=== PATIENT | male | born 1975 | race African-American/Black ===

== ENCOUNTER 2020-04-08 07:38 | Emergency (ER) | payer MEDICARE, BC, OTHER ==
[2020-04-08 07:45] LABS: Glucose,Whole Blood 462 mg/dL (75-99)
[2020-04-08 07:46] VITALS: TEMP 98.1
--- NOTE | 2020-04-08 07:49 | ED ---
Recheck HPI - General Chief Complaint: Recheck/Abnormal Lab/Rx Stated Complaint: Bleeding from port Time Seen by Provider: 04/08/20 07:38 Source: patient, EMS, RN notes reviewed Mode of arrival: EMS Limitations: no limitations - History of Present Illness Initial Comments: This is a 44-year-old male with a history of kidney failure with dialysis, diabetes, hypertension who had dialysis yesterday and states that he's been having some leaking from the IV access site in the left arm fistula. Is no other complaints he was found have elevated blood pressure and glucose he normally takes his medications at around 9:30 AM every morning. He has any feve rs chills nausea vomiting sweats he was concerned about the persistent bleeding. MD Complaint: other - Related Data Home Medications Medication Instructions Recorded Confirmed ALPRAZolam [Xanax] 0.5 mg PO DAILY PRN 11/27/14 11/29/14 Insulin NPH Hum/Reg Insulin Hm 20 unit SQ AC-SUPPER 11/27/14 11/29/14 [humuLIN 70/30 Kwikpen] Insulin NPH Hum/Reg Insulin Hm 32 unit SQ AC-BRKFST 11/27/14 11/29/14 [humuLIN 70/30 Kwikpen] Labetalol [Trandate] 200 mg PO BID 11/27/14 11/29/14 NIFEdipine [Procardia XL] 90 mg PO DAILY 11/27/14 11/29/14 cloNIDine HCL [Catapres] 0.1 mg PO DAILY 11/27/14 11/29/14 lisinopriL [Prinivil] 20 mg PO BID 11/27/14 11/29/14 Allergies Allergy/AdvReac Type Severity Reaction Status Date / Time No Known Allergies Allergy Verified 04/08/20 07:41 Review of Systems ROS Statement: Those systems with pertinent positive or pertinent negative responses have been documented in the HPI. ROS Other: All systems not noted in ROS Statement are negative. Past Medical History Past Medical History: Diabetes Mellitus, Dialysis, Eye Disorder, Hypertension Additional Past Medical History / Comment(s): very poor vision R eye, has diaylsis ,,and thursday. Pt is on a transplant list for kidneys History of Any Multi-Drug Resistant Organisms: None Reported Additional Past Surgical History / Comment(s): eye surgery due to diabetes and thorascopic percardial window 2013 Past Anesthesia/Blood Transfusion Reactions: No Reported Reaction Additional Past Anesthesia/Blood Transfusion Reaction / Comment(s): blood transfusion 2013 Past Psychological History: Anxiety, Depression Smoking Status: Current every day smoker Past Alcohol Use History: Occasional Past Drug Use History: None Reported General Exam - General Exam Comments Initial Comments: This is a well-developed well-nourished awake alert oriented times 3 male Limitations: no limitations General appearance: alert, in no apparent distress Head exam: Present: atraumatic, normocephalic, normal inspection Eye exam: Present: normal appearance, PERRL, EOMI. Absent: scleral icterus, conjunctival injection, periorbital swelling ENT exam: Present: normal exam, mucous membranes moist Neck exam: Present: normal inspection. Absent: tenderness, meningismus, lym phadenopathy Respiratory exam: Present: normal lung sounds bilaterally. Absent: respiratory distress, wheezes, rales, rhonchi, stridor Cardiovascular Exam: Present: regular rate, normal rhythm, normal heart sounds. Absent: systolic murmur, diastolic murmur, rubs, gallop, clicks GI/Abdominal exam: Present: soft, normal bowel sounds. Absent: distended, tenderness, guarding, rebound, rigid Extremities exam: Present: full ROM, normal capillary refill, other (There is a functional fistula left upper extremity with a palpable thrill. Dressing is applied this time. Dressing was removed there is a small area of bruising to the proximal lateral aspect of the fistula. This is persistent bleeding. Distally there is no neurovascular deficits.). Absent: tenderness, pedal edema, joint swelling, calf tenderness Back exam: Present: normal inspection Neurological exam: Present: alert, oriented X3, CN II-XII intact Psychiatric exam: Present: normal affect, normal mood Skin exam: Present: warm, dry, intact, normal color. Absent: rash Course Vital Signs 04/08/20 07:41 Temperature 98.1 F Pulse Rate 96 Respiratory 18 Rate Blood Pressure 215/127 O2 Sat by Pulse 99 Oximetry Procedures - Procedures Initial comment: The patient was noted have a small site at the proximal lateral aspect of the fistula in the left upper extremity. His Gelfoam minus area and the area was wrapped using sterile dressing. Patient did tolerate this well. Medical Decision Making - Medical Decision Making Patient is resting comfortably there is slight amount of the dressing over the Gelfoam was applied firmly to the area. The patient is instructed to keep the dressing on for 24 hours. Return parameters were discussed. - Lab Data Result diagrams: 04/08/20 07:47 Lab Results 04/08/20 04/08/20 04/08/20 Range/Units 07:44 07:47 07:47 WBC 5.7 (3.8-10.6) k/uL RBC 3.98 L (4.30-5.90) m/uL Hgb 10.8 L (13.0-17.5) gm/dL Hct 33.3 L (39.0-53.0) % MCV 83.6 (80.0-100.0) fL MCH 27.2 (25.0-35.0) pg MCHC 32.6 (31.0-37.0) g/dL RDW 18.0 H (11.5-15.5) % Plt Count 142 L (150-450) k/uL Neutrophils % 62 % Lymphocytes % 24 % Monocytes % 7 % Eosinophils % 5 % Basophils % 1 % Neutrophils # 3.5 (1.3-7.7) k/uL Lymphocytes # 1.4 (1.0-4.8) k/uL Monocytes # 0.4 (0-1.0) k/uL Eosinophils # 0.3 (0-0.7) k/uL Basophils # 0.0 (0-0.2) k/uL Anisocytosis Slight PT 10.2 (9.0-12.0) sec INR 1.0 (<1.2) APTT 23.4 (22.0-30.0) sec POC Glucose (mg/dL) 462 H (75-99) mg/dL POC Glu Layout Inspector ID Earlene Beltran Acetone, Qual (Negative) 04/08/20 Range/Units 07:47 WBC (3.8-10.6) k/uL RBC (4.30-5.90) m/uL Hgb (13.0-17.5) gm/dL Hct (39.0-53.0) % MCV (80.0-100.0) fL MCH (25.0-35.0) pg MCHC (31.0-37.0) g/dL RDW (11.5-15.5) % Plt Count (150-450) k/uL Neutrophils % % Lymphocytes % % Monocytes % % Eosinophils % % Basophils % % Neutrophils # (1.3-7.7) k/uL Lymphocytes # (1.0-4.8) k/uL Monocytes # (0-1.0) k/uL Eosinophils # (0-0.7) k/uL Basophils # (0-0.2) k/uL Anisocytosis PT (9.0-12.0) sec INR (<1.2) APTT (22.0-30.0) sec POC Glucose (mg/dL) (75-99) mg/dL POC Glu Layout Inspector ID Acetone, Qual Negative (Negative) Disposition Clinical Impression: Bleeding at insertion site Disposition: HOME SELF-CARE Condition: Good Additional Instructions: Continue with the dressing for 24 hours. Return if bleeding does not stop after this time. Do expect some leakage at this time. Otherwise take her medication follow-up as per usual Is patient prescribed a controlled substance at d/c from ED?: No Referrals: Leonides Zurita MD [Primary Care Provider] - 1-2 days
[2020-04-08 07:56] LABS: Anisocytosis Slight; Basophils % (A) 1 %; Eosinophils # (A) 0.3 k/uL (0-0.7); Eosinophils % (A) 5 %; HCT 33.3 % (39.0-53.0); HGB 10.8 gm/dL (13.0-17.5); Lymphocytes # (A) 1.4 k/uL (1.0-4.8); Lymphocytes % (A) 24 %; MCH 27.2 pg (25.0-35.0); MCHC 32.6 g/dL (31.0-37.0); MCV 83.6 fL (80.0-100.0); Monocytes # (A) 0.4 k/uL (0-1.0); Monocytes % (A) 7 %; Neutrophils # (A) 3.5 k/uL (1.3-7.7); Neutrophils % (A) 62 %; Platelet Count 142 k/uL (150-450); RBC 3.98 m/uL (4.30-5.90); WBC 5.7 k/uL (3.8-10.6)
[2020-04-08] MEDS ORDERED: GELATIN SPONGE,ABSORB (SMALL) 1 EACH SPONGE TOPICAL STA (08:07)
[2020-04-08 08:08] LABS: ALT 13 U/L (4-49); AST 21 U/L (17-59); African American GFR (CKD) 10 (>60 ml/min/1.73 sqM); Albumin 4.4 g/dL (3.5-5.0); Alkaline Phosphatase 77 U/L (38-126); Anion Gap 13 mmol/L; Blood Urea Nitrogen 40 mg/dL (9-20); Calcium 8.8 mg/dL (8.4-10.2); Carbon Dioxide 28 mmol/L (22-30); Chloride 93 mmol/L (98-107); Glucose 484 mg/dL (74-99); Potassium 4.1 mmol/L (3.5-5.1); Sodium 134 mmol/L (137-145); Total Bilirubin 0.8 mg/dL (0.2-1.3); Total Protein 7.4 g/dL (6.3-8.2)
[2020-04-08 08:13] LABS: Non-African American GFR(CKD) 8 (>60 ml/min/1.73 sqM)
[2020-04-08 08:19] LABS: Partial Thromboplastin Time 23.4 sec (22.0-30.0); Prothrombin Time 10.2 sec (9.0-12.0)
[2020-04-08 09:18] VITALS: BP 167/96; PULSE 86; RESP 16
== END 2020-04-08 09:05 | disposition home or self-care (01) ==
LOC: EC 07:38
DX: T82.838A Hemorrhage due to vascular prosthetic devices, implants and grafts, initial encounter (principal); F17.200 Nicotine dependence, unspecified, uncomplicated; E11.65 Type 2 diabetes mellitus with hyperglycemia; I10 Essential (primary) hypertension; Z79.4 Long term (current) use of insulin; Z79.899 Other long term (current) drug therapy; Z99.2 Dependence on renal dialysis
CPT/HCPCS: 36415; 80053; 82009; 85025; 85610; 85730; 99284

== ENCOUNTER 2020-04-08 21:04 | Emergency (ER) | payer MEDICARE, BC, OTHER ==
[2020-04-08 21:53] VITALS: TEMP 97.9
[2020-04-08] MEDS ORDERED: GELATIN SPONGE,ABSORB (SMALL) 1 EACH SPONGE TOPICAL STA (22:25)
[2020-04-08] MEDS ORDERED: TRANEXAMIC ACID 1,000 MG in SODIUM CHLORIDE 0.9% 100 ML IVPB ONE (22:25)
[2020-04-08] MEDS ORDERED: TOPICAL SKIN ADHESIVE 1 EACH AMP TOPICAL ONE (23:32)
[2020-04-08] MEDS ORDERED: clonazePAM 0.5 MG TAB PO STA (23:55)
[2020-04-09] MEDS ORDERED: cloNIDine HCL 0.1 MG TAB PO STA (00:26)
--- NOTE | 2020-04-09 00:49 | ED ---
Recheck HPI - General Chief Complaint: Recheck/Abnormal Lab/Rx Stated Complaint: Port Bleeding Time Seen by Provider: 04/08/20 22:20 Source: patient Mode of arrival: ambulatory Limitations: no limitations - History of Present Illness Initial Comments: Pete is a 44-year-old male with a history of end-stage renal disease on dialysis Thursday, patient attempted his Thursday dialysis and reports after going home he noticed continuous oozing from the dialysis access site. Patient was seen and evaluated in our emergency department earlier today, he had Gelfoam applied to the site and a dressing placed. He was advised that the bleeding soaked the dressing he should return. Patient reports that this evening he noted the bleeding has soaked through the dressing which prompted him to the ER. Patient denies any acute chest pain, palpitations or lightheadedness. - Related Data Home Medications Medication Instructions Recorded Confirmed ALPRAZolam [Xanax] 0.5 mg PO DAILY PRN 11/27/14 11/29/14 Insulin NPH Hum/Reg Insulin Hm 20 unit SQ AC-SUPPER 11/27/14 11/29/14 [humuLIN 70/30 Kwikpen] Insulin NPH Hum/Reg Insulin Hm 32 unit SQ AC-BRKFST 11/27/14 11/29/14 [humuLIN 70/30 Kwikpen] Labetalol [Trandate] 200 mg PO BID 11/27/14 11/29/14 NIFEdipine [Procardia XL] 90 mg PO DAILY 11/27/14 11/29/14 cloNIDine HCL [Catapres] 0.1 mg PO DAILY 11/27/14 11/29/14 lisinopriL [Prinivil] 20 mg PO BID 11/27/14 11/29/14 Allergies Allergy/AdvReac Type Severity Reaction Status Date / Time No Known Allergies Allergy Verified 04/08/20 21:53 Review of Systems ROS Statement: Those systems with pertinent positive or pertinent negative responses have been documented in the HPI. ROS Other: All systems not noted in ROS Statement are negative. Past Medical History Past Medical History: Diabetes Mellitus, Dialysis, Eye Disorder, Hypertension Additional Past Medical History / Comment(s): very poor vision R eye, has diaylsis ,,and thursday. Pt is on a transplant list for kidneys History of Any Multi-Drug Resistant Organisms: None Reported Additional Past Surgical History / Comment(s): eye surgery due to diabetes and thorascopic percardial window 2012 Past Anesthesia/Blood Transfusion Reactions: No Reported Reaction Additional Past Anesthesia/Blood Transfusion Reaction / Comment(s): blood transfusion 2013 Past Psychological History: Anxiety, Depression Smoking Status: Current every day smoker Past Alcohol Use History: Occasional Past Drug Use History: None Reported General Exam - General Exam Comments Initial Comments: Physical Exam GENERAL: Medically ill appearing thin 44-year-old male HENT: Normocephalic, Atraumatic. EYES: PERRL, EOMI PULMONARY: Unlabored respirations. CARDIOVASCULAR: RRR Warm and well perfused extremities Mild venous oozing from dialysis fistula in left upper arm ABDOMEN: Non-distended SKIN: No rashes or bruising : Deferred NEUROLOGIC: Alert and oriented Normal speech Normal gait MUSCULOSKELETAL: Moving all extremities with no apparent injury PSYCHIATRIC: No SI/HI Limitations: no limitations Course Vital Signs 04/08/20 04/08/20 04/09/20 21:47 22:28 00:28 Temperature 97.9 F Pulse Rate 87 86 87 Respiratory 18 19 17 Rate Blood Pressure 211/107 208/111 211/114 O2 Sat by Pulse 100 100 100 Oximetry 04/09/20 00:54 Temperature 97.9 F Pulse Rate 85 Respiratory 16 Rate Blood Pressure 204/108 O2 Sat by Pulse 100 Oximetry Medical Decision Making - Medical Decision Making The patient was seen and evaluated, history is obtained from the patient and review of medical record IV a was obtained patient was given TXA Direct pressure was applied, extending skin adhesive was applied over the pinpoint site of oozing and dressing was applied patient had no further bleeding was discharged home in stable condition Disposition Clinical Impression: Bleeding at insertion site Disposition: HOME SELF-CARE Condition: Stable Additional Instructions: keep dressing in place until dialysis Is patient prescribed a controlled substance at d/c from ED?: No Referrals: Leonides Zurita MD [Primary Care Provider] - 1-2 days
[2020-04-09 00:56] VITALS: BP 204/108; PULSE 85; RESP 16
== END 2020-04-09 01:15 | disposition home or self-care (01) ==
LOC: EC 21:04
DX: T82.838A Hemorrhage due to vascular prosthetic devices, implants and grafts, initial encounter (principal); F17.200 Nicotine dependence, unspecified, uncomplicated; I12.0 Hypertensive chronic kidney disease with stage 5 chronic kidney disease or end stage renal disease; E11.22 Type 2 diabetes mellitus with diabetic chronic kidney disease; N18.6 End stage renal disease; F41.9 Anxiety disorder, unspecified; F32.9 Major depressive disorder, single episode, unspecified; Z79.4 Long term (current) use of insulin; Z79.899 Other long term (current) drug therapy; Z99.2 Dependence on renal dialysis
CPT/HCPCS: 36415; 80053; 82009; 85025; 85610; 85730; 96374; 99283; 99284

== ENCOUNTER 2020-08-07 14:32 | Inpatient (IN) | payer MEDICARE, BC, OTHER ==
[2020-08-07] MEDS ORDERED: hydrALAZINE HCL 20 MG/ML 1 ML VIAL IVP STA (15:21)
[2020-08-07 15:36] LABS: Anisocytosis Slight; Basophils # (A) 0.1 k/uL (0-0.2); Basophils % (A) 1 %; Eosinophils # (A) 0.3 k/uL (0-0.7); Eosinophils % (A) 4 %; HCT 33.1 % (39.0-53.0); HGB 11.7 gm/dL (13.0-17.5); Lymphocytes # (A) 1.4 k/uL (1.0-4.8); Lymphocytes % (A) 18 %; MCH 27.4 pg (25.0-35.0); MCHC 35.3 g/dL (31.0-37.0); MCV 77.7 fL (80.0-100.0); Mean Platelet Volume 8.8; Microcytosis Slight; Monocytes # (A) 0.4 k/uL (0-1.0); Monocytes % (A) 5 %; Neutrophils # (A) 5.6 k/uL (1.3-7.7); Neutrophils % (A) 71 %; Platelet Count 159 k/uL (150-450); RBC 4.26 m/uL (4.30-5.90); RDW 16.7 % (11.5-15.5); WBC 7.8 k/uL (3.8-10.6)
--- NOTE | 2020-08-07 15:43 | ED ---
General Adult HPI - General Chief complaint: Recheck/Abnormal Lab/Rx Stated complaint: Hypertension Time Seen by Provider: 08/07/20 14:45 Source: patient, EMS Mode of arrival: EMS Limitations: no limitations - History of Present Illness Initial comments: Patient is a 44-year-old male with past medical history of diabetes, hypertension, end-stage renal disease on hemodialysis Thursday, and Thursday presents emergency room from dialysis. Patient states that since [place] he has been feeling presyncopal and ataxic. He went to dialysis today and throughout the course of his treatment he continued to have persistent hypertension. He reports that usually he will go into dialysis with high blood pressure and it will resolve while he is there. Patient denies any headaches or visual changes. No chest pain. He had mild shortness of breath which reports improvement after dialysis today. Because of his persistent hypertension they sent him into the emergency room for further evaluation. Patient did take his blood pressure medication today - Related Data Home Medications Medication Instructions Recorded Confirmed Insulin NPH Hum/Reg Insulin Hm 15 unit SQ AC-BID 11/27/14 08/07/20 [humuLIN 70/30 Kwikpen] Labetalol [Trandate] 400 mg PO TID 11/27/14 08/07/20 cloNIDine HCL [Catapres] 0.2 mg PO TID 11/27/14 08/07/20 Calcium Acetate 2,001 mg PO TID 08/07/20 08/07/20 Isosorbide Mononitrate ER [Imdur] 120 mg PO DAILY 08/07/20 08/07/20 Maggie-Arpit 1 tab PO DAILY 08/07/20 08/07/20 hydrALAZINE HCL [Apresoline] 100 mg PO TID 08/07/20 08/07/20 Allergies Allergy/AdvReac Type Severity Reaction Status Date / Time No Known Allergies Allergy Verified 08/07/20 16:05 Review of Systems ROS Statement: Those systems with pertinent positive or pertinent negative responses have been documented in the HPI. ROS Other: All systems not noted in ROS Statement are negative. Past Medical History Past Medical History: Diabetes Mellitus, Dialysis, Eye Disorder, Hypertension Additional Past Medical History / Comment(s): very poor vision R eye, has diaylsis ,,and thursday. Pt is on a transplant list for kidneys History of Any Multi-Drug Resistant Organisms: None Reported Past Surgical History: No Surgical Hx Reported Additional Past Surgical History / Comment(s): eye surgery due to diabetes and thorascopic percardial window 2012 Past Anesthesia/Blood Transfusion Reactions: No Reported Reaction Additional Past Anesthesia/Blood Transfusion Reaction / Comment(s): blood transfusion 2012 Past Psychological History: Anxiety, Depression Smoking Status: Former smoker Past Alcohol Use History: Occasional Past Drug Use History: None Reported - Past Family History Father Family Medical History: Renal Disease Mother History Unknown: Yes General Exam Limitations: no limitations General appearance: alert, in no apparent distress Head exam: Present: atraumatic, normocephalic, normal inspection Eye exam: Present: normal appearance, PERRL, EOMI. Absent: scleral icterus, conjunctival injection, periorbital swelling ENT exam: Present: normal exam, mucous membranes moist Neck exam: Present: normal inspection. Absent: tenderness, meningismus, lymphadenopathy Respiratory exam: Present: normal lung sounds bilaterally. Absent: respiratory distress, wheezes, rales, rhonchi, stridor Cardiovascular Exam: Present: regular rate, normal rhythm, normal heart sounds. Absent: systolic murmur, diastolic murmur, rubs, gallop, clicks GI/Abdominal exam: Present: soft, normal bowel sounds. Absent: distended, tenderness, guarding, rebound, rigid Extremities exam: Present: normal inspection, full ROM, normal capillary refill. Absent: tenderness, pedal edema, joint swelling, calf tenderness Back exam: Present: normal inspection Neurological exam: Present: alert, oriented X3, CN II-XII intact Psychiatric exam: Present: normal affect, normal mood Skin exam: Present: warm, dry, intact, normal color. 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 ] Respiratory 18 18 18 Rate Blood Pressure 223/121 Blood Pressure 213/114 [Right Arm Sitting] Blood Pressure [Right Arm Standing] Blood Pressure 206/105 [Right Arm Supine] O2 Sat by Pulse 99 97 98 Oximetry 08/07/20 08/07/20 08/07/20 15:46 16:00 17:55 Temperature 98.2 F Pulse Rate 88 88 Pulse Rate [ 92 Senior Software Architect ] Respiratory 18 18 18 Rate Blood Pressure 210/112 210/112 Blood Pressure [Right Arm Sitting] Blood Pressure 200/103 [Right Arm Standing] Blood Pressure [Right Arm Supine] O2 Sat by Pulse 97 96 96 Oximetry EKG Findings - EKG Comments: EKG Findings:: EKG demonstrates normal sinus rhythm with ventricular rate of 95. MN interval 156. QRS 14. QTC of 525. Baseline artifact. No acute ST segment elevations or depressions Medical Decision Making - Medical Decision Making Upon arrival the patient is placed in room 10. Thrusting physical exam was performed. Peripheral IV is established. Patient was given 20 g of hydralazine. Laboratory studies are conducted which demonstrates a creatinine of 4.43. Glucose 328. Troponin 0.161. Patient is sent over for CT of his brain due to his reported ataxia and hypertension which demonstrates no acute hemorrhage mass effect or midline shift. Chest x-ray demonstrates CHF exacerbation. Patient is reevaluated and blood pressure has been improved. Patient's home medications are ordered. Clonidine and labetalol to be administered now. Due to the patient's hypertensive urgency and concerning need for dialysis 2 days in a row, I will consult Dr. Page. Spoke with Shelia from [facility] who agreed to admit the patient. Patient remained in stable condition awaiting a bed - Lab Data Result diagrams: 08/09/20 07:22 08/09/20 07:22 Lab Results 08/07/20 08/07/20 08/07/20 Range/Units 15:25 15:25 15:25 WBC 7.8 (3.8-10.6) k/uL RBC 4.26 L (4.30-5.90) m/uL Hgb 11.7 L (13.0-17.5) gm/dL Hct 33.1 L (39.0-53.0) % MCV 77.7 L (80.0-100.0) fL MCH 27.4 (25.0-35.0) pg MCHC 35.3 (31.0-37.0) g/dL RDW 16.7 H (11.5-15.5) % Plt Count 159 (150-450) k/uL MPV 8.8 Neutrophils % 71 % Lymphocytes % 18 % Monocytes % 5 % Eosinophils % 4 % Basophils % 1 % Neutrophils # 5.6 (1.3-7.7) k/uL Lymphocytes # 1.4 (1.0-4.8) k/uL Monocytes # 0.4 (0-1.0) k/uL Eosinophils # 0.3 (0-0.7) k/uL Basophils # 0.1 (0-0.2) k/uL Anisocytosis Slight Microcytosis Slight PT 10.1 (9.0-12.0) sec INR 1.0 (<1.2) Sodium 137 (137-145) mmol/L Potassium 3.6 (3.5-5.1) mmol/L Chloride 94 L (98-107) mmol/L Carbon Dioxide 30 (22-30) mmol/L Anion Gap 13 mmol/L BUN 20 (9-20) mg/dL Creatinine 4.43 H (0.66-1.25) mg/dL Est GFR (CKD-EPI)AfAm 17 (>60 ml/min/1.73 sqM) Est GFR (CKD-EPI)NonAf 15 (>60 ml/min/1.73 sqM) Glucose 328 H (74-99) mg/dL Calcium 9.6 (8.4-10.2) mg/dL Total Bilirubin 1.0 (0.2-1.3) mg/dL AST 27 (17-59) U/L ALT 20 (4-49) U/L Alkaline Phosphatase 93 (38-126) U/L Troponin I (0.000-0.034) ng/mL Total Protein 8.0 (6.3-8.2) g/dL Albumin 4.7 (3.5-5.0) g/dL 08/07/20 Range/Units 15:25 WBC (3.8-10.6) k/uL RBC (4.30-5.90) m/uL Hgb (13.0-17.5) gm/dL Hct (39.0-53.0) % MCV (80.0-100.0) fL MCH (25.0-35.0) pg MCHC (31.0-37.0) g/dL RDW (11.5-15.5) % Plt Count (150-450) k/uL MPV Neutrophils % % Lymphocytes % % Monocytes % % Eosinophils % % Basophils % % Neutrophils # (1.3-7.7) k/uL Lymphocytes # (1.0-4.8) k/uL Monocytes # (0-1.0) k/uL Eosinophils # (0-0.7) k/uL Basophils # (0-0.2) k/uL Anisocytosis Microcytosis PT (9.0-12.0) sec INR (<1.2) Sodium (137-145) mmol/L Potassium (3.5-5.1) mmol/L Chloride (98-107) mmol/L Carbon Dioxide (22-30) mmol/L Anion Gap mmol/L BUN (9-20) mg/dL Creatinine (0.66-1.25) mg/dL Est GFR (CKD-EPI)AfAm (>60 ml/min/1.73 sqM) Est GFR (CKD-EPI)NonAf (>60 ml/min/1.73 sqM) Glucose (74-99) mg/dL Calcium (8.4-10.2) mg/dL Total Bilirubin (0.2-1.3) mg/dL AST (17-59) U/L ALT (4-49) U/L Alkaline Phosphatase (38-126) U/L Troponin I 0.161 H* (0.000-0.034) ng/mL Total Protein (6.3-8.2) g/dL Albumin (3.5-5.0) g/dL Disposition Clinical Impression: Hypertension, End stage renal disease, Ataxia Disposition: ADMITTED IP TO THIS [facility] Condition: Stable Is patient prescribed a controlled substance at d/c from ED?: No Decision to Admit Reason: Admit from EC Decision Date: 08/07/20 Decision Time: 17:09
[2020-08-07 15:45] LABS: Prothrombin Time 10.1 sec (9.0-12.0)
[2020-08-07 15:49] LABS: Albumin 4.7 g/dL (3.5-5.0); Calcium 9.6 mg/dL (8.4-10.2); Potassium 3.6 mmol/L (3.5-5.1)
--- NOTE | 2020-08-07 15:49 | CT ---
EXAMINATION TYPE: CT brain wo con DATE OF EXAM: 08/07/2020 COMPARISON: None. HISTORY: Hypertension, difficulty ambulating. CT DLP: 1035.4 mGycm. Automated Exposure Control for Dose Reduction was Utilized. TECHNIQUE: CT scan of the head is performed without contrast. FINDINGS: There is no acute intracranial hemorrhage, mass effect, or midline shift identified. The ventricles and sulci are within normal limits in size. Rahman-white matter differentiation is maintai mikel. The visualized sinuses are clear. Hyperdense ovoid material bilateral globes presumed product of congenital insult or long-standing blindness. Correlate clinically. IMPRESSION: As above.
--- NOTE | 2020-08-07 15:50 | XR ---
EXAMINATION TYPE: XR chest 2V DATE OF EXAM: 08/07/2020 COMPARISON: Chest x-ray March 11, 2013 HISTORY: Hypertension today during dialysis. Shortness of breath. TECHNIQUE: Frontal and lateral views of the chest are obtained. FINDINGS: Persistent cardiomegaly. Increased central opacities bilaterally with mild interstitial edema in the left mid lung laterally. Small to tiny left pleural effusion The osseous structures are intact. IMPRESSION: Suspect CHF exacerbation or fluid overload state as there is cardiomegaly with small to tiny left pleural effusion, bilateral central alveolar edema and mild left-sided interstitial edema.
[2020-08-07] MEDS ORDERED: NALOXONE 0.4 MG/ML 1 ML VIAL IV PRN (17:10)
[2020-08-07] MEDS: cloNIDine HCL 0.2 MG TAB PO SCH ×2 (17:37→20:54)
[2020-08-07] MEDS: LABETALOL 200 MG TAB PO SCH ×2 (17:41→22:30)
[2020-08-07] MEDS: INSULN ASP PRT/INSULIN ASPART 100 UNIT/ML 10 ML VIAL SQ SCH (17:51)
[2020-08-07 17:57] LABS: Glucose,Whole Blood 350 mg/dL (75-99)
[2020-08-07 20:18] LABS: Glucose,Whole Blood 244 mg/dL (75-99)
[2020-08-07] MEDS: hydrALAZINE HCL 50 MG TAB PO SCH (20:54)
[2020-08-07] MEDS: CALCIUM ACETATE 667 MG TAB PO SCH (20:54)
[2020-08-07] MEDS: INSULIN ASPART (NovoLOG) 100 UNIT/ML VIAL SQ SCH (20:55)
[2020-08-08 00:45] LABS: Glucose,Whole Blood 134 mg/dL (75-99)
[2020-08-08] MEDS ORDERED: hydrALAZINE HCL 20 MG/ML 1 ML VIAL IVP PRN (02:08)
[2020-08-08] MEDS ORDERED: DEXTROSE 50% SYRINGE 50 ML IVP STA (02:08)
[2020-08-08 02:10] LABS: Glucose,Whole Blood 69 mg/dL (75-99)
[2020-08-08 02:32] LABS: Glucose,Whole Blood 66 mg/dL (75-99)
[2020-08-08 02:43] LABS: Glucose,Whole Blood 196 mg/dL (75-99)
[2020-08-08 06:11] LABS: Glucose,Whole Blood 117 mg/dL (75-99)
[2020-08-08] MEDS: INSULIN ASPART (NovoLOG) 100 UNIT/ML VIAL SQ SCH ×5 (06:15→20:54)
[2020-08-08 07:38] LABS: Glucose,Whole Blood 124 mg/dL (75-99)
[2020-08-08 07:42] LABS: Anisocytosis Slight; Basophils # (A) 0.1 k/uL (0-0.2); Basophils % (A) 2 %; Eosinophils # (A) 0.2 k/uL (0-0.7); Eosinophils % (A) 3 %; HCT 37.7 % (39.0-53.0); HGB 12.9 gm/dL (13.0-17.5); Lymphocytes # (A) 1.6 k/uL (1.0-4.8); Lymphocytes % (A) 21 %; MCH 27.4 pg (25.0-35.0); MCHC 34.2 g/dL (31.0-37.0); Mean Platelet Volume 9.3; Microcytosis Slight; Monocytes # (A) 0.5 k/uL (0-1.0); Monocytes % (A) 7 %; Neutrophils # (A) 4.9 k/uL (1.3-7.7); Neutrophils % (A) 66 %; Platelet Count 192 k/uL (150-450); RBC 4.71 m/uL (4.30-5.90); RDW 16.8 % (11.5-15.5); WBC 7.5 k/uL (3.8-10.6)
[2020-08-08] MEDS: INSULN ASP PRT/INSULIN ASPART 100 UNIT/ML 10 ML VIAL SQ SCH (07:54)
[2020-08-08 07:56] LABS: Potassium 4.2 mmol/L (3.5-5.1)
[2020-08-08] MEDS: CALCIUM ACETATE 667 MG TAB PO SCH ×3 (08:45→20:52)
[2020-08-08] MEDS: ISOSORBIDE MONONITRATE ER 60 MG TAB.ER.24H PO SCH (08:46)
[2020-08-08] MEDS: LABETALOL 200 MG TAB PO SCH ×3 (08:46→22:18)
[2020-08-08] MEDS: hydrALAZINE HCL 50 MG TAB PO SCH ×3 (08:46→20:53)
[2020-08-08] MEDS: cloNIDine HCL 0.2 MG TAB PO SCH ×3 (08:46→20:53)
[2020-08-08] MEDS: NON FORMULARY DRUG (Rena-Vite 1 TAB) PO SCH (08:47)
[2020-08-08 11:40] LABS: Glucose,Whole Blood 428 mg/dL (75-99)
[2020-08-08] MEDS ORDERED: diphenhydrAMINE 50 MG/ML 1 ML VIAL IVP STA (13:15)
[2020-08-08] MEDS ORDERED: diphenhydrAMINE 50 MG/ML 1 ML VIAL IVP PRN (13:15)
--- NOTE | 2020-08-08 14:48 | CONS ---
CONSULTATION REASON FOR CONSULT: End-stage renal disease. HISTORY OF PRESENT ILLNESS: Patient is a 44-year-old male with history of end-stage renal disease, on hemodialysis on a Thursday, , Thursday schedule. Patient was admitted to the hospital with complaints of shortness of breath, dizziness. His blood pressure was significantly elevated yesterday after dialysis. The patient states that he ran out of his blood pressure medications and they could not be filled due to the holidays. I am not sure about the details regarding that. There has been history of noncompliance with the patient regarding his antihypertensive medications as outpatient. On admission, patient was noted to be in volume overload with evidence of CHF noted on chest x-ray. His blood pressure remains elevated and he is scheduled for an extra treatment of hemodialysis today. No history of fever or chills. No cough. No abdominal pain. No nausea or vomiting. PAST MEDICAL HISTORY: End-stage renal disease, hypertension, diabetes, CKD mineral bone disorder, history of retinopathy and patient is legally blind. PAST SURGICAL HISTORY: Multiple eye surgeries, AV fistula, history of pericardiocentesis for pericardial effusion many years ago. SOCIAL HISTORY: Patient is a former smoker. No history of drug abuse or alcohol abuse. MEDICATIONS: Medications prior to admission included clonidine, PhosLo, Trandate, insulin, Imdur, hydralazine. ALLERGIES: None. REVIEW OF SYSTEMS: As per HPI. Other systems negative. PHYSICAL EXAMINATION: Patient is comfortable, awake. He is not in any acute distress. Blood pressure 170/86, heart rate 92 per minute. He is afebrile. EXAMINATION OF THE HEART: S1, S2. EXAMINATION OF THE LUNGS: Decreased breath sounds at bases. Bilateral basal crackles are heard. Abdomen is soft, nontender. Examination of lower extremities shows 1+ edema bilaterally. SOFTWARE APPLICATIONS ARCHITECT exam is grossly intact. LABS: Labs show hemoglobin 12.9, white cell count 7.5, sodium 137, potassium 4.2, creatinine 7.0, calcium 10.0. ASSESSMENT: 1. End-stage renal disease, on hemodialysis on a Thursday, , Thursday schedule. 2. Volume overload. Patient will be scheduled for extra treatment today. 3. Hypertension, uncontrolled partly secondary to volume overload and partly from the patient not having antihypertensive medications at home. Expect improvement post dialysis today. We will resume all his home medications. 4. Chronic kidney disease mineral bone disorder. Resume PhosLo. PLAN: Hemodialysis today and then again in a.m. Possible discharge later today or tomorrow. SY / AARTIN: [id number] /
[2020-08-08 15:35] LABS: Glucose,Whole Blood 72 mg/dL (75-99)
[2020-08-08 16:05] LABS: Hemoglobin A1C 15.7 % (4.0-6.0)
[2020-08-08 16:24] LABS: Glucose,Whole Blood 184 mg/dL (75-99)
[2020-08-08 20:14] LABS: Glucose,Whole Blood 204 mg/dL (75-99)
[2020-08-08] MEDS ORDERED: INSULIN DETEMIR (LEVEMIR) 100 UNIT/ML SYR SQ SCH (21:00)
--- NOTE | 2020-08-08 22:38 | P.HPIM ---
History of Present Illness H&P Date: 08/08/20 Chief Complaint: Near syncope Patient is a 44-year-old male with a known history of hypertension, diabetes type 2 insulin-dependent and noncompliance with medications and also right eye visual loss and ESRD on hemodialysis, anxiety/depression and previous history of smoker presents to ER with complaints of wobbling and presyncopal episode. Patient states that he went to dialysis and over the course of his treatment he continued to have persistent hypotension. Denied any headache or visual changes. No chest pain. Patient did have shortness of breath but improved with dialysis today. Patient was sent to ER due to hypotensive urgency. On admission blood pressure was 223/121 and respiration 18 and pulse is 97 pulse ox 99% on room air Chest x-ray showed suspect CHF exacerbation or fluid overload as there is cardiomegaly with small to tiny left pleural effusion, bilateral central alveolar edema and mild left-sided interstitial edema CT brain showed no acute intracranial process. EKG showed normal sinus rhythm Laboratory data showed WBC 7.8, hemoglobin 11.7 and platelets 159 BUN 20 and creatinine 4.43 Troponin 0 0.161, 0.171 and 0.161 and blood sugar is 350 on admission Review of Systems Constitutional: Patient denies any fever or chills . No generalized weakness or weight loss. Abdomen: Patient denied nausea vomiting and diarrhea and abdominal pain. Cardiovascular: Patient denies any chest pain or short of breath no palp itations. Respiratory: patient denied any cough or sputum production. No shortness of breath Neurologic: Patient denied any numbness or tingling headache.Wobbling gait and near syncope. Musculoskeletal: Patient denies any complaints of joint swelling or deformity. Skin: Negative Psychiatric: Negative Endocrine: No heat or cold intolerance. No recent weight gain. Genitourinary: No dysuria or hematuria. All other 14 point ROS negative except the above Past Medical History Past Medical History: Diabetes Mellitus, Dialysis, Eye Disorder, Hypertension Additional Past Medical History / Comment(s): very poor vision R eye, has diaylsis ,,and thursday. Pt is on a transplant list for kidneys History of Any Multi-Drug Resistant Organisms: None Reported Past Surgical History: No Surgical Hx Reported Additional Past Surgical History / Comment(s): eye surgery due to diabetes and thorascopic percardial window 2012 Past Anesthesia/Blood Transfusion Reactions: No Reported Reaction Additional Past Anesthesia/Blood Transfusion Reaction / Comment(s): blood transfusion 2013 Past Psychological History: Anxiety, Depression Smoking Status: Former smoker Past Alcohol Use History: Occasional Past Drug Use History: None Reported - Past Family History Father Family Medical History: Renal Disease Mother History Unknown: Yes Medications and Allergies Home Medications Medication Instructions Recorded Confirmed Type Insulin NPH Hum/Reg Insulin Hm 15 unit SQ AC-BID 11/27/14 08/07/20 History [humuLIN 70/30 Kwikpen] Labetalol [Trandate] 400 mg PO TID 11/27/14 08/07/20 History cloNIDine HCL [Catapres] 0.2 mg PO TID 11/27/14 08/07/20 History Calcium Acetate 2,001 mg PO TID 08/07/20 08/07/20 History Isosorbide Mononitrate ER [Imdur] 120 mg PO DAILY 08/07/20 08/07/20 History Maggie-Arpit 1 tab PO DAILY 08/07/20 08/07/20 History hydrALAZINE HCL [Apresoline] 100 mg PO TID 08/07/20 08/07/20 History Allergies Allergy/AdvReac Type Severity Reaction Status Date / Time No Known Allergies Allergy Verified 08/07/20 16:05 Physical Exam Vitals: Vital Signs Temp Pulse Pulse Resp BP BP BP 08/08/20 12:00 08/08/20 08:00 97.5 F L 92 170/86 08/08/20 03:00 97.8 F 87 16 163/86 08/08/20 02:00 94 16 211/112 08/07/20 23:13 97.7 F 89 16 168/92 08/07/20 20:00 86 18 08/07/20 19:39 97.9 F 86 18 168/90 08/07/20 18:15 87 194/99 08/07/20 17:55 98.2 F 88 18 210/112 08/07/20 16:00 88 18 210/112 08/07/20 15:46 92 18 200/103 08/07/20 15:44 92 18 213/114 08/07/20 15:43 90 18 BP Pulse Ox 08/08/20 12:00 140/84 08/08/20 08:00 98 08/08/20 03:00 96 08/08/20 02:00 08/07/20 23:13 97 08/07/20 20:00 08/07/20 19:39 100 08/07/20 18:15 94 L 08/07/20 17:55 96 08/07/20 16:00 96 08/07/20 15:46 97 08/07/20 15:44 98 08/07/20 15:43 206/105 97 Intake and Output 08/08/20 08/08/20 08/08/20 06:59 14:59 22:59 Intake Total 540 800 Balance 540 800 Intake: Oral 540 800 Other: # Voids 0 1 Weight 67.8 kg PHYSICAL EXAMINATION: Patient is lying in the bed comfortably, no acute distress, awake alert and oriented.. HEENT: Normocephalic. Neck is supple. Pupils reactive. Nostrils clear. Oral cavity is moist. Ears reveal no drainage. Neck reveals no JVD, carotid bruits, or thyromegaly. CHEST EXAMINATION: Trachea is central. Symmetrical expansion. Bibasilar diminished air entry. CARDIAC: Normal S1, S2 with no gallops. No murmurs ABDOMEN: Soft. Bowel sounds normal. No organomegaly. No abdominal bruits. Extremities: reveal no edema. No clubbing or cyanosis Neurologically awake, alert, oriented x3 with well-coordinated movements. No focal deficits noted Skin: No rash or skin lesions. Psychiatric: Coperative. Nonsuicidal Musculoskeletal: No joint swelling or deformity. Normal range of motion. Results CBC & Chem 7: 08/08/20 07:16 08/08/20 07:16 Labs: Abnormal Lab Results - Last 24 Hours (Table) 08/07/20 08/07/20 08/07/20 Range/Units 15:25 15:25 15:25 RBC 4.26 L (4.30-5.90) m/uL Hgb 11.7 L (13.0-17.5) gm/dL Hct 33.1 L (39.0-53.0) % MCV 77.7 L (80.0-100.0) fL RDW 16.7 H (11.5-15.5) % Chloride 94 L (98-107) mmol/L Carbon Dioxide (22-30) mmol/L BUN (9-20) mg/dL Creatinine 4.43 H (0.66-1.25) mg/dL Glucose 328 H (74-99) mg/dL POC Glucose (mg/dL) (75-99) mg/dL Troponin I 0.161 H* (0.000-0.034) ng/mL 08/07/20 08/07/20 08/07/20 Range/Units 17:47 18:33 20:17 RBC (4.30-5.90) m/uL Hgb (13.0-17.5) gm/dL Hct (39.0-53.0) % MCV (80.0-100.0) fL RDW (11.5-15.5) % Chloride (98-107) mmol/L Carbon Dioxide (22-30) mmol/L BUN (9-20) mg/dL Creatinine (0.66-1.25) mg/dL Glucose (74-99) mg/dL POC Glucose (mg/dL) 350 H 244 H (75-99) mg/dL Troponin I 0.171 H* (0.000-0.034) ng/mL 08/07/20 08/08/20 08/08/20 Range/Units 21:21 00:44 02:00 RBC (4.30-5.90) m/uL Hgb (13.0-17.5) gm/dL Hct (39.0-53.0) % MCV (80.0-100.0) fL RDW (11.5-15.5) % Chloride (98-107) mmol/L Carbon Dioxide (22-30) mmol/L BUN (9-20) mg/dL Creatinine (0.66-1.25) mg/dL Glucose (74-99) mg/dL POC Glucose (mg/dL) 134 H 69 L (75-99) mg/dL Troponin I 0.161 H* (0.000-0.034) ng/mL 08/08/20 08/08/20 08/08/20 Range/Units 02:17 02:34 06:09 RBC (4.30-5.90) m/uL Hgb (13.0-17.5) gm/dL Hct (39.0-53.0) % MCV (80.0-100.0) fL RDW (11.5-15.5) % Chloride (98-107) mmol/L Carbon Dioxide (22-30) mmol/L BUN (9-20) mg/dL Creatinine (0.66-1.25) mg/dL Glucose (74-99) mg/dL POC Glucose (mg/dL) 66 L 196 H 117 H (75-99) mg/dL Troponin I (0.000-0.034) ng/mL 08/08/20 08/08/20 08/08/20 Range/Units 07:16 07:16 07:37 RBC (4.30-5.90) m/uL Hgb 12.9 L (13.0-17.5) gm/dL Hct 37.7 L (39.0-53.0) % MCV (80.0-100.0) fL RDW 16.8 H (11.5-15.5) % Chloride 92 L (98-107) mmol/L Carbon Dioxide 35 H (22-30) mmol/L BUN 39 H (9-20) mg/dL Creatinine 7.08 H* (0.66-1.25) mg/dL Glucose (74-99) mg/dL POC Glucose (mg/dL) 124 H (75-99) mg/dL Troponin I (0.000-0.034) ng/mL 08/08/20 Range/Units 11:38 RBC (4.30-5.90) m/uL Hgb (13.0-17.5) gm/dL Hct (39.0-53.0) % MCV (80.0-100.0) fL RDW (11.5-15.5) % Chloride (98-107) mmol/L Carbon Dioxide (22-30) mmol/L BUN (9-20) mg/dL Creatinine (0.66-1.25) mg/dL Glucose (74-99) mg/dL POC Glucose (mg/dL) 428 H (75-99) mg/dL Troponin I (0.000-0.034) ng/mL Thrombosis Risk Factor Assmnt - DVT/VTE Prophylaxis DVT/VTE Prophylaxis: Pharmacologic Prophylaxis ordered - Choose All That Apply Each Factor Represents 1 point: Age 41-60 years Thrombosis Risk Factor Assessment Total Risk Factor Score: 1 Thrombosis Risk Factor Assessment Level: Low Risk Assessment and Plan Assessment: Hypertensive emergency with volume overload and slightly elevated troponin level ESRD on hemodialysis Volume overload Hyperglycemia with uncontrolled diabetes type 2 with A1c level 15.7 Noncompliance medications DVT prophylaxis with heparin subcu Right eye completed vision loss and was recommended enucleation at [facility]. Plan: Patient will be continued on hemodialysis as per nephrology recommendations. Patient underwent hemodialysis today with improvement in blood pressure and shortness of breath and patient feels better compared to yesterday. Blood sugar is elevated and was started back on insulin regimen. Patient takes insulin 70/30 15 units twice daily at home but is not taking currently. Titrate dose as needed. Troponin levels are trending down. No complaints of chest pain or EKG changes. Continue to follow closely and further recommendations based on the clinical course. Nephrology is on board. Time with Patient: Greater than 30
[2020-08-08] MEDS: HEPARIN SODIUM,PORCINE 5,000 UNIT/ML 1 ML VIAL SQ SCH (23:06)
[2020-08-08 23:53] VITALS: RESP 18
[2020-08-09 02:00] LABS: Glucose,Whole Blood 203 mg/dL (75-99)
[2020-08-09 06:58] LABS: Glucose,Whole Blood 274 mg/dL (75-99)
[2020-08-09] MEDS: INSULIN ASPART (NovoLOG) 100 UNIT/ML VIAL SQ SCH ×4 (07:10→12:27)
[2020-08-09 08:05] LABS: Anisocytosis Slight; Basophils # (A) 0.1 k/uL (0-0.2); Basophils % (A) 1 %; Eosinophils # (A) 0.2 k/uL (0-0.7); Eosinophils % (A) 2 %; HCT 35.1 % (39.0-53.0); HGB 11.9 gm/dL (13.0-17.5); Lymphocytes # (A) 1.6 k/uL (1.0-4.8); Lymphocytes % (A) 22 %; MCH 26.9 pg (25.0-35.0); MCHC 33.8 g/dL (31.0-37.0); MCV 79.5 fL (80.0-100.0); Mean Platelet Volume 9.2; Microcytosis Slight; Monocytes # (A) 0.6 k/uL (0-1.0); Monocytes % (A) 8 %; Neutrophils # (A) 4.7 k/uL (1.3-7.7); Neutrophils % (A) 65 %; Platelet Count 178 k/uL (150-450); RBC 4.41 m/uL (4.30-5.90); RDW 16.8 % (11.5-15.5); WBC 7.3 k/uL (3.8-10.6)
[2020-08-09 08:30] LABS: Calcium 9.6 mg/dL (8.4-10.2); Phosphorus 4.7 mg/dL (2.5-4.5); Potassium 4.7 mmol/L (3.5-5.1)
[2020-08-09] MEDS: NON FORMULARY DRUG (Rena-Vite 1 TAB) PO SCH (09:13)
[2020-08-09 11:19] VITALS: TEMP 97.6
[2020-08-09 11:52] LABS: Glucose,Whole Blood 186 mg/dL (75-99)
[2020-08-09] MEDS: cloNIDine HCL 0.2 MG TAB PO SCH (12:27)
[2020-08-09] MEDS: CALCIUM ACETATE 667 MG TAB PO SCH (12:27)
[2020-08-09] MEDS: ISOSORBIDE MONONITRATE ER 60 MG TAB.ER.24H PO SCH (12:27)
[2020-08-09] MEDS: HEPARIN SODIUM,PORCINE 5,000 UNIT/ML 1 ML VIAL SQ SCH (12:28)
[2020-08-09] MEDS: hydrALAZINE HCL 50 MG TAB PO SCH (12:28)
[2020-08-09] MEDS: LABETALOL 200 MG TAB PO SCH (12:30)
[2020-08-09 12:47] VITALS: BP 164/95; PULSE 86
[2020-08-09 13:20] VITALS: BMI 21.7
--- NOTE | 2020-08-09 14:43 | PN ---
PROGRESS NOTE Patient is seen for followup for end-stage renal disease. He is currently seen on hemodialysis. Patient is tolerating his treatment well. We are going for about 3 L of fluid removal today. Yesterday we had about 3.5 L. Blood pressure has improved significantly. PHYSICAL EXAMINATION: On examination today, blood pressure was 148/87, heart rate 89 per minute, he is afebrile. Examination shows no evidence of edema bilateral lower extremities. Abdomen is soft nontender. MOTION GRAPHICS ARTIST exam grossly intact. Patient is legally blind. LABS: Show potassium 4.7, BUN 45, creatinine 7.17, hemoglobin 11.9 g/dL. ASSESSMENT: 1. End-stage renal disease, on hemodialysis on a Thursday, , Thursday schedule. The patient had an extra treatment yesterday. His volume status has improved. He could be discharged from nephrology standpoint. 2. Volume overload, now improved with extra hemodialysis and ultrafiltration. 3. Hypertension, uncontrolled, partly volume sensitive, currently improved. 4. Chronic kidney disease mineral bone disorder. 5. History of noncompliance with medications partly secondary to patient not being able to see and he was also out of medications prior to admission. These issues are being addressed. PLAN: Patient can be discharged from nephrology standpoint post dialysis today. MMODL / IJN: [id number] /
== END 2020-08-09 15:00 | disposition home health service (06) | DRG 304 ==
LOC: EC 14:32 → 3SCARD 17:10
PROVIDERS: ADMIT Hospitalist; ATTEND Hospitalist
PROC: 5A1D70Z Performance of Urinary Filtration, Intermittent, Less than 6 Hours Per Day (ICD-10-PCS; principal; 2020-08-08)
DX: I16.0 Hypertensive urgency (principal); N18.6 End stage renal disease; E11.22 Type 2 diabetes mellitus with diabetic chronic kidney disease; E11.39 Type 2 diabetes mellitus with other diabetic ophthalmic complication; E11.65 Type 2 diabetes mellitus with hyperglycemia; Z99.2 Dependence on renal dialysis; Z79.4 Long term (current) use of insulin; E87.70 Fluid overload, unspecified; R77.8 Other specified abnormalities of plasma proteins; R27.0 Ataxia, unspecified; E83.89 Other disorders of mineral metabolism; E11.319 Type 2 diabetes mellitus with unspecified diabetic retinopathy without macular edema; I12.0 Hypertensive chronic kidney disease with stage 5 chronic kidney disease or end stage renal disease; R55 Syncope and collapse; E83.9 Disorder of mineral metabolism, unspecified; H54.61 Unqualified visual loss, right eye, normal vision left eye; F32.9 Major depressive disorder, single episode, unspecified; F41.9 Anxiety disorder, unspecified; Z91.19 Patient's noncompliance with other medical treatment and regimen; Z76.82 Awaiting organ transplant status; Z79.899 Other long term (current) drug therapy; Z87.891 Personal history of nicotine dependence; Z91.14 Patient's other noncompliance with medication regimen
CPT/HCPCS: 36415; 70450; 71046; 80048; 80053; 83036; 84100; 84484; 85025; 85610; 90935; 93005; 96374; 99285

== ENCOUNTER 2020-11-06 15:21 | Inpatient (IN) | payer MEDICARE, BC, OTHER ==
[2020-11-06 15:39] LABS: Glucose,Whole Blood 522 mg/dL (75-99)
[2020-11-06] MEDS ORDERED: ONDANSETRON 4 MG/2 ML VIAL IVP STA (16:12)
[2020-11-06] MEDS ORDERED: SODIUM CHLORIDE 0.9% 1,000 ML IV STA (16:12)
--- NOTE | 2020-11-06 16:16 | ED ---
General Adult HPI - General Chief complaint: Recheck/Abnormal Lab/Rx Stated complaint: elevated blood sugar Time Seen by Provider: 11/06/20 15:38 Source: patient, EMS, RN notes reviewed Mode of arrival: EMS Limitations: no limitations - History of Present Illness Initial comments: Patient is a pleasant 44-year-old male presenting to the emergency department with concerns with high blood sugar. Patient states he did have surgery on , 5 days ago and sugars have been high since that time. Patient states he did have his right eyeball removed secondary to diabetic complications. Only mild discomfort from this which he states he would expect is normal. Patient has had some nausea and vomiting. Patient has had some mild abdominal discomfor t. Patient has been thirsty. Patient does not make urine because he is a dialysis patient. No fevers. - Related Data Home Medications Medication Instructions Recorded Confirmed Insulin NPH Hum/Reg Insulin Hm 19 unit SQ AC-BID 11/27/14 11/06/20 [humuLIN 70/30 Kwikpen] Labetalol [Trandate] 400 mg PO TID 11/27/14 11/06/20 Calcium Acetate 2,001 mg PO TID 08/07/20 11/06/20 Maggie-Arpit 1 tab PO DAILY 08/07/20 11/06/20 hydrALAZINE HCL [Apresoline] 100 mg PO TID 08/07/20 11/06/20 Acetaminophen Tab [Tylenol Tab] 1,000 mg PO Q6HR PRN 11/06/20 11/06/20 Ergocalciferol (Vitamin D2) 1,250 mcg PO Q7D 11/06/20 11/06/20 [Drisdol (50,000 Iu)] Gabapentin [Neurontin] 300 mg PO BID 11/06/20 11/06/20 HYDROcodone/APAP 7.5-325MG [[place] 1 tab PO Q6HR PRN 11/06/20 11/06/20 7.5-325] Ibuprofen [Motrin Ib] 800 mg PO Q8H PRN 11/06/20 11/06/20 Isosorbide Mononitrate [Imdur] 120 mg PO DAILY 11/06/20 11/06/20 Lidocaine-Prilocaine Cream [[place] 1 applic TOPICAL DAILY PRN 11/06/20 11/06/20 Cream 2.5%/2.5%] NIFEdipine [NIFEdipine ER] 30 mg PO DAILY 11/06/20 11/06/20 Ondansetron Odt [Zofran Odt] 4 mg PO Q6H PRN 11/06/20 11/06/20 Sertraline HCl [Zoloft] 50 mg PO DAILY 11/06/20 11/06/20 cloNIDine HCL [Catapres] 0.2 mg PO TID 11/06/20 11/06/20 traZODone HCL [Desyrel] 100 mg PO HS 11/06/20 11/06/20 Allergies Allergy/AdvReac Type Severity Reaction Status Date / Time No Known Allergies Allergy Verified 11/06/20 16:32 Review of Systems ROS Statement: Those systems with pertinent positive or pertinent negative responses have been documented in the HPI. ROS Other: All systems not noted in ROS Statement are negative. Constitutional: Denies: fever Eyes: Reports: as per HPI ENT: Denies: ear pain Respiratory: Denies: cough, dyspnea Cardiovascular: Denies: chest pain Endocrine: Denies: fatigue Gastrointestinal: Reports: as per HPI, nausea, vomiting Genitourinary: Reports: as per HPI Musculoskeletal: Denies: back pain Skin: Denies: rash Neurological: Denies: confusion Past Medical History Past Medical History: Diabetes Mellitus, Dialysis, Eye Disorder, Hypertension Additional Past Medical History / Comment(s): very poor vision R eye, has diaylsis ,,and thursday. Pt is on a transplant list for kidneys History of Any Multi-Drug Resistant Organisms: None Reported Past Surgical History: No Surgical Hx Reported Additional Past Surgical History / Comment(s): eye surgery due to diabetes and thorascopic percardial window 2012 Past Anesthesia/Blood Transfusion Reactions: No Reported Reaction Additional Past Anesthesia/Blood Transfusion Reaction / Comment(s): blood transfusion 2013 Past Psychological History: Anxiety, Depression Smoking Status: Former smoker Past Alcohol Use History: Occasional Past Drug Use History: None Reported - Past Family History Father Family Medical History: Renal Disease Mother History Unknown: Yes General Exam Limitations: no limitations General appearance: alert Head exam: Present: normocephalic Eye exam: Present: other (Right orbital with mild swelling. No erythema. There is some dry blood in the area.) Neck exam: Present: normal inspection. Absent: tenderness, meningismus Respiratory exam: Present: normal lung sounds bilaterally Cardiovascular Exam: Present: regular rate, normal rhythm, systolic murmur (Patient states normal) GI/Abdominal exam: Present: soft. Absent: tenderness Extremities exam: Present: normal inspection, other (Dialysis shunt left arm) Neurological exam: Present: alert Psychiatric exam: Present: normal affect, normal mood Skin exam: Present: normal color Course Vital Signs 11/06/20 11/06/20 11/06/20 15:34 17:14 17:18 Temperature 98.2 F Pulse Rate 98 82 97 Respiratory 18 18 18 Rate Blood Pressure 203/116 118/73 179/118 O2 Sat by Pulse 93 L 98 97 Oximetry - Reevaluation(s) Reevaluation #1: 11/06/20 16:27 Repeat EKG shows sinus tachycardia 11. CA 148. QRS 100. QT 390. QTC 505. Left axis. LVH. Nonspecific T waves. No evidence of atrial flutter. EKG Findings - EKG Comments: EKG Findings:: EKG with atrial rhythm with a rate of 99. QRS 96. QT 394. QTC 505. Left axis. LVH criteria. No acute ST change. Medical Decision Making - Medical Decision Making Patient reevaluated and resting comfortably in bed. Case was discussed with pr thanh Alexander who will admit for Dr. Arndt, who admits for Dr. Kasandra Macias. - Lab Data Result diagrams: 11/06/20 16:15 11/06/20 16:15 Lab Results 11/06/20 11/06/20 11/06/20 Range/Units 15:36 16:15 16:15 WBC 8.8 (3.8-10.6) k/uL RBC 3.73 L (4.30-5.90) m/uL Hgb 10.3 L (13.0-17.5) gm/dL Hct 30.9 L (39.0-53.0) % MCV 83.0 (80.0-100.0) fL MCH 27.6 (25.0-35.0) pg MCHC 33.3 (31.0-37.0) g/dL RDW 17.5 H (11.5-15.5) % Plt Count 151 (150-450) k/uL MPV 8.8 Neutrophils % 86 % Lymphocytes % 6 % Monocytes % 6 % Eosinophils % 1 % Basophils % 0 % Neutrophils # 7.6 (1.3-7.7) k/uL Lymphocytes # 0.5 L (1.0-4.8) k/uL Monocytes # 0.6 (0-1.0) k/uL Eosinophils # 0.1 (0-0.7) k/uL Basophils # 0.0 (0-0.2) k/uL Anisocytosis Slight PT 11.7 (9.0-12.0) sec INR 1.1 (<1.2) APTT 24.6 (22.0-30.0) sec Sodium (137-145) mmol/L Potassium (3.5-5.1) mmol/L Chloride (98-107) mmol/L Carbon Dioxide (22-30) mmol/L Anion Gap mmol/L BUN (9-20) mg/dL Creatinine (0.66-1.25) mg/dL Est GFR (CKD-EPI)AfAm (>60 ml/min/1.73 sqM) Est GFR (CKD-EPI)NonAf (>60 ml/min/1.73 sqM) Glucose (74-99) mg/dL POC Glucose (mg/dL) 522 H (75-99) mg/dL POC Glu Maintenance Electrician ID Winnie Earl Calcium (8.4-10.2) mg/dL Total Bilirubin (0.2-1.3) mg/dL AST (17-59) U/L ALT (4-49) U/L Alkaline Phosphatase (38-126) U/L Troponin I (0.000-0.034) ng/mL Total Protein (6.3-8.2) g/dL Albumin (3.5-5.0) g/dL Amylase (30-110) U/L Lipase (23-300) U/L Acetone, Qual (Negative) 11/06/20 11/06/20 Range/Units 16:15 16:15 WBC (3.8-10.6) k/uL RBC (4.30-5.90) m/uL Hgb (13.0-17.5) gm/dL Hct (39.0-53.0) % MCV (80.0-100.0) fL MCH (25.0-35.0) pg MCHC (31.0-37.0) g/dL RDW (11.5-15.5) % Plt Count (150-450) k/uL MPV Neutrophils % % Lymphocytes % % Monocytes % % Eosinophils % % Basophils % % Neutrophils # (1.3-7.7) k/uL Lymphocytes # (1.0-4.8) k/uL Monocytes # (0-1.0) k/uL Eosinophils # (0-0.7) k/uL Basophils # (0-0.2) k/uL Anisocytosis PT (9.0-12.0) sec INR (<1.2) APTT (22.0-30.0) sec Sodium 133 L (137-145) mmol/L Potassium 5.4 H (3.5-5.1) mmol/L Chloride 89 L (98-107) mmol/L Carbon Dioxide 29 (22-30) mmol/L Anion Gap 15 mmol/L BUN 52 H (9-20) mg/dL Creatinine 9.67 H* (0.66-1.25) mg/dL Est GFR (CKD-EPI)AfAm 7 (>60 ml/min/1.73 sqM) Est GFR (CKD-EPI)NonAf 6 (>60 ml/min/1.73 sqM) Glucose 576 H* (74-99) mg/dL POC Glucose (mg/dL) (75-99) mg/dL POC Glu Maintenance Electrician ID Calcium 9.2 (8.4-10.2) mg/dL Total Bilirubin 1.2 (0.2-1.3) mg/dL AST 32 (17-59) U/L ALT <6 (4-49) U/L Alkaline Phosphatase 74 (38-126) U/L Troponin I 0.092 H* (0.000-0.034) ng/mL Total Protein 7.5 (6.3-8.2) g/dL Albumin 4.4 (3.5-5.0) g/dL Amylase 52 (30-110) U/L Lipase 175 (23-300) U/L Acetone, Qual Negative (Negative) - Radiology Data Radiology results: image reviewed (Chest x-ray is concerning for some mild interstitial edema. Cardiac megaly. KUB shows nonacute abdomen.) Disposition Clinical Impression: Hyperglycemia Disposition: ADMITTED IP TO THIS HOSP Is patient prescribed a controlled substance at d/c from ED?: No Referrals: Luan Valdivia DO [Primary Care Provider] - 1-2 days Decision Time: 17:24
[2020-11-06 16:23] LABS: Anisocytosis Slight; Basophils % (A) 0 %; Eosinophils # (A) 0.1 k/uL (0-0.7); Eosinophils % (A) 1 %; HCT 30.9 % (39.0-53.0); HGB 10.3 gm/dL (13.0-17.5); Lymphocytes # (A) 0.5 k/uL (1.0-4.8); Lymphocytes % (A) 6 %; MCH 27.6 pg (25.0-35.0); MCHC 33.3 g/dL (31.0-37.0); Mean Platelet Volume 8.8; Monocytes # (A) 0.6 k/uL (0-1.0); Monocytes % (A) 6 %; Neutrophils # (A) 7.6 k/uL (1.3-7.7); Neutrophils % (A) 86 %; Platelet Count 151 k/uL (150-450); RBC 3.73 m/uL (4.30-5.90); RDW 17.5 % (11.5-15.5); WBC 8.8 k/uL (3.8-10.6)
[2020-11-06 16:34] LABS: INR 1.1 (<1.2); Partial Thromboplastin Time 24.6 sec (22.0-30.0); Prothrombin Time 11.7 sec (9.0-12.0)
[2020-11-06 16:37] LABS: ALT <6 U/L (4-49); AST 32 U/L (17-59); African American GFR (CKD) 7 (>60 ml/min/1.73 sqM); Albumin 4.4 g/dL (3.5-5.0); Alkaline Phosphatase 74 U/L (38-126); Amylase 52 U/L (30-110); Anion Gap 15 mmol/L; Blood Urea Nitrogen 52 mg/dL (9-20); Calcium 9.2 mg/dL (8.4-10.2); Carbon Dioxide 29 mmol/L (22-30); Chloride 89 mmol/L (98-107); Lipase 175 U/L (23-300); Non-African American GFR(CKD) 6 (>60 ml/min/1.73 sqM); Potassium 5.4 mmol/L (3.5-5.1); Sodium 133 mmol/L (137-145); Total Bilirubin 1.2 mg/dL (0.2-1.3); Total Protein 7.5 g/dL (6.3-8.2)
[2020-11-06 16:45] LABS: Glucose 576 mg/dL (74-99)
--- NOTE | 2020-11-06 17:00 | XR ---
EXAMINATION TYPE: XR chest 2V DATE OF EXAM: 11/06/2020 COMPARISON: 08/07/2020 HISTORY: Abdominal pain. Chest pain TECHNIQUE: FINDINGS: Heart is moderately enlarged. There is some mild pulmonary interstitial edema. There are ch est leads. There is slight blunting of the left costophrenic angle. IMPRESSION: Mild pulmonary interstitial edema appears new compared to old exam and could be heart maycol lure. There is cardiomegaly that is probably worse than last exam.
--- NOTE | 2020-11-06 17:02 | XR ---
EXAMINATION TYPE: XR KUB DATE OF EXAM: 11/06/2020 COMPARISON: None HISTORY: Abdominal pain TECHNIQUE: 2 views FINDINGS: 2 views supine were obtained. There is no sign of intestinal obstruction or pneumoperitoneu m. Fecal pattern is normal. Heart is enlarged. There is small left pleural effusion. There are no pat hologic calcifications over the kidneys. There is some vascular calcification. There is vas deferens calcification. IMPRESSION: Nonacute abdomen. Calcification consistent with diabetes.
[2020-11-06] MEDS ORDERED: cloNIDine HCL 0.2 MG TAB PO STA (17:18)
[2020-11-06] MEDS ORDERED: ONDANSETRON 4 MG/2 ML VIAL IVP PRN (17:24)
[2020-11-06] MEDS ORDERED: NALOXONE 0.4 MG/ML 1 ML VIAL IV PRN (17:24)
[2020-11-06] MEDS ORDERED: INSULIN REGULAR BOLUS (FROM DRIP BAG) IV ONE (17:25)
[2020-11-06] MEDS ORDERED: SODIUM CHLORIDE 0.9% 1,000 ML IV ONE (17:25)
[2020-11-06] MEDS ORDERED: ASPIRIN 81 MG PO STA (17:26)
[2020-11-06] MEDS ORDERED: INSULIN REGULAR 100 UNIT in SODIUM CHLORIDE 0.9% 100 ML IV SCH (17:30)
[2020-11-06] MEDS ORDERED: ERGOCALCIFEROL 1,250 MCG (50,000 IU) CAPSULE PO SCH (19:15)
[2020-11-06 19:40] LABS: Glucose,Whole Blood 254 mg/dL (75-99)
[2020-11-06 19:54] LABS: Glucose,Whole Blood 183 mg/dL (75-99)
[2020-11-06 20:42] LABS: Glucose,Whole Blood 93 mg/dL (75-99)
[2020-11-06] MEDS: GABAPENTIN 300 MG CAP PO SCH (21:33)
[2020-11-06] MEDS: hydrALAZINE HCL 50 MG TAB PO SCH (21:33)
[2020-11-06] MEDS: LABETALOL 200 MG TAB PO SCH (21:34)
[2020-11-06] MEDS: SODIUM CHLORIDE 0.9% 1,000 ML IV SCH (21:35)
[2020-11-06 21:43] LABS: Phosphorus 5.5 mg/dL (2.5-4.5); Potassium 4.9 mmol/L (3.5-5.1)
[2020-11-06] MEDS: cloNIDine HCL 0.2 MG TAB PO SCH (23:17)
[2020-11-06] MEDS: HYDROcodone/APAP 7.5-325MG 1 EACH TAB PO PRN (23:17)
[2020-11-06] MEDS: CALCIUM ACETATE 667 MG TAB PO SCH (23:17)
[2020-11-06] MEDS: traZODone HCL 50 MG TAB PO SCH (23:17)
[2020-11-07 00:04] LABS: Glucose,Whole Blood 156 mg/dL (75-99)
[2020-11-07] MEDS: SODIUM CHLORIDE 0.9% 1,000 ML IV SCH ×3 (00:55→18:49)
[2020-11-07 02:12] LABS: Phosphorus 5.6 mg/dL (2.5-4.5); Potassium 5.7 mmol/L (3.5-5.1)
[2020-11-07] MEDS: ACETAMINOPHEN TAB 500 MG TAB PO PRN (04:05)
[2020-11-07] MEDS: hydrALAZINE HCL 50 MG TAB PO SCH ×3 (05:35→22:12)
[2020-11-07 06:11] LABS: Glucose,Whole Blood 239 mg/dL (75-99)
[2020-11-07] MEDS: INSULIN ASPART (NovoLOG) 100 UNIT/ML VIAL SQ SCH ×4 (06:44→20:42)
[2020-11-07] MEDS: HYDROcodone/APAP 7.5-325MG 1 EACH TAB PO PRN ×3 (06:56→18:43)
[2020-11-07 07:35] LABS: Anisocytosis Slight; Basophils # (A) 0.1 k/uL (0-0.2); Basophils % (A) 0 %; Eosinophils # (A) 0.1 k/uL (0-0.7); Eosinophils % (A) 1 %; HGB 10.2 gm/dL (13.0-17.5); Lymphocytes # (A) 0.9 k/uL (1.0-4.8); Lymphocytes % (A) 8 %; MCH 27.8 pg (25.0-35.0); MCHC 33.9 g/dL (31.0-37.0); MCV 82.1 fL (80.0-100.0); Mean Platelet Volume 8.5; Monocytes # (A) 0.5 k/uL (0-1.0); Monocytes % (A) 5 %; Neutrophils # (A) 9.6 k/uL (1.3-7.7); Neutrophils % (A) 86 %; Platelet Count 158 k/uL (150-450); RBC 3.66 m/uL (4.30-5.90); RDW 16.9 % (11.5-15.5); WBC 11.2 k/uL (3.8-10.6)
[2020-11-07 07:56] LABS: Albumin 4.5 g/dL (3.5-5.0); Calcium 9.8 mg/dL (8.4-10.2); Potassium 5.8 mmol/L (3.5-5.1); Total Bilirubin 1.1 mg/dL (0.2-1.3); Total Protein 7.8 g/dL (6.3-8.2)
[2020-11-07] MEDS ORDERED: SERTRALINE 50 MG TAB PO SCH (09:00)
[2020-11-07] MEDS: CALCIUM ACETATE 667 MG TAB PO SCH ×3 (09:14→22:12)
[2020-11-07] MEDS: GABAPENTIN 300 MG CAP PO SCH ×2 (09:15→22:11)
[2020-11-07] MEDS: cloNIDine HCL 0.2 MG TAB PO SCH ×3 (09:15→22:12)
[2020-11-07] MEDS: PANTOPRAZOLE 40 MG/10 ML VIAL IV SCH (09:16)
[2020-11-07] MEDS: LABETALOL 200 MG TAB PO SCH ×3 (09:16→22:12)
[2020-11-07] MEDS: NIFEdipine XL 30 MG TAB.ER.24 PO SCH (09:16)
[2020-11-07] MEDS: ISOSORBIDE MONONITRATE ER 60 MG TAB.ER.24H PO SCH (09:29)
--- NOTE | 2020-11-07 10:00 | P.HPIM ---
History of Present Illness Patient is a 44-year-old -Algerian male with a known history of hypertension, diabetes type 2 insulin-dependent and noncompliance with medications and also right eye visual loss and ESRD on hemodialysis on MWF, anxiety/depression and previous history of smoker . Also he has recent right eye removal surgery on 11/01/2020 at [facility] He is a patient of Dr. Valdivia. Presents because of hyperglycemia and hypertension,. Patient says that he had some surgery for right eye enucleation [facility], he could not remember the name of the surgeon, it was done last and release of the same day, patient was not taking his diabetes medication or blood pressure medication after the surgery, he could not give a good reason why he stopped taking his medication but he told me he is willing to keep taking his medication upon discharge. Yesterday he was feeling drowsy, thirsty and wobbly so family member checked his blood pressure and sugar without telling him on the results are they called EMS . His sugar was more than 600 by EMS as he remembers. He admits taking Humulin 70/30 units of insulin twice a day with meal. And he takes a few blood pressure medication and could not remember the names. Denies smoking, alcohol or illicit drugs On admission his vitals are stable except for high blood pressure 203/116, currently his blood pressure 192/89. Showing sodium 136, potassium 5.7, creatinine 10.2. Troponin is elevated 0.12. CBC showing WBC of 8.8K, hemoglobin 10.3, platelets normal at 151. INR is normal 1.1. Acetone is negative. Coronavirus not detected EKG showing atrial flutter with 421 AV conduction, QTC is 5.5. No significant ST-T changes At home he is on insulin NPH/regular insulin units before meals twice a day KUB non-acute abdomen Chest x-ray: Mild interstitial edema. On admission he was given 1 dose of aspirin 324 mg, insulin coverage, and given about 2-3 L of normal saline. ED team Review of Systems CONSTITUTIONAL: No fever, no malaise, no fatigue. HEENT: No recent visual problems or hearing problems. Denied any sore throat. CARDIOVASCULAR: No orthopnea, PND, no palpitations, no syncope. PULMONARY: No shortness of breath, no cough, no hemoptysis. GASTROINTESTINAL: No diarrhea, no nausea, no vomiting, no abdominal pain. Normoactive bowel sounds. NEUROLOGICAL: No headaches, no weakness, no numbness. HEMATOLOGICAL: Denies any bleeding or petechiae. GENITOURINARY: Denies any burning micturition, frequency, or urgency. MUSCULOSKELETAL/RHEUMATOLOGICAL: Denies any joint pain, swelling, or any muscle pain. ENDOCRINE: Denies any polyuria or polydipsia. Past Medical History Past Medical History: Diabetes Mellitus, Dialysis, Eye Disorder, Hypertension Additional Past Medical History / Comment(s): very poor vision R eye, has diaylsis ,,and thursday. Pt is on a transplant list for kidneys History of Any Multi-Drug Resistant Organisms: None Reported Past Surgical History: No Surgical Hx Reported Additional Past Surgical History / Comment(s): eye surgery due to diabetes and thorascopic percardial window 2012 Past Anesthesia/Blood Transfusion Reactions: No Reported Reaction Additional Past Anesthesia/Blood Transfusion Reaction / Comment(s): blood transfusion 2012 Past Psychological History: Anxiety, Depression Smoking Status: Former smoker Past Alcohol Use History: Occasional Past Drug Use History: None Reported - Past Family History Father Family Medical History: Renal Disease Mother History Unknown: Yes Medications and Allergies Home Medications Medication Instructions Recorded Confirmed Type Insulin NPH Hum/Reg Insulin Hm 19 unit SQ AC-BID 11/27/14 11/06/20 History [humuLIN 70/30 Kwikpen] Labetalol [Trandate] 400 mg PO TID 11/27/14 11/06/20 History Calcium Acetate 2,001 mg PO TID 08/07/20 11/06/20 History Maggie-Arpit 1 tab PO DAILY 08/07/20 11/06/20 History hydrALAZINE HCL [Apresoline] 100 mg PO TID 08/07/20 11/06/20 History Acetaminophen Tab [Tylenol Tab] 1,000 mg PO Q6HR PRN 11/06/20 11/06/20 History Ergocalciferol (Vitamin D2) 1,250 mcg PO Q7D 11/06/20 11/06/20 History [Drisdol (50,000 Iu)] Gabapentin [Neurontin] 300 mg PO BID 11/06/20 11/06/20 History HYDROcodone/APAP 7.5-325MG [[place] 1 tab PO Q6HR PRN 11/06/20 11/06/20 History 7.5-325] Ibuprofen [Motrin Ib] 800 mg PO Q8H PRN 11/06/20 11/06/20 History Isosorbide Mononitrate [Imdur] 120 mg PO DAILY 11/06/20 11/06/20 History Lidocaine-Prilocaine Cream [Emla 1 applic TOPICAL DAILY PRN 11/06/20 11/06/20 History Cream 2.5%/2.5%] NIFEdipine [NIFEdipine ER] 30 mg PO DAILY 11/06/20 11/06/20 History Ondansetron Odt [Zofran Odt] 4 mg PO Q6H PRN 11/06/20 11/06/20 History Sertraline HCl [Zoloft] 50 mg PO DAILY 11/06/20 11/06/20 History cloNIDine HCL [Catapres] 0.2 mg PO TID 11/06/20 11/06/20 History traZODone HCL [Desyrel] 100 mg PO HS 11/06/20 11/06/20 History Allergies Allergy/AdvReac Type Severity Reaction Status Date / Time No Known Allergies Allergy Verified 11/06/20 16:32 Physical Exam Vitals: Vital Signs Temp Pulse Pulse Resp BP BP Pulse Ox 11/07/20 07:08 192/89 11/07/20 05:00 98.5 F 100 19 200/90 95 11/06/20 23:22 97.5 F L 88 18 166/85 96 11/06/20 22:40 98.3 F 87 18 171/90 98 11/06/20 21:44 98.0 F 82 18 193/111 98 11/06/20 20:06 96 18 193/111 98 11/06/20 17:18 97 18 179/118 97 11/06/20 15:34 98.2 F 98 18 203/116 93 L Intake and Output 11/06/20 11/07/20 11/07/20 22:59 06:59 14:59 Other: Weight 65.771 kg 70.6 kg GENERAL: The patient is alert and oriented x3, not in any acute distress. Well developed, well nourished. -HEENT: Pupils are round and equally reacting to light. EOMI. No scleral icterus. No conjunctival pallor. Normocephalic, atraumatic. No pharyngeal erythema. No -thyromegaly. Right eye dressing is in place, status post inoculation CARDIOVASCULAR: S1 and S2 present. No murmurs, rubs, or gallops. PULMONARY: Chest is clear to auscultation, no wheezing or crackles. ABDOMEN: Soft, nontender, nondistended, normoactive bowel sounds. No palpable organomegaly. MUSCULOSKELETAL: No joint swelling or deformity. EXTREMITIES: No cyanosis, clubbing, or pedal edema. NEUROLOGICAL: Gross neurological examination did not reveal any focal deficits. SKIN: No rashes. No petechiae Results CBC & Chem 7: 11/07/20 06:58 11/07/20 06:58 Labs: Abnormal Lab Results - Last 24 Hours (Table) 11/06/20 11/06/20 11/06/20 Range/Units 15:36 16:15 16:15 RBC 3.73 L (4.30-5.90) m/uL Hgb 10.3 L (13.0-17.5) gm/dL Hct 30.9 L (39.0-53.0) % RDW 17.5 H (11.5-15.5) % Lymphocytes # 0.5 L (1.0-4.8) k/uL Sodium 133 L (137-145) mmol/L Potassium 5.4 H (3.5-5.1) mmol/L Chloride 89 L (98-107) mmol/L BUN 52 H (9-20) mg/dL Creatinine 9.67 H* (0.66-1.25) mg/dL Glucose 576 H* (74-99) mg/dL POC Glucose (mg/dL) 522 H (75-99) mg/dL Phosphorus (2.5-4.5) mg/dL Troponin I (0.000-0.034) ng/mL 11/06/20 11/06/20 11/06/20 Range/Units 16:15 19:29 19:52 RBC (4.30-5.90) m/uL Hgb (13.0-17.5) gm/dL Hct (39.0-53.0) % RDW (11.5-15.5) % Lymphocytes # (1.0-4.8) k/uL Sodium (137-145) mmol/L Potassium (3.5-5.1) mmol/L Chloride (98-107) mmol/L BUN (9-20) mg/dL Creatinine (0.66-1.25) mg/dL Glucose (74-99) mg/dL POC Glucose (mg/dL) 254 H 183 H (75-99) mg/dL Phosphorus (2.5-4.5) mg/dL Troponin I 0.092 H* (0.000-0.034) ng/mL 11/06/20 11/06/20 11/07/20 Range/Units 21:20 21:20 00:02 RBC (4.30-5.90) m/uL Hgb (13.0-17.5) gm/dL Hct (39.0-53.0) % RDW (11.5-15.5) % Lymphocytes # (1.0-4.8) k/uL Sodium (137-145) mmol/L Potassium (3.5-5.1) mmol/L Chloride 95 L (98-107) mmol/L BUN 53 H (9-20) mg/dL Creatinine 9.79 H* (0.66-1.25) mg/dL Glucose (74-99) mg/dL POC Glucose (mg/dL) 156 H (75-99) mg/dL Phosphorus 5.5 H (2.5-4.5) mg/dL Troponin I 0.121 H* (0.000-0.034) ng/mL 11/07/20 11/07/20 11/07/20 Range/Units 01:01 01:01 06:09 RBC (4.30-5.90) m/uL Hgb (13.0-17.5) gm/dL Hct (39.0-53.0) % RDW (11.5-15.5) % Lymphocytes # (1.0-4.8) k/uL Sodium 136 L (137-145) mmol/L Potassium 5.7 H (3.5-5.1) mmol/L Chloride 95 L (98-107) mmol/L BUN 56 H (9-20) mg/dL Creatinine 10.21 H* (0.66-1.25) mg/dL Glucose 144 H (74-99) mg/dL POC Glucose (mg/dL) 239 H (75-99) mg/dL Phosphorus 5.6 H (2.5-4.5) mg/dL Troponin I 0.122 H* (0.000-0.034) ng/mL Thrombosis Risk Factor Assmnt - Choose All That Apply Each Factor Represents 1 point: Age 41-60 years Thrombosis Risk Factor Assessment Total Risk Factor Score: 1 Thrombosis Risk Factor Assessment Level: Low Risk Assessment and Plan Assessment: Atrial flutter/fibrillation Hypertension with urgency on admission Hyperglycemia with uncontrolled diabetes type 2 with A1c level 15.7 on 07/2020 Noncompliance Status post right eye removal surgery on 11/01/2020 at [facility] ESRD on hemodialysis on MWF Metoprolol Chronically elevated troponin, mostly secondary to his kidney disease Noncompliance medications Plan: This is a pleasant 44 years old male who presents with noncompliance of medication and hypertension and hyperglycemia. Resume his blood pressure medication and diabetes medication. Keep monitoring sugar and blood pressure. Cardiology consulted for for A. fib. Check echocardiogram. Nephrologyy on the case and continue with dialysis patient feels sad after they took his eye out which may affect his compliance, we'll consult psych service Consults ophthalmology service for recent eye surgery Labs and medication were reviewed.. Continue same treatment. Continue with symptomatic treatment. Resume home medication. Monitor lytes and vitals. DVT and GI prophylaxis. Further recommendations depends on the clinical course of the patient DVT prophylaxis: Subcutaneous heparin GI Prophylaxis: Pepcid PT/OT: Pending Prognosis is guarded
--- NOTE | 2020-11-07 10:01 | ECHOF ---
Referral Reason:MR MEASUREMENTS -------- HEIGHT: 175.3 cm WEIGHT: 70.3 kg BP: IVSd: 1.7 cm (0.6 - 1.1) LVIDd: 5.1 cm (3.9 - 5.3) LVPWd: 2.5 cm (0.6 - 1.1) IVSs: 1.8 cm LVIDs: 4.6 cm LVPWs: 2.6 cm LA Diam: 5.1 cm (2.7 - 3.8) LAESV Index (A-L): 77.98 ml/m MV EXCURSION: 22.668 mm (> 18.000) MV EF SLOPE: 113 mm/s (70 - 150) EPSS: 0.8 cm MV E Jamal: 1.37 m/s MV DecT: 225 ms MV A Jamal: 0.87 m/s MV E/A Ratio: 1.58 RAP: 5.00 mmHg RVSP: 76.39 mmHg FINDINGS -------- Sinus rhythm. This was a technically good study. The left ventricular size is normal. There is severe concentric left ventricular hypertrophy. Ove rall left ventricular systolic function is normal with, an EF between 55 - 60 %. The right ventricle is normal in size. LA is severely dilated >40 ml/m2 The right atrial size is normal. There is mild aortic valve sclerosis. There is no evidence of aortic regurgitation. The mitral valve leaflets are mildly thickened. Severe mitral regurgitation is present. Moderate to severe tricuspid regurgitation present. There is severe pulmonary hypertension. The r ight ventricular systolic pressure, as measured by Doppler, is 76.39mmHg. Trace/mild (physiologic) pulmonic regurgitation. The aortic root size is normal. There is no pericardial effusion. CONCLUSIONS -------- 1. The left ventricular size is normal. 2. There is severe concentric left ventricular hypertrophy. 3. Overall left ventricular systolic function is normal with, an EF between 55 - 60 %. 4. The right ventricle is normal in size. 5. LA is severely dilated >40 ml/m2 6. The right atrial size is normal. 7. There is mild aortic valve sclerosis. 8. The mitral valve leaflets are mildly thickened. 9. Severe mitral regurgitation is present. 10. Moderate to severe tricuspid regurgitation present. 11. There is severe pulmonary hypertension. 12. The right ventricular systolic pressure, as measured by Doppler, is 76.39mmHg. 13. Trace/mild (physiologic) pulmonic regurgitation. 14. The aortic root size is normal. 15. There is no pericardial effusion. ACTIVITIES SPECIALIST: Margaret Marina RDCS
--- NOTE | 2020-11-07 10:17 | P.CRDCN ---
History of Present Illness History of present illness: HISTORY OF PRESENTING ILLNESS This is a pleasant 44-year-old male past medical history significant for chronic kidney disease on HD, valvular heart disease, chin, mild non-ischemic cardiomyopathy, diabetes mellitus, hypertension, alcohol abuse and former nicotine dependence. He follows in the office with Dr. Osuna. We have been asked to see in consultation for elevated troponin. He underwent right eye removal at [facility] last week , exact details unavailable. He states his blood sugars and blood pressures have been elevated recently prompting him to come to ER for evaluation. He states he is compliant with medications and dialysis, however the girlfriend told his nurse he hasn't been taking his medications and has missed dialysis since last week. He is seen and examined sitting up in the chair in no acute distress. He denies chest pain, shortness of breath, dizziness or palpitations. Echocardiogram obtained reveals preserved LV systolic function with ejection fraction 55-60%, severely dilated left atrium, severe mitral regurgitation, moderate to severe tricuspid regurgitation, severe pulmonary hypertension with an RVSP of 76 mmHg. Cons istent with previous echocardiograms obtained in the office. DIAGNOSTICS EKG reveals sinus tachycardia with nonspecific T-wave abnormalities inferiorly. Telemetry tracings indicate sinus mechanism. Chest xray pulmonary interstitial edema. Laboratory reviewed, WBC 11.2, hemoglobin 10.2, platelets 158, sodium 136, potassium 5.8, creatinine 10.58, proBNP 128,000, troponin 0.092, 0.121 and 0.122. Current cardiac medications include hydralazine 100 mg 3 times a day, labetalol 400 mg 3 times a day, clonidine 0.2 mg 3 times a day, Imdur 120 mg daily, nifedipine 30 mg daily. REVIEW OF SYSTEMS At the time of my exam: CONSTITUTIONAL: Denies fever or chills. CARDIOVASCULAR: Denies chest pain, shortness of breath, orthopnea, PND or palpitations. RESPIRATORY: Denies cough. GASTROINTESTINAL: Denies abdominal pain, diarrhea, constipation, nausea or vomiting. MUSCULOSKELETAL: Denies myalgias. NEUROLOGIC: Denies numbness, tingling, headacbe or weakness. ENDOCRINE: Denies fatigue, weight change, polydipsia or polyurina. GENITOURINARY: Denies burning, hematuria or urgency with micturation. HEMATOLOGIC: Denies history of anemia or bleeding. PHYSICAL EXAMINATION Blood pressure 181/101 heart rate 102 afebrile and maintaining oxygen saturation on room air. CONSTITUTIONAL: No apparent distress. HEENT: Head is normocephalic. Dressing in place over right eye. Left sclerae anicteric. Mucous membranes of the mouth are moist. No JVD. No carotid bruit. CHEST EXAMINATION: Lungs are clear to auscultation. No chest wall tenderness is noted on palpation or with deep breathing. HEART EXAMINATION: Regular rate and rhythm. S1, S2 heard. Holosystolic murmur at the apex, no gallops or rub. ABDOMEN: Soft, nontender. Positive bowel sounds. EXTREMITIES: 2+ peripheral pulses, no lower extremity edema and no calf tenderness. NEUROLOGIC EXAMINATION: Patient is awake, alert and oriented x3. ASSESSMENT Elevated troponin secondary to chronic kidney disease Chronic kidney disease on HD Hyperkalemia Hypertension, uncontrolled Diabetes mellitus Valvular heart disease, severe MR and TR Pulmonary hypertension Alcohol abuse Medical non-compliance Former nicotine dependence PLAN Elevated troponin is related to kidney disease, not myocardial injury. Nephrology is also following, the patient will require dialysis likely today. Alcohol cessation recommended. The importance of medical compliance discussed at length. Follow up with Dr Osuna regarding treatment of his valvular heart disease, he can discuss outpatient surgical evaluations. Thank you kindly for this consultation. Nurse Practitioner note has been reviewed, I agree with a documented findings and plan of care. Patient was seen and examined. Past Medical History Past Medical History: Diabetes Mellitus, Dialysis, Eye Disorder, Hypertension Additional Past Medical History / Comment(s): very poor vision R eye, has diaylsis ,,and thursday. Pt is on a transplant list for kidneys History of Any Multi-Drug Resistant Organisms: None Reported Past Surgical History: No Surgical Hx Reported Additional Past Surgical History / Comment(s): eye surgery due to diabetes and thorascopic percardial window 2013 Past Anesthesia/Blood Transfusion Reactions: No Reported Reaction Additional Past Anesthesia/Blood Transfusion Reaction / Comment(s): blood transfusion 2013 Past Psychological History: Anxiety, Depression Smoking Status: Former smoker Past Alcohol Use History: Occasional Past Drug Use History: None Reported - Past Family History Father Family Medical History: Renal Disease Mother History Unknown: Yes Medications and Allergies Home Medications Medication Instructions Recorded Confirmed Type Insulin NPH Hum/Reg Insulin Hm 19 unit SQ AC-BID 11/27/14 11/06/20 History [humuLIN 70/30 Kwikpen] Labetalol [Trandate] 400 mg PO TID 11/27/14 11/06/20 History Calcium Acetate 2,001 mg PO TID 08/07/20 11/06/20 History Maggie-Arpit 1 tab PO DAILY 08/07/20 11/06/20 History hydrALAZINE HCL [Apresoline] 100 mg PO TID 08/07/20 11/06/20 History Acetaminophen Tab [Tylenol Tab] 1,000 mg PO Q6HR PRN 11/06/20 11/06/20 History Ergocalciferol (Vitamin D2) 1,250 mcg PO Q7D 11/06/20 11/06/20 History [Drisdol (50,000 Iu)] Gabapentin [Neurontin] 300 mg PO BID 11/06/20 11/06/20 History HYDROcodone/APAP 7.5-325MG [[place] 1 tab PO Q6HR PRN 11/06/20 11/06/20 History 7.5-325] Ibuprofen [Motrin Ib] 800 mg PO Q8H PRN 11/06/20 11/06/20 History Isosorbide Mononitrate [Imdur] 120 mg PO DAILY 11/06/20 11/06/20 History Lidocaine-Prilocaine Cream [Emla 1 applic TOPICAL DAILY PRN 11/06/20 11/06/20 History Cream 2.5%/2.5%] NIFEdipine [NIFEdipine ER] 30 mg PO DAILY 11/06/20 11/06/20 History Ondansetron Odt [Zofran Odt] 4 mg PO Q6H PRN 11/06/20 11/06/20 History Sertraline HCl [Zoloft] 50 mg PO DAILY 11/06/20 11/06/20 History cloNIDine HCL [Catapres] 0.2 mg PO TID 11/06/20 11/06/20 History traZODone HCL [Desyrel] 100 mg PO HS 11/06/20 11/06/20 History Allergies Allergy/AdvReac Type Severity Reaction Status Date / Time No Known Allergies Allergy Verified 11/06/20 16:32 Physical Exam Vitals: Vital Signs Temp Pulse Pulse Resp BP BP Pulse Ox 11/07/20 08:00 98.0 F 102 H 18 181/101 93 L 11/07/20 07:08 192/89 11/07/20 05:00 98.5 F 100 19 200/90 95 11/06/20 23:22 97.5 F L 88 18 166/85 96 11/06/20 22:40 98.3 F 87 18 171/90 98 11/06/20 21:44 98.0 F 82 18 193/111 98 11/06/20 20:06 96 18 193/111 98 11/06/20 17:18 97 18 179/118 97 11/06/20 15:34 98.2 F 98 18 203/116 93 L Intake and Output 11/06/20 11/07/20 11/07/20 22:59 06:59 14:59 Intake Total 540 Balance 540 Intake: Oral 540 Other: Weight 65.771 kg 70.6 kg Results 11/07/20 06:58 11/07/20 06:58 Cardiac Enzymes 11/06/20 11/06/20 11/06/20 Range/Units 16:15 16:15 21:20 AST 32 (17-59) U/L Troponin I 0.092 H* 0.121 H* (0.000-0.034) ng/mL 11/07/20 11/07/20 Range/Units 01:01 06:58 AST 42 (17-59) U/L Troponin I 0.122 H* (0.000-0.034) ng/mL Coagulation 11/06/20 Range/Units 16:15 PT 11.7 (9.0-12.0) sec APTT 24.6 (22.0-30.0) sec CBC 11/06/20 11/07/20 Range/Units 16:15 06:58 WBC 8.8 11.2 H (3.8-10.6) k/uL RBC 3.73 L 3.66 L (4.30-5.90) m/uL Hgb 10.3 L 10.2 L (13.0-17.5) gm/dL Hct 30.9 L 30.0 L (39.0-53.0) % Plt Count 151 158 (150-450) k/uL Comprehensive Metabolic Panel 11/06/20 11/06/20 11/07/20 Range/Units 16:15 21:20 01:01 Sodium 133 L 140 136 L (137-145) mmol/L Potassium 5.4 H 4.9 5.7 H (3.5-5.1) mmol/L Chloride 89 L 95 L 95 L (98-107) mmol/L Carbon Dioxide 29 29 28 (22-30) mmol/L BUN 52 H 53 H 56 H (9-20) mg/dL Creatinine 9.67 H* 9.79 H* 10.21 H* (0.66-1.25) mg/dL Glucose 576 H* 80 144 H (74-99) mg/dL Calcium 9.2 (8.4-10.2) mg/dL AST 32 (17-59) U/L ALT <6 (4-49) U/L Alkaline Phosphatase 74 (38-126) U/L Total Protein 7.5 (6.3-8.2) g/dL Albumin 4.4 (3.5-5.0) g/dL 11/07/20 Range/Units 06:58 Sodium 136 L (137-145) mmol/L Potassium 5.8 H (3.5-5.1) mmol/L Chloride 94 L (98-107) mmol/L Carbon Dioxide 21 L (22-30) mmol/L BUN 61 H (9-20) mg/dL Creatinine 10.58 H* (0.66-1.25) mg/dL Glucose 245 H (74-99) mg/dL Calcium 9.8 (8.4-10.2) mg/dL AST 42 (17-59) U/L ALT 7 (4-49) U/L Alkaline Phosphatase 85 (38-126) U/L Total Protein 7.8 (6.3-8.2) g/dL Albumin 4.5 (3.5-5.0) g/dL Current Medications Generic Name Dose Route Start Last Admin Trade Name Freq PRN Reason Stop Dose Admin Acetaminophen 1,000 mg 11/06/20 19:05 11/07/20 04:05 Acetaminophen Tab 500 Mg Tab PO 1,000 mg Q6HR PRN Administration Pain or Fever > 100.5 Hydrocodone Bitart/Acetaminophen 1 each 11/06/20 19:05 11/07/20 06:56 Hydrocodone/Apap 7.5-325mg 1 Each Tab PO 1 each Q6HR PRN Administration Pain Calcium Acetate 2,001 mg 11/06/20 22:00 11/07/20 09:14 Calcium Acetate 667 Mg Tab PO 2,001 mg TID CARIDAD Administration Clonidine 0.2 mg 11/06/20 22:00 11/07/20 09:15 Clonidine Hcl 0.2 Mg Tab PO 0.2 mg TID CARIDAD Administration Ergocalciferol 1,250 mcg 11/06/20 19:15 11/06/20 20:47 Ergocalciferol 1,250 Mcg (50,000 Iu) Capsule PO Not Given Q7D CARIDAD Gabapentin 300 mg 11/06/20 21:00 11/07/20 09:15 Gabapentin 300 Mg Cap PO 300 mg BID CARIDAD Administration Hydralazine HCl 100 mg 11/06/20 22:00 11/07/20 05:35 Hydralazine Hcl 50 Mg Tab PO 100 mg TID CARIDAD Administration Sodium Chloride 1,000 mls @ 200 mls/hr 11/06/20 17:30 11/07/20 05:34 Saline 0.9% IV Not Given .Q5H CARIDAD Sodium Chloride 1,000 mls @ 500 mls/hr 11/06/20 17:25 11/06/20 17:35 Saline 0.9% IV 500 mls/hr .Q2H ONE Administration Insulin Aspart 0 unit 11/07/20 07:30 11/07/20 06:44 Insulin Aspart (Novolog) 100 Unit/Ml Vial SQ 3 unit ACHS CARIDAD Administration Protocol Isosorbide Mononitrate 120 mg 11/07/20 09:00 11/07/20 09:29 Isosorbide Mononitrate Er 60 Mg Tab.Er.24h PO 120 mg DAILY CARIDAD Administration Labetalol HCl 400 mg 11/06/20 22:00 11/07/20 09:16 Labetalol 200 Mg Tab PO 400 mg TID CARIDAD Administration Naloxone HCl 0.2 mg 11/06/20 17:24 Naloxone 0.4 Mg/Ml 1 Ml Vial IV Q2M PRN Opioid Reversal Nifedipine 30 mg 11/07/20 09:00 11/07/20 09:16 Nifedipine Xl 30 Mg Tab.Er.24 PO 30 mg DAILY CARIDAD Administration Ondansetron HCl 4 mg 11/06/20 17:24 11/06/20 20:10 Ondansetron 4 Mg/2 Ml Vial IVP 4 mg Q8HR PRN Administration Nausea And Vomiting Pantoprazole Sodium 40 mg 03/31/21 09:00 11/07/20 09:16 Pantoprazole 40 Mg/10 Ml Vial IV 40 mg DAILY CARIDAD Administration Sertraline HCl 50 mg 11/07/20 09:00 11/07/20 09:16 Sertraline 50 Mg Tab PO 50 mg DAILY CARIDAD Administration Trazodone HCl 100 mg 11/06/20 21:00 11/06/20 23:17 Trazodone Hcl 50 Mg Tab PO 100 mg HS CARIDAD Administration Intake and Output 11/06/20 11/07/20 11/07/20 22:59 06:59 14:59 Intake Total 540 Balance 540 Intake: Oral 540 Other: Weight 65.771 kg 70.6 kg 11/07/20 06:58 11/07/20 06:58
--- NOTE | 2020-11-07 10:50 | P.NPCON ---
History of Present Illness - History of Present Illness Reason for consultation: End-stage renal disease History of present illness: Patient is a 44-year-old male seen in consultation for end-stage renal disease. He is maintained on hemodialysis on Thursday schedule in [place]. Patient states he had eye surgery done last and since then he has noticed his blood sugars have been quite elevated. He did have episodes of vomiting prior to admission. He denies chest pain or shortness of breath. Last hemodialysis was on Thursday. Blood sugar this morning was 245. Potassium level 5.8. He is scheduled to receive hemodialysis today. Blood pressure has been on the higher side. No fever or chills. Echocardiogram revealed preserved ejection fraction with severe mitral regurgitation, tricuspid regurgitation and pulmonary hypertension. Patient states he was diagnosed with diabetes over 20 years ago and also has long-standing history of high blood pressure. Vital signs are stable. Blood pressure high. General: The patient appeared well nourished and normally developed. HEENT: Right eye wrapped. LUNGS: Breath sounds decreased. HEART: Rate and Rhythm are regular. ABDOMEN: Soft, nontender. EXTREMITITES: No edema. Past Medical History Past Medical History: Diabetes Mellitus, Dialysis, Eye Disorder, Hypertension Additional Past Medical History / Comment(s): very poor vision R eye, has diaylsis ,,and thursday. Pt is on a transplant list for kidneys History of Any Multi-Drug Resistant Organisms: None Reported Past Surgical History: No Surgical Hx Reported Additional Past Surgical History / Comment(s): eye surgery due to diabetes and thorascopic percardial window 2012 Past Anesthesia/Blood Transfusion Reactions: No Reported Reaction Additional Past Anesthesia/Blood Transfusion Reaction / Comment(s): blood transfusion 2013 Past Psychological History: Anxiety, Depression Smoking Status: Former smoker Past Alcohol Use History: Occasional Past Drug Use History: None Reported - Past Family History Father Family Medical History: Renal Disease Mother History Unknown: Yes Medications and Allergies Home Medications Medication Instructions Recorded Confirmed Type Insulin NPH Hum/Reg Insulin Hm 19 unit SQ AC-BID 11/27/14 11/06/20 History [humuLIN 70/30 Kwikpen] Labetalol [Trandate] 400 mg PO TID 11/27/14 11/06/20 History Calcium Acetate 2,001 mg PO TID 08/07/20 11/06/20 History Maggie-Arpit 1 tab PO DAILY 08/07/20 11/06/20 History hydrALAZINE HCL [Apresoline] 100 mg PO TID 08/07/20 11/06/20 History Acetaminophen Tab [Tylenol Tab] 1,000 mg PO Q6HR PRN 11/06/20 11/06/20 History Ergocalciferol (Vitamin D2) 1,250 mcg PO Q7D 11/06/20 11/06/20 History [Drisdol (50,000 Iu)] Gabapentin [Neurontin] 300 mg PO BID 11/06/20 11/06/20 History HYDROcodone/APAP 7.5-325MG [[place] 1 tab PO Q6HR PRN 11/06/20 11/06/20 History 7.5-325] Ibuprofen [Motrin Ib] 800 mg PO Q8H PRN 11/06/20 11/06/20 History Isosorbide Mononitrate [Imdur] 120 mg PO DAILY 11/06/20 11/06/20 History Lidocaine-Prilocaine Cream [Emla 1 applic TOPICAL DAILY PRN 11/06/20 11/06/20 History Cream 2.5%/2.5%] NIFEdipine [NIFEdipine ER] 30 mg PO DAILY 11/06/20 11/06/20 History Ondansetron Odt [Zofran Odt] 4 mg PO Q6H PRN 11/06/20 11/06/20 History Sertraline HCl [Zoloft] 50 mg PO DAILY 11/06/20 11/06/20 History cloNIDine HCL [Catapres] 0.2 mg PO TID 11/06/20 11/06/20 History traZODone HCL [Desyrel] 100 mg PO HS 11/06/20 11/06/20 History Allergies Allergy/AdvReac Type Severity Reaction Status Date / Time No Known Allergies Allergy Verified 11/06/20 16:32 Physical Exam Vitals: Vital Signs Temp Pulse Pulse Resp BP BP Pulse Ox 11/07/20 08:00 98.0 F 102 H 18 181/101 93 L 11/07/20 07:08 192/89 11/07/20 05:00 98.5 F 100 19 200/90 95 11/06/20 23:22 97.5 F L 88 18 166/85 96 11/06/20 22:40 98.3 F 87 18 171/90 98 11/06/20 21:44 98.0 F 82 18 193/111 98 11/06/20 20:06 96 18 193/111 98 11/06/20 17:18 97 18 179/118 97 11/06/20 15:34 98.2 F 98 18 203/116 93 L Intake and Output 11/06/20 11/07/20 11/07/20 22:59 06:59 14:59 Intake Total 540 Balance 540 Intake: Oral 540 Other: Weight 65.771 kg 70.6 kg Results - Lab Results Most recent lab results Calcium 9.8 mg/dL (8.4-10.2) 11/07/20 06:58 Phosphorus 5.6 mg/dL (2.5-4.5) H 11/07/20 01:01 11/07/20 06:58 11/07/20 06:58 Assessment and Plan Plan: Assessment: 1. End-stage renal disease maintained on hemodialysis on Thursday schedule. 2. Uncontrolled diabetes. 3. Hypertension with chronic kidney disease. 4. Status post eye surgery last week. 5. Chronic kidney disease mineral bone disease maintained on PhosLo. 6. Hyperkalemia secondary to chronic kidney disease and hyperglycemia. 7. Chronic diastolic CHF with severe mitral regurgitation, moderate to severe tricuspid regurgitation and severe pulmonary hypertension Plan: Hemodialysis today with goal 3 L ultrafiltration. Home antihypertensives have been resumed. I will add hydralazine 10 mg IV every 4 hours as needed for systolic blood pressure greater than 160. Stop IV fluids. Thank you for the consultation. I will continue to follow the patient with you during his hospital stay.
[2020-11-07 11:31] VITALS: BMI 22.9
[2020-11-07 11:49] LABS: Glucose,Whole Blood 290 mg/dL (75-99)
--- NOTE | 2020-11-07 14:18 | P.CN ---
Psychiatric Consult - . Consult date: 11/07/20 Consult:: IDENTIFYING DATA: This patient is a 44-year-old after making male with significant history of hypertension, diabetes mellitus type 2, right eye visual loss, and ESRD on hemodialysis MWF, who was admitted for elevated blood sugars REASON FOR CONSULT: Depression and noncompliance with treatment HISTORY OF PRESENT ILLNESS: The patient presented to the hospital on 11/06/2020 for elevated blood sugars. Patient receives dialysis 3 times a week. Psychiatry has been consulted for evaluation and management of depression as well as noncompliance of treatment. Currently, the patient is reporting that he does have depression and endorses symptoms of poor sleep, low appetite, and overall low mood. He vehemently denies any suicidal or homicidal ideation, intention, and/or plan. He reports that he had a prior attempt at suicide many years ago. The patient also reports that he has been started on Zoloft and multiple but notices no significant change in his mood since then. He does not report any significant history of bipolar symptoms. He reports no periods of excessive energy, pressured speech, or grandiosity. He is currently not reporting any auditory or visualizations. He denies any paranoia or other delusions. In regards to his capacity to engage in medical decision making, the patient is able to acknowledge the risks and benefits of his dialysis. The patient explicitly states that if he does not receive dialysis memory could lead to significant impairment and . The patient says that he wants to have dialysis today. He reports that his only concern with dialysis is "how long it takes." PAST PSYCHIATRIC HISTORY: Patient has a history of depression. The patient is only able to recall Zoloft. His home medication regimens include gabapentin 300 mg by mouth twice a day, Zoloft 50 mg by mouth daily, and trazodone 100 mg at bedtime. Patient denies any previous psychiatric hospitalizations. Patient denies any psychiatric outpatient follow-up. He reports one prior attempt at suicide in the distant past. PAST MEDICAL HISTORY: Past Medical History: Diabetes Mellitus, Dialysis, Eye Disorder, Hypertension Additional Past Medical History / Comment(s): very poor vision R eye, has diaylsis ,,and thursday. Pt is on a transplant list for kidneys History of Any Multi-Drug Resistant Organisms: None Reported Past Surgical History: No Surgical Hx Reported Additional Past Surgical History / Comment(s): eye surgery due to diabetes and thorascopic percardial window 2013 Past Anesthesia/Blood Transfusion Reactions: No Reported Reaction Additional Past Anesthesia/Blood Transfusion Reaction / Comment(s): blood transfusion 2013 Past Psychological History: Anxiety, Depression Smoking Status: Former smoker Past Alcohol Use History: Occasional Past Drug Use History: None Reported ALLERGIES: NO KNOWN DRUG ALLERGIES CHEMICAL DEPENDENCY HISTORY: At this time, the patient is denying any tobacco, alcohol, or illicit drug use. He does report he smokes marijuana daily. FAMILY PSYCHIATRIC/SUBSTANCE USE HISTORY: Patient does not report any significant family history of psychiatric illness or substance abuse. SOCIAL HISTORY: The patient currently lives with the mother of his 13-year-old son. He states that he has been staying with her for the past month. He also reports an adult daughter as well whom he has not seen over the past 8-9 years. He is single, and never . He is currently unemployed. He reports no or legal history. MENTAL STATUS EXAM: General Appearance: Patient appears to be stated age is alert, pleasant, and cooperative. Patient appears to have fair hygiene and grooming wearing hospital gown. The patient has a bandage over his right eye. Behavior: Patient is lying down in bed. Psychomotor activity slightly increased which it should be to the pain in his eye. Mood/Affect: Patient reports their mood is "okay", affect is congruent but constricted in range. Suicidality/Homicidality: Patient denies having any suicidal or homicidal ideation intent or plan. Perceptions: Patient denies any visual hallucinations and denies any auditory hallucinations Though content/process: There is no evidence of any delusional thought content and thought process is linear and goal-directed. Memory and concentration: AOX3, grossly intact for the purposes of this session. Can spell "WORLD" backwards Judgment and insight: Fair IMPRESSIONS: Major depressive disorder ESRD on hemodialysis on MWF Hypertension Noncompliance with medications PLAN: -At this time patient DOES NOT meet criteria for inpatient psychiatric admission. -Patient DOES have decision making capacity at this time and is able to reason through and communicate/appreciate the risks, benefits and alternatives to treatment. -Would recommend the following medication changes/additions: Stop Zoloft. Start Remeron 15 mg at bedtime for depression/insomnia/appetite. Continue Trazodone 100 mg at bedtime for insomnia. -Psychiatry will sign off at this point, please contact with any questions. 11/07/20 14:18
[2020-11-07] MEDS ORDERED: NEOMYCIN-POLYMYXIN-DEXAMETH OINT 3.5 GM TUBE RIGHT EYE STA (16:53)
[2020-11-07 16:59] LABS: Glucose,Whole Blood 248 mg/dL (75-99)
[2020-11-07] MEDS ORDERED: INSULN ASP PRT/INSULIN ASPART 100 UNIT/ML 10 ML VIAL SQ SCH (17:30)
[2020-11-07 19:44] LABS: Glucose,Whole Blood 245 mg/dL (75-99)
[2020-11-07] MEDS: FAMOTIDINE 20 MG/2 ML VIAL IV SCH (20:41)
[2020-11-07] MEDS: DORZOLAMIDE HCL 2% DROPS 10 ML BTL LEFT EYE SCH (20:42)
[2020-11-07] MEDS: LATANOPROST 0.005% OPHTH DROPS 2.5 ML BTL LEFT EYE SCH (20:42)
[2020-11-07] MEDS: INSULIN DETEMIR (LEVEMIR) 100 UNIT/ML SYR SQ SCH (20:42)
[2020-11-07] MEDS ORDERED: HEPARIN SODIUM,PORCINE 5,000 UNIT/ML 1 ML VIAL SQ SCH (21:00)
[2020-11-07] MEDS: MIRTAZAPINE 15 MG TAB PO SCH (22:12)
[2020-11-07] MEDS: traZODone HCL 50 MG TAB PO SCH (22:12)
[2020-11-08 04:00] LABS: Hepatitis B Surface AB- Quant 44.2 mIU/mL; Hepatitis B Surface Antibody Reactive (Non-Reactive); Hepatitis B Surface Antigen Non-Reactive (Non-Reactive)
[2020-11-08] MEDS: HYDROcodone/APAP 7.5-325MG 1 EACH TAB PO PRN ×3 (04:07→22:34)
[2020-11-08] MEDS: hydrALAZINE HCL 20 MG/ML 1 ML VIAL IVP PRN (04:08)
[2020-11-08 06:28] LABS: Glucose,Whole Blood 122 mg/dL (75-99)
[2020-11-08] MEDS: INSULIN ASPART (NovoLOG) 100 UNIT/ML VIAL SQ SCH ×4 (06:56→21:08)
[2020-11-08] MEDS: INSULIN DETEMIR (LEVEMIR) 100 UNIT/ML SYR SQ SCH (06:56)
--- NOTE | 2020-11-08 08:00 | P.PN ---
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 Follow up is for examination of the eyes due to enucleation from a week ago, and follow up on glaucoma of the remaining eye. Right eye remains uncomfortable, and had to be rebandaged last evening. Patient surgeon is coming to town today and I will discuss with her the current status. Externally, noted ecchymosis about left eye - probably not seen due to poorer lighting yesterday. Right eye is well patched. 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 left eye ocular hypertension much better controlled today on current drops of latanoprost and dorzolamide P: will continue to follow while hospitalized, however patient should return to regular eye doctors on discharge. will discuss post operative status with surgeon who performed right eye surgery last week. Objective - Vital Signs Vital signs: Vital Signs Temp 98.2 F 11/08/20 04:00 Pulse 89 11/08/20 04:00 Resp 18 11/08/20 04:00 BP 178/97 11/08/20 04:00 Pulse Ox 100 11/08/20 04:00 Intake & Output 11/07/20 11/08/20 11/08/20 18:59 06:59 18:59 Intake Total 1020 222 Output Total 3500 Balance -2480 222 Weight 70.6 kg 68.1 kg Intake: Oral 1020 222 Output: Hemodialysis 3500 Other: # Voids 0 - Labs CBC & Chem 7: 11/07/20 06:58 11/07/20 06:58 Labs: Abnormal Lab Results - Last 24 Hours (Table) 11/07/20 11/07/20 11/07/20 Range/Units 01:01 06:58 11:47 Sodium 136 L (137-145) mmol/L Potassium 5.8 H (3.5-5.1) mmol/L Chloride 94 L (98-107) mmol/L Carbon Dioxide 21 L (22-30) mmol/L BUN 61 H (9-20) mg/dL Creatinine 10.58 H* (0.66-1.25) mg/dL Glucose 245 H (74-99) mg/dL POC Glucose (mg/dL) 290 H (75-99) mg/dL Hep Bs Antibody Reactive A (Non-Reactive) 11/07/20 11/07/20 11/08/20 Range/Units 16:58 19:41 06:26 Sodium (137-145) mmol/L Potassium (3.5-5.1) mmol/L Chloride (98-107) mmol/L Carbon Dioxide (22-30) mmol/L BUN (9-20) mg/dL Creatinine (0.66-1.25) mg/dL Glucose (74-99) mg/dL POC Glucose (mg/dL) 248 H 245 H 122 H (75-99) mg/dL Hep Bs Antibody (Non-Reactive)
[2020-11-08] MEDS: INSULN ASP PRT/INSULIN ASPART 100 UNIT/ML 10 ML VIAL SQ SCH ×2 (08:39→17:17)
[2020-11-08] MEDS: CALCIUM ACETATE 667 MG TAB PO SCH ×3 (08:40→22:33)
[2020-11-08] MEDS: DORZOLAMIDE HCL 2% DROPS 10 ML BTL LEFT EYE SCH ×2 (08:40→21:09)
[2020-11-08] MEDS: cloNIDine HCL 0.2 MG TAB PO SCH ×3 (08:40→22:34)
[2020-11-08] MEDS: FAMOTIDINE 20 MG/2 ML VIAL IV SCH ×2 (08:41→21:08)
[2020-11-08] MEDS: GABAPENTIN 300 MG CAP PO SCH ×2 (08:43→21:08)
[2020-11-08] MEDS: ISOSORBIDE MONONITRATE ER 60 MG TAB.ER.24H PO SCH (08:44)
[2020-11-08] MEDS: hydrALAZINE HCL 50 MG TAB PO SCH ×3 (08:44→22:34)
[2020-11-08] MEDS: LABETALOL 200 MG TAB PO SCH ×3 (08:45→22:34)
[2020-11-08] MEDS: NIFEdipine XL 30 MG TAB.ER.24 PO SCH (08:45)
[2020-11-08] MEDS: PANTOPRAZOLE 40 MG/10 ML VIAL IV SCH (08:45)
[2020-11-08] MEDS: HEPARIN SODIUM,PORCINE/PF 5,000 UNIT/0.5 ML SYRINGE SQ SCH ×2 (10:33→21:08)
--- NOTE | 2020-11-08 10:57 | P.PN ---
Subjective Patient is seen in follow-up for end-stage renal disease. He is maintained on hemodialysis on Thursday schedule. Tolerated dialysis well yesterday. Blood sugar 122 this morning. No chest pain or shortness of breath. Vital signs are stable. General: The patient appeared well nourished and normally developed. HEENT: Head exam is unremarkable. Neck is without jugular venous distension. LUNGS: Breath sounds decreased. HEART: Rate and Rhythm are regular. ABDOMEN: Soft, nontender. EXTREMITITES: No edema. Objective - Vital Signs Vital signs: Vital Signs Temp 98.1 F 11/08/20 08:00 Pulse 91 11/08/20 08:00 Resp 16 11/08/20 08:00 BP 165/87 11/08/20 08:00 Pulse Ox 97 11/08/20 08:00 Intake & Output 11/07/20 11/08/20 11/08/20 18:59 06:59 18:59 Intake Total 1020 222 240 Output Total 3500 Balance -2480 222 240 Weight 70.6 kg 68.1 kg Intake: Oral 1020 222 240 Output: Hemodialysis 3500 Other: # Voids 0 - Labs CBC & Chem 7: 11/07/20 06:58 11/07/20 06:58 Labs: Abnormal Lab Results - Last 24 Hours (Table) 11/07/20 11/07/20 11/07/20 Range/Units 01:01 11:47 16:58 POC Glucose (mg/dL) 290 H 248 H (75-99) mg/dL Hep Bs Antibody Reactive A (Non-Reactive) 11/07/20 11/08/20 Range/Units 19:41 06:26 POC Glucose (mg/dL) 245 H 122 H (75-99) mg/dL Hep Bs Antibody (Non-Reactive) Assessment and Plan Plan: Assessment: 1. End-stage renal disease maintained on hemodialysis on Thursday schedule. 2. Uncontrolled diabetes. 3. Hypertension with chronic kidney disease. 4. Status post eye surgery last week. 5. Chronic kidney disease mineral bone disease maintained on PhosLo. 6. Hyperkalemia secondary to chronic kidney disease and hyperglycemia. Expect improvement postdialysis. 7. Chronic diastolic CHF with severe mitral regurgitation, moderate to severe tricuspid regurgitation and severe pulmonary hypertension Plan: Hemodialysis tomorrow. Home antihypertensives have been resumed. I will add hydralazine 10 mg IV every 4 hours as needed for systolic blood pressure greater than 160. Increase nifedipine to 60 mg once daily.
[2020-11-08 11:41] LABS: Glucose,Whole Blood 48 mg/dL (75-99)
[2020-11-08 11:41] LABS: Glucose,Whole Blood 49 mg/dL (75-99)
[2020-11-08] MEDS ORDERED: DEXTROSE 50% SYRINGE 50 ML IVP STA (11:48)
[2020-11-08 11:57] LABS: Calcium 9.7 mg/dL (8.4-10.2); Potassium 5.1 mmol/L (3.5-5.1)
[2020-11-08 12:01] LABS: Glucose,Whole Blood 67 mg/dL (75-99)
--- NOTE | 2020-11-08 12:01 | P.PN ---
Subjective Patient is a 44-year-old -[place]ian male with a known history of hypertension, diabetes type 2 insulin-dependent and noncompliance with medica tions and also right eye visual loss and ESRD on hemodialysis on MWF, anxiety/depression and previous history of smoker . Also he has recent right eye removal surgery on 11/01/2020 at [facility] He is a patient of Dr. Valdivia. Presents because of hyperglycemia and hypertension,. Patient says that he had some surgery for right eye enucleation [facility], he could not remember the name of the surgeon, it was done last and release of the same day, patient was not taking his diabetes medication or blood pressure medication after the surgery, he could not give a good reason why he stopped taking his medication but he told me he is willing to keep taking his medication upon discharge. Yesterday he was feeling drowsy, thirsty and wobbly so family member checked his blood pressure and sugar without telling him on the results are they called EMS . His sugar was more than 600 by EMS as he remembers. He admits taking Humulin 70/30 units of insulin twice a day with meal. And he takes a few blood pressure medication and could not remember the names. Denies smoking, alcohol or illicit drugs On admission his vitals are stable except for high blood pressure 203/116, currently his blood pressure 192/89. Showing sodium 136, potassium 5.7, creatinine 10.2. Troponin is elevated 0.12. CBC showing WBC of 8.8K, hemoglobin 10.3, platelets normal at 151. INR is nydia l 1.1. Acetone is negative. Coronavirus not detected EKG showing atrial flutter with 421 AV conduction, QTC is 5.5. No significant ST-T changes At home he is on insulin NPH/regular insulin units before meals twice a day KUB non-acute abdomen Chest x-ray: Mild interstitial edema. On admission he was given 1 dose of aspirin 324 mg, insulin coverage, and given about 2-3 L of normal saline. ED team 11/08/2020 This is a pleasant 44 -[place]ian male on hemodialysis who had recently r ight eye enucleation at [facility] about one week prior to coming to [facility]. Since then he had persistent pain in his right eye about 7/10. Also patient was not taking his insulin and blood pressure medication appropriately and his significant other found him hyperglycemic and hypertensive and brought him to the hospital, There is questionable dose about his NovoLog 70/30, on admission it since 19 units twice a day, today he states he takes 10 units twice a day. Last night he received Levemir prostate and his sugar this morning was low 48, D50 is been given. I will going to monitor his sugar currently. We will keep the patient on NovoLog units twice a day with insulin sliding scale and keep monitoring. His blood pressure is improving but still not controlled, today his nifedipine dose was increased to 60 mg daily. Sales Promotion Director input is appreciated and going to discuss the case with the sound person who did the surgery for him as she is coming to town today. I discussed the importance of adherence to therapy, patient agrees and states that his significant other "my baby mother will help me take both insulin and blood pressure medication basically patient agrees to take his medication with the help of his significant other". Patient had 2 EKG on admission 1 of them showing atrial flutter with 4:1 block recorded but also could be an artifact. The other EKG shows sinus tachycardia at 101. Cardiology team on the case and they did NOT diagnose him with atrial flutter. I discussed the case with cardiology team and they going to review it Echocardiogram showed ejection fraction 55-60% Review of Systems CONSTITUTIONAL: No fever, no malaise, no fatigue. HEENT: No recent visual problems or hearing problems. Denied any sore throat. CARDIOVASCULAR: No orthopnea, PND, no palpitations, no syncope. PULMONARY: No shortness of breath, no cough, no hemoptysis. GASTROINTESTINAL: No diarrhea, no nausea, no vomiting, no abdominal pain. Nor moactive bowel sounds. NEUROLOGICAL: No headaches, no weakness, no numbness. Active Medications Generic Name Dose Route Start Last Admin Trade Name Freq PRN Reason Stop Dose Admin Acetaminophen 1,000 mg 11/06/20 19:11/07/20 04:05 Acetaminophen Tab 500 Mg Tab PO 1,000 mg Q6HR PRN Administration Pain or Fever > 100.5 Hydrocodone Bitart/Acetaminophen 1 each 11/06/20 19:05 11/08/20 04:07 Hydrocodone/Apap 7.5-325mg 1 Each Tab PO 1 each Q6HR PRN Administration Pain Calcium Acetate 2,001 mg 11/06/20 22:00 11/08/20 08:40 Calcium Acetate 667 Mg Tab PO 2,001 mg TID CARIDAD Administration Clonidine 0.2 mg 11/06/20 22:00 11/08/20 08:40 Clonidine Hcl 0.2 Mg Tab PO 0.2 mg TID CARIDAD Administration Dextrose/Water 50 ml 11/08/20 11:48 Dextrose 50% Syringe 50 Ml IVP 11/08/20 11:49 ONCE STA Dorzolamide HCl 1 drops 11/07/20 21:00 11/08/20 08:40 Dorzolamide Hcl 2% Drops 10 Ml Btl LEFT EYE 1 drops BID CARIDAD Administration Ergocalciferol 1,250 mcg 11/06/20 19:15 11/06/20 20:47 Ergocalciferol 1,250 Mcg (50,000 Iu) Capsule PO Not Given Q7D CARIDAD Famotidine 10 mg 11/07/20 21:00 11/08/20 08:41 Famotidine 20 Mg/2 Ml Vial IV 10 mg Q12HR CARIDAD Administration Gabapentin 300 mg 11/06/20 21:00 11/08/20 08:43 Gabapentin 300 Mg Cap PO 300 mg BID CARDIAD Administration Heparin Sodium (Porcine) 5,000 unit 11/08/20 09:00 11/08/20 10:33 Heparin Sodium,Porcine/Pf 5,000 Unit/0.5 Ml Syringe SQ 5,000 unit Q12HR CARIDAD Administration Hydralazine HCl 100 mg 11/06/20 22:00 11/08/20 08:44 Hydralazine Hcl 50 Mg Tab PO 100 mg TID CARIDAD Administration Hydralazine HCl 10 mg 11/07/20 10:44 11/08/20 04:08 Hydralazine Hcl 20 Mg/Ml 1 Ml Vial IVP 10 mg Q6HR PRN Administration Blood Pressure - High Insulin Aspart 0 unit 11/07/20 07:30 11/08/20 06:56 Insulin Aspart (Novolog) 100 Unit/Ml Vial SQ Not Given ACHS [facility] Protocol Insulin Aspart 20 unit 11/08/20 07:30 11/08/20 08:39 Insuln Asp Prt/Insulin Aspart 100 Unit/Ml 10 Ml Vial SQ 10 unit AC-BID CARIDAD Administration Isosorbide Mononitrate 120 mg 11/07/20 09:00 11/08/20 08:44 Isosorbide Mononitrate Er 60 Mg Tab.Er.24h PO 120 mg DAILY CARIDAD Administration Labetalol HCl 400 mg 11/06/20 22:00 11/08/20 08:45 Labetalol 200 Mg Tab PO 400 mg TID CARIDAD Administration Latanoprost 1 drops 11/07/20 21:00 11/07/20 20:42 Latanoprost 0.005% Ophth Drops 2.5 Ml Btl LEFT EYE 1 drops HS CARIDAD Administration Mirtazapine 15 mg 11/07/20 21:00 11/07/20 22:12 Mirtazapine 15 Mg Tab PO 15 mg HS CARIDAD Administration Naloxone HCl 0.2 mg 11/06/20 17:24 Naloxone 0.4 Mg/Ml 1 Ml Vial IV Q2M PRN Opioid Reversal Nifedipine 60 mg 11/09/20 09:00 Nifedipine Xl 60 Mg Tab.Er.24 PO DAILY CARIDAD Ondansetron HCl 4 mg 11/06/20 17:24 11/06/20 20:10 Ondansetron 4 Mg/2 Ml Vial IVP 4 mg Q8HR PRN Administration Nausea And Vomiting Pantoprazole Sodium 40 mg 11/07/20 09:00 11/08/20 08:45 Pantoprazole 40 Mg/10 Ml Vial IV 40 mg DAILY CARIDAD Administration Trazodone HCl 100 mg 11/06/20 21:00 11/07/20 22:12 Trazodone Hcl 50 Mg Tab PO 100 mg HS CARIDAD Administration Objective - Vital Signs Vital signs: Vital Signs Temp 98.1 F 11/08/20 08:00 Pulse 91 11/08/20 08:00 Resp 16 11/08/20 08:00 BP 165/87 11/08/20 08:00 Pulse Ox 97 11/08/20 08:00 Intake & Output 11/07/20 11/08/20 11/08/20 18:59 06:59 18:59 Intake Total 1020 222 240 Output Total 3500 Balance -2480 222 240 Weight 70.6 kg 68.1 kg Intake: Oral 1020 222 240 Output: Hemodialysis 3500 Other: # Voids 0 - Exam GENERAL: The patient is alert and oriented x3, not in any acute distress. Well developed, well nourished. -HEENT: Pupils are round and equally reacting to light. EOMI. No scleral icterus. No conjunctival pallor. Normocephalic, atraumatic. No pharyngeal erythema. No -thyromegaly. Right eye dressing is in place, status post inoculation CARDIOVASCULAR: S1 and S2 present. No murmurs, rubs, or gallops. PULMONARY: Chest is clear to auscultation, no wheezing or crackles. ABDOMEN: Soft, nontender, nondistended, normoactive bowel sounds. No palpable organomegaly. MUSCULOSKELETAL: No joint swelling or deformity. EXTREMITIES: No cyanosis, clubbing, or pedal edema. NEUROLOGICAL: Gross neurological examination did not reveal any focal deficits. SKIN: No rashes. No petechiae - Labs CBC & Chem 7: 11/07/20 06:58 11/07/20 06:58 Labs: Abnormal Lab Results - Last 24 Hours (Table) 11/07/20 11/07/20 11/07/20 Range/Units 01:01 11:47 16:58 POC Glucose (mg/dL) 290 H 248 H (75-99) mg/dL Hep Bs Antibody Reactive A (Non-Reactive) 11/07/20 11/08/20 11/08/20 Range/Units 19:41 06:26 11:38 POC Glucose (mg/dL) 245 H 122 H 49 L (75-99) mg/dL Hep Bs Antibody (Non-Reactive) 11/08/20 Range/Units 11:40 POC Glucose (mg/dL) 48 L (75-99) mg/dL Hep Bs Antibody (Non-Reactive) Assessment and Plan Assessment: Hypertension with urgency on admission Hyperglycemia with uncontrolled diabetes type 2 with A1c level 15.7 on 07/2020 Noncompliance Status post right eye removal surgery on 11/01/2020 at [facility] Atrial flutter versus sinus tachycardia ESRD on hemodialysis on MWF Metoprolol Chronically elevated troponin, mostly secondary to his kidney disease Noncompliance medications Plan: This is a pleasant 44 years old male who presents with noncompliance of medication and hypertension and hyperglycemia. Resume his blood pressure medication and diabetes medication. Keep monitoring sugar and blood pressure. Cardiology consulted for for tachycardia and rhythm abnormality. Check echocardiogram. Nephrologyy on the case and continue with dialysis. patient feels sad after they took his eye out which may affect his compliance, we'll consult psych service who changed his Zoloft 2 [place] [facility] input is appreciated, they going to discuss it with his surgeon from [facility] We will keep the patient in the hospital today for uncontrolled blood pressure and glucose. And for ophthalmology follow-up Labs and medication were reviewed.. Continue same treatment. Continue with symptomatic treatment. Resume home medication. Monitor lytes and vitals. DVT and GI prophylaxis. Further recommendations depends on the clinical course of the patient DVT prophylaxis: Subcutaneous heparin GI Prophylaxis: Pepcid PT/OT: Pending Prognosis is guarded
[2020-11-08 12:22] LABS: Glucose,Whole Blood 160 mg/dL (75-99)
--- NOTE | 2020-11-08 14:13 | CT ---
EXAMINATION TYPE: CT orbits wo con DATE OF EXAM: 11/08/2020 COMPARISON: HISTORY: Retro-orbital hemorrhage of Rt eye CT DLP: 251.8 mGycm Automated exposure control for dose reduction was used. Unenhanced CT of the orbits was performed on the axial coronal planes. Bone and soft tissue window settings are reviewed. FINDINGS: There is a right periorbital hemorrhage identified displacing the prosthetic right globe anteriorly. Hemorrhage posteriorly measures approximately 11 millimeters in depth. Medially hemorrhage measures 8 mm and laterally 4 mm. There is also anterior hemorrhage noted measuring an estimated 4 mm as well. The left globe is deformed and somewhat hyperdense as well. No definite left-sided periorbital hemorr mira is seen. Extraocular musculature appears within normal limits. Optic nerves. The atrophic particularly on the right. Paranasal sinuses and mastoid air cells are well-aerated. Intracranial structures grossly unre markable. IMPRESSION: RIGHT PERIORBITAL HEMORRHAGE NOTED.
--- NOTE | 2020-11-08 14:36 | P.PN ---
Subjective Progress Note Date: 11/08/20 HISTORY OF PRESENT ILLNESS: This is a pleasant 44-year-old male past medical history significant for chronic kidney disease on HD, valvular heart disease, chin, mild non-ischemic cardiomyopathy, diabetes mellitus, hypertension, alcohol abuse and former nicotine dependence. He follows in the office with Dr. Osuna. We have been asked to see in consultation for elevated troponin. He underwent right eye removal at [facility] last week , exact details unavailable. He states his blood sugars and blood pressures have been elevated recently prompting him to come to ER for evaluation. He states he is compliant with medications and dialysis, however the girlfriend told his nurse he hasn't been taking his medications and has missed dialysis since last week. He is seen and examined sitting up in the chair in no acute distress. He denies chest pain, shortness of breath, dizziness or palpitations. Echocardiogram obtained reveals preserved LV systolic function with ejection fraction 55-60%, severely dilated left atrium, severe mitral regurgitation, moderate to severe tricuspid regurgitation, severe pulmonary hypertension with an RVSP of 76 mmHg. Consistent with previous echocardiograms obtained in the office. DIAGNOSTICS EKG reveals sinus tachycardia with nonspecific T-wave abnormalities inferiorly. Telemetry tracings indicate sinus mechanism. Chest xray pulmonary interstitial edema. Laboratory reviewed, WBC 11.2, hemoglobin 10.2, platelets 158, sodium 136, potassium 5.8, creatinine 10.58, proBNP 128,000, troponin 0.092, 0.121 and 0.1 22. Current cardiac medications include hydralazine 100 mg 3 times a day, labetalol 400 mg 3 times a day, clonidine 0.2 mg 3 times a day, Imdur 120 mg daily, nifedipine 30 mg daily. 11/08/2020 patient examined this morning at the bedside. Patient denies chest pain or pressure. He denies shortness of breath. Patient states he had hemodialysis yesterday with removal of 3.5 L. blood pressure 135/73. Heart rate in the 80s. patient's nifedipine has been increased to 60mg daily per nephrology. PHYSICAL EXAM: VITAL SIGNS: Reviewed. GENERAL: Well-developed in no acute distress. dressing noted to right eye. NECK: Supple. No JVD or thyromegaly LUNGS: Respirations even and unlabored. Lungs essentially clear to auscultation bilaterally. HEART: Regular rate and rhythm. S1 and S2 heard. systolic murmur noted. EXTREMITIES: Normal range of motion. No clubbing or cyanosis. Peripheral pulses intact. No lower extremity edema ASSESSMENT: Elevated troponin secondary to chronic kidney disease, no evidence of acute coronary syndrome Chronic kidney disease on HD Hyperkalemia Hypertension, uncontrolled Diabetes mellitus Valvular heart disease, severe MR and TR Pulmonary hypertension Alcohol abuse Medical non-compliance Former nicotine dependence PLAN: Nephrology following. Hemodialysis per nephrology Continue to monitor blood pressure Nifedipine increased today per nephrology Patient to follow up outpatient with Dr. Osuna Further outpatient discussion with Dr. Osuna regarding his valvular heart disease and possible surgical intervention Stable for discharge from a cardiac standpoint Nurse practitioner note has been reviewed by physician. Signing provider agrees with the documented findings, assessment, and plan of care. Objective - Vital Signs Vital signs: Vital Signs Temp 98.0 F 11/08/20 12:00 Pulse 83 11/08/20 14:00 Resp 16 11/08/20 14:00 BP 135/73 11/08/20 12:00 Pulse Ox 96 11/08/20 12:00 Intake & Output 11/07/20 11/08/20 11/08/20 18:59 06:59 18:59 Intake Total 1020 222 240 Output Total 3500 Balance -2480 222 240 Weight 70.6 kg 68.1 kg Intake: Oral 1020 222 240 Output: Hemodialysis 3500 Other: # Voids 0 - Labs CBC & Chem 7: 11/07/20 06:58 11/08/20 10:15 Labs: Abnormal Lab Results - Last 24 Hours (Table) 11/07/20 11/07/20 11/07/20 Range/Units 01:01 16:58 19:41 Sodium (137-145) mmol/L Chloride (98-107) mmol/L BUN (9-20) mg/dL Creatinine (0.66-1.25) mg/dL Glucose (74-99) mg/dL POC Glucose (mg/dL) 248 H 245 H (75-99) mg/dL Hep Bs Antibody Reactive A (Non-Reactive) 11/08/20 11/08/20 11/08/20 Range/Units 06:26 10:15 11:38 Sodium 135 L (137-145) mmol/L Chloride 94 L (98-107) mmol/L BUN 51 H (9-20) mg/dL Creatinine 9.70 H* (0.66-1.25) mg/dL Glucose 70 L (74-99) mg/dL POC Glucose (mg/dL) 122 H 49 L (75-99) mg/dL Hep Bs Antibody (Non-Reactive) 11/08/20 11/08/20 11/08/20 Range/Units 11:40 11:59 12:21 Sodium (137-145) mmol/L Chloride (98-107) mmol/L BUN (9-20) mg/dL Creatinine (0.66-1.25) mg/dL Glucose (74-99) mg/dL POC Glucose (mg/dL) 48 L 67 L 160 H (75-99) mg/dL Hep Bs Antibody (Non-Reactive)
[2020-11-08] MEDS ORDERED: LIDOCAINE 2% INJ 20 MG/ML (20 ML MDV) ONE (15:21)
[2020-11-08 16:56] LABS: Glucose,Whole Blood 125 mg/dL (75-99)
[2020-11-08] MEDS ORDERED: ERYTHROMYCIN 5 MG/GM OPHTH OINT 3.5 GM TUBE RIGHT EYE ONE (18:00)
[2020-11-08 20:53] LABS: Hemoglobin A1C 10.4 % (4.0-6.0)
[2020-11-08 20:56] LABS: Glucose,Whole Blood 243 mg/dL (75-99)
[2020-11-08] MEDS: MIRTAZAPINE 15 MG TAB PO SCH (21:08)
[2020-11-08] MEDS: traZODone HCL 50 MG TAB PO SCH (21:08)
[2020-11-08] MEDS: LATANOPROST 0.005% OPHTH DROPS 2.5 ML BTL LEFT EYE SCH (21:09)
[2020-11-08] MEDS: ACETAMINOPHEN TAB 500 MG TAB PO PRN (21:09)
[2020-11-09] MEDS: hydrALAZINE HCL 20 MG/ML 1 ML VIAL IVP PRN (04:00)
[2020-11-09 04:14] VITALS: RESP 16
[2020-11-09] MEDS: INSULIN ASPART (NovoLOG) 100 UNIT/ML VIAL SQ SCH ×2 (06:20→13:02)
[2020-11-09] MEDS: INSULN ASP PRT/INSULIN ASPART 100 UNIT/ML 10 ML VIAL SQ SCH (06:23)
[2020-11-09 06:34] LABS: Glucose,Whole Blood 262 mg/dL (75-99)
--- NOTE | 2020-11-09 06:50 | PCN ---
PROCEDURE NOTE DATE OF SERVICE: 11/08/2020 PROCEDURE: Tarsorrhaphy of the right eye. 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 SURGEON: Dr. Jeffrey Parker. ANESTHESIA: Local. ESTIMATED BLOOD LOSS: Less than 5 cc. SPECIMEN: None taken. INDICATION FOR THE PROCEDURE: This patient underwent a recent enucleation of the right eye approximately 1 week ago. Apparently, there was no tarsorrhaphy performed at the end of the procedure and the previously implanted conformer had slipped out of the eye. This was aggravated by the recent admission secondary to malignant hypertension and recent CT of the orbit suggests a retro-orbital hemorrhage with anterior conjunctival hemorrhage. Recommendation is to reduce the amount of conjunctival prolapse and reapproximate the eyelids for a more appropriate outcome when all is adequately healed. NARRATIVE: After obtaining the appropriate consent, the patient received 2% lidocaine, epinephrine in the upper and lower eyelids. The lower eyelid appeared to be somewhat more difficult to anesthetize and required additional medication to adequately improved the patient's comfort. A 5-0 nylon suture was used and using a small rubber catheter as a cushion for the suture, the suture was passed through the potts line of the tarsus of the upper lid through the skin, passed across nasally through the catheter, the skin and potts line of the tarsus and similarly through the lower eyelid in the same fashion, basically creating a large horizontal mattress suture. A medium size conformer covered in erythromycin was then placed underneath the upper eyelid and gentle progressive tightening of the 5-0 Vicryl reduced the conjunctival prolapse substantially. Nasal area of the conjunctiva remained somewhat prolapsed, but markedly improved from its original presentation. Once the 5-0 nylon was secured, an amount of Maxitrol ointment was placed over the exposed conjunctival tissue and a pressure patch was applied to the right eye to further reduce the prolapsing tissue. There were no complications from the procedure and the patient remained in his room at the end of the case. MMODL / IJN: [id number] /
[2020-11-09] MEDS: LABETALOL 200 MG TAB PO SCH ×2 (10:55→16:27)
--- NOTE | 2020-11-09 11:01 | P.PN ---
Subjective Patient is seen in follow-up for end-stage renal disease. He is maintained on hemodialysis on Thursday schedule. Tolerated dialysis well. Underwent eye surgery yesterday. No chest pain or shortness of breath. Denies any significant pain at this time. Vital signs are stable. General: The patient appeared well nourished and normally developed. HEENT: Head exam is unremarkable. Neck is without jugular venous distension. LUNGS: Breath sounds decreased. HEART: Rate and Rhythm are regular. ABDOMEN: Soft, nontender. EXTREMITITES: No edema. Objective - Vital Signs Vital signs: Vital Signs Temp 97.9 F 11/09/20 03:50 Pulse 86 11/09/20 03:50 Resp 16 11/09/20 03:50 BP 186/98 11/09/20 06:21 Pulse Ox 98 11/09/20 03:50 Intake & Output 11/08/20 11/09/20 11/09/20 18:59 06:59 18:59 Intake Total 157 147 3472 Balance 945 904 7246 Weight 68 kg Intake: IV 10 Invasive Line 1 10 Oral 480 540 240 Hemodialysis 3000 Other: # Voids 0 # Bowel Movements 2 - Labs CBC & Chem 7: 11/07/20 06:58 11/08/20 10:15 Labs: Abnormal Lab Results - Last 24 Hours (Table) 11/08/20 11/08/20 11/08/20 Range/Units 10:15 10:15 11:38 Sodium 135 L (137-145) mmol/L Chloride 94 L (98-107) mmol/L BUN 51 H (9-20) mg/dL Creatinine 9.70 H* (0.66-1.25) mg/dL Glucose 70 L (74-99) mg/dL POC Glucose (mg/dL) 49 L (75-99) mg/dL Hemoglobin A1c 10.4 H (4.0-6.0) % 11/08/20 11/08/20 11/08/20 Range/Units 11:40 11:59 12:21 Sodium (137-145) mmol/L Chloride (98-107) mmol/L BUN (9-20) mg/dL Creatinine (0.66-1.25) mg/dL Glucose (74-99) mg/dL POC Glucose (mg/dL) 48 L 67 L 160 H (75-99) mg/dL Hemoglobin A1c (4.0-6.0) % 11/08/20 11/08/20 11/09/20 Range/Units 16:55 20:53 06:14 Sodium (137-145) mmol/L Chloride (98-107) mmol/L BUN (9-20) mg/dL Creatinine (0.66-1.25) mg/dL Glucose (74-99) mg/dL POC Glucose (mg/dL) 125 H 243 H 262 H (75-99) mg/dL Hemoglobin A1c (4.0-6.0) % Assessment and Plan Plan: Assessment: 1. End-stage renal disease maintained on hemodialysis on Thursday schedule. 2. Uncontrolled diabetes. 3. Hypertension with chronic kidney disease. Did not receive his medications so far this morning. 4. Status post tarsorrhapy of right eye this admission. 5. Chronic kidney disease mineral bone disease maintained on PhosLo. 6. Hyperkalemia secondary to chronic kidney disease and hyperglycemia. Expect improvement postdialysis. 7. Chronic diastolic CHF with severe mitral regurgitation, moderate to severe tricuspid regurgitation and severe pulmonary hypertension Plan: Currently seen while undergoing hemodialysis. Maintain current antihypertensives as well as IV hydralazine as needed for systolic blood pressure above 160.
[2020-11-09 12:23] LABS: Glucose,Whole Blood 233 mg/dL (75-99)
[2020-11-09] MEDS: DORZOLAMIDE HCL 2% DROPS 10 ML BTL LEFT EYE SCH (13:00)
[2020-11-09] MEDS: CALCIUM ACETATE 667 MG TAB PO SCH ×2 (13:00→16:26)
[2020-11-09] MEDS: FAMOTIDINE 20 MG/2 ML VIAL IV SCH (13:00)
[2020-11-09] MEDS: GABAPENTIN 300 MG CAP PO SCH (13:01)
[2020-11-09] MEDS: ISOSORBIDE MONONITRATE ER 60 MG TAB.ER.24H PO SCH (13:01)
[2020-11-09] MEDS: PANTOPRAZOLE 40 MG/10 ML VIAL IV SCH ×2 (13:01→13:13)
[2020-11-09] MEDS: HEPARIN SODIUM,PORCINE/PF 5,000 UNIT/0.5 ML SYRINGE SQ SCH (13:01)
[2020-11-09] MEDS: hydrALAZINE HCL 50 MG TAB PO SCH ×2 (13:01→16:26)
--- NOTE | 2020-11-09 13:02 | P.PN ---
Subjective Progress Note Date: 11/09/20 HISTORY OF PRESENT ILLNESS: This is a pleasant 44-year-old male past medical history significant for chronic kidney disease on HD, valvular heart disease, chin, mild non-ischemic cardiomyopathy, diabetes mellitus, hypertension, alcohol abuse and former nicotine dependence. He follows in the office with Dr. Osuna. We have been asked to see in consultation for elevated troponin. He underwent right eye removal at [facility] last week , exact details unavailable. He states his blood sugars and blood pressures have been elevated recently prompting him to come to ER for evaluation. He states he is compliant with medications and dialysis, however the girlfriend told his nurse he hasn't been taking his medications and has missed dialysis since last week. He is seen and examined sitting up in the chair in no acute distress. He denies chest pain, shortness of breath, dizziness or palpitations. Echocardiogram obtained reveals preserved LV systolic function with ejection fraction 55-60%, severely dilated left atrium, severe mitral regurgitation, moderate to severe tricuspid regurgitation, severe pulmonary hypertension with an RVSP of 76 mmHg. Consistent with previous echocardiograms obtained in the office. DIAGNOSTICS EKG reveals sinus tachycardia with nonspecific T-wave abnormalities inferiorly. Telemetry tracings indicate sinus mechanism. Chest xray pulmonary interstitial edema. Laboratory reviewed, WBC 11.2, hemoglobin 10.2, platelets 158, sodium 136, potassium 5.8, creatinine 10.58, proBNP 128,000, troponin 0.092, 0.121 and 0.1 22. Current cardiac medications include hydralazine 100 mg 3 times a day, labetalol 400 mg 3 times a day, clonidine 0.2 mg 3 times a day, Imdur 120 mg daily, nifedipine 30 mg daily. 11/08/2020 patient examined this morning at the bedside. Patient denies chest pain or pressure. He denies shortness of breath. Patient states he had hemodialysis yesterday with removal of 3.5 L. blood pressure 135/73. Heart rate in the 80s. patient's nifedipine has been increased to 60mg daily per nephrology. 11/09/2020 Patient examined this morning at the bedside. He denies chest pain or pressure. He denies shortness of breath. He is due to receive hemodialysis today. Patient's blood pressure remains significantly elevated this morning with a systolic in the 180s. PHYSICAL EXAM: VITAL SIGNS: Reviewed. GENERAL: Well-developed in no acute distress. dressing noted to right eye. NECK: Supple. No JVD or thyromegaly LUNGS: Respirations even and unlabored. Lungs essentially clear to auscultation bilaterally. HEART: Regular rate and rhythm. S1 and S2 heard. systolic murmur noted. EXTREMITIES: Normal range of motion. No clubbing or cyanosis. Peripheral pulses intact. No lower extremity edema ASSESSMENT: Elevated troponin secondary to chronic kidney disease, no evidence of acute coronary syndrome Chronic kidney disease on HD Hyperkalemia Hypertension, uncontrolled Diabetes mellitus Valvular heart disease, severe MR and TR Pulmonary hypertension Alcohol abuse Medical non-compliance Former nicotine dependence PLAN: Nephrology following. Hemodialysis per nephrology Continue to monitor blood pressure Increase nifedipine to 90 mg daily Increase Catapres to 0.3 mg 3 times a day Patient to follow up outpatient with Dr. Osuna Further outpatient discussion with Dr. Osuna regarding his valvular heart disease and possible surgical intervention Stable for discharge from a cardiac standpoint Nurse practitioner note has been reviewed by physician. Signing provider agrees with the documented findings, assessment, and plan of care. Objective - Vital Signs Vital signs: Vital Signs Temp 98.1 F 11/09/20 08:00 Pulse 76 11/09/20 08:00 Resp 16 11/09/20 08:00 BP 186/98 11/09/20 08:00 Pulse Ox 97 11/09/20 08:00 Intake & Output 11/08/20 11/09/20 11/09/20 18:59 06:59 18:59 Intake Total 978 465 8282 Balance 855 764 9331 Weight 68 kg Intake: IV 10 Invasive Line 1 10 Oral 480 540 240 Hemodialysis 3000 Other: # Voids 0 # Bowel Movements 2 - Labs CBC & Chem 7: 11/07/20 06:58 11/08/20 10:15 Labs: Abnormal Lab Results - Last 24 Hours (Table) 11/08/20 11/08/20 11/08/20 Range/Units 10:15 10:15 16:55 BUN 51 H (9-20) mg/dL Creatinine 9.70 H* (0.66-1.25) mg/dL POC Glucose (mg/dL) 125 H (75-99) mg/dL Hemoglobin A1c 10.4 H (4.0-6.0) % 11/08/20 11/09/20 11/09/20 Range/Units 20:53 06:14 12:18 BUN (9-20) mg/dL Creatinine (0.66-1.25) mg/dL POC Glucose (mg/dL) 243 H 262 H 233 H (75-99) mg/dL Hemoglobin A1c (4.0-6.0) %
[2020-11-09 13:42] VITALS: BP 189/112; PULSE 87; TEMP 97.9
--- NOTE | 2020-11-09 14:20 | P.PN ---
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 Follow up on eye is after placing a tarsorrhaphy of the right eye and today he feels the right is more comfortable. He is continuing to take the latanoprost nightly and dorzolamide 2 times daily in the left. 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 left eye ocular hypertension much better controlled today on current drops of latanoprost and dorzolamide P: will continue to follow while hospitalized, I would recommend that he return to Dr. Umana for post operative follow up on the enucleation of the right, and return to Dr. Palma for his glaucoma control, shortly after discharge. continue with current glaucoma drops for left eye on discharge. Objective - Vital Signs Vital signs: Vital Signs Temp 97.9 F 11/09/20 12:00 Pulse 87 11/09/20 12:00 Resp 16 11/09/20 12:00 BP 189/112 11/09/20 12:00 Pulse Ox 96 11/09/20 12:00 Intake & Output 11/08/20 11/09/20 11/09/20 18:59 06:59 18:59 Intake Total 759 256 2938 Balance 504 357 6297 Weight 68 kg Intake: IV 10 Invasive Line 1 10 Oral 480 540 240 Hemodialysis 3000 Other: # Voids 0 # Bowel Movements 2 - Labs CBC & Chem 7: 11/07/20 06:58 11/08/20 10:15 Labs: Abnormal Lab Results - Last 24 Hours (Table) 11/08/20 11/08/20 11/08/20 Range/Units 10:15 16:55 20:53 POC Glucose (mg/dL) 125 H 243 H (75-99) mg/dL Hemoglobin A1c 10.4 H (4.0-6.0) % 11/09/20 11/09/20 Range/Units 06:14 12:18 POC Glucose (mg/dL) 262 H 233 H (75-99) mg/dL Hemoglobin A1c (4.0-6.0) %
--- NOTE | 2020-11-09 14:44 | P.DS ---
Providers Date of admission: 11/06/20 17:24 Expected date of discharge: 11/09/20 Attending physician: Bryce Arndt Consults: 11/06/20 17:24 Consult Physician Urgent Consulting Provider: Donna Osuna Consult Reason/Comments: cardiac eval and tx, elevated trop Do you want consulting provider notified?: Yes 11/06/20 17:25 Consult Physician Routine Consulting Provider: Viet Luke Consult Reason/Comments: crf, dka Do you want consulting provider notified?: Yes 11/07/20 09:58 Consult Physician Urgent Consulting Provider: Gilberto Hunter Consult Reason/Comments: depression and non compliance to take medication at home Do you want consulting provider notified?: Yes 11/07/20 11:05 Consult Physician Routine Consulting Provider: Jeffrey Parker Consult Reason/Comments: had right eye removed 11/01/20 Do you want consulting provider notified?: Already Contacted Primary care physician: [facility] Course: 44-year-old -[place] male with a known history of hypertension, diabetes type 2 insulin-dependent and noncompliance with medications and also right eye visual loss and ESRD on hemodialysis on [facility], anxiety/depression and previous history of smoker . Also he has recent right eye removal surgery on 11/01/2020 at [facility] He is a patient of Dr. Valdivia. Presents because of hyperglycemia and hypertension,. Patient says that he had some surgery for right eye enucleation [facility], he could not remember the name of the surgeon, it was done last and of the same day, patient was not taking his diabetes medication or blood pressure medication after the surgery, he could not give a good reason why he stopped taking his medication but he told me he is willing to keep taking his medication upon discharge. Yesterday he was feeling drowsy, thirsty and wobbly so family member checked his blood pressure and sugar without telling him on the results are they called EMS . His sugar was more than 600 by EMS as he remembers. He admits taking Humulin 70/30 units of insulin twice a day with meal. And he takes a few blood pressure medication and could not remember the names. Denies smoking, alcohol or illicit drugs On admission his vitals are stable except for high blood pressure 203/116, currently his blood pressure 192/89. Showing sodium 136, potassium 5.7, creatinine 10.2. Troponin is elevated 0.12. CBC showing WBC of 8.8K, hemoglobin 10.3, platelets normal at 151. INR is normal 1.1. Acetone is negative. Coronavirus not detected EKG showing atrial flutter with 421 AV conduction, QTC is 5.5. No significant ST-T changes At home he is on insulin NPH/regular insulin units before meals twice a day KUB non-acute abdomen Chest x-ray: Mild interstitial edema. On admission he was given 1 dose of aspirin 324 mg, insulin coverage, and given about 2-3 L of normal saline. ED team 11/08/2020 This is a pleasant 44 -[place] male on hemodialysis who had recently right eye enucleation at [facility] about one week prior to coming to [facility]. Since then he had persistent pain in his right eye about 7/10. Also patient was not taking his insulin and blood pressure medication appropriately and his significant other found him hyperglycemic and hypertensive and brought him to the hospital, There is questionable dose about his NovoLog 70/30, on admission it since un its twice a day, today he states he takes 10 units twice a day. Last night he received Levemir prostate and his sugar this morning was low 48, D50 is been given. I will going to monitor his sugar currently. We will keep the patient on NovoLog units twice a day with insulin sliding scale and keep monitoring. His blood pressure is improving but still not controlled, today his nifedipine d ose was increased to 60 mg daily. Branch Operation Evaluation Manager input is appreciated and going to discuss the case with the system safety engineer who did the surgery for him as she is coming to [facility] today. I discussed the importance of adherence to therapy, patient agrees and states that his significant other "my baby mother will help me take both insulin and blood pressure medication basically patient agrees to take his medication with the help of his significant other". Patient had 2 EKG on admission 1 of them showing atrial flutter with 4:1 block recorded but also could be an artifact. The other EKG shows sinus tachycardia at 101. Cardiology team on the case and they did NOT diagnose him with atrial flutter. I discussed the case with cardiology team and they going to review it Echocardiogram showed ejection fraction 55-60% 11/09/2020 Increase nifedipine to 90 mg daily and Catapres to 0.3 mg 3 times a day; Plan to dc post HD; will follow with primary system safety engineer Plan - Discharge Summary Discharge Rx Participant: No New Discharge Prescriptions: New NIFEdipine XL [Procardia XL] 90 mg PO DAILY #30 tab.er.24 Dorzolamide 2% [Trusopt 2%] 1 drops LEFT EYE BID #1 ml Latanoprost Ophth [Xalatan 0.005%] 1 drops LEFT EYE HS #1 ml Continue Labetalol [Trandate] 400 mg PO TID Insulin NPH Hum/Reg Insulin Hm [humuLIN 70/30 Kwikpen] 19 unit SQ AC-BID hydrALAZINE HCL [Apresoline] 100 mg PO TID Calcium Acetate 2,001 mg PO TID Maggie-Arpit 1 tab PO DAILY traZODone HCL [Desyrel] 100 mg PO HS Sertraline HCl [Zoloft] 50 mg PO DAILY Gabapentin [Neurontin] 300 mg PO BID cloNIDine HCL [Catapres] 0.2 mg PO TID Acetaminophen Tab [Tylenol] 1,000 mg PO Q6HR PRN PRN Reason: Pain Or Fever > 100.5 Ibuprofen [Motrin Ib] 800 mg PO Q8H PRN PRN Reason: Pain Or Fever > 100.5 Ondansetron Odt [Zofran ODT] 4 mg PO Q6H PRN PRN Reason: Nausea And Vomiting Ergocalciferol (Vitamin D2) [Drisdol (50,000 Iu)] 1,250 mcg PO Q7D Lidocaine-Prilocaine Cream [Emla Cream 2.5%/2.5%] 1 applic TOPICAL DAILY PRN PRN Reason: PORT ACCESS Isosorbide Mononitrate [Imdur] 120 mg PO DAILY HYDROcodone/APAP 7.5-325MG [[place] 7.5-325] 1 tab PO Q6HR PRN PRN Reason: Pain Discontinued NIFEdipine [NIFEdipine ER] 30 mg PO DAILY Discharge Medication List Insulin NPH Hum/Reg Insulin Hm [humuLIN 70/30 Kwikpen] 19 unit SQ AC-BID 11/27/14 [History] Labetalol [Trandate] 400 mg PO TID 11/27/14 [History] Calcium Acetate 2,001 mg PO TID 08/07/20 [History] Maggie-Arpit 1 tab PO DAILY 08/07/20 [History] hydrALAZINE HCL [Apresoline] 100 mg PO TID 08/07/20 [History] Acetaminophen Tab [Tylenol] 1,000 mg PO Q6HR PRN 11/06/20 [History] Ergocalciferol (Vitamin D2) [Drisdol (50,000 Iu)] 1,250 mcg PO Q7D 11/06/20 [History] Gabapentin [Neurontin] 300 mg PO BID 11/06/20 [History] HYDROcodone/APAP 7.5-325MG [[place] 7.5-325] 1 tab PO Q6HR PRN 11/06/20 [History] Ibuprofen [Motrin Ib] 800 mg PO Q8H PRN 11/06/20 [History] Isosorbide Mononitrate [Imdur] 120 mg PO DAILY 11/06/20 [History] Lidocaine-Prilocaine Cream [Emla Cream 2.5%/2.5%] 1 applic TOPICAL DAILY PRN 11/06/20 [History] Ondansetron Odt [Zofran ODT] 4 mg PO Q6H PRN 11/06/20 [History] Sertraline HCl [Zoloft] 50 mg PO DAILY 11/06/20 [History] cloNIDine HCL [Catapres] 0.2 mg PO TID 11/06/20 [History] traZODone HCL [Desyrel] 100 mg PO HS 11/06/20 [History] Dorzolamide 2% [Trusopt 2%] 1 drops LEFT EYE BID #1 ml 11/09/20 [Rx] Latanoprost Ophth [Xalatan 0.005%] 1 drops LEFT EYE HS #1 ml 11/09/20 [Rx] NIFEdipine XL [Procardia XL] 90 mg PO DAILY #30 tab.er.24 11/09/20 [Rx] Follow up Appointment(s)/Referral(s): Kerry Umana [Other] - 1 Week (Oculoplastics) Rafael Palma MD [STAFF PHYSICIAN] - 1 Week Luan Valdivia DO [Primary Care Provider] - 1-2 days Patient Instructions/Handouts: Heart Healthy Diet (GEN), Diabetic Hyperglycemia (GEN) Discharge Disposition: HOME SELF-CARE
[2020-11-09] MEDS ORDERED: cloNIDine HCL 0.1 MG TAB PO SCH (16:00)
[2020-11-10] MEDS ORDERED: NIFEdipine XL 90 MG TAB.ER.24 PO SCH (09:00)
== END 2020-11-09 16:50 | disposition home or self-care (01) | DRG 637 ==
LOC: EC 15:21 → 3SCARD 17:24
PROVIDERS: ADMIT Hospitalist; ATTEND Hospitalist
PROC: 5A1D70Z Performance of Urinary Filtration, Intermittent, Less than 6 Hours Per Day (ICD-10-PCS; principal; 2020-11-08)
DX: E11.65 Type 2 diabetes mellitus with hyperglycemia (principal); N18.6 End stage renal disease; I13.2 Hypertensive heart and chronic kidney disease with heart failure and with stage 5 chronic kidney disease, or end stage renal disease; I50.32 Chronic diastolic (congestive) heart failure; I42.8 Other cardiomyopathies; I48.92 Unspecified atrial flutter; E11.22 Type 2 diabetes mellitus with diabetic chronic kidney disease; Z99.2 Dependence on renal dialysis; E87.5 Hyperkalemia; F10.10 Alcohol abuse, uncomplicated; F32.9 Major depressive disorder, single episode, unspecified; F41.9 Anxiety disorder, unspecified; H10.9 Unspecified conjunctivitis; H40.9 Unspecified glaucoma; Z90.01 Acquired absence of eye; H54.61 Unqualified visual loss, right eye, normal vision left eye; I08.1 Rheumatic disorders of both mitral and tricuspid valves; Z20.822 Contact with and (suspected) exposure to COVID-19; I16.0 Hypertensive urgency; I27.20 Pulmonary hypertension, unspecified; I48.91 Unspecified atrial fibrillation; E83.9 Disorder of mineral metabolism, unspecified; Z79.4 Long term (current) use of insulin; Z79.899 Other long term (current) drug therapy; Z87.891 Personal history of nicotine dependence; Z91.14 Patient's other noncompliance with medication regimen; Z91.19 Patient's noncompliance with other medical treatment and regimen; Z56.0 Unemployment, unspecified; I45.5 Other specified heart block; R00.0 Tachycardia, unspecified; R79.89 Other specified abnormal findings of blood chemistry; Z84.1 Family history of disorders of kidney and ureter
CPT/HCPCS: 36415; 70480; 71046; 74018; 80048; 80051; 80053; 82009; 82150; 82565; 82947; 83036; 83690; 83880; 84100; 84484; 84520; 85025; 85610; 85730; 86706; 87340; 87635; 90935; 93005; 93306

== ENCOUNTER 2021-04-24 17:50 | Emergency (ER) | payer MEDICARE, BC, OTHER ==
[2021-04-24 18:05] VITALS: TEMP 98.1
--- NOTE | 2021-04-24 18:20 | ED ---
General Adult HPI - General Chief complaint: Recheck/Abnormal Lab/Rx Stated complaint: Port Bleeding Time Seen by Provider: 04/24/21 17:59 Source: patient Mode of arrival: EMS Limitations: no limitations - History of Present Illness Initial comments: Dictation was produced using [employer] dictation software. please excuse any grammatical, word or spelling errors. Chief Complaint: 45-year-old male presents with bleeding dialysis access site. History of Present Illness: Patient is a 45-year-old male he gets dialysis Thursday. His fare enforcement officer is Dr. Page. Patient completed dialysis at 3:15. When the dialysis needles were removed patient had continuous bleeding from left upper extremity dialysis site. Pressure clamp was placed patient is brought to the emergency department. Patient feels well. Denies any complaints at this time. The ROS documented in this emergency department record has been reviewed and confirmed by me. Those systems with pertinent positive or negative responses have been documented in the HPI. All other systems are other negative and/or noncontributory. PHYSICAL EXAM: General Impression: Alert and oriented x3, not in acute distress HEENT: Normocephalic atraumatic, extra-ocular movements intact, pupils equal and reactive to light bilaterally, mucous membranes moist. Cardiovascular: Heart regular rate and rhythm Chest: Able to complete full sentences, no retractions, no tachypnea Abdomen: abdomen soft, non-tender, non-distended, no organomegaly Musculoskeletal: Pulses present and equal in all extremities, no peripheral edema Left upper extremity: Clamp is placed. Clamp was removed with no active bleeding from the dialysis site. There is a palpable thrill and audible bruit Motor: no focal deficits noted Neurological: CN II-XII grossly intact, no focal motor or sensory deficits noted Skin: Intact with no visualized rashes Psych: Normal affect and mood ED course: 45-year-old male presents with chief complaint of bleeding hemodialysis access site. Vital signs upon arrival are within acceptable limits. Patient's well-appearing at bedside. Bleeding is controlled after removal of clamp. Patient observed in emergency department. Patient was reevaluated at bedside 745 PM. There was any active bleeding but there was some dressing that did show some small amount of bloody saturation. Patient will be observed in emergency department for a little longer. Fistula site was reevaluated at 8:30 PM not bleeding. Patient agreeable for discharge. Return precautions discussed. - Related Data Home Medications Medication Instructions Recorded Confirmed Insulin NPH Hum/Reg Insulin Hm 19 unit SQ AC-BID 11/27/14 11/06/20 [humuLIN 70/30 Kwikpen] Labetalol [Trandate] 400 mg PO TID 11/27/14 11/06/20 Calcium Acetate 2,001 mg PO TID 08/07/20 11/06/20 Maggie-Arpit 1 tab PO DAILY 08/07/20 11/06/20 hydrALAZINE HCL [Apresoline] 100 mg PO TID 08/07/20 11/06/20 Acetaminophen Tab [Tylenol] 1,000 mg PO Q6HR PRN 11/06/20 11/06/20 Ergocalciferol (Vitamin D2) 1,250 mcg PO Q7D 11/06/20 11/06/20 [Drisdol (50,000 Iu)] Gabapentin [Neurontin] 300 mg PO BID 11/06/20 11/06/20 HYDROcodone/APAP 7.5-325MG [[place] 1 tab PO Q6HR PRN 11/06/20 11/06/20 7.5-325] Ibuprofen [Motrin Ib] 800 mg PO Q8H PRN 11/06/20 11/06/20 Isosorbide Mononitrate [Imdur] 120 mg PO DAILY 11/06/20 11/06/20 Lidocaine-Prilocaine Cream [Emla 1 applic TOPICAL DAILY PRN 11/06/20 11/06/20 Cream 2.5%/2.5%] Ondansetron Odt [Zofran ODT] 4 mg PO Q6H PRN 11/06/20 11/06/20 Sertraline HCl [Zoloft] 50 mg PO DAILY 11/06/20 11/06/20 cloNIDine HCL [Catapres] 0.2 mg PO TID 11/06/20 11/06/20 traZODone HCL [Desyrel] 100 mg PO HS 11/06/20 11/06/20 Previous Rx's Medication Instructions Recorded Dorzolamide 2% [Trusopt 2%] 1 drops LEFT EYE BID #1 ml 11/09/20 Latanoprost Ophth [Xalatan 0.005%] 1 drops LEFT EYE HS #1 ml 11/09/20 NIFEdipine XL [Procardia XL] 90 mg PO DAILY #30 tab.er.24 11/09/20 Allergies Allergy/AdvReac Type Severity Reaction Status Date / Time No Known Allergies Allergy Verified 04/24/21 18:05 Review of Systems ROS Statement: Those systems with pertinent positive or pertinent negative responses have been documented in the HPI. ROS Other: All systems not noted in ROS Statement are negative. Past Medical History Past Medical History: Diabetes Mellitus, Dialysis, Eye Disorder, Hypertension Additional Past Medical History / Comment(s): very poor vision R eye, has diaylsis ,,and thursday. Pt is on a transplant list for kidneys History of Any Multi-Drug Resistant Organisms: None Reported Past Surgical History: No Surgical Hx Reported Additional Past Surgical History / Comment(s): eye surgery due to diabetes and thorascopic percardial window 2012 Past Anesthesia/Blood Transfusion Reactions: No Reported Reaction Additional Past Anesthesia/Blood Transfusion Reaction / Comment(s): blood transfusion 2012 Past Psychological History: Anxiety, Depression Smoking Status: Former smoker Past Alcohol Use History: Occasional Past Drug Use History: None Reported - Past Family History Father Family Medical History: Renal Disease Mother History Unknown: Yes General Exam Limitations: no limitations Course Vital Signs 04/24/21 18:02 Temperature 98.1 F Pulse Rate 87 Respiratory 17 Rate Blood Pressure 194/98 O2 Sat by Pulse 94 L Oximetry Disposition Clinical Impression: Hemorrhage of arteriovenous fistula Disposition: HOME SELF-CARE Condition: Good Instructions (If sedation given, give patient instructions): Arteriovenous Fistula Creation for Hemodialysis (DC) Additional Instructions: If the fistula sites begin bleeding again please apply direct pressure and seek immediate medical attention. Is patient prescribed a controlled substance at d/c from ED?: No Referrals: Luan Valdivia DO [Primary Care Provider] - 1-2 days
[2021-04-24 20:37] VITALS: BP 175/95; PULSE 88; RESP 18
== END 2021-04-24 20:37 | disposition home or self-care (01) ==
LOC: EC 17:50
DX: T82.838A Hemorrhage due to vascular prosthetic devices, implants and grafts, initial encounter (principal); I10 Essential (primary) hypertension; E11.9 Type 2 diabetes mellitus without complications; F41.9 Anxiety disorder, unspecified; F32.9 Major depressive disorder, single episode, unspecified; Z99.2 Dependence on renal dialysis; Z79.4 Long term (current) use of insulin; Z87.891 Personal history of nicotine dependence; Y84.1 Kidney dialysis as the cause of abnormal reaction of the patient, or of later complication, without mention of misadventure at the time of the procedure
CPT/HCPCS: 99284

== ENCOUNTER 2021-06-16 01:59 | Inpatient (IN) | payer MEDICARE, BC, OTHER ==
[~2021-06-16 01:59] MED LIST: HYDROmorphone 0.5 MG/0.5 ML SYRINGE IVP STA; ONDANSETRON 4 MG/2 ML VIAL IVP STA; SODIUM CHLORIDE 0.9% 500 ML 500 ML IV STA
[2021-06-16 02:12] LABS: Anisocytosis Slight; Basophils % (A) 0 %; Eosinophils # (A) 0.2 k/uL (0-0.7); Eosinophils % (A) 2 %; HCT 30.6 % (39.0-53.0); HGB 10.8 gm/dL (13.0-17.5); Lymphocytes # (A) 0.8 k/uL (1.0-4.8); Lymphocytes % (A) 7 %; MCHC 35.5 g/dL (31.0-37.0); MCV 81.7 fL (80.0-100.0); Mean Platelet Volume 8.8; Microcytosis Slight; Monocytes # (A) 0.7 k/uL (0-1.0); Monocytes % (A) 6 %; Neutrophils # (A) 10.5 k/uL (1.3-7.7); Neutrophils % (A) 85 %; Platelet Count 201 k/uL (150-450); RBC 3.74 m/uL (4.30-5.90); RDW 17.5 % (11.5-15.5); WBC 12.4 k/uL (3.8-10.6)
--- NOTE | 2021-06-16 02:40 | XR ---
EXAMINATION TYPE: XR chest 2V DATE OF EXAM: 06/16/2021 COMPARISON: 11/06/2020 HISTORY: Hypoxemia TECHNIQUE: 2 views FINDINGS: Heart is enlarged. There is no heart failure. Lungs are clear of consolidation. There are n o hilar masses. Costophrenic angles are clear. Bony thorax is intact. IMPRESSION: Cardiomegaly. No heart failure seen. There is clearing of the mild pulmonary interstitial edema compared to old exam.
[2021-06-16 02:44] LABS: Albumin 4.4 g/dL (3.5-5.0); Potassium 4.9 mmol/L (3.5-5.1); Total Bilirubin 0.8 mg/dL (0.2-1.3)
--- NOTE | 2021-06-16 03:19 | ED ---
Nausea/Vomiting/Diarrhea HPI - General Chief complaint: Nausea/Vomiting/Diarrhea Stated complaint: GI Issues Time Seen by Provider: 06/16/21 01:07 EST Source: EMS Mode of arrival: EMS Limitations: no limitations - History of Present Illness Initial comments: 45-year-old male patient presents to the emergency department today for evaluation of vomiting and diarrhea. States he is having upper abdominal discomfort. Denies radiation of the pain through to his back. Denies fever or chills. Denies any cough, congestion, or chest pain. Denies any shortness of breath. States symptoms started early in the morning and persisted throughout the day. Denies any sick contacts or recent travel. Denies any new medications. Patient does have kidney failure and does receive dialysis on a Thursday, Thursday, Thursday schedule, last dialysis was on Thursday. Patient denies any recent rash, cough, shortness of breath, chest pain, constipation, back pain, numbness, tingling, dizziness, weakness, headache, visual changes, or any other complaints. - Related Data Home Medications Medication Instructions Recorded Confirmed Insulin NPH Hum/Reg Insulin Hm 19 unit SQ AC-BID 11/27/14 11/06/20 [humuLIN 70/30 Kwikpen] Labetalol [Trandate] 400 mg PO TID 11/27/14 11/06/20 Calcium Acetate 2,001 mg PO TID 08/07/20 11/06/20 Maggie-Arpit 1 tab PO DAILY 08/07/20 11/06/20 hydrALAZINE HCL [Apresoline] 100 mg PO TID 08/07/20 11/06/20 Acetaminophen Tab [Tylenol] 1,000 mg PO Q6HR PRN 11/06/20 11/06/20 Ergocalciferol (Vitamin D2) 1,250 mcg PO Q7D 11/06/20 11/06/20 [Drisdol (50,000 Iu)] Gabapentin [Neurontin] 300 mg PO BID 11/06/20 11/06/20 HYDROcodone/APAP 7.5-325MG [[place] 1 tab PO Q6HR PRN 11/06/20 11/06/20 7.5-325] Ibuprofen [Motrin Ib] 800 mg PO Q8H PRN 11/06/20 11/06/20 Isosorbide Mononitrate [Imdur] 120 mg PO DAILY 11/06/20 11/06/20 Lidocaine-Prilocaine Cream [Emla 1 applic TOPICAL DAILY PRN 11/06/20 11/06/20 Cream 2.5%/2.5%] Ondansetron Odt [Zofran ODT] 4 mg PO Q6H PRN 11/06/20 11/06/20 Sertraline HCl [Zoloft] 50 mg PO DAILY 11/06/20 11/06/20 cloNIDine HCL [Catapres] 0.2 mg PO TID 11/06/20 11/06/20 traZODone HCL [Desyrel] 100 mg PO HS 11/06/20 11/06/20 Previous Rx's Medication Instructions Recorded Dorzolamide 2% [Trusopt 2%] 1 drops LEFT EYE BID #1 ml 11/09/20 Latanoprost Ophth [Xalatan 0.005%] 1 drops LEFT EYE HS #1 ml 11/09/20 NIFEdipine XL [Procardia XL] 90 mg PO DAILY #30 tab.er.24 11/09/20 Allergies Allergy/AdvReac Type Severity Reaction Status Date / Time No Known Allergies Allergy Verified 04/24/21 18:05 Review of Systems ROS Statement: Those systems with pertinent positive or pertinent negative responses have been documented in the HPI. ROS Other: All systems not noted in ROS Statement are negative. Past Medical History Past Medical History: Diabetes Mellitus, Dialysis, Eye Disorder, Hypertension Additional Past Medical History / Comment(s): very poor vision R eye, has diaylsis ,,and thursday. Pt is on a transplant list for kidneys History of Any Multi-Drug Resistant Organisms: None Reported Past Surgical History: No Surgical Hx Reported Additional Past Surgical History / Comment(s): eye surgery due to diabetes and thorascopic percardial window 2012 Past Anesthesia/Blood Transfusion Reactions: No Reported Reaction Additional Past Anesthesia/Blood Transfusion Reaction / Comment(s): blood transfusion 2013 Past Psychological History: Anxiety, Depression Smoking Status: Former smoker Past Alcohol Use History: Occasional Past Drug Use History: None Reported - Past Family History Father Family Medical History: Renal Disease Mother History Unknown: Yes General Exam Limitations: no limitations General appearance: alert, in no apparent distress, other (This is a well- developed, well-nourished adult male patient in no acute distress. ) ENT exam: Present: normal exam, normal oropharynx, mucous membranes moist Respiratory exam: Present: normal lung sounds bilaterally. Absent: respiratory distress, wheezes, rales, rhonchi, stridor Cardiovascular Exam: Present: normal rhythm, tachycardia, normal heart sounds. Absent: systolic murmur, diastolic murmur, rubs, gallop, clicks GI/Abdominal exam: Present: soft, normal bowel sounds. Absent: distended, tenderness, guarding, rebound, rigid Neurological exam: Present: alert, oriented X3, CN II-XII intact Psychiatric exam: Present: normal affect, normal mood Skin exam: Present: warm, dry, intact, normal color. Absent: rash Course Vital Signs 06/16/21 01:07 EST Temperature 99.3 F Pulse Rate 106 H Respiratory 20 Rate Blood Pressure 154/85 O2 Sat by Pulse 87 L Oximetry Medical Decision Making - Medical Decision Making 45-year-old male patient presented to the emergency department today for evaluat ion of nausea vomiting. He does have end-stage renal disease currently a dialysis patient, last dialysis was Thursday. Physical examination did reveal clear equal lung sounds. Mild midepigastric tenderness. Labs reviewed and did reveal elevated BUN and creatinine, elevated troponin which is chronic for him. Elevated blood sugar anion gap of 17. Acetone negative. Patient did have decreasing oxygen saturations in the low 80s. Did have improvement with nasal cannula. He reports only very mild dyspnea. No significant extremity swelling. He'll be admitted to the hospital for evaluation by nephrology for possible early dialysis. Case is discussed with my attending Dr. Covington. - Lab Data Result diagrams: 06/16/21 01:44 EST 06/16/21 01:44 EST Lab Results 06/16/21 06/16/21 06/16/21 Range/Units 01:44 EST 01:44 EST 01:44 EST WBC 12.4 H (3.8-10.6) k/uL RBC 3.74 L (4.30-5.90) m/uL Hgb 10.8 L (13.0-17.5) gm/dL Hct 30.6 L (39.0-53.0) % MCV 81.7 (80.0-100.0) fL MCH 29.0 (25.0-35.0) pg MCHC 35.5 (31.0-37.0) g/dL RDW 17.5 H (11.5-15.5) % Plt Count 201 (150-450) k/uL MPV 8.8 Neutrophils % 85 % Lymphocytes % 7 % Monocytes % 6 % Eosinophils % 2 % Basophils % 0 % Neutrophils # 10.5 H (1.3-7.7) k/uL Lymphocytes # 0.8 L (1.0-4.8) k/uL Monocytes # 0.7 (0-1.0) k/uL Eosinophils # 0.2 (0-0.7) k/uL Basophils # 0.0 (0-0.2) k/uL Anisocytosis Slight Microcytosis Slight Sodium 139 (137-145) mmol/L Potassium 4.9 (3.5-5.1) mmol/L Chloride 95 L (98-107) mmol/L Carbon Dioxide 27 (22-30) mmol/L Anion Gap 17 mmol/L BUN 50 H (9-20) mg/dL Creatinine 8.56 H* (0.66-1.25) mg/dL Est GFR (CKD-EPI)AfAm 8 (>60 ml/min/1.73 sqM) Est GFR (CKD-EPI)NonAf 7 (>60 ml/min/1.73 sqM) Glucose 317 H (74-99) mg/dL Plasma Lactic Acid Rommel 2.5 H* (0.7-2.0) mmol/L Calcium 10.0 (8.4-10.2) mg/dL Total Bilirubin 0.8 (0.2-1.3) mg/dL AST 30 (17-59) U/L ALT 17 (4-49) U/L Alkaline Phosphatase 84 (38-126) U/L Troponin I (0.000-0.034) ng/mL Total Protein 8.0 (6.3-8.2) g/dL Albumin 4.4 (3.5-5.0) g/dL Amylase 75 (30-110) U/L Lipase 260 (23-300) U/L Acetone, Qual (Negative) Coronavirus (PCR) (Not Detectd) 06/16/21 06/16/21 06/16/21 Range/Units 01:44 EST 01:44 EST 03:20 WBC (3.8-10.6) k/uL RBC (4.30-5.90) m/uL Hgb (13.0-17.5) gm/dL Hct (39.0-53.0) % MCV (80.0-100.0) fL MCH (25.0-35.0) pg MCHC (31.0-37.0) g/dL RDW (11.5-15.5) % Plt Count (150-450) k/uL MPV Neutrophils % % Lymphocytes % % Monocytes % % Eosinophils % % Basophils % % Neutrophils # (1.3-7.7) k/uL Lymphocytes # (1.0-4.8) k/uL Monocytes # (0-1.0) k/uL Eosinophils # (0-0.7) k/uL Basophils # (0-0.2) k/uL Anisocytosis Microcytosis Sodium (137-145) mmol/L Potassium (3.5-5.1) mmol/L Chloride (98-107) mmol/L Carbon Dioxide (22-30) mmol/L Anion Gap mmol/L BUN (9-20) mg/dL Creatinine (0.66-1.25) mg/dL Est GFR (CKD-EPI)AfAm (>60 ml/min/1.73 sqM) Est GFR (CKD-EPI)NonAf (>60 ml/min/1.73 sqM) Glucose (74-99) mg/dL Plasma Lactic Acid Rommel (0.7-2.0) mmol/L Calcium (8.4-10.2) mg/dL Total Bilirubin (0.2-1.3) mg/dL AST (17-59) U/L ALT (4-49) U/L Alkaline Phosphatase (38-126) U/L Troponin I 0.103 H* (0.000-0.034) ng/mL Total Protein (6.3-8.2) g/dL Albumin (3.5-5.0) g/dL Amylase (30-110) U/L Lipase (23-300) U/L Acetone, Qual Negative (Negative) Coronavirus (PCR) Not Detected (Not Detectd) - EKG Data -: EKG Interpreted by Ok EKG Comments: EKG obtained at 03 10 shows sinus tachycardia with prolonged QT interval, ventricular rate 101, ND interval 146, QRS duration 96, QT 404, QTC 523. Did have inverted T waves. - Radiology Data Radiology results: report reviewed, image reviewed 2 views of the chest are obtained. Report was reviewed in its entirety. Impression by Dr. Kong shows cardiomegaly. No heart failure seen. There is clearing of the mild pulmonary interstitial edema compared to old exam. Disposition Clinical Impression: Hypoxia, Vomiting Disposition: ADMITTED IP TO THIS [facility] Condition: Serious Referrals: Luan Valdivia DO [Primary Care Provider] - 1-2 days Decision to Admit Reason: Admit from EC Decision Date: 06/16/21 Decision Time: 03:57
[2021-06-16] MEDS ORDERED: INSULIN ASPART (NovoLOG) 100 UNIT/ML VIAL SQ STA (03:32)
[2021-06-16] MEDS ORDERED: NALOXONE 0.4 MG/ML 1 ML VIAL IV PRN (03:54)
[2021-06-16] MEDS ORDERED: HYDROmorphone 0.5 MG/0.5 ML SYRINGE IVP PRN (03:54)
[2021-06-16] MEDS ORDERED: TRIMETHOBENZAMIDE 100 MG/ML 2 ML VIAL IM PRN (03:55)
[2021-06-16 04:09] LABS: Glucose,Whole Blood 307 mg/dL (75-99)
[2021-06-16 11:35] LABS: Glucose,Whole Blood 279 mg/dL (75-99)
[2021-06-16] MEDS ORDERED: CALCIUM ACETATE 667 MG TAB PO PRN (12:13)
[2021-06-16] MEDS ORDERED: ACETAMINOPHEN TAB 500 MG TAB PO PRN (12:13)
[2021-06-16 12:44] LABS: Glucose,Whole Blood 287 mg/dL (75-99)
--- NOTE | 2021-06-16 12:55 | CONS ---
CONSULTATION REASON FOR CONSULTATION: End-stage renal disease. HISTORY OF PRESENT ILLNESS: Patient is a 45-year-old male with end-stage renal disease, on hemodialysis on a Thursday, Thursday, Thursday schedule. Patient was admitted to the hospital with complaints of nausea, vomiting and diarrhea. He denied any significant fevers. He did complete his dialysis on Thursday. He stated that his symptoms started the day after. He states he had [place] food and a lot of Halloween candy. PAST MEDICAL HISTORY: End-stage renal disease, type 1 diabetes, diabetic nephropathy, diabetic neuropathy and retinopathy, CKD mineral bone disorder. PAST SURGICAL HISTORY: AV fistula, enucleation of the right eye, history of pericardial window. SOCIAL HISTORY: Positive for patient being a former smoker. No history of other drug abuse or alcohol abuse. MEDICATIONS: Medications prior to admission included insulin, labetalol, PhosLo, RenaVite, hydralazine, Tylenol, vitamin D, Neurontin, [place], Motrin, Zofran, Zoloft, Catapres, Desyrel, Procardia. ALLERGIES: NONE. REVIEW OF SYSTEMS: As per HPI. Other systems negative. PHYSICAL EXAMINATION: Patient is comfortable, awake. He is not in any acute distress. Alert, oriented x3. Blood pressure 164/74, heart rate 102 per minute. He is afebrile. EXAMINATION OF THE HEART: S1 and S2. EXAMINATION OF LUNGS: Bilateral breath sounds are heard. Abdomen is soft, non-tender. Examination of lower extremities shows no evidence of edema. LIBRARIAN SPECIALIST EXAM: Grossly intact. LABS: Serum lactic acid was 2.9. Sodium 139, potassium 4.9, hemoglobin 10.8 g/dL. ASSESSMENT: 1. End-stage renal disease, on hemodialysis on a Thursday, Thursday, Thursday schedule via left arm AV fistula. Will arrange for hemodialysis in a.m. 2. Volume depletion, status post IV fluids, currently feeling better. Will plan for minimal ultrafiltration with dialysis tomorrow. 3. Nausea, vomiting and diarrhea, currently improved. Possible viral gastroenteritis. 4. Lactic acidosis associated with hypovolemia. No other underlying source of infection identified. Chest x-ray does not show any infiltrates. PLAN: Hemodialysis in a.m.; minimal ultrafiltration. Resume phosphate binders. Thank you for this consultation. Will continue to follow the patient with you during his hospitalization. MMODL / IJN: [id number] /
[2021-06-16] MEDS ORDERED: SODIUM CHLORIDE 0.9% 1,000 ML IV SCH (13:15)
[2021-06-16] MEDS: PANTOPRAZOLE 40 MG/10 ML VIAL IVP SCH (13:21)
[2021-06-16] MEDS: INSULIN ASPART (NovoLOG) 100 UNIT/ML VIAL SQ SCH ×2 (13:21→18:28)
[2021-06-16] MEDS: cloNIDine HCL 0.2 MG TAB PO SCH (16:12)
[2021-06-16] MEDS: GABAPENTIN 300 MG CAP PO SCH (16:12)
[2021-06-16] MEDS: hydrALAZINE HCL 50 MG TAB PO SCH ×2 (16:12→22:06)
[2021-06-16] MEDS: LABETALOL 200 MG TAB PO SCH ×2 (16:41→22:04)
[2021-06-16 18:03] LABS: Glucose,Whole Blood 80 mg/dL (75-99)
[2021-06-16 19:56] LABS: Glucose,Whole Blood 144 mg/dL (75-99)
[2021-06-16] MEDS: DORZOLAMIDE HCL 2% DROPS 10 ML BTL LEFT EYE SCH (22:01)
[2021-06-16] MEDS: LATANOPROST 0.005% OPHTH DROPS 2.5 ML BTL LEFT EYE SCH (22:01)
[2021-06-16] MEDS: HEPARIN SODIUM,PORCINE/PF 5,000 UNIT/0.5 ML SYRINGE SQ SCH (22:03)
[2021-06-17] MEDS: INSULIN ASPART (NovoLOG) 100 UNIT/ML VIAL SQ SCH ×5 (05:57→21:19)
[2021-06-17] MEDS: GABAPENTIN 300 MG CAP PO SCH (05:58)
[2021-06-17] MEDS: cloNIDine HCL 0.2 MG TAB PO SCH ×4 (05:58→21:10)
--- NOTE | 2021-06-17 06:56 | P.HPIM ---
History of Present Illness This is a pleasant 45 years old male with past medical history of Diabetes Mellitus, end-stage renal disease on hemodialysis, Pt is on a transplant list for kidneys, very poor vision of the right eye, Hypertension Patient is a 44-year-old -[place] male with a known history of hypertension, diabetes type 2 insulin-dependent and noncompliance with medications and also right eye visual loss and ESRD on hemodialysis on MWF, anxiety/depression and previous history of smoker . Also he has recent right eye removal surgery on 11/01/2020 at [facility] He is a patient of Dr. Valdivia. He is status post tarsorrhaphy of the right eye by Dr. 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 Patient presents with nausea vomiting and diarrhea and abdominal pain. Patient states that he vomited almost 10 times per day but there was no blood in it. Has frequent bowel movements so many to count with her embolic abdominal pain with vomiting only otherwise has no pain. No chest pain or dyspnea or coughing. He makes little urine as he is dialysis patients with no dysuria. He smoked without specification how much he was counseled to quit and he agreed but he declines nicotine patch. He quit drinking alcohol 1 year ago but no other strokes. On admission patient is afebrile, his slightly tachycardic and 102. Blood pressure 164/74 and he is saturating 98% on room air He had mild leukocytosis at 12.4 hemoglobin 10.8 which is at baseline Creatinine 8.5, electrolytes normal. Glucose is elevated at 317. Elevated t roponin at 0.103. Elevated lactic acid at 2.5 and 2.9 Not elevated liver enzymes. Lipase normal at 260 Acetone is negative. Coronal far as not detected. EKG showing sinus tachycardia and [address]-T changes. Chest x-ray: Cardiomegaly. No heart failure. There is clearing of the mild pulmonary interstitial edema compared to old exam In the emergency room patient received Dilaudid, normal saline and insulin coverage Review of Systems CONSTITUTIONAL: No fever, no malaise, no fatigue. HEENT: No recent visual problems or hearing problems. Denied any sore throat. CARDIOVASCULAR: No orthopnea, PND, no palpitations, no syncope. PULMONARY: No shortness of breath, no cough, no hemoptysis. GASTROINTESTINAL: No diarrhea, no nausea, no vomiting, no abdominal pain. Normoactive bowel sounds. NEUROLOGICAL: No headaches, no weakness, no numbness. HEMATOLOGICAL: Denies any bleeding or petechiae. GENITOURINARY: Denies any burning micturition, frequency, or urgency. MUSCULOSKELETAL/RHEUMATOLOGICAL: Denies any joint pain, swelling, or any muscle pain. ENDOCRINE: Denies any polyuria or polydipsia. Past Medical History Past Medical History: Diabetes Mellitus, Dialysis, Eye Disorder, Hypertension Additional Past Medical History / Comment(s): very poor vision R eye, has di aylsis ,,and thursday. Pt is on a transplant list for kidneys History of Any Multi-Drug Resistant Organisms: None Reported Past Surgical History: No Surgical Hx Reported Additional Past Surgical History / Comment(s): eye surgery due to diabetes and thorascopic percardial window 2012 Past Anesthesia/Blood Transfusion Reactions: No Reported Reaction Additional Past Anesthesia/Blood Transfusion Reaction / Comment(s): blood transfusion 2012 Past Psychological History: Anxiety, Depression Smoking Status: Former smoker Past Alcohol Use History: Occasional Past Drug Use History: None Reported - Past Family History Father Family Medical History: Renal Disease Mother History Unknown: Yes Medications and Allergies Home Medications Medication Instructions Recorded Confirmed Type RX: Insulin NPH Hum/Reg Insulin Hm See Protocol SQ AC-TID 11/27/14 06/16/21 History [humuLIN 70/30 Kwikpen] RX: Labetalol [Trandate] 400 mg PO TID 11/27/14 06/16/21 History RX: Calcium Acetate 2,001 mg PO TID-W/MEALS 08/07/20 06/16/21 History RX: hydrALAZINE HCL [Apresoline] 100 mg PO TID 08/07/20 06/16/21 History Maggie-Arpit 1 tab PO DAILY 08/07/20 06/16/21 History RX: Acetaminophen Tab [Tylenol] 1,000 mg PO Q6HR PRN 11/06/20 06/16/21 History RX: Ergocalciferol (Vitamin D2) 1,250 mcg PO Q7D 11/06/20 06/16/21 History [Drisdol (50,000 Iu)] RX: Gabapentin [Neurontin] 300 mg PO TID 11/06/20 06/16/21 History RX: Ibuprofen [Motrin Ib] 800 mg PO Q8H PRN 11/06/20 06/16/21 History RX: Isosorbide Mononitrate [Imdur] 120 mg PO DAILY 11/06/20 06/16/21 History RX: Lidocaine-Prilocaine Cream 1 applic TOPICAL DAILY PRN 11/06/20 06/16/21 History [Emla Cream 2.5%/2.5%] RX: Sertraline HCl [Zoloft] 50 mg PO DAILY 11/06/20 06/16/21 History RX: cloNIDine HCL [Catapres] 0.2 mg PO TID 11/06/20 06/16/21 History RX: Dorzolamide 2% [Trusopt 2%] 1 drops LEFT EYE BID #1 ml 11/09/20 06/16/21 Rx RX: NIFEdipine XL [Procardia XL] 90 mg PO DAILY #30 tab.er.24 11/09/20 06/16/21 Rx Calcium Acetate [Phoslo] 667 mg PO DAILY PRN 06/16/21 06/16/21 History HYDROcodone/APAP 10-325MG [[place] 1 tab PO Q6HR PRN 06/16/21 06/16/21 History 10-325] RX: Latanoprost Ophth [Xalatan 1 drop LEFT EYE HS 06/16/21 06/16/21 History 0.005%] Vit B Complx C/Folic Acid/Zinc 1 tab PO DAILY 06/16/21 06/16/21 History [Renaplex Tablet] Allergies Allergy/AdvReac Type Severity Reaction Status Date / Time No Known Allergies Allergy Verified 06/16/21 07:21 Physical Exam Vitals: Vital Signs Temp Pulse Resp BP Pulse Ox 06/16/21 09:00 102 H 18 164/74 98 06/16/21 06:48 98.8 F 104 H 18 161/90 98 06/16/21 04:00 98 18 154/79 100 06/16/21 02:00 98.7 F 96 18 162/92 99 06/16/21 01:07 EST 99.3 F 106 H 20 154/85 87 L Intake and Output 06/15/21 06/16/21 06/16/21 23:59 06:59 14:59 Other: Weight GENERAL: The patient is alert and oriented x3, not in any acute distress. Well developed, well nourished. HEENT: Pupils are round and equally reacting to light. EOMI. No scleral icterus. No conjunctival pallor. Normocephalic, atraumatic. No pharyngeal erythema. No thyromegaly. CARDIOVASCULAR: S1 and S2 present. No murmurs, rubs, or gallops. PULMONARY: Chest is clear to auscultation, no wheezing or crackles. ABDOMEN: Soft, nontender, nondistended, normoactive bowel sounds. No palpable organomegaly. MUSCULOSKELETAL: No joint swelling or deformity. EXTREMITIES: No cyanosis, clubbing, or pedal edema. NEUROLOGICAL: Gross neurological examination did not reveal any focal deficits. SKIN: No rashes. No petechiae Results CBC & Chem 7: 06/16/21 01:44 EST 06/16/21 01:44 EST Labs: Abnormal Lab Results - Last 24 Hours (Table) 06/16/21 06/16/21 06/16/21 Range/Units 01:44 EST 01:44 EST 01:44 EST WBC 12.4 H (3.8-10.6) k/uL RBC 3.74 L (4.30-5.90) m/uL Hgb 10.8 L (13.0-17.5) gm/dL Hct 30.6 L (39.0-53.0) % RDW 17.5 H (11.5-15.5) % Neutrophils # 10.5 H (1.3-7.7) k/uL Lymphocytes # 0.8 L (1.0-4.8) k/uL Chloride 95 L (98-107) mmol/L BUN 50 H (9-20) mg/dL Creatinine 8.56 H* (0.66-1.25) mg/dL Glucose 317 H (74-99) mg/dL POC Glucose (mg/dL) (75-99) mg/dL Plasma Lactic Acid Rommel 2.5 H* (0.7-2.0) mmol/L Troponin I (0.000-0.034) ng/mL 06/16/21 06/16/21 06/16/21 Range/Units 01:44 EST 04:06 05:32 WBC (3.8-10.6) k/uL RBC (4.30-5.90) m/uL Hgb (13.0-17.5) gm/dL Hct (39.0-53.0) % RDW (11.5-15.5) % Neutrophils # (1.3-7.7) k/uL Lymphocytes # (1.0-4.8) k/uL Chloride (98-107) mmol/L BUN (9-20) mg/dL Creatinine (0.66-1.25) mg/dL Glucose (74-99) mg/dL POC Glucose (mg/dL) 307 H (75-99) mg/dL Plasma Lactic Acid Rommel 2.9 H* (0.7-2.0) mmol/L Troponin I 0.103 H* (0.000-0.034) ng/mL 06/16/21 06/16/21 Range/Units 09:27 11:33 WBC (3.8-10.6) k/uL RBC (4.30-5.90) m/uL Hgb (13.0-17.5) gm/dL Hct (39.0-53.0) % RDW (11.5-15.5) % Neutrophils # (1.3-7.7) k/uL Lymphocytes # (1.0-4.8) k/uL Chloride (98-107) mmol/L BUN (9-20) mg/dL Creatinine (0.66-1.25) mg/dL Glucose (74-99) mg/dL POC Glucose (mg/dL) 279 H (75-99) mg/dL Plasma Lactic Acid Rommel 2.9 H* (0.7-2.0) mmol/L Troponin I (0.000-0.034) ng/mL Assessment and Plan Assessment: acute gastroenteritis with nausea vomiting and diarrhea Elevated troponin, most likely secondary to renal disease. it is chronic since 07/2020 Elevated lactic acid with dehydration Hypertension, Uncontrolled on admission Hyperglycemia with uncontrolled diabetes type 2 with A1c level 15.7 on 07/2020 Status post right eye removal surgery on 11/01/2020 at [facility] Atrial flutter versus sinus tachycardia ESRD on hemodialysis on MWF Metoprolol Chronically elevated troponin, mostly secondary to his kidney disease Noncompliance medications Plan: this is a pleasant 45 years old male who presents with nausea vomiting and diarrhea start The patient on gentle hydration and monitor vital signs blood pressure Check for C. diff patient counseled about the importance of compliance to treatment Labs and medication were reviewed.. Continue same treatment. Continue with symptomatic treatment. Resume home medication. Monitor lytes and vitals. DVT and GI prophylaxis. Further recommendations depends on the clinical course of the patient DVT prophylaxis: Subcutaneous heparin GI Prophylaxis: Ppi Prognosis is guarded
[2021-06-17 08:26] LABS: Glucose,Whole Blood 200 mg/dL (75-99)
[2021-06-17] MEDS ORDERED: hydrALAZINE HCL 20 MG/ML 1 ML VIAL IVP PRN (08:30)
--- NOTE | 2021-06-17 08:31 | P.PN ---
Subjective Patient is seen in follow-up for end-stage renal disease. He is maintained on hemodialysis on Thursday schedule. No further vomiting. Diarrhea improved. Feels hungry. Vital signs are stable. General: The patient appeared well nourished and normally developed. HEENT: Head exam is unremarkable. LUNGS: Breath sounds decreased. HEART: Rate and Rhythm are regular. ABDOMEN: Soft, no distention. EXTREMITITES: No edema. Objective - Vital Signs Vital signs: Vital Signs Temp 98.1 F 06/17/21 06:38 Pulse 90 06/17/21 06:38 Resp 16 06/17/21 06:38 BP 165/90 06/17/21 06:38 Pulse Ox 100 06/17/21 06:38 - Labs CBC & Chem 7: 06/16/21 01:44 EST 06/16/21 01:44 EST Labs: Abnormal Lab Results - Last 24 Hours (Table) 06/16/21 06/16/21 06/16/21 Range/Units 09:27 11:33 12:39 POC Glucose (mg/dL) 279 H (75-99) mg/dL Plasma Lactic Acid Rommel 2.9 H* 3.4 H* (0.7-2.0) mmol/L 06/16/21 06/16/21 06/16/21 Range/Units 12:42 16:03 19:55 POC Glucose (mg/dL) 287 H 144 H (75-99) mg/dL Plasma Lactic Acid Rommel 2.6 H* (0.7-2.0) mmol/L 06/17/21 Range/Units 08:25 POC Glucose (mg/dL) 200 H (75-99) mg/dL Plasma Lactic Acid Rommel (0.7-2.0) mmol/L Assessment and Plan Plan: Assessment: 1. End-stage renal disease maintained on hemodialysis on Thursday schedule. 2. Vomiting and diarrhea likely gastroenteritis. Improved. 3. Hypertension with chronic kidney disease. 4. Diabetes mellitus. 5. Chronic kidney disease mineral bone disease maintained on PhosLo. Plan: Hemodialysis today. Hep-Lock IV fluids. Maintain current antihypertensives. Add PRN hydralazine as well.
[2021-06-17] MEDS: PANTOPRAZOLE 40 MG/10 ML VIAL IVP SCH (09:38)
[2021-06-17] MEDS: ISOSORBIDE MONONITRATE ER 60 MG TAB.ER.24H PO SCH (09:38)
[2021-06-17] MEDS: GABAPENTIN 100 MG CAP PO SCH ×3 (09:38→21:11)
[2021-06-17] MEDS: LABETALOL 200 MG TAB PO SCH ×3 (09:39→21:12)
[2021-06-17] MEDS: hydrALAZINE HCL 50 MG TAB PO SCH ×3 (09:39→21:11)
[2021-06-17] MEDS: HEPARIN SODIUM,PORCINE/PF 5,000 UNIT/0.5 ML SYRINGE SQ SCH ×2 (09:39→21:09)
[2021-06-17] MEDS: DORZOLAMIDE HCL 2% DROPS 10 ML BTL LEFT EYE SCH ×2 (09:42→21:09)
[2021-06-17 11:13] LABS: Anisocytosis Slight; Basophils % (A) 0 %; Eosinophils # (A) 1.5 k/uL (0-0.7); Eosinophils % (A) 14 %; HCT 30.4 % (39.0-53.0); HGB 10.3 gm/dL (13.0-17.5); Lymphocytes # (A) 1.4 k/uL (1.0-4.8); Lymphocytes % (A) 13 %; MCH 27.6 pg (25.0-35.0); MCHC 33.9 g/dL (31.0-37.0); MCV 81.5 fL (80.0-100.0); Mean Platelet Volume 9.5; Microcytosis Slight; Monocytes # (A) 0.7 k/uL (0-1.0); Monocytes % (A) 7 %; Neutrophils % (A) 64 %; Platelet Count 194 k/uL (150-450); RBC 3.72 m/uL (4.30-5.90); RDW 17.1 % (11.5-15.5)
[2021-06-17 11:47] LABS: Calcium 9.8 mg/dL (8.4-10.2)
[2021-06-17 12:30] LABS: Glucose,Whole Blood 228 mg/dL (75-99)
--- NOTE | 2021-06-17 15:21 | P.PN ---
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 Also he has recent right eye removal surgery on 11/01/2020 at [facility] He is a patient of Dr. Valdivia. He is status post tarsorrhaphy of the right eye by Dr. 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 Patient presents with nausea vomiting and diarrhea and abdominal pain. Patient states that he vomited almost 10 times per day but there was no blood in it. Has frequent bowel movements so many to count with her embolic abdominal pain with vomiting only otherwise has no pain. No chest pain or dyspnea or coughing. He makes little urine as he is dialysis patients with no dysuria. He smoked without specification how much he was counseled to quit and he agreed but he declines nicotine patch. He quit drinking alcohol 1 year ago but no other strokes. On admission patient is afebrile, his slightly tachycardic and 102. Blood pressure 164/74 and he is saturating 98% on room air He had mild leukocytosis at 12.4 hemoglobin 10.8 which is at baseline Creatinine 8.5, electrolytes normal. Glucose is elevated at 317. Elevated troponin at 0.103. Elevated lactic acid at 2.5 and 2.9 Not elevated liver enzymes. Lipase normal at 260 Acetone is negative. Coronal far as not detected. EKG showing sinus tachycardia and [address]-T changes. Chest x-ray: Cardiomegaly. No heart failure. There is clearing of the mild pulmonary interstitial edema compared to old exam In the emergency room patient received Dilaudid, normal saline and insulin coverage 06/17/2021 Patient is seen and evaluated and continues to be a hold in the ER and awaiting for a bed to become available on 3 S. Patient continues with abdominal pain along with multiple episodes of diarrhea. C. diff was ordered and sent and waiting for results. May add Imodium if C. diff is negative. Patient also being followed by nephrology and patient is maintained on hemodialysis and will continue with current scheduling. Will add clear liquids and monitor for tolerance. Labs: White blood, is 11.0, hemoglobin is 10.3, platelets are 194, sodium is 136, potassium is 5.0, BUN is 72, creatinine is 11.25 Review of systems: Constitutional: reports of fatigue, no reports of fever, or chills Cardiovascular: No reports of chest pain or palpitations Respiratory: No reports of shortness of breath or cough GI: No reports of nausea, vomiting, reports episodes of diarrhea : No reports of dysuria or retention Neurovascular: reports of generalized weakness All medications have been reviewed Active Medications Acetaminophen (Acetaminophen Tab 500 Mg Tab) 1,000 mg PO Q6HR PRN PRN Reason: Mild Pain or Fever > 100.5 Calcium Acetate (Calcium Acetate 667 Mg Tab) 667 mg PO DAILY PRN PRN Reason: with snack Clonidine (Clonidine Hcl 0.2 Mg Tab) 0.2 mg PO TID [facility] Last Admin: 06/17/21 14:14 Dose: Not Given Documented by: Dorzolamide HCl (Dorzolamide Hcl 2% Drops 10 Ml Btl) 1 drops LEFT EYE BID [facility] Last Admin: 06/17/21 09:42 Dose: 1 drops Documented by: Gabapentin (Gabapentin 100 Mg Cap) 100 mg PO TID [facility] Last Admin: 06/17/21 09:38 Dose: 100 mg Documented by: Heparin Sodium (Porcine) (Heparin Sodium,Porcine/Pf 5,000 Unit/0.5 Ml Syringe) 5,000 unit SQ Q12HR [facility] Last Admin: 06/17/21 09:39 Dose: 5,000 unit Documented by: Hydralazine HCl (Hydralazine Hcl 50 Mg Tab) 100 mg PO TID [facility] Last Admin: 06/17/21 09:39 Dose: 100 mg Documented by: Hydralazine HCl (Hydralazine Hcl 20 Mg/Ml 1 Ml Vial) 10 mg IVP Q6HR PRN PRN Reason: Blood Pressure - High Hydromorphone HCl (Hydromorphone 0.5 Mg/0.5 Ml Syringe) 0.5 mg IVP Q3HR PRN PRN Reason: Moderate Pain Insulin Aspart (Insulin Aspart (Novolog) 100 Unit/Ml Vial) 0 unit SQ [facility]; Protocol Last Admin: 06/17/21 14:14 Dose: Not Given Documented by: Isosorbide Mononitrate (Isosorbide Mononitrate Er 60 Mg Tab.Er.24h) 120 mg PO DAILY [facility] Last Admin: 06/17/21 09:38 Dose: 120 mg Documented by: Labetalol HCl (Labetalol 200 Mg Tab) 400 mg PO TID [facility] Last Admin: 06/17/21 09:39 Dose: 400 mg Documented by: Latanoprost (Latanoprost 0.005% Ophth Drops 2.5 Ml Btl) 1 drops LEFT EYE HS [facility] Last Admin: 06/16/21 22:01 Dose: 1 drops Documented by: Naloxone HCl (Naloxone 0.4 Mg/Ml 1 Ml Vial) 0.2 mg IV Q2M PRN PRN Reason: Opioid Reversal Nifedipine (Nifedipine Xl 90 Mg Tab.Er.24) 90 mg PO DAILY [facility] Pantoprazole Sodium (Pantoprazole 40 Mg/10 Ml Vial) 40 mg IVP DAILY [facility] Last Admin: 06/17/21 09:38 Dose: 40 mg Documented by: Sertraline HCl (Sertraline 50 Mg Tab) 50 mg PO DAILY [facility] Trimethobenzamide HCl (Trimethobenzamide 100 Mg/Ml 2 Ml Vial) 200 mg IM Q6HR PRN PRN Reason: nausea/vomiting Physical exam: GENERAL: The patient is alert and oriented x3, not in any acute distress. Well developed, well nourished. HEENT: Pupils are round and equally reacting to light. EOMI. No scleral icterus. No conjunctival pallor. Normocephalic, atraumatic. No pharyngeal erythema. No thyromegaly. CARDIOVASCULAR: S1 and S2 present. No murmurs, rubs, or gallops. PULMONARY: Chest is clear to auscultation, no wheezing or crackles. ABDOMEN: Soft, nontender, nondistended, normoactive bowel sounds. No palpable organomegaly. MUSCULOSKELETAL: No joint swelling or deformity. EXTREMITIES: No cyanosis, clubbing, or pedal edema. NEUROLOGICAL: Gross neurological examination did not reveal any focal deficits. SKIN: No rashes. No petechiae Assessment: acute gastroenteritis with nausea vomiting and diarrhea Elevated troponin, most likely secondary to renal disease. it is chronic since 07/2020 Elevated lactic acid with dehydration, lactic acid is normal at 1.7 Hypertension, Uncontrolled on admission Hyperglycemia with uncontrolled diabetes type 2 with A1c level 15.7 on 07/2020 Status post right eye removal surgery on 11/01/2020 at [facility] Atrial flutter versus sinus tachycardia ESRD on hemodialysis on MWF Chronically elevated troponin, mostly secondary to his kidney disease Noncompliance with medications History of anxiety/depression GI prophylaxis DVT prophylaxis Full code Plan: Recommend continue with current medications, management, and symptomatic treatment. Recommend to continue with hemodialysis as scheduled on Thursday/Thursday/Thursday. Patient continues with multiple episodes of diarrhea and C. diff was ordered and pending in December add Imodium if C. diff is negative. Patient continues with abdominal discomfort and denies any nausea and vomiting. nephrology following. Will repeat labs and continue to monitor closely. Further recommendations to follow based on the clinical course of the patient. Prognosis is guarded. Objective - Vital Signs Vital signs: Vital Signs Temp 98.1 F 06/17/21 06:38 Pulse 90 06/17/21 06:38 Resp 16 06/17/21 06:38 BP 165/90 06/17/21 06:38 Pulse Ox 100 06/17/21 06:38 - Labs CBC & Chem 7: 06/17/21 10:58 06/17/21 10:58 Labs: Abnormal Lab Results - Last 24 Hours (Table) 06/16/21 06/16/21 06/16/21 Range/Units 11:33 12:39 12:42 POC Glucose (mg/dL) 279 H 287 H (75-99) mg/dL Plasma Lactic Acid Rommel 3.4 H* (0.7-2.0) mmol/L 06/16/21 06/16/21 06/17/21 Range/Units 16:03 19:55 08:25 POC Glucose (mg/dL) 144 H 200 H (75-99) mg/dL Plasma Lactic Acid Rommel 2.6 H* (0.7-2.0) mmol/L
[2021-06-17] MEDS ORDERED: LOPERAMIDE 2 MG CAP PO PRN (15:22)
[2021-06-17 17:18] LABS: Glucose,Whole Blood 153 mg/dL (75-99)
[2021-06-17] MEDS: NIFEdipine XL 90 MG TAB.ER.24 PO SCH (17:33)
[2021-06-17] MEDS: SERTRALINE 50 MG TAB PO SCH (17:33)
[2021-06-17] MEDS: LATANOPROST 0.005% OPHTH DROPS 2.5 ML BTL LEFT EYE SCH (21:09)
[2021-06-17 21:24] LABS: Glucose,Whole Blood 145 mg/dL (75-99)
[2021-06-18 07:08] LABS: Glucose,Whole Blood 309 mg/dL (75-99)
[2021-06-18 07:27] VITALS: BP 172/87; PULSE 91; RESP 17; TEMP 98.7
[2021-06-18] MEDS: HEPARIN SODIUM,PORCINE/PF 5,000 UNIT/0.5 ML SYRINGE SQ SCH (07:35)
[2021-06-18] MEDS: PANTOPRAZOLE 40 MG/10 ML VIAL IVP SCH (07:35)
[2021-06-18] MEDS: hydrALAZINE HCL 50 MG TAB PO SCH (07:36)
[2021-06-18] MEDS: ISOSORBIDE MONONITRATE ER 60 MG TAB.ER.24H PO SCH (07:36)
[2021-06-18] MEDS: SERTRALINE 50 MG TAB PO SCH (07:36)
[2021-06-18] MEDS: INSULIN ASPART (NovoLOG) 100 UNIT/ML VIAL SQ SCH ×2 (07:36→12:54)
[2021-06-18] MEDS: cloNIDine HCL 0.2 MG TAB PO SCH (07:36)
[2021-06-18] MEDS: LABETALOL 200 MG TAB PO SCH (07:37)
[2021-06-18] MEDS: NIFEdipine XL 90 MG TAB.ER.24 PO SCH (07:37)
[2021-06-18] MEDS: DORZOLAMIDE HCL 2% DROPS 10 ML BTL LEFT EYE SCH (07:38)
[2021-06-18] MEDS: GABAPENTIN 100 MG CAP PO SCH (07:41)
[2021-06-18 08:51] LABS: Anisocytosis Slight; Basophils % (A) 0 %; Eosinophils % (A) 11 %; HCT 28.5 % (39.0-53.0); HGB 9.8 gm/dL (13.0-17.5); Lymphocytes # (A) 1.2 k/uL (1.0-4.8); Lymphocytes % (A) 13 %; MCH 28.1 pg (25.0-35.0); MCHC 34.3 g/dL (31.0-37.0); MCV 81.8 fL (80.0-100.0); Mean Platelet Volume 9.6; Monocytes # (A) 0.6 k/uL (0-1.0); Monocytes % (A) 6 %; Neutrophils # (A) 6.4 k/uL (1.3-7.7); Neutrophils % (A) 69 %; Platelet Count 191 k/uL (150-450); RBC 3.49 m/uL (4.30-5.90); WBC 9.3 k/uL (3.8-10.6)
[2021-06-18 09:29] LABS: African American GFR (CKD) 8 (>60 ml/min/1.73 sqM); Anion Gap 14 mmol/L; Blood Urea Nitrogen 40 mg/dL (9-20); Carbon Dioxide 24 mmol/L (22-30); Chloride 99 mmol/L (98-107); Glucose 196 mg/dL (74-99); Potassium 3.9 mmol/L (3.5-5.1); Sodium 137 mmol/L (137-145)
[2021-06-18 09:30] LABS: Non-African American GFR(CKD) 7 (>60 ml/min/1.73 sqM)
--- NOTE | 2021-06-18 09:37 | P.PN ---
Subjective Patient is seen in follow-up for end-stage renal disease. He is maintained on hemodialysis on Thursday schedule. No problems with dialysis yesterday. No vomiting or diarrhea. Vital signs are stable. General: The patient appeared well nourished and normally developed. HEENT: Head exam is unremarkable. LUNGS: Breath sounds decreased. HEART: Rate and Rhythm are regular. ABDOMEN: Soft, no distention. EXTREMITITES: No edema. Objective - Vital Signs Vital signs: Vital Signs Temp 98.7 F 06/18/21 07:26 Pulse 91 06/18/21 07:26 Resp 17 06/18/21 07:26 BP 172/87 06/18/21 07:26 Pulse Ox 97 06/18/21 07:26 Intake & Output 06/17/21 06/18/21 06/18/21 18:59 06:59 18:59 Intake Total 950 480 Output Total 1001 2 Balance -51 478 Weight 61.235 kg 61.235 kg Intake: Oral 650 480 Hemodialysis 300 Output: Stool 1 2 Hemodialysis 1000 Other: # Bowel Movements 1 - Labs CBC & Chem 7: 06/18/21 08:36 06/17/21 10:58 Labs: Abnormal Lab Results - Last 24 Hours (Table) 06/17/21 06/17/21 06/17/21 Range/Units 10:58 10:58 12:19 WBC 11.0 H (3.8-10.6) k/uL RBC 3.72 L (4.30-5.90) m/uL Hgb 10.3 L (13.0-17.5) gm/dL Hct 30.4 L (39.0-53.0) % RDW 17.1 H (11.5-15.5) % Eosinophils # 1.5 H (0-0.7) k/uL Sodium 136 L (137-145) mmol/L Chloride 93 L (98-107) mmol/L Carbon Dioxide 20 L (22-30) mmol/L BUN 72 H (9-20) mg/dL Creatinine 11.25 H* (0.66-1.25) mg/dL Glucose 223 H (74-99) mg/dL POC Glucose (mg/dL) 228 H (75-99) mg/dL 06/17/21 06/17/21 06/18/21 Range/Units 17:16 21:17 07:07 WBC (3.8-10.6) k/uL RBC (4.30-5.90) m/uL Hgb (13.0-17.5) gm/dL Hct (39.0-53.0) % RDW (11.5-15.5) % Eosinophils # (0-0.7) k/uL Sodium (137-145) mmol/L Chloride (98-107) mmol/L Carbon Dioxide (22-30) mmol/L BUN (9-20) mg/dL Creatinine (0.66-1.25) mg/dL Glucose (74-99) mg/dL POC Glucose (mg/dL) 153 H 145 H 309 H (75-99) mg/dL 06/18/21 Range/Units 08:36 WBC (3.8-10.6) k/uL RBC 3.49 L (4.30-5.90) m/uL Hgb 9.8 L (13.0-17.5) gm/dL Hct 28.5 L (39.0-53.0) % RDW 17.0 H (11.5-15.5) % Eosinophils # 1.0 H (0-0.7) k/uL Sodium (137-145) mmol/L Chloride (98-107) mmol/L Carbon Dioxide (22-30) mmol/L BUN (9-20) mg/dL Creatinine (0.66-1.25) mg/dL Glucose (74-99) mg/dL POC Glucose (mg/dL) (75-99) mg/dL Assessment and Plan Plan: Assessment: 1. End-stage renal disease maintained on hemodialysis on Thursday schedule. 2. Vomiting and diarrhea likely gastroenteritis. Improved. 3. Hypertension with chronic kidney disease. 4. Diabetes mellitus. 5. Chronic kidney disease mineral bone disease maintained on PhosLo. 6. Anemia of chronic kidney disease. Plan: Hemodialysis tomorrow. Maintain current antihypertensives. Increase dose of clonidine. Check iron studies.
[2021-06-18 11:52] LABS: Glucose,Whole Blood 99 mg/dL (75-99)
[2021-06-18] MEDS ORDERED: cloNIDine HCL 0.1 MG TAB PO SCH (16:00)
[2021-06-18 17:38] LABS: % Iron Saturation 41.33 (15.00-50.00)
== END 2021-06-18 14:49 | disposition home or self-care (01) | DRG 391 ==
LOC: EC 01:59 → 3SCARD 06:14 → 4SSUR 06-17 21:05
PROVIDERS: ADMIT Internal Medicine; ATTEND Internal Medicine
PROC: 5A1D70Z Performance of Urinary Filtration, Intermittent, Less than 6 Hours Per Day (ICD-10-PCS; principal; 2021-06-17)
DX: K52.9 Noninfective gastroenteritis and colitis, unspecified (principal); N18.6 End stage renal disease; E87.2 Acidosis; I12.0 Hypertensive chronic kidney disease with stage 5 chronic kidney disease or end stage renal disease; I48.92 Unspecified atrial flutter; Z20.822 Contact with and (suspected) exposure to COVID-19; D63.1 Anemia in chronic kidney disease; E11.22 Type 2 diabetes mellitus with diabetic chronic kidney disease; E11.319 Type 2 diabetes mellitus with unspecified diabetic retinopathy without macular edema; R79.89 Other specified abnormal findings of blood chemistry; E11.40 Type 2 diabetes mellitus with diabetic neuropathy, unspecified; E11.65 Type 2 diabetes mellitus with hyperglycemia; E86.0 Dehydration; R00.0 Tachycardia, unspecified; I45.81 Long QT syndrome; E86.1 Hypovolemia; F41.9 Anxiety disorder, unspecified; H54.61 Unqualified visual loss, right eye, normal vision left eye; M89.8X9 Other specified disorders of bone, unspecified site; R09.02 Hypoxemia; Z79.4 Long term (current) use of insulin; Z79.899 Other long term (current) drug therapy; Z87.891 Personal history of nicotine dependence; Z90.01 Acquired absence of eye; Z91.14 Patient's other noncompliance with medication regimen; Z91.19 Patient's noncompliance with other medical treatment and regimen; Z99.2 Dependence on renal dialysis; Z71.6 Tobacco abuse counseling
CPT/HCPCS: 71046; 80048; 80053; 82009; 82150; 82728; 83540; 83550; 83605; 83690; 84484; 85025; 87324; 87635; 90935; 93005; 96374; 96375; 99285

== ENCOUNTER 2021-07-22 14:39 | Inpatient (IN) | payer MEDICARE, BC, OTHER ==
[2021-07-22] MEDS ORDERED: ACETAMINOPHEN TAB 325 MG TAB PO STA (16:14)
--- NOTE | 2021-07-22 16:20 | ED ---
General Adult HPI - General Chief complaint: Fever Stated complaint: Dialysis, COVID Test Time Seen by Provider: 07/22/21 16:10 Source: patient, RN notes reviewed, old records reviewed Mode of arrival: ambulatory Limitations: no limitations - History of Present Illness Initial comments: This is a well-appearing 45-year-old black male that presents to the emergency room, alert and oriented 4, with complaints of fever that started on Thursday. States that he also has some abdominal pain which has resolved. He went to dialysis today and they checked his temperature stating he had a fever and needed to come to the emergency room. He does have a history of diabetes, dialysis on Thursday and hypertension. He states that he did get dialysis on Thursday but feels like his legs are swelling and needs dialysis today. -: days(s) (3) Severity scale (1-10): 0 Consistency: now resolved Associated Symptoms: denies other symptoms Treatments Prior to Arrival: none - Related Data Home Medications Medication Instructions Recorded Confirmed Insulin NPH Hum/Reg Insulin Hm See Protocol SQ AC-TID 11/27/14 07/22/21 [humuLIN 70/30 Kwikpen] Labetalol [Trandate] 400 mg PO TID 11/27/14 07/22/21 Calcium Acetate 2,001 mg PO TID-W/MEALS 08/07/20 07/22/21 Maggie-Arpit 1 tab PO DAILY 08/07/20 07/22/21 hydrALAZINE HCL [Apresoline] 100 mg PO TID 08/07/20 07/22/21 Acetaminophen Tab [Tylenol] 1,000 mg PO Q6HR PRN 11/06/20 07/22/21 Ergocalciferol (Vitamin D2) 1,250 mcg PO Q7D 11/06/20 07/22/21 [Drisdol (50,000 Iu)] Ibuprofen [Motrin Ib] 800 mg PO Q8H PRN 11/06/20 07/22/21 Isosorbide Mononitrate [Imdur] 120 mg PO DAILY 11/06/20 07/22/21 Lidocaine-Prilocaine Cream [Emla 1 applic TOPICAL DAILY PRN 11/06/20 07/22/21 Cream 2.5%/2.5%] Sertraline HCl [Zoloft] 50 mg PO DAILY 11/06/20 07/22/21 Calcium Acetate [PhosLo] 667 mg PO DAILY PRN 06/16/21 07/22/21 HYDROcodone/APAP 10-325MG [[place] 1 tab PO Q6HR PRN 06/16/21 07/22/21 10-325] Latanoprost Ophth [Xalatan 0.005%] 1 drop LEFT EYE HS 06/16/21 07/22/21 Vit B Complx C/Folic Acid/Zinc 1 tab PO DAILY 06/16/21 07/22/21 [Renaplex Tablet] Gabapentin [Neurontin] 300 mg PO TID 07/22/21 07/22/21 Previous Rx's Medication Instructions Recorded Dorzolamide 2% [Trusopt 2%] 1 drops LEFT EYE BID #1 ml 11/09/20 NIFEdipine XL [Procardia XL] 90 mg PO DAILY #30 tab.er.24 11/09/20 Loperamide [Imodium] 2 mg PO QID PRN #30 cap 06/18/21 cloNIDine HCL [Catapres] 0.3 mg PO TID 30 Days #270 tab 06/18/21 Allergies Allergy/AdvReac Type Severity Reaction Status Date / Time No Known Allergies Allergy Verified 07/22/21 18:20 Review of Systems ROS Statement: Those systems with pertinent positive or pertinent negative responses have been documented in the HPI. ROS Other: All systems not noted in ROS Statement are negative. Past Medical History Past Medical History: Diabetes Mellitus, Dialysis, Eye Disorder, Hypertension, Renal Disease Additional Past Medical History / Comment(s): very poor vision R eye, has dialysis Thursday, thu and Thursday. History of Any Multi-Drug Resistant Organisms: None Reported Past Surgical History: No Surgical Hx Reported Additional Past Surgical History / Comment(s): eye surgery due to diabetes and thorascopic percardial window 2013 Past Anesthesia/Blood Transfusion Reactions: No Reported Reaction Additional Past Anesthesia/Blood Transfusion Reaction / Comment(s): blood transfusion 2013 Past Psychological History: Anxiety, Depression Smoking Status: Former smoker Past Alcohol Use History: Occasional Past Drug Use History: None Reported - Past Family History Father Family Medical History: Renal Disease Mother History Unknown: Yes General Exam Limitations: no limitations General appearance: alert, in no apparent distress Head exam: Present: atraumatic, normocephalic, normal inspection Eye exam: Present: other (Right eye removed in November) ENT exam: Present: normal exam, mucous membranes moist Neck exam: Present: normal inspection, full ROM. Absent: tenderness, meningismus, lymphadenopathy, thyromegaly Respiratory exam: Present: normal lung sounds bilaterally. Absent: respiratory distress, wheezes, rales, rhonchi, stridor, chest wall tenderness, accessory muscle use, decreased breath sounds Cardiovascular Exam: Present: normal rhythm, tachycardia, normal heart sounds. Absent: systolic murmur, diastolic murmur, rubs, gallop, clicks GI/Abdominal exam: Present: soft, normal bowel sounds. Absent: distended, tenderness, guarding, rebound, rigid Extremities exam: Present: full ROM, pedal edema (trace). Absent: tenderness Left Upper Arm exam: Present: other (av fistula) Back exam: Absent: tenderness, CVA tenderness (R), CVA tenderness (L) Neurological exam: Present: alert, oriented X3, normal gait Psychiatric exam: Present: normal affect, normal mood Skin exam: Present: warm, dry, intact, normal color. Absent: rash, cyanosis, diaphoretic Course Vital Signs 07/22/21 07/22/21 07/22/21 15:39 16:00 17:00 Temperature 100 F H Pulse Rate 102 H 86 Pulse Rate [ 101 H Bilateral [employer] Fruit ] Respiratory 20 20 Rate Blood Pressure 173/92 157/89 O2 Sat by Pulse 95 97 Oximetry 07/22/21 07/22/21 07/22/21 18:30 20:00 21:15 Temperature 98.7 F 98.2 F Pulse Rate 90 82 81 Pulse Rate [ Bilateral [employer] Fruit ] Respiratory 18 18 16 Rate Blood Pressure 160/77 168/88 164/77 O2 Sat by Pulse 97 96 97 Oximetry Medical Decision Making - Medical Decision Making This is a well-appearing 45-year-old black male that presents to the emergency room, alert and oriented 4, with complaints of fever that started on Thursday. States that he also has some abdominal pain which has resolved. He went to dialysis today and they checked his temperature stating he had a fever and needed to come to the emergency room. He does have a history of diabetes, steve lysis on Thursday and hypertension. He states that he did get dialysis on Thursday but feels like his legs are swelling and needs dialysis today. He does have an AV fistula to the left upper arm with a positive bruit. Patient denies any chest pain or difficulty breathing. Hemoglobin and hematocrit are stable. No evidence of leukocytosis. He is covid negative. Chest x-ray shows interstitial edema. Spoke with Dr. Page regarding patient needing dialysis and was directed to admi t the patient overnight and have him dialyzed tomorrow. Case discussed with Dr. Ramírez. - Lab Data Result diagrams: 07/22/21 18:14 07/22/21 18:14 Lab Results 07/22/21 07/22/21 07/22/21 Range/Units 16:56 18:14 18:14 WBC 5.4 (3.8-10.6) k/uL RBC 3.35 L (4.30-5.90) m/uL Hgb 9.4 L (13.0-17.5) gm/dL Hct 27.8 L (39.0-53.0) % MCV 82.9 (80.0-100.0) fL MCH 28.1 (25.0-35.0) pg MCHC 33.9 (31.0-37.0) g/dL RDW 17.3 H (11.5-15.5) % Plt Count 126 L (150-450) k/uL MPV 10.0 Neutrophils % 66 % Lymphocytes % 17 % Monocytes % 10 % Eosinophils % 2 % Basophils % 1 % Neutrophils # 3.6 (1.3-7.7) k/uL Lymphocytes # 0.9 L (1.0-4.8) k/uL Monocytes # 0.6 (0-1.0) k/uL Eosinophils # 0.1 (0-0.7) k/uL Basophils # 0.0 (0-0.2) k/uL Anisocytosis Slight Sodium 138 (137-145) mmol/L Potassium 5.5 H (3.5-5.1) mmol/L Chloride 93 L (98-107) mmol/L Carbon Dioxide 29 (22-30) mmol/L Anion Gap 16 mmol/L BUN 58 H (9-20) mg/dL Creatinine 12.20 H* (0.66-1.25) mg/dL Est GFR (CKD-EPI)AfAm 5 (>60 ml/min/1.73 sqM) Est GFR (CKD-EPI)NonAf 4 (>60 ml/min/1.73 sqM) Glucose 301 H (74-99) mg/dL Calcium 9.3 (8.4-10.2) mg/dL Total Bilirubin 0.7 (0.2-1.3) mg/dL AST 25 (17-59) U/L ALT 12 (4-49) U/L Alkaline Phosphatase 79 (38-126) U/L Total Protein 7.9 (6.3-8.2) g/dL Albumin 4.2 (3.5-5.0) g/dL Coronavirus (PCR) Not Detected (Not Detectd) Disposition Clinical Impression: End stage renal disease, Hyperglycemia Disposition: ADMITTED IP TO THIS HOSP Condition: Good Decision Date: 07/22/21 Decision Time: 19:09
--- NOTE | 2021-07-22 17:59 | XR ---
EXAMINATION TYPE: XR chest 2V DATE OF EXAM: 07/22/2021 COMPARISON: 06/16/2021 HISTORY: Fever TECHNIQUE: Frontal and lateral views of the chest are obtained. FINDINGS: There is diffuse mild hazy opacity. No pleural effusion, or pneumothorax seen. The cardia c silhouette size is enlarged, stable. The osseous structures are intact. IMPRESSION: Interstitial edema with superimposed infiltrates not excluded.
[2021-07-22 18:37] LABS: Anisocytosis Slight; Basophils % (A) 1 %; Eosinophils # (A) 0.1 k/uL (0-0.7); Eosinophils % (A) 2 %; HCT 27.8 % (39.0-53.0); HGB 9.4 gm/dL (13.0-17.5); Lymphocytes # (A) 0.9 k/uL (1.0-4.8); Lymphocytes % (A) 17 %; MCH 28.1 pg (25.0-35.0); MCHC 33.9 g/dL (31.0-37.0); MCV 82.9 fL (80.0-100.0); Monocytes # (A) 0.6 k/uL (0-1.0); Monocytes % (A) 10 %; Neutrophils # (A) 3.6 k/uL (1.3-7.7); Neutrophils % (A) 66 %; Platelet Count 126 k/uL (150-450); RBC 3.35 m/uL (4.30-5.90); RDW 17.3 % (11.5-15.5); WBC 5.4 k/uL (3.8-10.6)
[2021-07-22 18:40] LABS: Albumin 4.2 g/dL (3.5-5.0); Calcium 9.3 mg/dL (8.4-10.2); Potassium 5.5 mmol/L (3.5-5.1); Total Bilirubin 0.7 mg/dL (0.2-1.3); Total Protein 7.9 g/dL (6.3-8.2)
[2021-07-22] MEDS ORDERED: NALOXONE 0.4 MG/ML 1 ML VIAL IV PRN (19:12)
[2021-07-22] MEDS ORDERED: CALCIUM ACETATE 667 MG TAB PO PRN (19:14)
[2021-07-22] MEDS ORDERED: HYDROcodone/APAP 10-325MG 1 EACH TAB PO PRN (19:14)
[2021-07-22] MEDS: LATANOPROST 0.005% OPHTH DROPS 2.5 ML BTL LEFT EYE SCH (22:32)
[2021-07-22] MEDS: DORZOLAMIDE HCL 2% DROPS 10 ML BTL LEFT EYE SCH (22:32)
[2021-07-22] MEDS: GABAPENTIN 300 MG CAP PO SCH (22:33)
[2021-07-22] MEDS: cloNIDine HCL 0.1 MG TAB PO SCH (22:43)
[2021-07-22] MEDS: hydrALAZINE HCL 50 MG TAB PO SCH (22:43)
[2021-07-22] MEDS: LABETALOL 200 MG TAB PO SCH (22:43)
[2021-07-23] MEDS ORDERED: hydrALAZINE HCL 20 MG/ML 1 ML VIAL IVP STA (01:13)
[2021-07-23] MEDS: LABETALOL 200 MG TAB PO SCH ×3 (08:42→20:40)
[2021-07-23] MEDS: CALCIUM ACETATE 667 MG TAB PO SCH ×3 (08:43→17:28)
[2021-07-23] MEDS: hydrALAZINE HCL 50 MG TAB PO SCH ×3 (08:43→20:39)
[2021-07-23] MEDS: cloNIDine HCL 0.1 MG TAB PO SCH ×3 (08:43→20:40)
[2021-07-23] MEDS ORDERED: NON FORMULARY DRUG (Vit B Complx C/Folic Acid/Zinc [Renaplex Tablet] 1 EACH Tablet) PO SCH (09:00)
[2021-07-23 09:39] LABS: Basophils # (A) 0.05 X 10*3/uL (0.00-0.10); Basophils % (A) 0.7 %; Eosinophils # (A) 0.06 X 10*3/uL (0.04-0.35); Eosinophils % (A) 0.9 %; HCT 27.1 % (39.6-50.0); HGB 9.1 g/dL (13.0-17.0); Lymphocytes % (A) 14.3 %; MCH 26.8 pg (27.0-32.0); MCHC 33.6 g/dL (32.0-37.0); MCV 79.9 fL (80.0-97.0); Mean Platelet Volume 10.5 fL (9.5-12.2); Monocytes # (A) 0.71 X 10*3/uL (0.20-1.00); Monocytes % (A) 10.2 %; Neutrophils # (A) 5.14 X 10*3/uL (1.80-7.70); Neutrophils % (A) 73.6 %; Platelet Count 129 X 10*3/uL (140-440); RBC 3.39 X 10*6/uL (4.40-5.60); RDW 16.3 % (11.5-14.5); WBC 6.98 X 10*3/uL (4.50-10.00)
[2021-07-23] MEDS: NIFEdipine XL 90 MG TAB.ER.24 PO SCH (09:56)
[2021-07-23] MEDS: FOLIC ACID-VIT B COMPLEX-VIT C 1 CAP PO SCH (09:56)
[2021-07-23] MEDS: ISOSORBIDE MONONITRATE ER 60 MG TAB.ER.24H PO SCH (09:56)
[2021-07-23] MEDS: GABAPENTIN 300 MG CAP PO SCH ×3 (09:56→20:38)
[2021-07-23] MEDS: DORZOLAMIDE HCL 2% DROPS 10 ML BTL LEFT EYE SCH ×2 (09:57→20:38)
[2021-07-23 11:26] LABS: C Reactive Protein 1.1 mg/dL (0.00-0.80); Magnesium 2.1 mg/dL (1.5-2.4)
[2021-07-23 11:41] LABS: Albumin 4.4 g/dL (3.8-4.9); Albumin/Globulin Ratio 1.27 (1.60-3.17); Anion Gap 19.4 mmol/L (10.00-18.00); BUN/Creat Ratio 4.95 Ratio (12.00-20.00); Blood Urea Nitrogen 63.8 mg/dL (9.0-27.0); Calcium 9.4 mg/dL (8.7-10.3); Globulin 3.4 g/dL (1.6-3.3); Total Bilirubin 0.4 mg/dL (0.30-1.20); Total Protein 7.8 g/dL (6.2-8.2)
[2021-07-23 12:32] LABS: African American GFR (CKD) 4.8 (60.0-200.0); Non-African American GFR(CKD) 4.1 (60.0-200.0); Potassium 6.4 mmol/L (3.5-5.5)
--- NOTE | 2021-07-23 12:44 | P.HPIM ---
History of Present Illness This is a pleasant 45 years old -H[place]ian male with past medical history of Diabetes Mellitus, end-stage renal disease on hemodialysis, Thursday and Thursday, Hypertension, very poor vision left eye, status post Enucleation of the right eye secondary to diabetic retinopathy, Anxiety, Depression states that he came because he is having a stomach pain since the weekend associated with some headache but headache resolved. He went 1 daily and to hemodialysis as scheduled and his been advised to come to emergency room. Patient states that his pain in his stomach, but now is improved significantly 3/10. Nonspecific in character. Nonradiating. He has low appetite but no nausea vomiting. He had a regular bowel movement this morning. He denies chest pain but he noticed to have coughing and also is complaining of from some dyspnea related to his little short of breath. He makes no urine since he is hemodialysis patient. No dizziness or weakness or numbness. He denies smoking, alcohol or illicit drugs On admission he had a fever over 100. Also his blood pressure was elevated at 195/96 and 200/105. Restoril Vitas looks stable. Labs reviewed with CBC showing hemoglobin 9.4, platelets 126, WBC normal. BMP and liver enzymes are unremarkable. First not detected. Chest x-ray: Interstitial edema versus superimposed infection not excluded. Patient was admitted with nephrology consult and resumed with home medication. We ordered an EKG this morning as there was not done earlier showed normal sinus rhythm at 88 with possible left atrial enlargement, left ventricular hypertrophy and QTC 498 Review of Systems Review of systems CONSTITUTIONAL: No fever, no malaise, no fatigue. HEENT: No recent visual problems or hearing problems. Denied any sore throat. CARDIOVASCULAR: No orthopnea, PND, no palpitations, no syncope. PULMONARY: No chest wall tenderness, no hemoptysis. GASTROINTESTINAL: No diarrhea, no nausea, no vomiting,. Normoactive bowel sounds. NEUROLOGICAL: No headaches, no weakness, no numbness. HEMATOLOGICAL: Denies any bleeding or petechiae. GENITOURINARY: Denies any burning micturition, frequency, or urgency. MUSCULOSKELETAL/RHEUMATOLOGICAL: Denies any joint pain, swelling, or any muscle pain. ENDOCRINE: Denies any polyuria or polydipsia. Past Medical History Past Medical History: Diabetes Mellitus, Dialysis, Eye Disorder, Hypertension, Renal Disease Additional Past Medical History / Comment(s): very poor vision R eye, has d ialysis Thursday, thu and Thursday. History of Any Multi-Drug Resistant Organisms: None Reported Past Surgical History: No Surgical Hx Reported Additional Past Surgical History / Comment(s): eye surgery due to diabetes and thorascopic percardial window 2012 Past Anesthesia/Blood Transfusion Reactions: No Reported Reaction Additional Past Anesthesia/Blood Transfusion Reaction / Comment(s): blood transfusion 2012 Past Psychological History: Anxiety, Depression Smoking Status: Former smoker Past Alcohol Use History: Occasional Past Drug Use History: None Reported - Past Family History Father Family Medical History: Renal Disease Mother History Unknown: Yes Medications and Allergies Home Medications Medication Instructions Recorded Confirmed Type Insulin NPH Hum/Reg Insulin Hm See Protocol SQ AC-TID 11/27/14 07/22/21 History [humuLIN 70/30 Kwikpen] Labetalol [Trandate] 400 mg PO TID 11/27/14 07/22/21 History Calcium Acetate 2,001 mg PO TID-W/MEALS 08/07/20 07/22/21 History Maggie-Arpit 1 tab PO DAILY 08/07/20 07/22/21 History hydrALAZINE HCL [Apresoline] 100 mg PO TID 08/07/20 07/22/21 History Acetaminophen Tab [Tylenol] 1,000 mg PO Q6HR PRN 11/06/20 07/22/21 History Ergocalciferol (Vitamin D2) 1,250 mcg PO Q7D 11/06/20 07/22/21 History [Drisdol (50,000 Iu)] Ibuprofen [Motrin Ib] 800 mg PO Q8H PRN 11/06/20 07/22/21 History Isosorbide Mononitrate [Imdur] 120 mg PO DAILY 11/06/20 07/22/21 History Lidocaine-Prilocaine Cream [Emla 1 applic TOPICAL DAILY PRN 11/06/20 07/22/21 History Cream 2.5%/2.5%] Sertraline HCl [Zoloft] 50 mg PO DAILY 11/06/20 07/22/21 History Dorzolamide 2% [Trusopt 2%] 1 drops LEFT EYE BID #1 ml 11/09/20 07/22/21 Rx NIFEdipine XL [Procardia XL] 90 mg PO DAILY #30 tab.er.24 11/09/20 07/22/21 Rx Calcium Acetate [PhosLo] 667 mg PO DAILY PRN 06/16/21 07/22/21 History HYDROcodone/APAP 10-325MG [[place] 1 tab PO Q6HR PRN 06/16/21 07/22/21 History 10-325] Latanoprost Ophth [Xalatan 0.005%] 1 drop LEFT EYE HS 06/16/21 07/22/21 History Vit B Complx C/Folic Acid/Zinc 1 tab PO DAILY 06/16/21 07/22/21 History [Renaplex Tablet] Loperamide [Imodium] 2 mg PO QID PRN #30 cap 06/18/21 07/22/21 Rx cloNIDine HCL [Catapres] 0.3 mg PO TID 30 Days #270 tab 06/18/21 07/22/21 Rx Gabapentin [Neurontin] 300 mg PO TID 07/22/21 07/22/21 History Allergies Allergy/AdvReac Type Severity Reaction Status Date / Time No Known Allergies Allergy Verified 07/22/21 18:20 Physical Exam Vitals: Vital Signs Temp Pulse Pulse Pulse Resp BP BP 07/23/21 02:00 98.1 F 104 H 18 200/105 07/22/21 22:16 98.2 F 99 18 195/96 07/22/21 21:15 98.2 F 81 16 164/77 07/22/21 20:00 98.7 F 82 18 168/88 07/22/21 18:30 90 18 160/77 07/22/21 17:00 86 20 157/89 07/22/21 16:00 101 H 07/22/21 15:39 100 F H 102 H 20 173/92 Pulse Ox 07/23/21 02:00 98 07/22/21 22:16 96 07/22/21 21:15 97 07/22/21 20:00 96 07/22/21 18:30 97 07/22/21 17:00 97 07/22/21 16:00 07/22/21 15:39 95 Intake and Output 07/22/21 07/23/21 07/23/21 22:59 06:59 14:59 Output Total 0 Balance 0 Output: Emesis 0 Other: # Voids 0 0 Weight 65.771 kg GENERAL: The patient is alert and oriented x3, not in any acute distress. Well developed, well nourished. -HEENT: Pupils are round and equally reacting to light. EOMI. No scleral icterus. No conjunctival pallor. Normocephalic, atraumatic. No pharyngeal erythema. No thyromegaly. Legally blind. Right eye is absent from all surgery CARDIOVASCULAR: S1 and S2 present. No murmurs, rubs, or gallops. - PULMONARY: Chest is clear to auscultation, The lateral crepitation and scattered rhonchi ABDOMEN: Soft, nontender, nondistended, normoactive bowel sounds. No palpable organomegaly. MUSCULOSKELETAL: No joint swelling or deformity. EXTREMITIES: No cyanosis, clubbing, or pedal edema. NEUROLOGICAL: Gross neurological examination did not reveal any focal deficits. SKIN: No rashes. no petechiae. Results CBC & Chem 7: 07/23/21 05:00 07/23/21 05:00 Labs: Abnormal Lab Results - Last 24 Hours (Table) 07/22/21 07/22/21 Range/Units 18:14 18:14 RBC 3.35 L (4.30-5.90) m/uL Hgb 9.4 L (13.0-17.5) gm/dL Hct 27.8 L (39.0-53.0) % RDW 17.3 H (11.5-15.5) % Plt Count 126 L (150-450) k/uL Lymphocytes # 0.9 L (1.0-4.8) k/uL Potassium 5.5 H (3.5-5.1) mmol/L Chloride 93 L (98-107) mmol/L BUN 58 H (9-20) mg/dL Creatinine 12.20 H* (0.66-1.25) mg/dL Glucose 301 H (74-99) mg/dL Thrombosis Risk Factor Assmnt - Choose All That Apply Each Factor Represents 1 point: Age 41-60 years Thrombosis Risk Factor Assessment Total Risk Factor Score: 1 Thrombosis Risk Factor Assessment Level: Low Risk Assessment and Plan Assessment: Fever, possible pneumonia versus other Epigastric pain, currently improved. Rule out cardiac causes Hypertension with urgency upon admission End-stage renal disease on hemodialysis, Thursday, Thursday and Thursday very poor vision left eye, status post Enucleation of the right eye secondary to diabetic retinopath. Patient is legally blind History of anxiety and depression, not an active issue Diabetes mellitus, on insulin at home Plan: This is a pleasant 45 years old male who presents with fever and missed hemodialysis Start the patient on ceftriaxone and doxycycline Follow-up procalcitonin, proBNP Consult cardiology for abdominal pain, abnormal EKG and uncontrolled hypertension. Check echocardiogram Resume blood pressure medication and monitor closely Nephrology to pursue hemodialysis for the patient. Patient will get hemodialysis today Labs and medication were reviewed.. Continue same treatment. Continue with symptomatic treatment. Resume home medication. Monitor lytes and vitals. DVT and GI prophylaxis. Further recommendations as per clinical course of the patient DVT prophylaxis: Subcutaneous heparin GI Prophylaxis: Pepcid Prognosis is guarded
--- NOTE | 2021-07-23 13:52 | P.CRDCN ---
History of Present Illness Consult date: 07/23/21 History of present illness: HISTORY OF PRESENT ILLNESS: This is a 45-year-old male with a past medical history significant for hypertension, chronic kidney disease on hemodialysis Thursday, valvular heart disease, mild nonischemic cardiomyopathy, diabetes, alcohol abuse, and former nicotine dependence. Patient follows in the office with Dr. Osuna, but was last seen in the office in September 2020. We have been asked to see the patient in consultation for hypertension and abnormal EKG. Patient examined at the bedside. Patient states yesterday he attempted to have dialysis completed and was found to have a fever. He was told he needed to be checked for Covid and his hemodialysis was canceled. The patient was found to be negative for Covid. He was admitted to the hospital for further evaluation. The patient was hypertensive with a blood pressure in the 200s. He is currently undergoing hemodialysis and has so far removed 3.5 L. The internal medicine veterinary technician states his blood pressures have been fairly controlled during his session so far. Most recent blood pressure with a systolic of 153. The patient denies chest pain or pressure. He denies shortness of breath. EKG reveals sinus mechanism with LVH. No signs of acute ischemia. Chest xray interstitial edema with superimposed infiltrates not excluded. Laboratory data: WBC 6.98. Hemoglobin 9.1. Platelet count 129. Sodium 135. Potassium 6.4. BUN 63. Creatinine 12.9. Glucose 449. ProBNP 115,000. Current home cardiac medications include Catapres 0.3 mg 3 times a day, hydralazine 100 mg 3 times a day, Procardia 90 mg daily, labetalol 400 mg 3 times a day, Imdur 120 mg daily Most recent echocardiogram obtained in October 2020 ejection fraction 55-60%, severe mitral regurgitation, moderate to severe tricuspid regurgitation, severe pulmonary hypertension. Patient underwent Lexiscan stress test in 2016 with no evidence of stress- induced ischemia. Abnormal myocardial perfusion imaging with evidence suggestive of nonischemic myopathy and mild dilation of left ventricle impaired left ventricular systolic function. REVIEW OF SYSTEMS: At the time of my exam: CONSTITUTIONAL: Denies fever or chills. HEENT: Denies blurred vision, vision changes, or eye pain. Denies hemoptysis CARDIOVASCULAR: Denies chest pain. Denies orthopnea. Denies PND. Denies palpitations RESPIRATORY: Denies shortness of breath. GASTROINTESTINAL: Denies abdominal pain. Denies nausea or vomiting. HEMATOLOGIC: Denies bleeding disorders. GENITOURINARY: Denies any blood in urine. SKIN: Denies pruitis. Denies rash. PHYSICAL EXAM: VITAL SIGNS: Reviewed. GENERAL: Well-developed in no acute distress. HEENT: Head is normocephalic. Right eye surgically removed. Sclerae anicteric. Mucous membranes of the mouth are moist. Neck supple. No JVD or thyromegaly LUNGS: Respirations even and unlabored. Lungs diminished to auscultation bilaterally. HEART: Regular rate and rhythm. S1 and S2 heard. Systolic murmur noted. ABDOMEN: Soft. Nondistended. Nontender. EXTREMITIES: Normal range of motion. No clubbing or cyanosis. Peripheral pulses intact. Trace lower extremity edema NEUROLOGIC: Awake and alert. Oriented x 3. ASSESSMENT: Fever Abdominal pain Hypertension, with hemodialysis End-stage renal disease, on hemodialysis Valvular heart disease History of mild nonischemic cardiomyopathy Diabetes History of alcohol abuse Nicotine dependence PLAN: Patients blood pressures have improved with dialysis treatment today which is expected as patient missed his treatment yesterday No adjustments to blood pressure regimen at this time EKG does not show any acute findings 2D echo ordered. Await results Further recommendations pending patient course Nurse practitioner note has been reviewed by physician. Signing provider agrees with the documented findings, assessment, and plan of care. Past Medical History Past Medical History: Diabetes Mellitus, Dialysis, Eye Disorder, Hypertension, Renal Disease Additional Past Medical History / Comment(s): very poor vision R eye, has dialysis Thursday, thu and Thursday. History of Any Multi-Drug Resistant Organisms: None Reported Past Surgical History: No Surgical Hx Reported Additional Past Surgical History / Comment(s): eye surgery due to diabetes and thorascopic percardial window 2012 Past Anesthesia/Blood Transfusion Reactions: No Reported Reaction Additional Past Anesthesia/Blood Transfusion Reaction / Comment(s): blood transfusion 2013 Past Psychological History: Anxiety, Depression Smoking Status: Former smoker Past Alcohol Use History: Occasional Past Drug Use History: None Reported - Past Family History Father Family Medical History: Renal Disease Mother History Unknown: Yes Medications and Allergies Home Medications Medication Instructions Recorded Confirmed Type Insulin NPH Hum/Reg Insulin Hm See Protocol SQ AC-TID 11/27/14 07/22/21 History [humuLIN 70/30 Kwikpen] Labetalol [Trandate] 400 mg PO TID 11/27/14 07/22/21 History Calcium Acetate 2,001 mg PO TID-W/MEALS 08/07/20 07/22/21 History Maggie-Arpit 1 tab PO DAILY 08/07/20 07/22/21 History hydrALAZINE HCL [Apresoline] 100 mg PO TID 08/07/20 07/22/21 History Acetaminophen Tab [Tylenol] 1,000 mg PO Q6HR PRN 11/06/20 07/22/21 History Ergocalciferol (Vitamin D2) 1,250 mcg PO Q7D 11/06/20 07/22/21 History [Drisdol (50,000 Iu)] Ibuprofen [Motrin Ib] 800 mg PO Q8H PRN 11/06/20 07/22/21 History Isosorbide Mononitrate [Imdur] 120 mg PO DAILY 11/06/20 07/22/21 History Lidocaine-Prilocaine Cream [Emla 1 applic TOPICAL DAILY PRN 11/06/20 07/22/21 History Cream 2.5%/2.5%] Sertraline HCl [Zoloft] 50 mg PO DAILY 11/06/20 07/22/21 History Dorzolamide 2% [Trusopt 2%] 1 drops LEFT EYE BID #1 ml 11/09/20 07/22/21 Rx NIFEdipine XL [Procardia XL] 90 mg PO DAILY #30 tab.er.24 11/09/20 07/22/21 Rx Calcium Acetate [PhosLo] 667 mg PO DAILY PRN 06/16/21 07/22/21 History HYDROcodone/APAP 10-325MG [[place] 1 tab PO Q6HR PRN 06/16/21 07/22/21 History 10-325] Latanoprost Ophth [Xalatan 0.005%] 1 drop LEFT EYE HS 06/16/21 07/22/21 History Vit B Complx C/Folic Acid/Zinc 1 tab PO DAILY 06/16/21 07/22/21 History [Renaplex Tablet] Loperamide [Imodium] 2 mg PO QID PRN #30 cap 06/18/21 07/22/21 Rx cloNIDine HCL [Catapres] 0.3 mg PO TID 30 Days #270 tab 06/18/21 07/22/21 Rx Gabapentin [Neurontin] 300 mg PO TID 07/22/21 07/22/21 History Allergies Allergy/AdvReac Type Severity Reaction Status Date / Time No Known Allergies Allergy Verified 07/22/21 18:20 Physical Exam Vitals: Vital Signs Temp Pulse Pulse Pulse Resp BP BP 07/23/21 07:00 98.6 F 93 18 177/92 07/23/21 02:00 98.1 F 104 H 18 200/105 07/22/21 22:16 98.2 F 99 18 195/96 07/22/21 21:15 98.2 F 81 16 164/77 07/22/21 20:00 98.7 F 82 18 168/88 07/22/21 18:30 90 18 160/77 07/22/21 17:00 86 20 157/89 07/22/21 16:00 101 H 07/22/21 15:39 100 F H 102 H 20 173/92 Pulse Ox 07/23/21 07:00 95 07/23/21 02:00 98 07/22/21 22:16 96 07/22/21 21:15 97 07/22/21 20:00 96 07/22/21 18:30 97 07/22/21 17:00 97 07/22/21 16:00 07/22/21 15:39 95 Intake and Output 07/22/21 07/23/21 07/23/21 22:59 06:59 14:59 Output Total 0 Balance 0 Output: Emesis 0 Other: # Voids 0 0 Weight 65.771 kg Results 07/23/21 05:00 07/23/21 05:00 Cardiac Enzymes 07/22/21 07/23/21 Range/Units 18:14 05:00 AST 25 22 (17-59) U/L CBC 07/22/21 07/23/21 Range/Units 18:14 05:00 WBC 5.4 6.98 (3.8-10.6) k/uL RBC 3.35 L 3.39 L (4.30-5.90) m/uL Hgb 9.4 L 9.1 L (13.0-17.5) gm/dL Hct 27.8 L 27.1 L (39.0-53.0) % Plt Count 126 L 129 L (150-450) k/uL Comprehensive Metabolic Panel 07/22/21 07/23/21 Range/Units 18:14 05:00 Sodium 138 135 (137-145) mmol/L Potassium 5.5 H 6.4 H* (3.5-5.1) mmol/L Chloride 93 L 90 L (98-107) mmol/L Carbon Dioxide 29 26.0 (22-30) mmol/L BUN 58 H 63.8 H (9-20) mg/dL Creatinine 12.20 H* 12.9 H* (0.66-1.25) mg/dL Glucose 301 H 449 H (74-99) mg/dL Calcium 9.3 9.4 (8.4-10.2) mg/dL AST 25 22 (17-59) U/L ALT 12 13 (4-49) U/L Alkaline Phosphatase 79 84 (38-126) U/L Total Protein 7.9 7.8 (6.3-8.2) g/dL Albumin 4.2 4.4 (3.5-5.0) g/dL Current Medications Generic Name Dose Route Start Last Admin Trade Name Freq PRN Reason Stop Dose Admin Acetaminophen 650 mg 07/22/21 19:12 Acetaminophen Tab 325 Mg Tab PO Q6HR PRN Mild Pain or Fever > 100.5 Hydrocodone Bitart/Acetaminophen 1 each 07/22/21 19:14 Hydrocodone/Apap 10-325mg 1 Each Tab PO Q6HR PRN Pain Calcium Acetate 2,001 mg 07/23/21 07:30 07/23/21 08:43 Calcium Acetate 667 Mg Tab PO 2,001 mg TID-W/MEALS [facility] Administration Calcium Acetate 667 mg 07/22/21 19:14 Calcium Acetate 667 Mg Tab PO DAILY PRN with snack Clonidine 0.3 mg 07/22/21 22:00 07/23/21 08:43 Clonidine Hcl 0.1 Mg Tab PO 0.3 mg TID CARIDAD Administration Dorzolamide HCl 1 drops 07/22/21 21:00 07/23/21 09:57 Dorzolamide Hcl 2% Drops 10 Ml Btl LEFT EYE 1 drops BID CARDIAD Administration Ergocalciferol 1,250 mcg 07/28/21 09:00 Ergocalciferol 1,250 Mcg (50,000 Iu) Capsule PO Q7D [facility] Famotidine 20 mg 07/23/21 21:00 Famotidine 20 Mg/2 Ml Vial IV Q12HR [facility] Gabapentin 300 mg 07/22/21 22:00 07/23/21 09:56 Gabapentin 300 Mg Cap PO 300 mg TID CARIDAD Administration Heparin Sodium (Porcine) 5,000 unit 07/23/21 21:00 Heparin Sodium,Porcine/Pf 5,000 Unit/0.5 Ml Syringe SQ Q12HR [facility] Hydralazine HCl 100 mg 07/22/21 22:00 07/23/21 08:43 Hydralazine Hcl 50 Mg Tab PO 100 mg TID CARIDAD Administration Ceftriaxone Sodium 1 gm/ 50 mls @ 100 mls/hr 07/23/21 11:00 Sodium Chloride IVPB Q24HR [facility] Doxycycline Hyclate 100 mg/ 100 mls @ 100 mls/hr 07/23/21 14:00 Sodium Chloride IVPB Q12H [facility] Insulin Aspart 0 unit 07/23/21 17:30 Insulin Aspart (Novolog) 100 Unit/Ml Vial SQ ACHS [facility] Protocol Isosorbide Mononitrate 120 mg 07/23/21 09:00 07/23/21 09:56 Isosorbide Mononitrate Er 60 Mg Tab.Er.24h PO 120 mg DAILY CARIDAD Administration Labetalol HCl 400 mg 07/22/21 22:00 07/23/21 08:42 Labetalol 200 Mg Tab PO 400 mg TID CARIDAD Administration Latanoprost 1 drops 07/22/21 21:00 07/22/21 22:32 Latanoprost 0.005% Ophth Drops 2.5 Ml Btl LEFT EYE 1 drops HS [facility] Administration Multivit/Ca Carb/B Cmplx/FA/Prenat 1 each 07/23/21 09:00 07/23/21 09:56 Folic Acid-Vit B Complex-Vit C 1 Cap PO 1 each DAILY CARIDAD Administration Naloxone HCl 0.2 mg 07/22/21 19:12 Naloxone 0.4 Mg/Ml 1 Ml Vial IV Q2M PRN Opioid Reversal Nifedipine 90 mg 07/23/21 09:00 07/23/21 09:56 Nifedipine Xl 90 Mg Tab.Er.24 PO 90 mg DAILY CARIDAD Administration Intake and Output 07/22/21 07/23/21 07/23/21 22:59 06:59 14:59 Output Total 0 Balance 0 Output: Emesis 0 Other: # Voids 0 0 Weight 65.771 kg 07/23/21 05:00 07/23/21 05:00
[2021-07-23] MEDS: DOXYCYCLINE 100 MG in SODIUM CHLORIDE 0.9% 100 ML IVPB SCH (15:47)
[2021-07-23 17:23] LABS: Glucose,Whole Blood 453 mg/dL (75-99)
[2021-07-23] MEDS: INSULIN ASPART (NovoLOG) 100 UNIT/ML VIAL SQ SCH ×2 (17:28→20:53)
--- NOTE | 2021-07-23 17:32 | ECHOF ---
Referral Reason:Rule out heart disease MEASUREMENTS -------- HEIGHT: 175.3 cm WEIGHT: 65.8 kg BP: 177/92 RVIDd: 3.4 cm (< 3.3) IVSd: 1.7 cm (0.6 - 1.1) LVIDd: 5.2 cm (3.9 - 5.3) LVPWd: 2.1 cm (0.6 - 1.1) IVSs: 2.3 cm LVIDs: 4.0 cm LVPWs: 2.5 cm LA Diam: 4.6 cm (2.7 - 3.8) LAESV Index (A-L): 39.91 ml/m IVSd: 1.8 cm (0.6 - 1.1) LVIDd: 5.3 cm (3.9 - 5.3) LVPWd: 1.6 cm (0.6 - 1.1) IVSs: 2.4 cm LVIDs: 3.5 cm LVPWs: 2.1 cm EDV(Teich): 133 ml ESV(Teich): 53 ml EF(Teich): 60 % %FS: 32 % SV(Teich): 80 ml Ao Diam: 3.3 cm (2.0 - 3.7) AV Cusp: 2.3 cm (1.5 - 2.6) MV EXCURSION: 19.089 mm (> 18.000) MV EF SLOPE: 55 mm/s (70 - 150) EPSS: 1.3 cm MV E Jamal: 1.48 m/s MV DecT: 99 ms MV A Jamal: 0.78 m/s MV E/A Ratio: 1.91 RAP: 5.00 mmHg RVSP: 40.65 mmHg FINDINGS -------- Sinus rhythm. This was a technically good study. The left ventricular size is normal. There is severe concentric left ventricular hypertrophy. Ove rall left ventricular systolic function is mildly impaired with, an EF between 45 - 50 %. The right ventricle is mildly enlarged. LA is moderately dilated 34-39 ml/m2 The right atrium is normal in size. Interatrial and interventricular septum intact. Aortic valve is trileaflet and is mildly thickened. Trace amount of aortic regurgitation. Mild mitral annular calcification present. Dqbqrczo-gd-ljsjpr mitral regurgitation is present. Iamf-vd-frmqonud tricuspid regurgitation present. There is mild pulmonary hypertension. The right ventricular systolic pressure, as measured by Doppler, is 40.65mmHg. Trace/mild (physiologic) pulmonic regurgitation. The aortic root size is normal. Normal inferior vena cava with normal inspiratory collapse consistent with estimated right atrial pre ssure of 5 mmHg. There is no pericardial effusion. CONCLUSIONS -------- 1. The left ventricular size is normal. 2. There is severe concentric left ventricular hypertrophy. 3. Overall left ventricular systolic function is mildly impaired with, an EF between 45 - 50 %. 4. The right ventricle is mildly enlarged. 5. LA is moderately dilated 34-39 ml/m2 6. Aortic valve is trileaflet and is mildly thickened. 7. Trace amount of aortic regurgitation. 8. Mild mitral annular calcification present. 9. Wewkfvjr-mu-gdhoxz mitral regurgitation is present. 10. Vuhk-ht-puxjsbbl tricuspid regurgitation present. 11. There is mild pulmonary hypertension. 12. The right ventricular systolic pressure, as measured by Doppler, is 40.65mmHg. 13. Trace/mild (physiologic) pulmonic regurgitation. 14. There is no pericardial effusion. PROFESSOR OF FRENCH: Kaela Jorgensen RDCS
--- NOTE | 2021-07-23 19:28 | CONS ---
CONSULTATION REASON FOR CONSULT: End-stage renal disease. HISTORY OF PRESENT ILLNESS: Patient is a 45-year-old male with end-stage renal disease on hemodialysis on a Thursday, Thursday, Thursday schedule. Patient was admitted to the hospital as he was having fever, upper respiratory tract infection yesterday at dialysis and therefore he was advised to come to the hospital to get evaluated and get tested for Covid. His Covid- 19 PCR is negative. Chest x-ray shows evidence of volume overload and potassium was elevated at 5.5 yesterday. Today it is at 6.4. Patient is currently being dialyzed. No history of abdominal pain, nausea, vomiting or diarrhea. PAST MEDICAL HISTORY: End-stage renal disease, coronary artery disease, history of pericardial effusion, type 2 diabetes, diabetic retinopathy. PAST SURGICAL HISTORY: AV fistula, eye surgery, pericardial window. SOCIAL HISTORY: Patient is a former smoker. No history of drug abuse or alcohol abuse. MEDICATIONS: Medications prior to admission included insulin, Trandate, PhosLo, hydralazine, vitamin D, Motrin, Procardia, Imodium, clonidine, Neurontin. ALLERGIES: None. EXAMINATION: Patient is currently comfortable, awake, not in any acute distress. Blood pressure this morning was 177/92, heart rate 93 per minute. Patient is afebrile. Examination of the heart S1, S2. Examination of the lungs, bilateral breath sounds are heard. Crackles are heard at the bases. Abdomen is soft, nontender. Examination of lower extremities shows no significant edema. CORING MACHINE OPERATOR exam grossly intact. LAB: Show hemoglobin 9.1, sodium 135, potassium 6.4, BUN 63.8, serum creatinine 12.9, hemoglobin 9.1 g/dL. ASSESSMENT: 1. End-stage renal disease, on hemodialysis on a Thursday, Thursday, Thursday schedule. We will arrange for hemodialysis today. Patient is currently being dialyzed. 2. Hyperkalemia, expect improvement with dialysis. 3. Upper respiratory tract infection. 4. Diabetic retinopathy and poor vision. 5. Cardiomyopathy, EF 45-50% with moderately dilated left atrium. No pericardial effusion. 6. CKD mineral bone disorder. PLAN: Hemodialysis today. Patient could be discharged post dialysis. If he is not discharged we will plan to dialyze him again tomorrow. Thank you for this consultation. Will continue to follow the patient with you during his hospitalization. MMODL / IJN: [id number] /
[2021-07-23] MEDS: HEPARIN SODIUM,PORCINE/PF 5,000 UNIT/0.5 ML SYRINGE SQ SCH (20:37)
[2021-07-23] MEDS: ACETAMINOPHEN TAB 325 MG TAB PO PRN (20:37)
[2021-07-23] MEDS: FAMOTIDINE 20 MG/2 ML VIAL IV SCH (20:38)
[2021-07-23] MEDS: LATANOPROST 0.005% OPHTH DROPS 2.5 ML BTL LEFT EYE SCH (20:39)
[2021-07-23 20:46] LABS: Glucose,Whole Blood 191 mg/dL (75-99)
[2021-07-23] MEDS ORDERED: FAMOTIDINE 20 MG/2 ML VIAL IV SCH (21:00)
[2021-07-23 22:42] LABS: African American GFR (CKD) 4 (>60 ml/min/1.73 sqM); Anion Gap 21 mmol/L; Blood Urea Nitrogen 78 mg/dL (9-20); Calcium 9.7 mg/dL (8.4-10.2); Carbon Dioxide 24 mmol/L (22-30); Chloride 91 mmol/L (98-107); Glucose 108 mg/dL (74-99); Potassium 5.2 mmol/L (3.5-5.1); Sodium 136 mmol/L (137-145)
[2021-07-23 22:47] LABS: Non-African American GFR(CKD) 3 (>60 ml/min/1.73 sqM)
--- NOTE | 2021-07-23 23:11 | P.CONS ---
History of Present Illness - Reason for Consult Consult date: 07/23/21 FUO Requesting physician: Philipp Richter Sheet - Chief Complaint Fever x 1 day - History of Present Illness tory of present illness : Patient is 45-year-old -[place] male with a past medical history significant for end-stage renal disease on hemodialysis to the left arm AV fistula, and this patient who went to the dialysis center for dialysis with the patient was noted to be febrile and subsequently patient was sent to the ER for further evaluation patient did not recall any fever before going to the dialysis center and otherwise has been doing baseline patient on a rrival to the ER did have low-grade fever 100 F patient did not have any hypoxemia or need for supplemental oxygen did have a normal white count with mild lymphopenia liver exams are normal CRP was 1.10 blood cultures mildly elevated vallejo PCR was negative and the patient is vaccinated against COVID-19 patient did have a chest x-ray interstitial edema with superimposed interstitial infiltrate cannot excluded patient was admitted to hospital infectious disease was consulted for further management patient currently denies having any URI symptoms he denies having any chest pain or shortness with minimal cough denies any nausea no vomiting no abdominal pain no diarrhea patient currently not have any pain to his left arm AV fistula site and there has been no recent manipulation of the fistula Review of system: CONSTITUTIONAL: Positive for weakness along with the fever. EYES: No complaint. ENT: No complaint. RESPIRATORY: As per history of present illness CARDIOVASCULAR: No complaint. GENITOURINARY: No complaint. GASTROINTESTINAL: No complaint. MUSCULOSKELETAL: No complaint. INTEGUMENTARY: No complaint. PSYCHOLOGIC: No complaint. ENDOCRINE: No complaint. NEUROLOGIC: No complaint. Past medical history : Reviewed, documented below Past surgical history : Reviewed, documented below Social history: Reviewed, documented below Medications: Reviewed, as documented below EXAMINATION: Vital sigans= Reviewed and documented below GENERAL DESCRIPTION: Middle-aged male lying in bed, no distress. No tachypnea or accessory muscle of respiration use. HEENT: Shows Pallor , no scleral icterus. Oral mucous membrane is dry. NECK: Trachea central, no thyromegaly. LUNGS: Unlabored breathing. Decrease intensity of breath sounds. No wheeze or crackle. HEART: S1, S2, regular rate and rhythm. ABDOMEN: Soft, no tenderness , guarding or rigidity EXTREMITIES: No edema of feet. SKIN: No rash, no masses palpable. NEUROLOGICAL: The patient is awake, alert, oriented x3, mood and affect normal. LABS AND RADIOLOGY: Reviewed results see below Assessment : Patient presented to hospital with fever in this patient did have history of end-stage renal disease on hemodialysis through the left arm AV fistula patient currently do not have any localizing signs and symptoms of infection the AV fistula site looks clean patient did have a negative Covid testing and chest x-ray did show some residual infiltrate did have a normal white count with a question of viral syndrome, however bacterial component not entirely excluded with elevated procalcitonin Plan: 1-we will check a nasopharyngeal swab for RSV and influenza 2-continue with Rocephin and doxycycline 3-obtain a sputum for Gram stain culture if possible We will follow on clinical condition and cultures to further adjust medication if needed Thank you for this consultation we will follow the patient along with you Past Medical History Past Medical History: Diabetes Mellitus, Dialysis, Eye Disorder, Hypertension, Renal Disease Additional Past Medical History / Comment(s): very poor vision R eye, has dialysis Thursday, thu and Thursday. History of Any Multi-Drug Resistant Organisms: None Reported Past Surgical History: No Surgical Hx Reported Additional Past Surgical History / Comment(s): eye surgery due to diabetes and thorascopic percardial window 2012 Past Anesthesia/Blood Transfusion Reactions: No Reported Reaction Additional Past Anesthesia/Blood Transfusion Reaction / Comm: blood transfusion 2012 Past Psychological History: Anxiety, Depression Smoking Status: Former smoker Past Alcohol Use History: Occasional Past Drug Use History: None Reported - Past Family History Father Family Medical History: Renal Disease Mother History Unknown: Yes Medications and Allergies Home Medications Medication Instructions Recorded Confirmed Type Insulin NPH Hum/Reg Insulin Hm See Protocol SQ AC-TID 11/27/14 07/22/21 History [humuLIN 70/30 Kwikpen] Labetalol [Trandate] 400 mg PO TID 11/27/14 07/22/21 History Calcium Acetate 2,001 mg PO TID-W/MEALS 08/07/20 07/22/21 History Maggie-Arpit 1 tab PO DAILY 08/07/20 07/22/21 History hydrALAZINE HCL [Apresoline] 100 mg PO TID 08/07/20 07/22/21 History Acetaminophen Tab [Tylenol] 1,000 mg PO Q6HR PRN 11/06/20 07/22/21 History Ergocalciferol (Vitamin D2) 1,250 mcg PO Q7D 11/06/20 07/22/21 History [Drisdol (50,000 Iu)] Ibuprofen [Motrin Ib] 800 mg PO Q8H PRN 11/06/20 07/22/21 History Isosorbide Mononitrate [Imdur] 120 mg PO DAILY 11/06/20 07/22/21 History Lidocaine-Prilocaine Cream [Emla 1 applic TOPICAL DAILY PRN 11/06/20 07/22/21 History Cream 2.5%/2.5%] Sertraline HCl [Zoloft] 50 mg PO DAILY 11/06/20 07/22/21 History Dorzolamide 2% [Trusopt 2%] 1 drops LEFT EYE BID #1 ml 11/09/20 07/22/21 Rx NIFEdipine XL [Procardia XL] 90 mg PO DAILY #30 tab.er.24 11/09/20 07/22/21 Rx Calcium Acetate [PhosLo] 667 mg PO DAILY PRN 06/16/21 07/22/21 History HYDROcodone/APAP 10-325MG [[place] 1 tab PO Q6HR PRN 06/16/21 07/22/21 History 10-325] Latanoprost Ophth [Xalatan 0.005%] 1 drop LEFT EYE HS 06/16/21 07/22/21 History Vit B Complx C/Folic Acid/Zinc 1 tab PO DAILY 06/16/21 07/22/21 History [Renaplex Tablet] Loperamide [Imodium] 2 mg PO QID PRN #30 cap 06/18/21 07/22/21 Rx cloNIDine HCL [Catapres] 0.3 mg PO TID 30 Days #270 tab 06/18/21 07/22/21 Rx Gabapentin [Neurontin] 300 mg PO TID 07/22/21 07/22/21 History Allergies Allergy/AdvReac Type Severity Reaction Status Date / Time No Known Allergies Allergy Verified 07/22/21 18:20 Physical Exam Vitals: Vital Signs Temp Pulse Pulse Pulse Resp BP BP 07/23/21 07:00 98.6 F 93 18 177/92 07/23/21 02:00 98.1 F 104 H 18 200/105 07/22/21 22:16 98.2 F 99 18 195/96 12/13/21 21:15 98.2 F 81 16 164/77 07/22/21 20:00 98.7 F 82 18 168/88 07/22/21 18:30 90 18 160/77 07/22/21 17:00 86 20 157/89 07/22/21 16:00 101 H 07/22/21 15:39 100 F H 102 H 20 173/92 Pulse Ox 07/23/21 07:00 95 07/23/21 02:00 98 07/22/21 22:16 96 07/22/21 21:15 97 07/22/21 20:00 96 07/22/21 18:30 97 07/22/21 17:00 97 07/22/21 16:00 07/22/21 15:39 95 Intake and Output 07/22/21 07/23/21 07/23/21 22:59 06:59 14:59 Output Total 0 Balance 0 Output: Emesis 0 Other: # Voids 0 0 Weight 65.771 kg Results CBC & Chem 7: 07/23/21 05:00 07/23/21 21:57 Labs: Abnormal Lab Results - Last 24 Hours (Table) 07/22/21 07/22/21 07/23/21 Range/Units 18:14 18:14 05:00 RBC 3.35 L 3.39 L (4.30-5.90) m/uL Hgb 9.4 L 9.1 L (13.0-17.5) gm/dL Hct 27.8 L 27.1 L (39.0-53.0) % MCV 79.9 L (80.0-97.0) fL MCH 26.8 L (27.0-32.0) pg RDW 17.3 H 16.3 H (11.5-15.5) % Plt Count 126 L 129 L (150-450) k/uL Lymphocytes # 0.9 L (1.0-4.8) k/uL Potassium 5.5 H (3.5-5.1) mmol/L Chloride 93 L (98-107) mmol/L BUN 58 H (9-20) mg/dL Creatinine 12.20 H* (0.66-1.25) mg/dL Glucose 301 H (74-99) mg/dL
[2021-07-23 23:14] LABS: Glucose,Whole Blood 80 mg/dL (75-99)
[2021-07-23 23:35] LABS: Glucose,Whole Blood 111 mg/dL (75-99)
--- NOTE | 2021-07-24 00:44 | CT ---
EXAMINATION TYPE: CT brain wo con DATE OF EXAM: 07/24/2021 COMPARISON: 08/07/2020 HISTORY: fall hit head CT DLP: 1266.7 mGycm Automated exposure control for dose reduction was used. Ventricles have normal size. There is no mass effect nor midline shift. There is no sign of intracran ial hemorrhage. The calvarium is intact. Skull base is intact. There is bilateral deformity of the globes noted. IMPRESSION: Negative unenhanced head CT scan. No change.
[2021-07-24] MEDS: DOXYCYCLINE 100 MG in SODIUM CHLORIDE 0.9% 100 ML IVPB SCH ×2 (02:05→16:32)
[2021-07-24 02:11] LABS: Glucose,Whole Blood 322 mg/dL (75-99)
[2021-07-24 07:15] LABS: Glucose,Whole Blood 350 mg/dL (75-99)
[2021-07-24] MEDS: INSULIN ASPART (NovoLOG) 100 UNIT/ML VIAL SQ SCH ×4 (08:31→21:49)
[2021-07-24] MEDS: HEPARIN SODIUM,PORCINE/PF 5,000 UNIT/0.5 ML SYRINGE SQ SCH ×2 (08:31→21:49)
[2021-07-24] MEDS: LABETALOL 200 MG TAB PO SCH ×3 (08:32→21:50)
[2021-07-24] MEDS: CALCIUM ACETATE 667 MG TAB PO SCH ×3 (08:32→16:32)
[2021-07-24] MEDS: hydrALAZINE HCL 50 MG TAB PO SCH ×3 (08:33→21:50)
[2021-07-24] MEDS: ISOSORBIDE MONONITRATE ER 60 MG TAB.ER.24H PO SCH (08:33)
[2021-07-24] MEDS: cloNIDine HCL 0.1 MG TAB PO SCH ×3 (08:33→21:50)
[2021-07-24] MEDS: GABAPENTIN 300 MG CAP PO SCH ×3 (08:34→21:49)
[2021-07-24] MEDS: FOLIC ACID-VIT B COMPLEX-VIT C 1 CAP PO SCH (08:34)
[2021-07-24] MEDS: NIFEdipine XL 90 MG TAB.ER.24 PO SCH (08:34)
[2021-07-24] MEDS: DORZOLAMIDE HCL 2% DROPS 10 ML BTL LEFT EYE SCH ×2 (08:35→21:47)
--- NOTE | 2021-07-24 10:20 | P.PN ---
Subjective Progress Note Date: 07/24/21 HISTORY OF PRESENT ILLNESS: This is a 45-year-old male with a past medical history significant for hypertension, chronic kidney disease on hemodialysis Thursday, valvular heart disease, mild nonischemic cardiomyopathy, diabetes, alcohol abuse, and former nicotine dependence. Patient follows in the office with Dr. Osuna, but was last seen in the office in September 2020. We have been asked to see the patient in consultation for hypertension and abnormal EKG. Patient examined at the bedside. Patient states yesterday he attempted to have dialysis completed and was found to have a fever. He was told he needed to be checked for Covid and his hemodialysis was canceled. The patient was found to be negative for Covid. He was admitted to the hospital for further evaluation. The patient was hypertensive with a blood pressure in the 200s. He is currently undergoing hemodialysis and has so far removed 3.5 L. The certified dialysis technician states his blood pressures have been fairly controlled during his session so far. Most recent blood pressure with a systolic of 153. The patient denies chest pain or pressure. He denies shortness of breath. EKG reveals sinus mechanism with LVH. No signs of acute ischemia. Chest xray interstitial edema with superimposed infiltrates not excluded. Laboratory data: WBC 6.98. Hemoglobin 9.1. Platelet count 129. Sodium 135. P otassium 6.4. BUN 63. Creatinine 12.9. Glucose 449. ProBNP 115,000. Current home cardiac medications include Catapres 0.3 mg 3 times a day, hydralazine 100 mg 3 times a day, Procardia 90 mg daily, labetalol 400 mg 3 times a day, Imdur 120 mg daily Most recent echocardiogram obtained in October 2020 ejection fraction 55-60%, severe mitral regurgitation, moderate to severe tricuspid regurgitation, severe pulmonary hypertension. Patient underwent Lexiscan stress test in 2016 with no evidence of stress- induced ischemia. Abnormal myocardial perfusion imaging with evidence suggestive of nonischemic myopathy and mild dilation of left ventricle impaired left ventricular systolic function. 07/24/2021 Patient examined this morning at the bedside. Patient denies chest pain or pressure. Denies shortness of breath. He underwent dialysis yesterday and is scheduled to receive dialysis again today. Patient continues to be febrile with a fever this morning of 100.5. Blood pressure 182/89. Echocardiogram completed revealing severe concentric left ventricular hypertrophy, ejection fraction 45- 50%, trace aortic regurgitation, moderate to severe mitral regurgitation, mild -to-moderate tricuspid regurgitation, and mild pulmonary PHYSICAL EXAM: VITAL SIGNS: Reviewed. GENERAL: Well-developed in no acute distress. HEENT: Head is normocephalic. Right eye surgically removed. Sclerae anicteric. Mucous membranes of the mouth are moist. Neck supple. No JVD or thyromegaly LUNGS: Respirations even and unlabored. Lungs diminished to auscultation bilate rally with rhonchi noted. HEART: Regular rate and rhythm. S1 and S2 heard. Systolic murmur noted. ABDOMEN: Soft. Nondistended. Nontender. EXTREMITIES: Normal range of motion. No clubbing or cyanosis. Peripheral pulses intact. Trace lower extremity edema NEUROLOGIC: Awake and alert. Oriented x 3. ASSESSMENT: Fever Abdominal pain Hypertension, with hemodialysis End-stage renal disease, on hemodialysis Valvular heart disease History of mild nonischemic cardiomyopathy Diabetes History of alcohol abuse Nicotine dependence PLAN: Continue current cardiac medications Monitor blood pressure Patient is currently stable from a cardiac standpoint We will sign off. Please reconsult if needed. Nurse practitioner note has been reviewed by physician. Signing provider agrees with the documented findings, assessment, and plan of care. Objective - Vital Signs Vital signs: Vital Signs Temp 100.5 F H 07/24/21 07:00 Pulse 95 07/24/21 07:00 Resp 16 07/24/21 07:00 BP 182/89 07/24/21 07:00 Pulse Ox 92 L 07/24/21 07:00 Intake & Output 07/23/21 07/24/21 07/24/21 18:59 06:59 18:59 Intake Total 420 Balance 420 Intake: Oral 420 Other: # Voids 1 - Labs CBC & Chem 7: 07/23/21 05:00 07/23/21 21:57 Labs: Abnormal Lab Results - Last 24 Hours (Table) 07/23/21 07/23/21 07/23/21 Range/Units 05:00 05:00 17:21 Sodium (137-145) mmol/L Potassium 6.4 H* (3.5-5.5) mmol/L Chloride 90 L (96-109) mmol/L Anion Gap 19.40 H (10.00-18.00) mmol/L BUN 63.8 H (9.0-27.0) mg/dL Creatinine 12.9 H* (0.6-1.5) mg/dL Est GFR (CKD-EPI)AfAm 4.8 L (60.0-200.0) Est GFR (CKD-EPI)NonAf 4.1 L (60.0-200.0) BUN/Creatinine Ratio 4.95 L (12.00-20.00) Ratio Glucose 449 H (70-110) mg/dL POC Glucose (mg/dL) 453 H (75-99) mg/dL C-Reactive Protein 1.10 H (0.00-0.80) mg/dL Globulin 3.4 H (1.6-3.3) g/dL Albumin/Globulin Ratio 1.27 L (1.60-3.17) g/dL Procalcitonin 0.90 H (0.02-0.09) ng/mL 07/23/21 07/23/21 07/23/21 Range/Units 20:45 21:57 23:34 Sodium 136 L (137-145) mmol/L Potassium 5.2 H (3.5-5.5) mmol/L Chloride 91 L (96-109) mmol/L Anion Gap (10.00-18.00) mmol/L BUN 78 H (9.0-27.0) mg/dL Creatinine 14.96 H* (0.6-1.5) mg/dL Est GFR (CKD-EPI)AfAm (60.0-200.0) Est GFR (CKD-EPI)NonAf (60.0-200.0) BUN/Creatinine Ratio (12.00-20.00) Ratio Glucose 108 H (70-110) mg/dL POC Glucose (mg/dL) 191 H 111 H (75-99) mg/dL C-Reactive Protein (0.00-0.80) mg/dL Globulin (1.6-3.3) g/dL Albumin/Globulin Ratio (1.60-3.17) g/dL Procalcitonin (0.02-0.09) ng/mL 07/24/21 07/24/21 Range/Units 02:10 07:13 Sodium (137-145) mmol/L Potassium (3.5-5.5) mmol/L Chloride (96-109) mmol/L Anion Gap (10.00-18.00) mmol/L BUN (9.0-27.0) mg/dL Creatinine (0.6-1.5) mg/dL Est GFR (CKD-EPI)AfAm (60.0-200.0) Est GFR (CKD-EPI)NonAf (60.0-200.0) BUN/Creatinine Ratio (12.00-20.00) Ratio Glucose (70-110) mg/dL POC Glucose (mg/dL) 322 H 350 H (75-99) mg/dL C-Reactive Protein (0.00-0.80) mg/dL Globulin (1.6-3.3) g/dL Albumin/Globulin Ratio (1.60-3.17) g/dL Procalcitonin (0.02-0.09) ng/mL
[2021-07-24 12:55] LABS: Glucose,Whole Blood 134 mg/dL (75-99)
--- NOTE | 2021-07-24 15:15 | US ---
EXAMINATION TYPE: US liver DATE OF EXAM: 07/24/2021 COMPARISON: NONE CLINICAL HISTORY: pain. LUQ pain x 2 days, fever, renal dialysis patient EXAM MEASUREMENTS: Liver Length: 19.4 cm Gallbladder Wall: 0.1 cm CBD: 0.3 cm Right Kidney: 9.1 x 6.2 x 3.4 cm Pancreas: hyperechoic Liver: enlarged and large left lobe is noted and is at patient's area of pain LUQ Gallbladder: wnl Evidence for sonographic Barber's sign: no CBD: wnl Right Kidney: hyperechoic with poor corticomedullary differentiation Small amount of ascites is noted superior to liver. IMPRESSION: 1. Hepatomegaly. Correlate with liver function studies. Recommend follow-up CT of the abdomen. 2. Correlate for chronic medical renal disease.
[2021-07-24] MEDS: ACETAMINOPHEN TAB 325 MG TAB PO PRN (17:16)
[2021-07-24 17:36] LABS: Glucose,Whole Blood 227 mg/dL (75-99)
--- NOTE | 2021-07-24 20:17 | PN ---
PROGRESS NOTE The patient is seen for followup for end-stage renal disease. This morning, patient was sleeping comfortably. He is scheduled for hemodialysis today. PHYSICAL EXAMINATION: Blood pressure was 182/89, heart rate of 98 per minute. Patient did have a temp yesterday of 100.5 degrees Fahrenheit. There is no evidence of edema in his lower extremities. Abdomen is soft, nontender. LABS: Not available from today. Influenza was negative. Potassium 5.2 yesterday. ASSESSMENT: 1. End stage renal disease, on hemodialysis on a Thursday, Thursday, Thursday schedule, status post dialysis yesterday. Patient will be dialyzed again today. 2. Hyperkalemia, improved post dialysis. 3. Fever with upper respiratory symptoms with negative Covid and negative flu maintained on Rocephin and doxycycline. 4. CKD mineral bone disorder, maintained on PhosLo. 5. Hypertension uncontrolled partly volume sensitive, improved post hemodialysis today. PLAN: Continue antibiotics. Next hemodialysis will be on 07/26/2021. MMODL / IJN: [id number] /
[2021-07-24 20:26] LABS: Glucose,Whole Blood 255 mg/dL (75-99)
--- NOTE | 2021-07-24 21:41 | P.PN ---
Subjective This is a pleasant 45 years old -[place] male with past medical history of Diabetes Mellitus, end-stage renal disease on hemodialysis, Thursday and Thursday, Hypertension, very poor vision left eye, status post Enucleation of the right eye secondary to diabetic retinopathy, Anxiety, Depression states that he came because he is having a stomach pain since the weekend associated with some headache but headache resolved. He went 1 daily and to hemodialysis as scheduled and his been advised to come to emergency room. Patient states that his pain in his stomach, but now is improved significantly 3/10. Nonspecific in character. Nonradiating. He has low appetite but no nausea vomiting. He had a regular bowel movement th is morning. He denies chest pain but he noticed to have coughing and also is complaining of from some dyspnea related to his little short of breath. He makes no urine since he is hemodialysis patient. No dizziness or weakness or numbness. He denies smoking, alcohol or illicit drugs On admission he had a fever over 100. Also his blood pressure was elevated at 195/96 and 200/105. Restoril Vitas looks stable. Labs reviewed with CBC showing hemoglobin 9.4, platelets 126, WBC normal. BMP and liver enzymes are unremarkable. First not detected. Chest x-ray: Interstitial edema versus superimposed infection not excluded. Patient was admitted with nephrology consult and resumed with home medication. We ordered an EKG this morning as there was not done earlier showed normal sinus rhythm at 88 with possible left atrial enlargement, left ventricular hypertrophy and QTC 498 07/24/2021 Patient today is fully awake and oriented and calm, last time he fell and hit his head on the left anabaptism R/parietal area, recheck there is no wound or bruises. No change in mental status, we'll keep neuro check for 24 hours. Patient is counseled about safety measures and to ask help He was admitted with fever of unknown origin, pneumonia and suspected per chest x-ray, however he has only, but no tachypnea/dyspnea at rest however patient is due to the blind and he is not moving March dresses exertional dyspnea. No chest pain but he has epigastric pain. Initially we wanted to rule out cardiac causes given an control extremely high blood pressure upon admission associated with some nonspecific EKG changes, cell biologist actually signed off the case as his blood pressure is improved and they don't think it's cardiac in origin therefore liver ultrasound showed hepatomegaly and recommended CAT scan of the abdomen, we will discuss with nephrology team tomorrow about possibility of contrast Other than that his blood pressure is better controlled today 151/79, he still had fever to the brando 100. Glucose is down to 50. He remains on doxycycline and ceftriaxone Objective - Vital Signs Vital signs: Vital Signs Temp 100.5 F H 07/24/21 07:00 Pulse 95 07/24/21 07:00 Resp 16 07/24/21 07:00 BP 182/89 07/24/21 07:00 Pulse Ox 92 L 07/24/21 07:00 Intake & Output 07/23/21 07/24/21 07/24/21 18:59 06:59 18:59 Intake Total 420 Balance 420 Intake: Oral 420 Other: # Voids 1 - Exam GENERAL: The patient is alert and oriented x3, not in any acute distress. Well developed, well nourished. -HEENT: Pupils are round and equally reacting to light. EOMI. No scleral icterus. No conjunctival pallor. Normocephalic, atraumatic. No pharyngeal erythema. No thyromegaly. Legally blind. Right eye is absent from all surgery CARDIOVASCULAR: S1 and S2 present. No murmurs, rubs, or gallops. - PULMONARY: Chest is clear to auscultation, The lateral crepitation and scattered rhonchi -ABDOMEN: Soft, mild epigastric tenderness with the surrounding area, no rebound tenderness or guarding, nondistended, normoactive bowel sounds. No palpable organomegaly. MUSCULOSKELETAL: No joint swelling or deformity. EXTREMITIES: No cyanosis, clubbing, or pedal edema. NEUROLOGICAL: Gross neurological examination did not reveal any focal deficits. SKIN: No rashes. no petechiae. - Labs CBC & Chem 7: 07/23/21 05:00 07/23/21 21:57 Labs: Abnormal Lab Results - Last 24 Hours (Table) 07/23/21 07/23/21 07/23/21 Range/Units 05:00 05:00 17:21 Sodium (137-145) mmol/L Potassium 6.4 H* (3.5-5.5) mmol/L Chloride (98-107) mmol/L BUN (9-20) mg/dL Creatinine 12.9 H* (0.6-1.5) mg/dL Est GFR (CKD-EPI)AfAm 4.8 L (60.0-200.0) Est GFR (CKD-EPI)NonAf 4.1 L (60.0-200.0) Glucose (74-99) mg/dL POC Glucose (mg/dL) 453 H (75-99) mg/dL Procalcitonin 0.90 H (0.02-0.09) ng/mL 07/23/21 07/23/21 07/23/21 Range/Units 20:45 21:57 23:34 Sodium 136 L (137-145) mmol/L Potassium 5.2 H (3.5-5.5) mmol/L Chloride 91 L (98-107) mmol/L BUN 78 H (9-20) mg/dL Creatinine 14.96 H* (0.6-1.5) mg/dL Est GFR (CKD-EPI)AfAm (60.0-200.0) Est GFR (CKD-EPI)NonAf (60.0-200.0) Glucose 108 H (74-99) mg/dL POC Glucose (mg/dL) 191 H 111 H (75-99) mg/dL Procalcitonin (0.02-0.09) ng/mL 07/24/21 07/24/21 Range/Units 02:10 07:13 Sodium (137-145) mmol/L Potassium (3.5-5.5) mmol/L Chloride (98-107) mmol/L BUN (9-20) mg/dL Creatinine (0.6-1.5) mg/dL Est GFR (CKD-EPI)AfAm (60.0-200.0) Est GFR (CKD-EPI)NonAf (60.0-200.0) Glucose (74-99) mg/dL POC Glucose (mg/dL) 322 H 350 H (75-99) mg/dL Procalcitonin (0.02-0.09) ng/mL Assessment and Plan Assessment: Fever, possible pneumonia versus other Epigastric pain, cardiac causes were ruled out, however liver ultrasound showed hepatomegaly and CT of the abdomen is recommended Hypertension with urgency upon admission, currently is better controlled fall with no syncope the hospital End-stage renal disease on hemodialysis, Thursday, Thursday and Thursday very poor vision left eye, status post Enucleation of the right eye secondary to diabetic retinopath. Patient is legally blind History of anxiety and depression, not an active issue Diabetes mellitus, on insulin at home Plan: This is a pleasant 45 years old male who presents with fever and missed hemodialysis Start the patient on ceftriaxone and doxycycline Follow-up procalcitonin, proBNP Cartilage team signed off the case managers blood pressure Continue with hemodialysis per nephrology, we will discuss doing ct scan with contrast With Nephrology Team Labs and medication were reviewed.. Continue same treatment. Continue with symptomatic treatment. Resume home medication. Monitor lytes and vitals. DVT and GI prophylaxis. Further recommendations as per clinical course of the patient DVT prophylaxis: Subcutaneous heparin GI Prophylaxis: Pepcid Prognosis is guarded
[2021-07-24] MEDS: LATANOPROST 0.005% OPHTH DROPS 2.5 ML BTL LEFT EYE SCH (21:48)
[2021-07-24] MEDS: FAMOTIDINE 20 MG/2 ML VIAL IV SCH (21:48)
--- NOTE | 2021-07-24 22:59 | PN ---
PROGRESS NOTE DATE OF SERVICE: 07/24/2021 REASON FOR FOLLOWUP: Fever and a question of pneumonia. INTERVAL HISTORY: The patient did have a low-grade fever of 100.5 to 100.2 today. The patient was slightly sleepy and lethargic after his dialysis. However, per the nursing staff, mentioned this seemed to be kind of normal for him. Patient was unable to provide any history. No vomiting or diarrhea has been reported. PHYSICAL EXAMINATION: Blood pressure 115/79, pulse 89, temperature 98.1. He is 97% on room air. General description is a middle-aged male lying in bed in no distress. Respiratory system: Unlabored breathing, decreased intensity of breath sounds. No wheeze. Heart S1, S2. Regular rate and rhythm. Abdomen soft, no tenderness. LABS: Influenza and RSV PCR were negative. No CBC was done today. The patient's blood culture is so far pending. DIAGNOSTIC IMPRESSION AND PLAN: Patient admitted to hospital with a fever. Cultures are currently pending. Chest x- ray has been ordered for tomorrow. Continue the patient on Rocephin and doxycycline and monitor his clinical course closely. MMODL / IJN: [id number] /
[2021-07-25] MEDS: DOXYCYCLINE 100 MG in SODIUM CHLORIDE 0.9% 100 ML IVPB SCH ×2 (02:18→12:33)
[2021-07-25] MEDS: ACETAMINOPHEN TAB 325 MG TAB PO PRN (03:52)
[2021-07-25 07:39] LABS: Glucose,Whole Blood 275 mg/dL (75-99)
[2021-07-25] MEDS: NIFEdipine XL 90 MG TAB.ER.24 PO SCH (07:45)
[2021-07-25] MEDS: CALCIUM ACETATE 667 MG TAB PO SCH ×3 (07:45→21:19)
[2021-07-25] MEDS: GABAPENTIN 300 MG CAP PO SCH ×3 (07:45→21:20)
[2021-07-25] MEDS: ISOSORBIDE MONONITRATE ER 60 MG TAB.ER.24H PO SCH (07:46)
[2021-07-25] MEDS: cloNIDine HCL 0.1 MG TAB PO SCH ×3 (07:46→21:20)
[2021-07-25] MEDS: INSULIN ASPART (NovoLOG) 100 UNIT/ML VIAL SQ SCH ×4 (07:46→21:21)
[2021-07-25] MEDS: HEPARIN SODIUM,PORCINE/PF 5,000 UNIT/0.5 ML SYRINGE SQ SCH ×2 (07:46→21:19)
[2021-07-25] MEDS: hydrALAZINE HCL 50 MG TAB PO SCH ×3 (07:47→21:20)
[2021-07-25] MEDS: LABETALOL 200 MG TAB PO SCH ×3 (07:47→21:20)
[2021-07-25] MEDS: FOLIC ACID-VIT B COMPLEX-VIT C 1 CAP PO SCH (07:47)
[2021-07-25] MEDS: DORZOLAMIDE HCL 2% DROPS 10 ML BTL LEFT EYE SCH ×2 (07:48→21:21)
[2021-07-25 11:55] LABS: Magnesium 2.1 mg/dL (1.5-2.4)
[2021-07-25 12:17] LABS: Glucose,Whole Blood 229 mg/dL (75-99)
--- NOTE | 2021-07-25 12:17 | XR ---
EXAMINATION TYPE: XR chest 1V DATE OF EXAM: 07/25/2021 COMPARISON: 07/22/2021 HISTORY: 45 year-old male shortness of breath TECHNIQUE: Single frontal view of the chest is obtained. FINDINGS: Heart appears mildly enlarged. Slight increasing airspace opacity at the right lower lung. No pleural effusion. IMPRESSION: 1. Mild cardiomegaly. 2. Slight increasing opacity/infiltrate at the right lower lung. Correlate for pneumonia.
[2021-07-25 13:33] LABS: African American GFR (CKD) 6.3 (60.0-200.0); Albumin 4.4 g/dL (3.8-4.9); Albumin/Globulin Ratio 1.23 (1.60-3.17); Anion Gap 19.6 mmol/L (10.00-18.00); BUN/Creat Ratio 5.34 Ratio (12.00-20.00); Calcium 9.2 mg/dL (8.7-10.3); Carbon Dioxide 19.8 mmol/L (20.0-27.5); Globulin 3.6 g/dL (1.6-3.3); Non-African American GFR(CKD) 5.4 (60.0-200.0); Potassium 7.6 mmol/L (3.5-5.5); Total Bilirubin 0.4 mg/dL (0.30-1.20); Total Protein 7.9 g/dL (6.2-8.2)
[2021-07-25] MEDS: IOPAMIDOL CONTRAST (ORAL USE) VIAL PO PRN ×2 (14:59→16:04)
[2021-07-25] MEDS ORDERED: PIPERACILLIN-TAZOBACTAM 3.375 GM in SODIUM CHLORIDE 0.9% 100 ML IVPB SCH (16:00)
[2021-07-25] MEDS ORDERED: CALCIUM GLUCONATE 1 GM in SODIUM CHLORIDE 0.9% 100 ML IVPB ONE (16:10)
--- NOTE | 2021-07-25 17:09 | CT ---
EXAMINATION TYPE: CT abdomen pelvis wo con DATE OF EXAM: 07/25/2021 HISTORY: Abdominal pain and fever. CT DLP: 487 mGycm. Automated Exposure Control for Dose Reduction was Utilized. TECHNIQUE: CT scan of the abdomen and pelvis is performed with oral but without IV contrast. COMPARISON: Chest x-ray earlier today. Liver ultrasound from yesterday. FINDINGS: Within the limitations of a non-contrast study, the following observations are made. LUNG BASES: Cardiomegaly is present. Increased groundglass opacities in the lower lungs greatest post eriorly. LIVER/GB: Cardiomegaly redemonstrated.. PANCREAS: No significant abnormality is seen. SPLEEN: No significant abnormality is seen. ADRENALS: No significant abnormality is seen. KIDNEYS: Some cortical thinning and diminished size to both kidneys is noted. BOWEL: Oral contrast reaches level of the rectum. Patient has little intra-abdominal fat making follo w-up evaluation suboptimal. Stomach poorly distended and thus suboptimally evaluated. Moderate to sev ere concentric gastric wall thickening may be present. Correlate clinically for diffuse gastritis. No suspicious small or large bowel dilatation. A few scattered air fluid levels nonspecific finding. GENITAL ORGANS: A few scattered bilateral pelvic phleboliths. Prostate gland measures upper limits of normal in size. LYMPH NODES: No greater than 1cm abdominal or pelvic lymph nodes are appreciated. OSSEOUS STRUCTURES: Posterior disc herniation L3-L4 level sagittal image 29. OTHER: Mild to moderate calcified plaque of the aorta. More moderate to severe small vessel calcifica tion is consistent with chronic long-standing medical renal disease. IMPRESSION: 1. Multifocal groundglass opacities in the lung bases could reflect edema in patient with cardiomegal y, correlate clinically for CHF exacerbation or fluid overload state. One must consider covid-19 curr ently. 2. Possible moderate to severe diffuse gastritis, correlate clinically. Overall nonspecific but stron gly favor nonobstructive bowel gas pattern.
[2021-07-25 17:36] LABS: Glucose,Whole Blood 173 mg/dL (75-99)
--- NOTE | 2021-07-25 18:09 | PN ---
PROGRESS NOTE Patient is seen for followup for end-stage renal disease. He was admitted to the hospital with fever, shortness of breath. He is maintained on a Thursday, Thursday, Thursday schedule for dialysis. This morning potassium is just noted to be 7.6. I am surprised no one has notified me of these labs. We will arrange for hemodialysis treatment today and patient will be dialyzed again tomorrow. PHYSICAL EXAMINATION: On examination today, blood pressure 155/83, heart rate 87 per minute, he is afebrile. Examination of the heart S1, S2. Examination of the lungs, decreased breath sounds at the bases. Abdomen is soft. Examination of lower extremities, trace edema bilaterally. LAB: Show sodium 131, potassium 7.6 just noted now at 4:00 pm. I am not sure when these labs were finally reported. ASSESSMENT: 1. End stage renal disease, on hemodialysis on a Thursday, Thursday, Thursday schedule. 2. Severe hyperkalemia. Patient will be dialyzed today and then again in a.m. 3. Fever with upper respiratory tract infection, negative COVID PCR. 4. CKD mineral bone disorder. 5. Hypertension uncontrolled, currently slightly better controlled. Expect further improvement with dialysis. PLAN: Hemodialysis today. MMODL / IJN: [id number] /
--- NOTE | 2021-07-25 20:20 | P.PN ---
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 He went 1 daily and to hemodialysis as scheduled and his been advised to come to emergency room. Patient states that his pain in his stomach, but now is improved significantly 3/10. Nonspecific in character. Nonradiating. He has low appetite but no nausea vomiting. He had a regular bowel movement th is morning. He denies chest pain but he noticed to have coughing and also is complaining of from some dyspnea related to his little short of breath. He makes no urine since he is hemodialysis patient. No dizziness or weakness or numbness. He denies smoking, alcohol or illicit drugs On admission he had a fever over 100. Also his blood pressure was elevated at 195/96 and 200/105. Restoril Vitas looks stable. Labs reviewed with CBC showing hemoglobin 9.4, platelets 126, WBC normal. BMP and liver enzymes are unremarkable. First not detected. Chest x-ray: Interstitial edema versus superimposed infection not excluded. Patient was admitted with nephrology consult and resumed with home medication. We ordered an EKG this morning as there was not done earlier showed normal sinus rhythm at 88 with possible left atrial enlargement, left ventricular hypertrophy and QTC 498 07/24/2021 Patient today is fully awake and oriented and calm, last time he fell and hit his head on the left judaism R/parietal area, recheck there is no wound or bruises. No change in mental status, we'll keep neuro check for 24 hours. Patient is counseled about safety measures and to ask help He was admitted with fever of unknown origin, pneumonia and suspected per chest x-ray, however he has only, but no tachypnea/dyspnea at rest however patient is due to the blind and he is not moving March dresses exertional dyspnea. No chest pain but he has epigastric pain. Initially we wanted to rule out cardiac causes given an control extremely high blood pressure upon admission associated with some nonspecific EKG changes, plumbing drafter actually signed off the case as his blood pressure is improved and they don't think it's cardiac in origin therefore liver ultrasound showed hepatomegaly and recommended CAT scan of the abdomen, we will discuss with nephrology team tomorrow about possibility of contrast Other than that his blood pressure is better controlled today 151/79, he still had fever to the brando 100. Glucose is down to 50. He remains on doxycycline and ceftriaxone 07/25/2021 Patient still with mild epigastric pain and tenderness with coughing, no significant dyspnea at rest, patient does not move about because his legal blind but this morning he was kind of more confused, for example he wanted to go to the restroom for bowel movement and he jumped out of the but despite my warnings that he might fall, he didn't listen and he did not pay attention that he is hooked up to oxygen and IV fluids despite my warnings. Repeat chest x-ray showed worsening right lower lobe pneumonia, aspiration pneumonia is suspected given his GI symptoms although he does not report vomiting but his curled up in bed most of the time. Also his somewhat confused. We'll change his antibiotics ceftriaxone and to Zosyn. And ask for swallow evaluation. Computed tomography scan of the abdomen done without contrast showing bilateral groundglass opacity, suspected CHF versus atypical pneumonia for example covid by radiologist however his covid test was negative , gastritis, mostly nonobstructive bowel gas pattern. Given his chest x-ray finding of unilateral infiltrates is very unlikely due to fluid overload of CHF. Change Pepcid to Protonix Patient with severe hyperkalemia today that he needed urgent hemodialysis out of the schedule, he will get another hemodialysis tomorrow as well which might help also with high blood pressure which is improving gradually. Review of systems CONSTITUTIONAL: No fever, no malaise, no fatigue. HEENT: No recent visual problems or hearing problems. Denied any sore throat. CARDIOVASCULAR: No orthopnea, PND, no palpitations, no syncope. PULMONARY: No chest wall tenderness, no hemoptysis. GASTROINTESTINAL: No diarrhea, no nausea, no vomiting, no abdominal pain. Normoa ctive bowel sounds. NEUROLOGICAL: No headaches, no weakness, no numbness. Active Medications Generic Name Dose Route Start Last Admin Trade Name Freq PRN Reason Stop Dose Admin Acetaminophen 650 mg 07/22/21 19:12 07/25/21 03:52 Acetaminophen Tab 325 Mg Tab PO 650 mg Q6HR PRN Administration Mild Pain or Fever > 100.5 Hydrocodone Bitart/Acetaminophen 1 each 07/22/21 19:14 Hydrocodone/Apap 10-325mg 1 Each Tab PO Q6HR PRN Pain Calcium Acetate 2,001 mg 07/23/21 07:30 07/25/21 11:42 Calcium Acetate 667 Mg Tab PO Not Given TID-W/MEALS [facility] Calcium Acetate 667 mg 07/22/21 19:14 Calcium Acetate 667 Mg Tab PO DAILY PRN with snack Clonidine 0.3 mg 07/22/21 22:00 07/25/21 14:59 Clonidine Hcl 0.1 Mg Tab PO 0.3 mg TID [facility] Administration Dorzolamide HCl 1 drops 07/22/21 21:00 07/25/21 07:48 Dorzolamide Hcl 2% Drops 10 Ml Btl LEFT EYE 1 drops BID CARIDAD Administration Ergocalciferol 1,250 mcg 07/28/21 09:00 Ergocalciferol 1,250 Mcg (50,000 Iu) Capsule PO Q7D [facility] Gabapentin 300 mg 07/22/21 22:00 07/25/21 14:59 Gabapentin 300 Mg Cap PO 300 mg TID [facility] Administration Heparin Sodium (Porcine) 5,000 unit 07/23/21 21:00 07/25/21 07:46 Heparin Sodium,Porcine/Pf 5,000 Unit/0.5 Ml Syringe SQ 5,000 unit Q12HR [facility] Administration Hydralazine HCl 100 mg 07/22/21 22:00 07/25/21 14:59 Hydralazine Hcl 50 Mg Tab PO 100 mg TID [facility] Administration Doxycycline Hyclate 100 mg/ 100 mls @ 100 mls/hr 07/23/21 14:00 07/25/21 12:33 Sodium Chloride IVPB 100 mls/hr Q12H [facility] Administration Piperacillin Sod/Tazobactam 100 mls @ 25 mls/hr 07/26/21 06:00 Sod 3.375 gm/ Sodium Chloride IVPB Q12H [facility] Insulin Aspart 0 unit 07/23/21 17:30 07/25/21 12:33 Insulin Aspart (Novolog) 100 Unit/Ml Vial SQ 4 unit ACHS [facility] Administration Protocol Isosorbide Mononitrate 120 mg 07/23/21 09:00 07/25/21 07:46 Isosorbide Mononitrate Er 60 Mg Tab.Er.24h PO 120 mg DAILY [facility] Administration Labetalol HCl 400 mg 07/22/21 22:00 07/25/21 14:59 Labetalol 200 Mg Tab PO 400 mg TID CARIDAD Administration Latanoprost 1 drops 07/22/21 21:00 07/24/21 21:48 Latanoprost 0.005% Ophth Drops 2.5 Ml Btl LEFT EYE 1 drops HS CARIDAD Administration Multivit/Ca Carb/B Cmplx/FA/Prenat 1 each 07/23/21 09:00 07/25/21 07:47 Folic Acid-Vit B Complex-Vit C 1 Cap PO 1 each DAILY CARIDAD Administration Naloxone HCl 0.2 mg 07/22/21 19:12 Naloxone 0.4 Mg/Ml 1 Ml Vial IV Q2M PRN Opioid Reversal Nifedipine 90 mg 07/23/21 09:00 07/25/21 07:45 Nifedipine Xl 90 Mg Tab.Er.24 PO 90 mg DAILY CARIDAD Administration Pantoprazole Sodium 40 mg 07/25/21 21:00 Pantoprazole 40 Mg/10 Ml Vial IVP BID [facility] Objective - Vital Signs Vital signs: Vital Signs Temp 98.5 F 07/25/21 08:00 Pulse 87 07/25/21 08:00 Resp 16 07/25/21 08:00 BP 155/83 07/25/21 08:00 Pulse Ox 97 07/25/21 08:00 Intake & Output 07/24/21 07/25/21 07/25/21 18:59 06:59 18:59 Intake Total 700 Output Total 3000 Balance -3000 700 Intake: Oral 700 Output: Urine 0 Hemodialysis 3000 Other: # Voids 0 - Exam -GENERAL: The patient is alert and oriented but somewhat more confused today, not in any acute distress. Well developed, well nourished. -HEENT: Pupils are round and equally reacting to light. EOMI. No scleral icterus. No conjunctival pallor. Normocephalic, atraumatic. No pharyngeal erythema. No thyromegaly. Legally blind. Right eye is absent from all surgery CARDIOVASCULAR: S1 and S2 present. No murmurs, rubs, or gallops. - PULMONARY: Chest is clear to auscultation, The lateral crepitation and scattered rhonchi -ABDOMEN: Soft, mild epigastric tenderness with the surrounding area, no rebound tenderness or guarding, nondistended, normoactive bowel sounds. No palpable organomegaly. MUSCULOSKELETAL: No joint swelling or deformity. EXTREMITIES: No cyanosis, clubbing, or pedal edema. NEUROLOGICAL: Gross neurological examination did not reveal any focal deficits. SKIN: No rashes. no petechiae. - Labs CBC & Chem 7: 07/23/21 05:00 07/25/21 06:52 Labs: Abnormal Lab Results - Last 24 Hours (Table) 07/24/21 07/24/21 07/24/21 Range/Units 12:54 17:34 20:25 POC Glucose (mg/dL) 134 H 227 H 255 H (75-99) mg/dL 07/25/21 Range/Units 07:37 POC Glucose (mg/dL) 275 H (75-99) mg/dL Microbiology - Last 24 Hours (Table) 07/23/21 23:47 Blood Culture - Preliminary Blood No Growth after 24 hours Assessment and Plan Assessment: Right lower lobe pneumonia, rule out aspiration pneumonia. Suspect gram- negative infection Metabolic encephalopathy, secondary to above Suspect gastritis or reflux esophagitis, also could be elements of referred pain from his right pneumonia. Hypertension with urgency upon admission, currently is better controlled fall with no syncope the hospital End-stage renal disease on hemodialysis, Thursday, Thursday and Thursday Severe hyperkalemia record urgent hemodialysis on 07/25 very poor vision left eye, status post Enucleation of the right eye secondary to diabetic retinopath. Patient is legally blind History of anxiety and depression, not an active issue Diabetes mellitus, on insulin at home Plan: This is a pleasant 45 years old male who presents with right pneumonia and gastritis and missed hemodialysis Change antibiotics and to Zosyn Check a swallow evaluation Change Pepcid to Protonix Urgent hemodialysis and nephrology input is appreciated Infectious disease consult Monitor blood pressure Continue with hemodialysis per nephrology, we will discuss doing ct scan with contrast With Nephrology Team Labs and medication were reviewed.. Continue same treatment. Continue with symptomatic treatment. Resume home medication. Monitor lytes and vitals. DVT and GI prophylaxis. Further recommendations as per clinical course of the patient DVT prophylaxis: Subcutaneous heparin GI Prophylaxis: Protonix Prognosis is guarded
[2021-07-25 21:14] LABS: Glucose,Whole Blood 315 mg/dL (75-99)
[2021-07-25] MEDS: PANTOPRAZOLE 40 MG/10 ML VIAL IVP SCH (21:20)
[2021-07-25] MEDS: LATANOPROST 0.005% OPHTH DROPS 2.5 ML BTL LEFT EYE SCH (21:20)
--- NOTE | 2021-07-25 23:15 | PN ---
PROGRESS NOTE DATE OF SERVICE: 07/25/2021 REASON FOR FOLLOWUP: Fever, possible pneumonia. INTERVAL HISTORY: The patient's overall fever pattern has improved. No fever in the last 24 hours. The patient is feeling better. Was complaining of some abdominal pain, mostly epigastric area, early this morning at time of evaluation, for which a CT was done. The patient denies having any nausea. No vomiting. No chest pain or shortness of breath. PHYSICAL EXAMINATION: Blood pressure 106/60 with a pulse of 76, temperature 97.7. He is 96% on room air. General description is a middle-aged male lying in bed in no distress. Respiratory system: Unlabored breathing, decreased intensity of breath sounds. No wheeze. Heart S1, S2. Regular rate and rhythm. Abdomen soft. Mild distention. No guarding or rigidity. LABS: BUN of 55, creatinine is 10.3. CT of abdomen and pelvis showed possible pneumonia abdominal source. DIAGNOSTIC IMPRESSION AND PLAN: Patient admitted to hospital with a fever, possible pneumonia, responding to the Rocephin and doxycycline; need to continue while monitoring his clinical course closely. Continue supportive care. MMODL / IJN: [id number] /
[2021-07-26] MEDS: DOXYCYCLINE 100 MG in SODIUM CHLORIDE 0.9% 100 ML IVPB SCH ×2 (03:02→15:42)
[2021-07-26] MEDS: PIPERACILLIN-TAZOBACTAM 3.375 GM in SODIUM CHLORIDE 0.9% 100 ML IVPB SCH ×2 (05:49→17:23)
[2021-07-26 07:26] LABS: Glucose,Whole Blood 307 mg/dL (75-99)
[2021-07-26] MEDS: INSULIN ASPART (NovoLOG) 100 UNIT/ML VIAL SQ SCH ×4 (08:30→21:13)
[2021-07-26] MEDS: CALCIUM ACETATE 667 MG TAB PO SCH ×3 (08:31→17:23)
[2021-07-26] MEDS: cloNIDine HCL 0.1 MG TAB PO SCH ×3 (08:31→21:10)
[2021-07-26] MEDS: GABAPENTIN 300 MG CAP PO SCH ×3 (08:32→21:11)
[2021-07-26] MEDS: FOLIC ACID-VIT B COMPLEX-VIT C 1 CAP PO SCH (08:32)
[2021-07-26] MEDS: HEPARIN SODIUM,PORCINE/PF 5,000 UNIT/0.5 ML SYRINGE SQ SCH ×2 (08:32→21:12)
[2021-07-26] MEDS: NIFEdipine XL 90 MG TAB.ER.24 PO SCH (08:32)
[2021-07-26] MEDS: LABETALOL 200 MG TAB PO SCH ×3 (08:33→21:12)
[2021-07-26] MEDS: hydrALAZINE HCL 50 MG TAB PO SCH ×3 (08:33→21:11)
[2021-07-26] MEDS: ISOSORBIDE MONONITRATE ER 60 MG TAB.ER.24H PO SCH (08:33)
[2021-07-26] MEDS: PANTOPRAZOLE 40 MG/10 ML VIAL IVP SCH ×2 (08:34→21:13)
[2021-07-26] MEDS: DORZOLAMIDE HCL 2% DROPS 10 ML BTL LEFT EYE SCH ×2 (08:37→21:09)
[2021-07-26 12:25] LABS: Glucose,Whole Blood 183 mg/dL (75-99)
[2021-07-26 14:26] LABS: Glucose,Whole Blood 269 mg/dL (75-99)
--- NOTE | 2021-07-26 17:24 | PN ---
PROGRESS NOTE Patient is seen for followup for end-stage renal disease. He was admitted with fever and upper respiratory tract infection, currently afebrile. He was also significantly hyperkalemic and had an extra treatment of hemodialysis yesterday. On examination today, the patient is comfortable, awake. He is not in any acute distress. He is seen while receiving dialysis. EXAMINATION: Today blood pressure was 180/88, heart rate 92 per minute, he is afebrile. Examination of the heart S1, S2. Examination of the lungs, bilateral breath sounds are heard. Abdomen is soft. Examination of lower extremities shows no significant edema. DIRECTOR OF DIAGNOSTIC IMAGING exam grossly intact. Patient is legally blind. LABS: No repeat labs done today. Potassium was 7.6 yesterday. ASSESSMENT: 1. End-stage renal disease on hemodialysis on a Thursday, Thursday, Thursday schedule status post extra treatment of hemodialysis yesterday due to severe hyperkalemia. Patient admitted due to increased intake of most high potassium containing foods recently. 2. Fever with upper respiratory tract infection, possible pneumonia, maintained on antibiotics. 3. Volume overload, currently improved. 4. CKD mineral bone disorder. PLAN: Hemodialysis today. Goal UF 2-3 L. Repeat potassium in a.m. MMODL / IJN: [id number] /
[2021-07-26 17:36] LABS: Glucose,Whole Blood 406 mg/dL (75-99)
[2021-07-26 20:58] LABS: Glucose,Whole Blood 260 mg/dL (75-99)
[2021-07-26] MEDS: LATANOPROST 0.005% OPHTH DROPS 2.5 ML BTL LEFT EYE SCH (21:09)
--- NOTE | 2021-07-27 02:07 | PN ---
PROGRESS NOTE DATE OF SERVICE: 07/26/2021 REASON FOR FOLLOWUP: Fever, possible pneumonia. INTERVAL HISTORY: The patient is afebrile. The patient is breathing more comfortably. The patient denies having any chest pain. Did have some cough, not bringing up any sputum. No abdominal pain, no diarrhea. PHYSICAL EXAMINATION: Blood pressure 122/77, pulse 89, temperature 98.3. She is 100% on room air. General description is a middle-aged male lying in bed in no distress. Respiratory system: Unlabored breathing, decreased intensity of breath sounds, no wheeze. Heart S1, S2. Regular rate and rhythm. Abdomen soft, no tenderness. LABS: No new labs have been obtained today. Culture has been negative. DIAGNOSTIC IMPRESSION AND PLAN: Patient admitted to the hospital with fever concerning for possible pneumonia in this patient seems to have shown overall clinical improvement. Continue with Rocephin and doxycycline to finish therapy with oral antibiotics and continue supportive care. MMODL / IJN: [id number] /
[2021-07-27] MEDS: DOXYCYCLINE 100 MG in SODIUM CHLORIDE 0.9% 100 ML IVPB SCH (02:36)
[2021-07-27] MEDS: PIPERACILLIN-TAZOBACTAM 3.375 GM in SODIUM CHLORIDE 0.9% 100 ML IVPB SCH (05:44)
--- NOTE | 2021-07-27 07:13 | P.PN ---
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 He went 1 daily and to hemodialysis as scheduled and his been advised to come to emergency room. Patient states that his pain in his stomach, but now is improved significantly 3/10. Nonspecific in character. Nonradiating. He has low appetite but no nausea vomiting. He had a regular bowel movement th is morning. He denies chest pain but he noticed to have coughing and also is complaining of from some dyspnea related to his little short of breath. He makes no urine since he is hemodialysis patient. No dizziness or weakness or numbness. He denies smoking, alcohol or illicit drugs On admission he had a fever over 100. Also his blood pressure was elevated at 195/96 and 200/105. Restoril Vitas looks stable. Labs reviewed with CBC showing hemoglobin 9.4, platelets 126, WBC normal. BMP and liver enzymes are unremarkable. First not detected. Chest x-ray: Interstitial edema versus superimposed infection not excluded. Patient was admitted with nephrology consult and resumed with home medication. We ordered an EKG this morning as there was not done earlier showed normal sinus rhythm at 88 with possible left atrial enlargement, left ventricular hypertrophy and QTC 498 07/24/2021 Patient today is fully awake and oriented and calm, last time he fell and hit his head on the left restorationism R/parietal area, recheck there is no wound or bruises. No change in mental status, we'll keep neuro check for 24 hours. Patient is counseled about safety measures and to ask help He was admitted with fever of unknown origin, pneumonia and suspected per chest x-ray, however he has only, but no tachypnea/dyspnea at rest however patient is due to the blind and he is not moving March dresses exertional dyspnea. No chest pain but he has epigastric pain. Initially we wanted to rule out cardiac causes given an control extremely high blood pressure upon admission associated with some nonspecific EKG changes, barrel stave inspector actually signed off the case as his blood pressure is improved and they don't think it's cardiac in origin therefore liver ultrasound showed hepatomegaly and recommended CAT scan of the abdomen, we will discuss with nephrology team tomorrow about possibility of contrast Other than that his blood pressure is better controlled today 151/79, he still had fever to the brando 100. Glucose is down to 50. He remains on doxycycline and ceftriaxone 07/25/2021 Patient still with mild epigastric pain and tenderness with coughing, no significant dyspnea at rest, patient does not move about because his legal blind but this morning he was kind of more confused, for example he wanted to go to the restroom for bowel movement and he jumped out of the but despite my warnings that he might fall, he didn't listen and he did not pay attention that he is hooked up to oxygen and IV fluids despite my warnings. Repeat chest x-ray showed worsening right lower lobe pneumonia, aspiration pneumonia is suspected given his GI symptoms although he does not report vomiting but his curled up in bed most of the time. Also his somewhat confused. We'll change his antibiotics ceftriaxone and to Zosyn. And ask for swallow evaluation. Computed tomography scan of the abdomen done without contrast showing bilateral groundglass opacity, suspected CHF versus atypical pneumonia for example covid by radiologist however his covid test was negative , gastritis, mostly nonobstructive bowel gas pattern. Given his chest x-ray finding of unilateral infiltrates is very unlikely due to fluid overload of CHF. Change Pepcid to Protonix Patient with severe hyperkalemia today that he needed urgent hemodialysis out of the schedule, he will get another hemodialysis tomorrow as well which might help also with high blood pressure which is improving gradually. 07/26/2021 Patient improving clinically with this respiratory symptoms, less coughing, less epigastric pain, he looks more comfortable and able to tolerate diet. Patient remains hemodynamically stable. His blood pressure improved after frequent hemodialysis treatments He is still on Zosyn and doxycycline for possible pneumonia. Patient does not appear for discharge. Her infectious disease team per Staff. Repeat chest x- ray in the morning. His undergoing hemodialysis today. Repeat potassium level in the morning. Repeat labs in the morning Swallow evaluation, there is no overt signs symptoms of aspiration however he still lacks his dictation, and stroke has been on metformin is guarded, still aspiration is suspected however patient received education about save for swallowing and eating habits to decrease chances for future aspiration Objective - Vital Signs Vital signs: Vital Signs Temp 98.4 F 07/26/21 08:00 Pulse 92 07/26/21 08:00 Resp 18 07/26/21 08:00 BP 180/88 07/26/21 08:00 Pulse Ox 96 07/26/21 08:00 Intake & Output 07/25/21 07/26/21 07/26/21 18:59 06:59 18:59 Intake Total 500 360 Output Total 2000 Balance -1500 360 Intake: Oral 500 360 Output: Urine 0 Hemodialysis 2000 Other: # Voids 0 0 # Bowel Movements 2 1 - Exam -GENERAL: The patient is alert and oriented but somewhat more confused today, not in any acute distress. Well developed, well nourished. -HEENT: Pupils are round and equally reacting to light. EOMI. No scleral ic terus. No conjunctival pallor. Normocephalic, atraumatic. No pharyngeal erythema. No thyromegaly. Legally blind. Right eye is absent from all surgery CARDIOVASCULAR: S1 and S2 present. No murmurs, rubs, or gallops. - PULMONARY: Chest is clear to auscultation, The lateral crepitation and scattered rhonchi -ABDOMEN: Soft, mild epigastric tenderness with the surrounding area, no rebound tenderness or guarding, nondistended, normoactive bowel sounds. No palpable organomegaly. MUSCULOSKELETAL: No joint swelling or deformity. EXTREMITIES: No cyanosis, clubbing, or pedal edema. NEUROLOGICAL: Gross neurological examination did not reveal any focal deficits. SKIN: No rashes. no petechiae. - Labs CBC & Chem 7: 07/23/21 05:00 07/25/21 06:52 Labs: Abnormal Lab Results - Last 24 Hours (Table) 07/25/21 07/25/21 07/26/21 Range/Units 17:34 21:12 07:24 POC Glucose (mg/dL) 173 H 315 H 307 H (75-99) mg/dL 07/26/21 07/26/21 Range/Units 12:24 14:24 POC Glucose (mg/dL) 183 H 269 H (75-99) mg/dL Microbiology - Last 24 Hours (Table) 07/23/21 23:47 Blood Culture - Preliminary Blood No Growth after 48 hours Assessment and Plan Assessment: Right lower lobe pneumonia, Suspect gram-negative infection Metabolic encephalopathy, secondary to above Suspect gastritis or reflux esophagitis, also could be elements of referred pain from his right pneumonia. Hypertension with urgency upon admission, currently is better controlled fall with no syncope the hospital End-stage renal disease on hemodialysis, Thursday, Thursday and Thursday Severe hyperkalemia record urgent hemodialysis on 07/25 very poor vision left eye, status post Enucleation of the right eye secondary to diabetic retinopath. Patient is legally blind History of anxiety and depression, not an active issue Diabetes mellitus, on insulin at home Plan: This is a pleasant 45 years old male who presents with right pneumonia and gastritis and missed hemodialysis Change antibiotics and to Zosyn and doxycycline Continue with Protonix continue with hemodialysis per nephrology team Infectious disease consult Monitor blood pressure Chest x-ray and labs in the morning Continue with hemodialysis per nephrology, we will discuss doing ct scan with contrast With Nephrology Team Labs and medication were reviewed.. Continue same treatment. Continue with symptomatic treatment. Resume home medication. Monitor lytes and vitals. DVT and GI prophylaxis. Further recommendations as per clinical course of the patient DVT prophylaxis: Subcutaneous heparin GI Prophylaxis: Protonix Prognosis is guarded
--- NOTE | 2021-07-27 07:50 | XR ---
EXAMINATION TYPE: XR chest 1V DATE OF EXAM: 07/27/2021 COMPARISON: 07/25/2021 HISTORY: Chronic cough TECHNIQUE: Single frontal view of the chest is obtained. FINDINGS: There are diffuse fluffy small airspace opacities in the right mid and lower lung zone unch anged since previous. The left lung appears clear. The heart is moderately enlarged and the pulmonary vasculature appears mildly cephalized worse than previous. There is no large pleural effusion and no pneumothorax. The osseous structures are intact IMPRESSION: 1. No change in the right mid lower lung zone infiltrates. 2. No change in moderate cardiomegaly. 3.: Pulmonary vasculature appears more cephalized than previous.
[2021-07-27 08:18] LABS: Glucose,Whole Blood 408 mg/dL (75-99)
[2021-07-27] MEDS: INSULIN ASPART (NovoLOG) 100 UNIT/ML VIAL SQ SCH ×2 (08:54→12:15)
[2021-07-27] MEDS: CALCIUM ACETATE 667 MG TAB PO SCH ×2 (08:56→12:22)
[2021-07-27] MEDS: NIFEdipine XL 90 MG TAB.ER.24 PO SCH (08:57)
[2021-07-27] MEDS: cloNIDine HCL 0.1 MG TAB PO SCH (08:57)
[2021-07-27] MEDS: FOLIC ACID-VIT B COMPLEX-VIT C 1 CAP PO SCH (08:58)
[2021-07-27] MEDS: ISOSORBIDE MONONITRATE ER 60 MG TAB.ER.24H PO SCH (08:58)
[2021-07-27] MEDS: LABETALOL 200 MG TAB PO SCH (08:58)
[2021-07-27] MEDS: hydrALAZINE HCL 50 MG TAB PO SCH (08:59)
[2021-07-27] MEDS: PANTOPRAZOLE 40 MG/10 ML VIAL IVP SCH (09:00)
[2021-07-27] MEDS: GABAPENTIN 300 MG CAP PO SCH (09:00)
[2021-07-27] MEDS: HEPARIN SODIUM,PORCINE/PF 5,000 UNIT/0.5 ML SYRINGE SQ SCH (09:00)
[2021-07-27] MEDS: DORZOLAMIDE HCL 2% DROPS 10 ML BTL LEFT EYE SCH (09:01)
[2021-07-27 10:25] LABS: Basophils # (A) 0.04 X 10*3/uL (0.00-0.10); Basophils % (A) 0.7 %; Eosinophils # (A) 0.03 X 10*3/uL (0.04-0.35); Eosinophils % (A) 0.5 %; HCT 26.1 % (39.6-50.0); Lymphocytes # (A) 1.39 X 10*3/uL (0.90-5.00); MCH 26.6 pg (27.0-32.0); MCHC 34.5 g/dL (32.0-37.0); MCV 77.2 fL (80.0-97.0); Mean Platelet Volume 11.9 fL (9.5-12.2); Monocytes # (A) 0.61 X 10*3/uL (0.20-1.00); Neutrophils # (A) 3.46 X 10*3/uL (1.80-7.70); Neutrophils % (A) 62.1 %; Platelet Count 147 X 10*3/uL (140-440); RBC 3.38 X 10*6/uL (4.40-5.60); RDW 15.9 % (11.5-14.5); WBC 5.57 X 10*3/uL (4.50-10.00)
[2021-07-27 10:56] VITALS: PULSE 84; RESP 19; TEMP 97.6
--- NOTE | 2021-07-27 11:02 | P.PN ---
Subjective Patient is seen in follow-up for end-stage renal disease. He is maintained on hemodialysis on Thursday schedule. Tolerated dialysis well yesterday. Resting in bed. No active complaints. Vital signs are stable. General: The patient appeared well nourished and normally developed. HEENT: Head exam is unremarkable. Lungs: Breath sounds decreased. HEART: Rate and Rhythm are regular. ABDOMEN: Soft, no distention. EXTREMITITES: No edema. Objective - Vital Signs Vital signs: Vital Signs Temp 97.6 F 07/27/21 07:48 Pulse 84 07/27/21 07:48 Resp 19 07/27/21 07:48 BP 186/88 07/27/21 07:48 Pulse Ox 96 07/27/21 07:48 Intake & Output 07/26/21 07/27/21 07/27/21 18:59 06:59 18:59 Intake Total 360 Output Total 3000 0 Balance -2640 0 Weight 63.9 kg Intake: Oral 360 Output: Urine 0 Hemodialysis 3000 Other: # Voids 1 1 # Bowel Movements 1 - Labs CBC & Chem 7: 07/27/21 04:41 07/25/21 06:52 Labs: Abnormal Lab Results - Last 24 Hours (Table) 07/26/21 07/26/21 07/26/21 Range/Units 12:24 14:24 17:34 RBC (4.40-5.60) X 10*6/uL Hgb (13.0-17.0) g/dL Hct (39.6-50.0) % MCV (80.0-97.0) fL MCH (27.0-32.0) pg RDW (11.5-14.5) % Eosinophils # (0.04-0.35) X 10*3/uL POC Glucose (mg/dL) 183 H 269 H 406 H (75-99) mg/dL 07/26/21 07/27/21 07/27/21 Range/Units 20:56 04:41 08:16 RBC 3.38 L (4.40-5.60) X 10*6/uL Hgb 9.0 L (13.0-17.0) g/dL Hct 26.1 L (39.6-50.0) % MCV 77.2 L (80.0-97.0) fL MCH 26.6 L (27.0-32.0) pg RDW 15.9 H (11.5-14.5) % Eosinophils # 0.03 L (0.04-0.35) X 10*3/uL POC Glucose (mg/dL) 260 H 408 H (75-99) mg/dL Microbiology - Last 24 Hours (Table) 07/23/21 23:47 Blood Culture - Preliminary Blood No Growth after 72 hours Assessment and Plan Plan: Assessment: 1. End-stage renal disease maintained on hemodialysis on Thursday schedule. 2. Hyperkalemia secondary to chronic kidney disease. Improved. Was also eating high potassium diet prior to admission. 3. Pneumonia maintain on antibiotics. 4. Volume overload. Improved with ultrafiltration. 5. Chronic kidney disease mineral bone disease maintained on PhosLo. 6. Hypertension with chronic kidney disease. 7. Anemia of chronic kidney disease. 8. Diabetes mellitus. Plan: Hemodialysis Thursday. Decrease dose of gabapentin to 100 mg 3 times daily. I advised him to avoid high potassium foods and to be compliant with medications and dialysis treatments outpatient. HUGO will be resumed outpatient. Labs from this morning pending.
[2021-07-27 11:11] LABS: C Reactive Protein 2.1 mg/dL (0.00-0.80)
[2021-07-27 11:17] LABS: Glucose,Whole Blood 495 mg/dL (75-99)
[2021-07-27 11:48] LABS: Albumin 3.9 g/dL (3.8-4.9); Albumin/Globulin Ratio 1.26 (1.60-3.17); Anion Gap 18.2 mmol/L (10.00-18.00); BUN/Creat Ratio 3.81 Ratio (12.00-20.00); Blood Urea Nitrogen 26.7 mg/dL (9.0-27.0); Calcium 8.8 mg/dL (8.7-10.3); Carbon Dioxide 21.8 mmol/L (20.0-27.5); Globulin 3.1 g/dL (1.6-3.3); Non-African American GFR(CKD) 8.6 (60.0-200.0); Potassium 4.3 mmol/L (3.5-5.5); Total Bilirubin 0.3 mg/dL (0.30-1.20)
[2021-07-27] MEDS ORDERED: INSULIN DETEMIR (LEVEMIR) 100 UNIT/ML SYR SQ SCH (12:00)
[2021-07-27 14:33] LABS: Glucose,Whole Blood 378 mg/dL (75-99)
[2021-07-27] MEDS ORDERED: INSULIN ASPART (NovoLOG) 100 UNIT/ML VIAL SQ ONE (14:36)
[2021-07-27] MEDS ORDERED: INSULIN DETEMIR (LEVEMIR) 100 UNIT/ML SYR SQ ONE (15:30)
[2021-07-27] MEDS ORDERED: GABAPENTIN 100 MG CAP PO SCH (16:00)
[2021-07-27 16:12] VITALS: BP 124/68
--- NOTE | 2021-07-28 00:30 | P.DS ---
Providers Date of admission: 07/24/21 08:06 Attending physician: Bryce Arndt Consults: 07/22/21 19:13 Consult Physician Routine Consulting Provider: Christina Page Consult Reason/Comments: dialysis, fever Do you want consulting provider notified?: Already Contacted 07/23/21 10:33 Consult Physician Routine Consulting Provider: Santos Randall Consult Reason/Comments: fever unknown origin Do you want consulting provider notified?: Yes Primary care physician: ROJELIO Garner Hospital Course: Please note that patient was not discharged but he left AMA Patient most likely was going to be discharged today however he did not want to wait and he left AMA Diagnoses: Right lower lobe pneumonia, Suspect gram-negative infection Metabolic encephalopathy, secondary to above. Improved patient is back to baseline mental baseline Suspect gastritis or reflux esophagitis, also could be elements of referred pain from his right pneumonia. Completely resolved upon discharge Hypertension with urgency upon admission, currently is better controlled fall with no syncope the hospital End-stage renal disease on hemodialysis, Thursday, Thursday and Thursday Severe hyperkalemia record urgent hemodialysis on 07/25 very poor vision left eye, status post Enucleation of the right eye secondary to diabetic retinopath. Patient is legally blind History of anxiety and depression, not an active issue Diabetes mellitus, on insulin at home Hospital course: This is a pleasant 45 years old -German male with past medical history of Diabetes Mellitus, end-stage renal disease on hemodialysis, Thursday and Thursday, Hypertension, very poor vision left eye, status post Enucleation of the right eye secondary to diabetic retinopathy, Anxiety, Depression states that he came because he is having a stomach pain since the weekend associated with some headache but headache resolved. Also has been complaining of from cough and but no much significant dyspnea at rest but he is also blind popliteal the right eye and to a large extent his left side as he states which limits his activities. Besides his immunocompromised secondary to his kidney disease. Patient was found to have to take work pneumonia merely in the right lower side and his been treated with Zosyn and doxycycline and showed interval improvement, also his stomach pain resolved with treatment of his pneumonia which may keep most likely referred pain from his lung disease. Other possibility although LIKELY is gastritis responded to antiacids with Protonix Patient has been evaluated by fruit preserver and infectious disease. He was undergoing hemodialysis as scheduled. Patient was mildly confused at times but on the day of discharge he was fully awake and oriented to time place and person and he has insight into his illness. Patient clinical status was improving and he was getting ready to be discharged however patient did not want to wait and he left AMA. His girlfriend Julisa came to pick him up, she is his power of soa engineer. And she worked paper in the chart. Patient is guarded and of themselves as he is telling me. And he has capacity to make medical decision. The scope given the family are explained to the patient in details and he verbalized understanding but did not want to wait he wanted to leave early because he wanted to [place] shopping. However patient is aware that his discharge antibiotics has been already sent to his pharmacy in [facility]. Also his blood pressure was better controlled with systolic 124/87 upon discharge. His glucose was in the 300s but he received 4 extremities of Levemir and NovoLog prior to leaving AMA by staff. Patient also has a glucometer at home where he is going to monitor his sugar. Problems and management plan were discussed with the patient and he verbalized understanding and acceptance he needs follow-up as an outpatient. Patient was instructed to follow up with PCP within one week and patient agrees Physical exam Gen: patient is a AAOx3, no distress CVS: S1-S2, RRR, no murmur Lungs: B/L CTA, no wheezing Abdomen: soft, no distention, no tenderness, positive bowel sounds Extremity: no leg edema or induration Time spent more than 35 minutes Patient Condition at Discharge: Good Plan - Discharge Summary New Discharge Prescriptions: New Amoxic-Pot Clav 875-125Mg [Augmentin 875-125] 1 tab PO Q12HR 7 Days #14 tab Doxycycline [Vibramycin] 100 mg PO BID 7 Days #14 capsule Gabapentin [Neurontin] 100 mg PO TID cap Continue Labetalol [Trandate] 400 mg PO TID Insulin NPH Hum/Reg Insulin Hm [humuLIN 70/30 Kwikpen] See Protocol SQ AC-TID hydrALAZINE HCL [Apresoline] 100 mg PO TID Calcium Acetate 2,001 mg PO TID-W/MEALS Maggie-Arpit 1 tab PO DAILY Sertraline HCl [Zoloft] 50 mg PO DAILY Acetaminophen Tab [Tylenol] 1,000 mg PO Q6HR PRN PRN Reason: Pain Or Fever > 100.5 NIFEdipine XL [Procardia XL] 90 mg PO DAILY #30 tab.er.24 Vit B Complx C/Folic Acid/Zinc [Renaplex Tablet] 1 tab PO DAILY Latanoprost Ophth [Xalatan 0.005%] 1 drop LEFT EYE HS cloNIDine HCL [Catapres] 0.3 mg PO TID 30 Days #270 tab Loperamide [Imodium] 2 mg PO QID PRN #30 cap PRN Reason: Diarrhea Ergocalciferol (Vitamin D2) [Drisdol (50,000 Iu)] 1,250 mcg PO Q7D Lidocaine-Prilocaine Cream [Emla Cream 2.5%/2.5%] 1 applic TOPICAL DAILY PRN PRN Reason: PORT ACCESS Isosorbide Mononitrate [Imdur] 120 mg PO DAILY Dorzolamide 2% [Trusopt 2%] 1 drops LEFT EYE BID #1 ml Calcium Acetate [PhosLo] 667 mg PO DAILY PRN PRN Reason: with snack HYDROcodone/APAP 10-325MG [Sapphire 10-325] 1 tab PO Q6HR PRN PRN Reason: Pain Discontinued Ibuprofen [Motrin Ib] 800 mg PO Q8H PRN PRN Reason: Pain Or Fever > 100.5 Gabapentin [Neurontin] 300 mg PO TID Discharge Medication List Insulin NPH Hum/Reg Insulin Hm [humuLIN 70/30 Kwikpen] See Protocol SQ AC-TID 11/27/14 [History] Labetalol [Trandate] 400 mg PO TID 11/27/14 [History] Calcium Acetate 2,001 mg PO TID-W/MEALS 08/07/20 [History] Maggie-Arpit 1 tab PO DAILY 08/07/20 [History] hydrALAZINE HCL [Apresoline] 100 mg PO TID 08/07/20 [History] Acetaminophen Tab [Tylenol] 1,000 mg PO Q6HR PRN 11/06/20 [History] Ergocalciferol (Vitamin D2) [Drisdol (50,000 Iu)] 1,250 mcg PO Q7D 11/06/20 [History] Isosorbide Mononitrate [Imdur] 120 mg PO DAILY 11/06/20 [History] Lidocaine-Prilocaine Cream [Emla Cream 2.5%/2.5%] 1 applic TOPICAL DAILY PRN 11/06/20 [History] Sertraline HCl [Zoloft] 50 mg PO DAILY 11/06/20 [History] Dorzolamide 2% [Trusopt 2%] 1 drops LEFT EYE BID #1 ml 11/09/20 [Rx] NIFEdipine XL [Procardia XL] 90 mg PO DAILY #30 tab.er.24 11/09/20 [Rx] Calcium Acetate [PhosLo] 667 mg PO DAILY PRN 06/16/21 [History] HYDROcodone/APAP 10-325MG [Sapphire 10-325] 1 tab PO Q6HR PRN 06/16/21 [History] Latanoprost Ophth [Xalatan 0.005%] 1 drop LEFT EYE HS 06/16/21 [History] Vit B Complx C/Folic Acid/Zinc [Renaplex Tablet] 1 tab PO DAILY 06/16/21 [History] Loperamide [Imodium] 2 mg PO QID PRN #30 cap 06/18/21 [Rx] cloNIDine HCL [Catapres] 0.3 mg PO TID 30 Days #270 tab 06/18/21 [Rx] Amoxic-Pot Clav 875-125Mg [Augmentin 875-125] 1 tab PO Q12HR 7 Days #14 tab 07/27/21 [Rx] Doxycycline [Vibramycin] 100 mg PO BID 7 Days #14 capsule 07/27/21 [Rx] Gabapentin [Neurontin] 100 mg PO TID cap 07/27/21 [Rx] Follow up Appointment(s)/Referral(s): Christina Page MD [STAFF PHYSICIAN] - 1 Week Santos Randall MD [STAFF PHYSICIAN] - 1 Week Ni Westfall PAC [Primary Care Provider] - 1-2 days Activity/Diet/Wound Care/Special Instructions: Heart healthy diet Activity is restricted till you see your doctor We recommend to check your glucose 4 times a day, before each meal and at bedtime, keep the results in a log book and bring it to your doctor on your appointment date If her glucose is less than 70 or more than 400 then call 911 and come to emergency room Discharge Disposition: Left Against Medical Advice
[2021-07-28] MEDS ORDERED: INSULIN DETEMIR (LEVEMIR) 100 UNIT/ML SYR SQ SCH (07:00)
[2021-07-28] MEDS ORDERED: ERGOCALCIFEROL 1,250 MCG (50,000 IU) CAPSULE PO SCH (09:00)
== END 2021-07-27 15:45 | disposition left against medical advice (07) | DRG 177 ==
LOC: EC 14:39 → 6NMEDSUR 20:23 → OBSVTOIN 07-24 08:06
PROVIDERS: ADMIT Hospitalist; ATTEND Hospitalist
PROC: 5A1D70Z Performance of Urinary Filtration, Intermittent, Less than 6 Hours Per Day (ICD-10-PCS; principal; 2021-07-24)
DX: J15.6 Pneumonia due to other Gram-negative bacteria (principal); N18.6 End stage renal disease; G93.41 Metabolic encephalopathy; D84.9 Immunodeficiency, unspecified; I42.8 Other cardiomyopathies; I12.0 Hypertensive chronic kidney disease with stage 5 chronic kidney disease or end stage renal disease; D63.1 Anemia in chronic kidney disease; E11.22 Type 2 diabetes mellitus with diabetic chronic kidney disease; E11.319 Type 2 diabetes mellitus with unspecified diabetic retinopathy without macular edema; E11.65 Type 2 diabetes mellitus with hyperglycemia; E87.5 Hyperkalemia; E87.70 Fluid overload, unspecified; F17.200 Nicotine dependence, unspecified, uncomplicated; H54.8 Legal blindness, as defined in USA; I25.10 Atherosclerotic heart disease of native coronary artery without angina pectoris; J06.9 Acute upper respiratory infection, unspecified; K29.70 Gastritis, unspecified, without bleeding; Z20.822 Contact with and (suspected) exposure to COVID-19; M89.8X9 Other specified disorders of bone, unspecified site; W19.XXXA Unspecified fall, initial encounter; Z53.29 Procedure and treatment not carried out because of patient's decision for other reasons; Z79.899 Other long term (current) drug therapy; Z99.2 Dependence on renal dialysis
CPT/HCPCS: 36415; 70450; 71045; 71046; 74176; 76705; 80048; 80053; 83735; 83880; 84145; 85025; 86140; 87040; 87502; 87634; 87635; 90935; 93306; 99285

== ENCOUNTER 2021-10-18 11:16 | Inpatient (IN) | payer MEDICARE, BC, OTHER ==
[2021-10-18 12:41] LABS: Anisocytosis Slight; Basophils % (A) 0 %; Eosinophils # (A) 1.8 k/uL (0-0.7); Eosinophils % (A) 17 %; HCT 45.8 % (39.0-53.0); HGB 15.1 gm/dL (13.0-17.5); Lymphocytes # (A) 1.4 k/uL (1.0-4.8); Lymphocytes % (A) 12 %; MCH 27.2 pg (25.0-35.0); MCHC 32.9 g/dL (31.0-37.0); MCV 82.5 fL (80.0-100.0); Mean Platelet Volume 8.8; Microcytosis Slight; Monocytes # (A) 0.4 k/uL (0-1.0); Monocytes % (A) 4 %; Neutrophils # (A) 7.2 k/uL (1.3-7.7); Neutrophils % (A) 65 %; Platelet Count 193 k/uL (150-450); RBC 5.55 m/uL (4.30-5.90); RDW 17.6 % (11.5-15.5)
[2021-10-18 12:51] LABS: Calcium 9.4 mg/dL (8.4-10.2); Potassium 3.9 mmol/L (3.5-5.1)
[2021-10-18] MEDS ORDERED: IOPAMIDOL CONTRAST (ORAL USE) VIAL PO PRN (13:05)
--- NOTE | 2021-10-18 13:21 | ED ---
General Adult HPI - General Chief complaint: Nausea/Vomiting/Diarrhea Stated complaint: Diarrhea Time Seen by Provider: 10/18/21 11:24 Source: patient, RN notes reviewed Mode of arrival: ambulatory Limitations: no limitations - History of Present Illness Initial comments: Patient is a 45-year-old male who is on dialysis presenting with chief complaint of missing his dialysis. Patient states he usually goes Thursday, Thursday, Thursday. Patient states he misses dialysis on Thursday was able to go yesterday. He states he missed dialysis today. Patient is not scheduled for dialysis until this coming Thursday. Patient does admit that he's had some sy mptoms of diarrhea and loose stools. He's been in the ER at [facility] area currently being treated with Flagyl. Was also on Cipro but was told to discontinue. Patient denies any abdominal pain. States still having diarrhea. Denies any other complaints currently. - Related Data Home Medications Medication Instructions Recorded Confirmed Insulin NPH Hum/Reg Insulin Hm See Protocol SQ AC-TID 11/27/14 07/22/21 [humuLIN 70/30 Kwikpen] Labetalol [Trandate] 400 mg PO TID 11/27/14 07/22/21 Calcium Acetate 2,001 mg PO TID-W/MEALS 08/07/20 07/22/21 Maggie-Arpit 1 tab PO DAILY 08/07/20 07/22/21 hydrALAZINE HCL [Apresoline] 100 mg PO TID 08/07/20 07/22/21 Acetaminophen Tab [Tylenol] 1,000 mg PO Q6HR PRN 11/06/20 07/22/21 Ergocalciferol (Vitamin D2) 1,250 mcg PO Q7D 11/06/20 07/22/21 [Drisdol (50,000 Iu)] Isosorbide Mononitrate [Imdur] 120 mg PO DAILY 11/06/20 07/22/21 Lidocaine-Prilocaine Cream [Emla 1 applic TOPICAL DAILY PRN 11/06/20 07/22/21 Cream 2.5%/2.5%] Sertraline HCl [Zoloft] 50 mg PO DAILY 11/06/20 07/22/21 Calcium Acetate [PhosLo] 667 mg PO DAILY PRN 06/16/21 07/22/21 HYDROcodone/APAP 10-325MG [[place] 1 tab PO Q6HR PRN 06/16/21 07/22/21 10-325] Latanoprost Ophth [Xalatan 0.005%] 1 drop LEFT EYE HS 06/16/21 07/22/21 Vit B Complx C/Folic Acid/Zinc 1 tab PO DAILY 06/16/21 07/22/21 [Renaplex Tablet] Previous Rx's Medication Instructions Recorded Dorzolamide 2% [Trusopt 2%] 1 drops LEFT EYE BID #1 ml 11/09/20 NIFEdipine XL [Procardia XL] 90 mg PO DAILY #30 tab.er.24 11/09/20 Loperamide [Imodium] 2 mg PO QID PRN #30 cap 06/18/21 cloNIDine HCL [Catapres] 0.3 mg PO TID 30 Days #270 tab 06/18/21 Amoxic-Pot Clav 875-125Mg 1 tab PO Q12HR 7 Days #14 tab 07/27/21 [Augmentin 875-125] Doxycycline [Vibramycin] 100 mg PO BID 7 Days #14 capsule 07/27/21 Gabapentin [Neurontin] 100 mg PO TID cap 07/27/21 Allergies Allergy/AdvReac Type Severity Reaction Status Date / Time No Known Allergies Allergy Verified 10/18/21 11:22 Review of Systems ROS Statement: Those systems with pertinent positive or pertinent negative responses have been documented in the HPI. ROS Other: All systems not noted in ROS Statement are negative. Past Medical History Past Medical History: Diabetes Mellitus, Dialysis, Eye Disorder, Hypertension, Renal Disease Additional Past Medical History / Comment(s): very poor vision R eye, has dialysis Thursday, thu and Thursday. History of Any Multi-Drug Resistant Organisms: None Reported Past Surgical History: No Surgical Hx Reported Additional Past Surgical History / Comment(s): eye surgery due to diabetes and thorascopic percardial window 2012 Past Anesthesia/Blood Transfusion Reactions: No Reported Reaction Additional Past Anesthesia/Blood Transfusion Reaction / Comment(s): blood transfusion 2012 Past Psychological History: Anxiety, Depression Smoking Status: Former smoker Past Alcohol Use History: Occasional Past Drug Use History: None Reported - Past Family History Father Family Medical History: Renal Disease Mother History Unknown: Yes General Exam - General Exam Comments Initial Comments: General: The patient is awake and alert, in no distress, and does not appear acutely ill. Eye: extra-ocular movements are intact. No nystagmus. There is normal conjunctiva bilaterally. No signs of icterus. Ears, nose, mouth and throat: There are moist mucous membranes and no oral lesions. Neck: The neck is supple Cardiovascular: There is a regular rate and rhythm. No murmur, rub or gallop is appreciated. Respiratory: Lungs are clear to auscultation, respirations are non-labored, breath sounds are equal. No wheezes, stridor, rales, or rhonchi. Gastrointestinal: Abdomen soft nontender. No rebound, guarding or CVA tenderness. Musculoskeletal: Normal ROM, no tenderness. Strength 5/5. Sensation intact. Neurological: A&O x 3. CN II-XII intact, There are no obvious motor or sensory deficits. Coordination appears grossly intact. Speech is normal. Skin: Skin is warm and dry and no rashes or lesions are noted. Psychiatric: Cooperative, appropriate mood & affect, normal judgment. Limitations: no limitations Course Vital Signs 10/18/21 11:17 Temperature 97.9 F Pulse Rate 92 Respiratory 20 Rate Blood Pressure 191/97 O2 Sat by Pulse 95 Oximetry Medical Decision Making - Medical Decision Making Patient's labs were reviewed does show creatinine 8.6. Patient will be admitted to the hospital for dialysis. Case was discussed with admitting physician Dr. Arndt. - Lab Data Result diagrams: 10/18/21 12:34 10/18/21 12:34 Lab Results 10/18/21 10/18/21 Range/Units 12:34 12:34 WBC 11.0 H (3.8-10.6) k/uL RBC 5.55 (4.30-5.90) m/uL Hgb 15.1 (13.0-17.5) gm/dL Hct 45.8 (39.0-53.0) % MCV 82.5 (80.0-100.0) fL MCH 27.2 (25.0-35.0) pg MCHC 32.9 (31.0-37.0) g/dL RDW 17.6 H (11.5-15.5) % Plt Count 193 (150-450) k/uL MPV 8.8 Neutrophils % 65 % Lymphocytes % 12 % Monocytes % 4 % Eosinophils % 17 % Basophils % 0 % Neutrophils # 7.2 (1.3-7.7) k/uL Lymphocytes # 1.4 (1.0-4.8) k/uL Monocytes # 0.4 (0-1.0) k/uL Eosinophils # 1.8 H (0-0.7) k/uL Basophils # 0.0 (0-0.2) k/uL Anisocytosis Slight Microcytosis Slight Sodium 138 (137-145) mmol/L Potassium 3.9 (3.5-5.1) mmol/L Chloride 96 L (98-107) mmol/L Carbon Dioxide 29 (22-30) mmol/L Anion Gap 13 mmol/L BUN 31 H (9-20) mg/dL Creatinine 8.61 H* (0.66-1.25) mg/dL Est GFR (CKD-EPI)AfAm 8 (>60 ml/min/1.73 sqM) Est GFR (CKD-EPI)NonAf 7 (>60 ml/min/1.73 sqM) Glucose 293 H (74-99) mg/dL Calcium 9.4 (8.4-10.2) mg/dL Disposition Clinical Impression: CKD (chronic kidney disease) Disposition: ADMITTED IP TO THIS [facility] Condition: Stable Is patient prescribed a controlled substance at d/c from ED?: No If prescribed controlled substance>3 days was MAPS reviewed?: Prescribed <3 Days Referrals: Luan Valdivia DO [Primary Care Provider] - 1-2 days Time of Disposition: 13:21
[2021-10-18] MEDS ORDERED: NALOXONE 0.4 MG/ML 1 ML VIAL IV PRN (13:22)
--- NOTE | 2021-10-18 14:29 | HP ---
HISTORY AND PHYSICAL DATE OF SERVICE: 10/18/2021. CHIEF COMPLAINTS: Weakness and diarrhea. HISTORY OF PRESENT ILLNESS: This 45-year-old gentleman with a past medical history of renal failure, history of pneumonia, diabetes mellitus, hemodialysis being followed by Dr. Luan Valdivia in the outpatient setting is complaining of diarrhea continuous for the last 2 weeks. The patient had diarrhea frequency every hour and more watery at this time. The patient is also complaining of some abdominal discomfort and severe weakness. The patient also has very poor social support also. The patient was taken to [facility] and was admitted for further evaluation and treatment. There is no history of fever, rigors. No history of headache, loss of consciousness or seizures. Patient is suspecting dirty water through the pipes, causing this. The water is city water. PAST MEDICAL HISTORY: Include diabetes mellitus, dialysis. MEDICATIONS: Home medications reviewed. The final is not available but includes Apresoline, Catapres. Dose and other medications reviewed. ALLERGIES: None. FAMILY HISTORY: Renal disease in the family. SOCIAL HISTORY: Previous smoker. REVIEW OF SYSTEMS: A 14-point review is negative except as mentioned earlier. PHYSICAL EXAMINATION: Pulse 92, blood pressure 190/91, respiration 20. HEENT: Oral mucosa dry. NECK: No jugular venous distention. No carotid bruit. No lymph node enlargement. CARDIOVASCULAR system: S1, S2 muffled. RESPIRATION: Breath sounds diminished in the bases. A few scattered rhonchi. ABDOMEN: Soft. Mild diffuse discomfort. No guarding. No rigidity. No mass palpable. LEGS: No edema. No swelling. NERVOUS SYSTEM: Diffusely weak and emaciated. SKIN: No ulcer, rash or bleeding. JOINTS: No active deforming arthropathy. LABS: Pending. ASSESSMENT: 1. Subacute diarrhea with severe dehydration and weakness present on admission. 2. Chronic kidney disease, on hemodialysis. End-stage renal disease. 3. Diabetes mellitus, type 2. 4. Gait dysfunction. RECOMMENDATIONS AND DISCUSSION: This 45-year-old gentleman presented with multiple complex medical issues, at this time I recommend IV fluids and hydration. I would also recommend a CT scan of the abdomen and pelvis, basic labs, stool testing including C-difficile. COVID also will be tested. See orders for further details. The prognosis extremely guarded. Exact cause of the diarrhea is unknown at this time. We will also consult Dr. Page from Nephrology for continued evaluation for hemodialysis also. MMODL / IJN: [id number] / MTDD
--- NOTE | 2021-10-18 14:39 | P.HPIM ---
History of Present Illness H&P Date: 10/18/21 Chief Complaint: missed dialysis 45-year-old male who is on dialysis presenting with chief complaint of missing his dialysis. Patient states he usually goes Thursday, Thursday, Thursday. Patient states he misses dialysis on Thursday was able to go yesterday but he missed it again today. Reason for missing dialysis is due to having diarrhea, which he has been having for the past week. He was seen at [facility] for the diarrhea, states that they did some stool tests and he did not hear back from them about it. He was given tx with cipro and flagyl. He denies any abdominal pain, initially he had vomiting but he is not having that anymore. No fevers or chills. No chest pain or sob. Evaluation in the ER revealed normal vital signs. Labs ok except for elevated cr at 8.6 and hyperglycemia with glucose in the 300s. WBC 11K. No imaging studies done n the ER. He was admitted for further evaluation and management. Review of Systems Complete review of system was performed, negative except for what is stated in HPI Past Medical History Past Medical History: Diabetes Mellitus, Dialysis, Eye Disorder, Hypertension, Renal Disease Additional Past Medical History / Comment(s): very poor vision R eye, has dialysis Thursday, thu and Thursday. History of Any Multi-Drug Resistant Organisms: None Reported Past Surgical History: No Surgical Hx Reported Additional Past Surgical History / Comment(s): eye surgery due to diabetes and thorascopic percardial window 2012 Past Anesthesia/Blood Transfusion Reactions: No Reported Reaction Additional Past Anesthesia/Blood Transfusion Reaction / Comment(s): blood transfusion 2012 Past Psychological History: Anxiety, Depression Smoking Status: Former smoker Past Alcohol Use History: Occasional Past Drug Use History: None Reported - Past Family History Father Family Medical History: Renal Disease Mother History Unknown: Yes Medications and Allergies Home Medications Medication Instructions Recorded Confirmed Type Insulin NPH Hum/Reg Insulin Hm See Protocol SQ AC-TID 11/27/14 07/22/21 History [humuLIN 70/30 Kwikpen] Labetalol [Trandate] 400 mg PO TID 11/27/14 07/22/21 History Calcium Acetate 2,001 mg PO TID-W/MEALS 08/07/20 07/22/21 History Maggie-Arpit 1 tab PO DAILY 08/07/20 07/22/21 History hydrALAZINE HCL [Apresoline] 100 mg PO TID 08/07/20 07/22/21 History Acetaminophen Tab [Tylenol] 1,000 mg PO Q6HR PRN 11/06/20 07/22/21 History Ergocalciferol (Vitamin D2) 1,250 mcg PO Q7D 11/06/20 07/22/21 History [Drisdol (50,000 Iu)] Isosorbide Mononitrate [Imdur] 120 mg PO DAILY 11/06/20 07/22/21 History Lidocaine-Prilocaine Cream [Emla 1 applic TOPICAL DAILY PRN 11/06/20 07/22/21 History Cream 2.5%/2.5%] Sertraline HCl [Zoloft] 50 mg PO DAILY 11/06/20 07/22/21 History Dorzolamide 2% [Trusopt 2%] 1 drops LEFT EYE BID #1 ml 11/09/20 07/22/21 Rx NIFEdipine XL [Procardia XL] 90 mg PO DAILY #30 tab.er.24 11/09/20 07/22/21 Rx Calcium Acetate [PhosLo] 667 mg PO DAILY PRN 06/16/21 07/22/21 History HYDROcodone/APAP 10-325MG [[place] 1 tab PO Q6HR PRN 06/16/21 07/22/21 History 10-325] Latanoprost Ophth [Xalatan 0.005%] 1 drop LEFT EYE HS 06/16/21 07/22/21 History Vit B Complx C/Folic Acid/Zinc 1 tab PO DAILY 06/16/21 07/22/21 History [Renaplex Tablet] Loperamide [Imodium] 2 mg PO QID PRN #30 cap 06/18/21 07/22/21 Rx cloNIDine HCL [Catapres] 0.3 mg PO TID 30 Days #270 tab 06/18/21 07/22/21 Rx Amoxic-Pot Clav 875-125Mg 1 tab PO Q12HR 7 Days #14 tab 07/27/21 Rx [Augmentin 875-125] Doxycycline [Vibramycin] 100 mg PO BID 7 Days #14 capsule 07/27/21 Rx Gabapentin [Neurontin] 100 mg PO TID cap 12/18/21 Rx Allergies Allergy/AdvReac Type Severity Reaction Status Date / Time No Known Allergies Allergy Verified 10/18/21 11:22 Physical Exam Vitals: Vital Signs Temp Pulse Resp BP Pulse Ox 10/18/21 11:17 97.9 F 92 20 191/97 95 Intake and Output 10/17/21 10/18/21 10/18/21 22:59 06:59 14:59 Other: Weight 63.503 kg Constitutional: No acute distress, conversant, pleasant Eyes:Anicteric sclerae, moist conjunctiva, no lid-lag, PERRLA, ENMT: Oropharynx clear, no erythema, exudates Neck: Supple, FROM, no masses, or JVD, No carotid bruits, No thyromegaly Lungs: Clear to auscultation, Clear to percussion, Normal respiratory effort, no accessory muscle use Cardiovascular: Heart regular in rate and rhythm, No murmurs, gallops, or rubs, No peripheral edema Abdominal: Soft, Nontender, no guarding, rebound or rigidity, Normoactive bowel sounds, No hepatomegaly, No splenomegaly, No palpable mass Skin: Normal temperature, tone, texture, turgor, no induration, No subcutaneous nodules, No rash, lesions, No ulcers Extremities: Left arm AV fistula. No digital cyanosis, No clubbing, Pedal pulses intact and symmetrical, Radial pulses intact and symmetrical, No calf tenderness Psychiatric: Alert and oriented to person, place and time, appropriate affect, intact judgement Neuro: Muscles Strength 5/5 in all 4 extremities, Sensation to light touch grossly present throughout, Cranial nerves II-XII grossly intact, no focal sensory deficits Results CBC & Chem 7: 10/18/21 12:34 10/18/21 12:34 Labs: Abnormal Lab Results - Last 24 Hours (Table) 10/18/21 10/18/21 10/18/21 Range/Units 12:34 12:34 13:30 WBC 11.0 H (3.8-10.6) k/uL RDW 17.6 H (11.5-15.5) % Eosinophils # 1.8 H (0-0.7) k/uL Chloride 96 L (98-107) mmol/L BUN 31 H (9-20) mg/dL Creatinine 8.61 H* (0.66-1.25) mg/dL Glucose 293 H (74-99) mg/dL Coronavirus (PCR) Detected A (Not Detectd) Assessment and Plan Plan: ESRD with missed dialysis Consult nephrology Currently being dialysed. Follow lytes in am Diarrhea with positive covid Clear liquid diet. Could be assoicated but diarrhea could possibly be infectious Send stool studies including cultures and c.diff CT abd/pelvis. Hold off abx for now. DM 2 with hyperglycemia SSI. Clear liquid diet. Chronic HTN Anxiety and depression Resume meds. Admit to observation.
[2021-10-18] MEDS ORDERED: LIDOCAINE-PRILOCAINE 2.5-2.5% CREAM 5 GM TUBE TOPICAL PRN (16:50)
[2021-10-18] MEDS: INSULIN ASPART (NovoLOG) 100 UNIT/ML VIAL SQ SCH ×2 (17:32→21:59)
--- NOTE | 2021-10-18 17:42 | CT ---
EXAMINATION TYPE: CT abdomen pelvis wo con CT DLP: 401.4 mGycm, Automated exposure control for dose reduction was used. DATE OF EXAM: 10/18/2021 5:07 PM COMPARISON: CT abdomen pelvis most recent from 07/25/2021 . CLINICAL INDICATION:Male, 45 years old with history of diarrhea, abdominal pain; Diarrhea, abdominal pain, Covid +. TECHNIQUE: Standard CT of the abdomen and pelvis without IV or oral contrast. Lack of IV or oral co ntrast limits evaluation of solid and hollow organ viscera. Coronal and sagittal reformats were perfo rmed. FINDINGS: LOWER CHEST: Mosaic pattern to the lung parenchyma. ABDOMEN LIVER: Unremarkable GALLBLADDER AND BILE DUCTS: Unremarkable. PANCREAS: Unremarkable. SPLEEN: Unremarkable. ADRENAL GLANDS: Unremarkable. KIDNEYS AND URETERS: No evidence of hydronephrosis or renal calculus. The ureters are unremarkable. Kidneys appear small in size. PELVIS BLADDER: Unremarkable REPRODUCTIVE: Unremarkable. ABDOMEN & PELVIS STOMACH AND BOWEL: There is large amount of high density feces and/or retained oral contrast contrast seen throughout the small bowel and colon. There is small bowel feces present throughout the small b owel. Evaluation of the rectum is limited given lack of IV contrast. There is large amount of fecal m aterial within the rectum. PERITONEUM: No evidence of pneumoperitoneum or free fluid. VASCULATURE: Severe atherosclerotic calcifications are present throughout the abdominal aorta and its branches. MUSCULOSKELETAL: No acute osseous abnormalities LYMPH NODES: No gross evidence for lymphadenopathy. SOFT TISSUE/ABDOMINAL WALL: Unremarkable IMPRESSION: 1. Large amount of high density stool throughout the colon with small bowel feces. This could represe nt adynamic ileus. Evaluation of the rectum is limited given lack of IV contrast. With that said ther e appears to be fullness of the rectal wall correlate for proctitis. 2. Mildly atrophic appearing kidneys. 3. Severe atherosclerosis throughout the arterial vasculature. 4. Mosaic pattern of the lung parenchyma which may represent air trapping in the setting of small air ways disease versus hypersensitivity pneumonitis.
[2021-10-18] MEDS: LABETALOL 200 MG TAB PO SCH ×2 (17:52→23:16)
[2021-10-18] MEDS: ISOSORBIDE MONONITRATE ER 60 MG TAB.ER.24H PO SCH (17:52)
[2021-10-18] MEDS: CALCIUM ACETATE 667 MG TAB PO SCH (17:52)
[2021-10-18] MEDS: NIFEdipine XL 90 MG TAB.ER.24 PO SCH (17:52)
[2021-10-18 17:53] LABS: Glucose,Whole Blood 192 mg/dL (75-99)
[2021-10-18] MEDS: INSULN ASP PRT/INSULIN ASPART 100 UNIT/ML 10 ML VIAL SQ SCH (17:53)
[2021-10-18] MEDS: GABAPENTIN 300 MG CAP PO SCH ×2 (17:53→21:58)
[2021-10-18] MEDS: cloNIDine HCL 0.1 MG TAB PO SCH ×2 (17:53→23:16)
[2021-10-18] MEDS ORDERED: NICOTINE 14MG/24HR PATCH TRANSDERM STA (21:34)
[2021-10-18 21:44] LABS: Glucose,Whole Blood 143 mg/dL (75-99)
[2021-10-18] MEDS: HYDROcodone/APAP 10-325MG 1 EACH TAB PO PRN (21:58)
[2021-10-18] MEDS ORDERED: LOPERAMIDE 2 MG CAP PO PRN (23:26)
[2021-10-18] MEDS: SERTRALINE 50 MG TAB PO PRN (23:37)
[2021-10-19] MEDS ORDERED: TRIMETHOBENZAMIDE 100 MG/ML 2 ML VIAL IM PRN (01:10)
[2021-10-19] MEDS ORDERED: LOPERAMIDE 2 MG CAP PO PRN (04:13)
[2021-10-19 07:16] LABS: Glucose,Whole Blood 130 mg/dL (75-99)
[2021-10-19] MEDS: INSULIN ASPART (NovoLOG) 100 UNIT/ML VIAL SQ SCH ×4 (07:33→21:34)
[2021-10-19] MEDS: ISOSORBIDE MONONITRATE ER 60 MG TAB.ER.24H PO SCH (07:59)
[2021-10-19] MEDS: GABAPENTIN 300 MG CAP PO SCH ×3 (07:59→21:39)
[2021-10-19] MEDS: cloNIDine HCL 0.1 MG TAB PO SCH ×3 (08:00→21:39)
[2021-10-19] MEDS: INSULN ASP PRT/INSULIN ASPART 100 UNIT/ML 10 ML VIAL SQ SCH ×2 (08:00→17:12)
[2021-10-19] MEDS: CALCIUM ACETATE 667 MG TAB PO SCH ×2 (08:00→17:12)
[2021-10-19] MEDS: NIFEdipine XL 90 MG TAB.ER.24 PO SCH (09:16)
[2021-10-19] MEDS: LABETALOL 200 MG TAB PO SCH ×3 (09:16→21:39)
[2021-10-19] MEDS: polyethylene glycoL 3350 17 GM POWD.PACK PO SCH (09:37)
[2021-10-19 11:51] LABS: Glucose,Whole Blood 250 mg/dL (75-99)
--- NOTE | 2021-10-19 12:53 | P.NPCON ---
History of Present Illness - Reason for Consult end stage renal disease - History of Present Illness Patient is a 45-year-old male with end-stage renal disease on hemodialysis on a Thursday Schedule He shouldn't had missed his dialysis on Thursday. He did get dialysis yesterday in the hospital Patient was admitted to the hospital with complaints of diarrhea. Not feeling well. He was recently treated with Cipro and Flagyl as outpatient. Coronavirus PCR was positive no chest pains or shortness of breath No fever or chills. Review of Systems Her HPI Past Medical History Past Medical History: Diabetes Mellitus, Dialysis, Eye Disorder, Hypertension, Renal Disease Additional Past Medical History / Comment(s): very poor vision R eye, has dialysis Thursday, thu and Thursday. History of Any Multi-Drug Resistant Organisms: None Reported Past Surgical History: No Surgical Hx Reported Additional Past Surgical History / Comment(s): eye surgery due to diabetes and thorascopic percardial window 2012 Past Anesthesia/Blood Transfusion Reactions: No Reported Reaction Additional Past Anesthesia/Blood Transfusion Reaction / Comment(s): blood transfusion 2012 Smoking Status: Former smoker - Past Family History Father Family Medical History: Renal Disease Mother History Unknown: Yes Medications and Allergies Home Medications Medication Instructions Recorded Confirmed Type Insulin NPH Hum/Reg Insulin Hm 7 unit SQ BID 11/27/14 10/18/21 History [humuLIN 70/30 Kwikpen] Labetalol [Trandate] 400 mg PO TID 11/27/14 10/18/21 History Calcium Acetate 667 mg PO BID-W/MEALS 08/07/20 10/18/21 History Maggie-Arpit 1 tab PO DAILY 08/07/20 10/18/21 History Isosorbide Mononitrate [Imdur] 120 mg PO DAILY 11/06/20 10/18/21 History Lidocaine-Prilocaine Cream [Emla 1 applic TOPICAL DAILY PRN 11/06/20 10/18/21 History Cream 2.5%/2.5%] NIFEdipine XL [Procardia XL] 90 mg PO DAILY #30 tab.er.24 11/09/20 10/18/21 Rx HYDROcodone/APAP 10-325MG [[place] 1 tab PO Q6HR PRN 06/16/21 10/18/21 History 10-325] Gabapentin [Neurontin] 300 mg PO TID 10/18/21 10/18/21 History Sertraline [Zoloft] 50 mg PO DAILY 10/18/21 10/18/21 History cloNIDine HCL [Catapres] 0.1 mg PO TID 10/18/21 10/18/21 History metroNIDAZOLE [Flagyl] 500 mg PO TID 10/18/21 10/18/21 History Allergies Allergy/AdvReac Type Severity Reaction Status Date / Time No Known Allergies Allergy Verified 10/18/21 14:49 Physical Exam Vitals: Vital Signs Temp Pulse Pulse Resp BP BP Pulse Ox 10/19/21 10:00 97.5 F L 82 14 151/80 95 10/19/21 05:48 98.5 F 85 20 139/74 97 10/19/21 01:25 97.9 F 80 20 148/78 95 10/18/21 20:00 98.5 F 94 185/98 95 10/18/21 17:50 98.4 F 92 18 195/98 95 10/18/21 16:22 89 181/117 10/18/21 15:22 83 16 151/109 Intake and Output 10/18/21 10/19/21 10/19/21 22:59 06:59 14:59 Output Total 2500 10 Balance -2500 -10 Output: Urine 5 Stool 5 Hemodialysis 2500 Other: Voiding Method Toilet Patient is awake comfortable alert oriented 3. His not in any acute distress. Examination of the abdomen reveals it to be soft nontender Examination lower extremity shows no evidence of edema [employer] exam grossly intact Lungs and heart not examined due to Covid isolation Results - Lab Results Most recent lab results Calcium 9.4 mg/dL (8.4-10.2) 10/18/21 12:34 10/18/21 12:34 10/18/21 12:34 Assessment and Plan Assessment: 1. End-stage renal disease on hemodialysis on a Thursday schedule 2. Diarrhea and vomiting most likely related to underlying valljeo virus infecti on 3. CK D mineral bone disorder 4. Hypertension partly volume sensitive 5. 2 diabetes with significant diabetic retinopathy and neuropathy. Plan: Asked hemodialysis on 10/22/2021 Continue current antihypertensive regimen Bazan continue PhosLo
--- NOTE | 2021-10-19 16:10 | P.PN ---
Subjective Progress Note Date: 10/19/21 Principal diagnosis: diarrhea Patient did not have any bowel movement according to the nursing staff but he is claiming that he continues to have loose stools. No nausea or vomiting. No fevers. Objective - Vital Signs Vital signs: Vital Signs Temp 97.5 F L 10/19/21 10:00 Pulse 82 10/19/21 10:00 Resp 14 10/19/21 10:00 BP 151/80 10/19/21 10:00 Pulse Ox 95 10/19/21 10:00 Intake & Output 10/18/21 10/19/21 10/19/21 18:59 06:59 18:59 Output Total 2500 10 Balance -2500 -10 Weight 63.503 kg Output: Urine 5 Stool 5 Hemodialysis 2500 Other: Voiding Method Toilet - Exam Constitutional: No acute distress, conversant, pleasant Eyes:Anicteric sclerae, moist conjunctiva, no lid-lag, PERRLA, ENMT: Oropharynx clear, no erythema, exudates Neck: Supple, FROM, no masses, or JVD, No carotid bruits, No thyromegaly Lungs: Clear to auscultation, Clear to percussion, Normal respiratory effort, no accessory muscle use Cardiovascular: Heart regular in rate and rhythm, No murmurs, gallops, or rubs, No peripheral edema Abdominal: Soft, Nontender, no guarding, rebound or rigidity, Normoactive bowel sounds, No hepatomegaly, No splenomegaly, No palpable mass Skin: Normal temperature, tone, texture, turgor, no induration, No subcutaneous nodules, No rash, lesions, No ulcers Extremities: No digital cyanosis, No clubbing, Pedal pulses intact and symmetrical, Radial pulses intact and symmetrical, No calf tenderness Psychiatric: Alert and oriented to person, place and time, appropriate affect, intact judgement Neuro: Muscles Strength 5/5 in all 4 extremities, Sensation to light touch grossly present throughout, Cranial nerves II-XII grossly intact, no focal sensory deficits - Labs CBC & Chem 7: 10/18/21 12:34 10/18/21 12:34 Labs: Abnormal Lab Results - Last 24 Hours (Table) 10/18/21 10/18/21 10/18/21 Range/Units 14:10 17:49 21:32 ESR 17 H (0-15) mm/hr POC Glucose (mg/dL) 192 H 143 H (75-99) mg/dL 10/19/21 10/19/21 Range/Units 07:15 11:50 ESR (0-15) mm/hr POC Glucose (mg/dL) 130 H 250 H (75-99) mg/dL Microbiology - Last 24 Hours (Table) 10/18/21 20:00 Stool Culture - Preliminary Stool Assessment and Plan Plan: ESRD with missed dialysis Consult nephrology On dialysis Diarrhea with positive covid, could be sec to constipation Airborne isolation Clear liquid diet. Diarrhea could be associated with covid but diarrhea could possibly be infectious Stool c.diff negative CT abd/pelvis showed large amount of stools, started on miralax--monitor bms. Hold off abx for now. DM 2 with hyperglycemia SSI. Resume home insulin Clear liquid diet. Chronic HTN Anxiety and depression Resume meds. To be discharged care management has to find a new dialysis place that accept positive covid patients--currently pending
[2021-10-19 16:50] LABS: Glucose,Whole Blood 168 mg/dL (75-99)
[2021-10-19 21:02] LABS: Glucose,Whole Blood 144 mg/dL (75-99)
[2021-10-19] MEDS: SERTRALINE 50 MG TAB PO PRN (21:39)
[2021-10-20 07:06] LABS: Glucose,Whole Blood 195 mg/dL (75-99)
[2021-10-20] MEDS: INSULIN ASPART (NovoLOG) 100 UNIT/ML VIAL SQ SCH ×3 (07:40→17:46)
[2021-10-20] MEDS: ISOSORBIDE MONONITRATE ER 60 MG TAB.ER.24H PO SCH (07:55)
[2021-10-20] MEDS: INSULN ASP PRT/INSULIN ASPART 100 UNIT/ML 10 ML VIAL SQ SCH ×2 (07:55→17:56)
[2021-10-20] MEDS: CALCIUM ACETATE 667 MG TAB PO SCH ×2 (07:55→17:56)
[2021-10-20] MEDS: cloNIDine HCL 0.1 MG TAB PO SCH ×3 (07:55→21:45)
[2021-10-20] MEDS: GABAPENTIN 300 MG CAP PO SCH ×3 (07:55→21:45)
[2021-10-20] MEDS: polyethylene glycoL 3350 17 GM POWD.PACK PO SCH (07:56)
[2021-10-20] MEDS: LABETALOL 200 MG TAB PO SCH ×3 (07:56→21:45)
[2021-10-20] MEDS: NIFEdipine XL 90 MG TAB.ER.24 PO SCH (07:56)
[2021-10-20 11:51] LABS: Glucose,Whole Blood 255 mg/dL (75-99)
--- NOTE | 2021-10-20 12:19 | P.PN ---
Subjective Progress Note Date: 10/20/21 Principal diagnosis: diarrhea Patient continues to have loose stools, c.diff came back negative. No nausea or vomiting. No fevers. Objective - Vital Signs Vital signs: Vital Signs Temp 97.8 F 10/20/21 06:00 Pulse 85 10/20/21 06:00 Resp 16 10/20/21 06:00 BP 148/65 10/20/21 06:00 Pulse Ox 98 10/20/21 06:00 Intake & Output 10/19/21 10/20/21 10/20/21 17:59 06:59 18:59 Other: Voiding Method - Exam Constitutional: No acute distress, conversant, pleasant Eyes:Anicteric sclerae, moist conjunctiva, no lid-lag, PERRLA, ENMT: Oropharynx clear, no erythema, exudates Neck: Supple, FROM, no masses, or JVD, No carotid bruits, No thyromegaly Lungs: Clear to auscultation, Clear to percussion, Normal respiratory effort, no accessory muscle use Cardiovascular: Heart regular in rate and rhythm, No murmurs, gallops, or rubs, No peripheral edema Abdominal: Soft, Nontender, no guarding, rebound or rigidity, Normoactive bowel sounds, No hepatomegaly, No splenomegaly, No palpable mass Skin: Normal temperature, tone, texture, turgor, no induration, No subcutaneous nodules, No rash, lesions, No ulcers Extremities: No digital cyanosis, No clubbing, Pedal pulses intact and symmetrical, Radial pulses intact and symmetrical, No calf tenderness Psychiatric: Alert and oriented to person, place and time, appropriate affect, intact judgement Neuro: Muscles Strength 5/5 in all 4 extremities, Sensation to light touch grossly present throughout, Cranial nerves II-XII grossly intact, no focal sensory deficits - Labs CBC & Chem 7: 10/18/21 12:34 10/18/21 12:34 Labs: Abnormal Lab Results - Last 24 Hours (Table) 10/19/21 10/19/21 10/19/21 Range/Units 11:50 16:48 21:00 POC Glucose (mg/dL) 250 H 168 H 144 H (75-99) mg/dL 10/20/21 10/20/21 Range/Units 07:04 11:51 POC Glucose (mg/dL) 195 H 255 H (75-99) mg/dL Microbiology - Last 24 Hours (Table) 10/18/21 20:00 Stool Culture - Preliminary Stool Reema species, not albicans Assessment and Plan Plan: ESRD with missed dialysis Consult nephrology On dialysis Diarrhea with positive covid, could be sec to constipation Airborne isolation CT abd/pelvis showed large amount of stools, started on miralax--monitor bms. Consult GI. Was recently treated with cipro and flagyl which he got from [facility] when he went there several weeks ago. Stool c.diff negative, started immodium Hold off abx for now. DM 2 with hyperglycemia SSI. Resume home insulin Chronic HTN Anxiety and depression Resume meds. To be discharged care management has to find a new dialysis place that accept positive covid patients--currently pending
[2021-10-20] MEDS: HYDROcodone/APAP 10-325MG 1 EACH TAB PO PRN ×2 (12:41→21:44)
--- NOTE | 2021-10-20 15:47 | P.PN ---
Subjective Patient is seen for follow-up for end-stage renal disease, maintained on a Thursday schedule He was admitted to the hospital with complaints of diarrhea. Patient tested positive for coronary minus. No significant complaints today. Diarrhea is slightly improved. Patient is tolerating oral intake. Objective - Vital Signs Vital signs: Vital Signs Temp 97.9 F 10/20/21 10:00 Pulse 78 10/20/21 10:00 Resp 16 10/20/21 10:00 BP 142/83 10/20/21 10:00 Pulse Ox 99 10/20/21 10:00 Intake & Output 10/19/21 10/20/21 10/20/21 17:59 06:59 18:59 Other: Voiding Method - Exam Patient is awake comfortable. Not in any acute distress. Alert oriented 3. Examination shows no evidence of edema in lower extremities. BOX PULLER exam grossly intact - Labs CBC & Chem 7: 10/18/21 12:34 10/18/21 12:34 Labs: Abnormal Lab Results - Last 24 Hours (Table) 10/19/21 10/19/21 10/20/21 Range/Units 16:48 21:00 07:04 POC Glucose (mg/dL) 168 H 144 H 195 H (75-99) mg/dL 10/20/21 Range/Units 11:51 POC Glucose (mg/dL) 255 H (75-99) mg/dL Microbiology - Last 24 Hours (Table) 10/18/21 20:00 Stool Culture - Preliminary Stool Reema species, not albicans Assessment and Plan Assessment: 1. End-stage renal disease on hemodialysis on a Thursday schedule 2. Diarrhea and vomiting most likely related to underlying vallejo virus infection 3. CK D mineral bone disorder 4. Hypertension partly volume sensitive 5. 2 diabetes with significant diabetic retinopathy and neuropathy. Plan: Hemodialysis in a.m. Continue current antihypertensive regimen continue PhosLo
[2021-10-20 16:49] LABS: Glucose,Whole Blood 155 mg/dL (75-99)
[2021-10-20 21:45] LABS: Glucose,Whole Blood 93 mg/dL (75-99)
[2021-10-21 06:49] LABS: Glucose,Whole Blood 211 mg/dL (75-99)
[2021-10-21] MEDS: INSULIN ASPART (NovoLOG) 100 UNIT/ML VIAL SQ SCH ×4 (07:14→17:29)
[2021-10-21 09:25] LABS: Anisocytosis Slight; Basophils # (A) 0.1 k/uL (0-0.2); Basophils % (A) 1 %; Eosinophils # (A) 1.6 k/uL (0-0.7); Eosinophils % (A) 20 %; HCT 44.1 % (39.0-53.0); HGB 14.4 gm/dL (13.0-17.5); Lymphocytes # (A) 1.9 k/uL (1.0-4.8); Lymphocytes % (A) 24 %; MCH 27.2 pg (25.0-35.0); MCHC 32.6 g/dL (31.0-37.0); MCV 83.4 fL (80.0-100.0); Mean Platelet Volume 8.5; Monocytes # (A) 0.3 k/uL (0-1.0); Monocytes % (A) 4 %; Neutrophils # (A) 3.9 k/uL (1.3-7.7); Neutrophils % (A) 49 %; Platelet Count 228 k/uL (150-450); RBC 5.29 m/uL (4.30-5.90); WBC 7.9 k/uL (3.8-10.6)
[2021-10-21] MEDS: NIFEdipine XL 90 MG TAB.ER.24 PO SCH (09:33)
[2021-10-21] MEDS: cloNIDine HCL 0.1 MG TAB PO SCH ×3 (09:33→18:12)
[2021-10-21] MEDS: LABETALOL 200 MG TAB PO SCH ×3 (09:33→18:12)
[2021-10-21] MEDS: GABAPENTIN 300 MG CAP PO SCH ×2 (09:33→15:23)
[2021-10-21] MEDS: ISOSORBIDE MONONITRATE ER 60 MG TAB.ER.24H PO SCH (09:33)
[2021-10-21] MEDS: INSULN ASP PRT/INSULIN ASPART 100 UNIT/ML 10 ML VIAL SQ SCH ×2 (09:37→17:29)
[2021-10-21] MEDS: CALCIUM ACETATE 667 MG TAB PO SCH ×2 (09:43→17:29)
[2021-10-21 10:13] VITALS: RESP 18
[2021-10-21] MEDS: MAGNESIUM SULFATE-D5W PMX 1 GM in DEXTROSE/WATER 1 100ML.BAG IVPB SCH ×2 (11:00→11:52)
[2021-10-21 11:40] LABS: Glucose,Whole Blood 226 mg/dL (75-99)
--- NOTE | 2021-10-21 11:40 | P.CONS ---
History of Present Illness - Reason for Consult Consult date: 10/21/21 Diarrhea Requesting physician: Doris Townsend - Chief Complaint Diarrhea, Covid 19 positive - History of Present Illness This is a 45-year-old male who states he has had diarrhea for the last 2 weeks duration. States that beginning he was going what seemed to be every 5 minutes. It was associated with 1-2 days of nausea and vomiting. Diarrhea continues so he came into the emergency department. He does have a history of chronic kidney disease hemodialysis dependent. On admission he was found to be COVID-19 positive. Stool cultures showed Reema not albicans, C. diff was negative as well as Giardia. Patient states diarrhea has stopped co mpletely since 3:00 yesterday afternoon. He had been started on Imodium 2 mg every 12 hours as needed. He denies any nausea or vomiting. He denies any abdominal pain. He states he's had no blood in his stool or black stool. He states he has had previous colonoscopy 1-[address] [facility] and believes it was normal. He's been afebrile. WBC 7.9 hemoglobin 14.4 hematocrit 44 platelet count 228,[address] of the abdomen and pelvis on 10/18/2021 reporting large amount of high density stool throughout the colon with small bowel feces. This could represent adynamic ileus. Evaluation of the rectum is limited given lack of IV contrast, appears to be fullness of the rectal wall correlate for proctitis. Review of Systems REVIEW OF SYSTEMS: CARDIOPULMONARY: No chest pain or shortness of breath. Gastrointestinal: No abdominal pain. No nausea or vomiting. No hematemesis, coffee-ground emesis. No rectal bleeding, or melena. Patient had diarrhea on presentation but none since yesterday at 1500. GENITOURINARY: No dysuria or hematuria. MUSCULOSKELETAL: Reports normal range of motion., Joint pain. SKIN: No rashes. No jaundice. ENDOCRINE: No chills, fevers. No excessive weight gain or loss. No polydipsia or polyuria. PSYCHIATRIC: Unremarkable. NEUROLOGY: No change in mental status. Denies dizziness, headache. ENT: Vision unremarkable. CONSTITUTIONAL: No recent weight loss. No fever, chills, night sweats. Past Medical History Past Medical History: Diabetes Mellitus, Dialysis, Eye Disorder, Hypertension, Renal Disease Additional Past Medical History / Comment(s): very poor vision R eye, has dialysis Thursday, thu and Thursday. History of Any Multi-Drug Resistant Organisms: None Reported Past Surgical History: No Surgical Hx Reported Additional Past Surgical History / Comment(s): eye surgery due to diabetes and thorascopic percardial window 2012 Past Anesthesia/Blood Transfusion Reactions: No Reported Reaction Additional Past Anesthesia/Blood Transfusion Reaction / Comm: blood transfusion 2012 Smoking Status: Former smoker - Past Family History Father Family Medical History: Renal Disease Mother History Unknown: Yes Medications and Allergies Home Medications Medication Instructions Recorded Confirmed Type Insulin NPH Hum/Reg Insulin Hm 7 unit SQ BID 11/27/14 10/18/21 History [humuLIN 70/30 Kwikpen] Labetalol [Trandate] 400 mg PO TID 11/27/14 10/18/21 History Calcium Acetate 667 mg PO BID-W/MEALS 08/07/20 10/18/21 History Maggie-Arpit 1 tab PO DAILY 08/07/20 10/18/21 History Isosorbide Mononitrate [Imdur] 120 mg PO DAILY 11/06/20 10/18/21 History Lidocaine-Prilocaine Cream [Emla 1 applic TOPICAL DAILY PRN 11/06/20 10/18/21 History Cream 2.5%/2.5%] NIFEdipine XL [Procardia XL] 90 mg PO DAILY #30 tab.er.24 11/09/20 10/18/21 Rx HYDROcodone/APAP 10-325MG [[place] 1 tab PO Q6HR PRN 06/16/21 10/18/21 History 10-325] Gabapentin [Neurontin] 300 mg PO TID 10/18/21 10/18/21 History Sertraline [Zoloft] 50 mg PO DAILY 10/18/21 10/18/21 History cloNIDine HCL [Catapres] 0.1 mg PO TID 10/18/21 10/18/21 History metroNIDAZOLE [Flagyl] 500 mg PO TID 10/18/21 10/18/21 History Allergies Allergy/AdvReac Type Severity Reaction Status Date / Time No Known Allergies Allergy Verified 10/18/21 14:49 Physical Exam Vitals: Vital Signs Temp Pulse Resp BP Pulse Ox 10/21/21 06:00 97.8 F 80 130/74 97 10/21/21 02:00 98.3 F 82 16 128/72 98 10/20/21 21:27 98.1 F 80 131/80 99 10/20/21 18:00 98.9 F 76 16 142/72 96 10/20/21 14:00 98.4 F 87 16 128/80 98 10/20/21 10:00 97.9 F 78 16 142/83 99 Intake and Output 10/20/21 10/21/21 10/21/21 22:59 06:59 14:59 Other: Voiding Method Toilet General appearance: The patient is alert, oriented, appears in no acute distress. HET: Head is normocephalic and atraumatic. Conjunctiva pink. Sclera anicteric. Neck: Supple without lymphadenopathy. Trachea midline. Heart: S1 S2. Regular rate and rhythm. Lungs: Clear to auscultation. Abdomen: Soft, thin, nontender, nondistended with bowel sounds. No guarding or rigidity. Skin: No rashes. No jaundice. Extremities: Normal skin color and turgor. No pedal edema. Neurological: No focal deficits. Alert and oriented x3. Results CBC & Chem 7: 10/21/21 08:35 10/18/21 12:34 Labs: Abnormal Lab Results - Last 24 Hours (Table) 10/20/21 10/20/21 10/21/21 Range/Units 11:51 16:47 06:48 POC Glucose (mg/dL) 255 H 155 H 211 H (75-99) mg/dL Microbiology - Last 24 Hours (Table) 10/18/21 20:00 Stool Culture - Preliminary Stool Reema species, not albicans Comments: CT abdomen and pelvis: Large amount of high density stool throughout the colon with small bowel feces. This could represent adynamic ileus. Evaluation of the rectum is limited given lack of IV contrast. With that said there appears to be fullness of the rectal wall correlate for proctitis. Mildly atrophic appearing kidneys. Severe arthrosclerosis through out the Arterial vasculature. Mostly pattern of the lung parenchyma which may represent air trapping in a setting of small airways disease versus hypersensitivity pneumonitis. Assessment and Plan (1) Diarrhea Narrative/Plan: 45-year-old male who presented to the emergency department with complaints of 2 weeks duration of diarrhea. Multiple times a day. Nonbloody, green. He had concerns for continued diarrhea with first 1-2 days associated nausea and vomiting. On admission he was tested for vallejo virus and came back positive. Patient had stool studies that showed stool culture positive for Reema, not albicans. Stool Giardia was negative as well as C. diff toxin negative. Patient was started on Imodium 2 mg every 12 hours. He states he's had no diarrhea since 3 PM yesterday. On admission he did have a CT of the abdomen and pelvis that reported ALLERGIC amount high density stool throughout colon with small bowel feces could represent adynamic ileus. Possibility for proctitis. He has been afebrile. Diarrhea has resolved. No plans at this time for any endoscopic evaluation. Continue Imodium as needed. Current Visit: Yes Status: Acute Code(s): R19.7 - DIARRHEA, UNSPECIFIED SNOMED Code(s): 18945357 (2) Coronavirus infection Current Visit: Yes Status: Acute Code(s): B34.2 - CORONAVIRUS INFECTION, UNSPECIFIED SNOMED Code(s): 387196311 Plan: 1. Continue symptomatic and supportive care 2. Stool cultures, stool studies reviewed negative to date 3. Continue Imodium as needed 4. Diarrhea likely related to COVID-19 infection, no plans on endoscopic evaluation Thank you for this consultation, we will continue to monitor. Dr. Franki Brady I agree with the dictator's note, documented as a scribe by Phuong Jones.
--- NOTE | 2021-10-21 12:52 | P.PN ---
Subjective Patient seen in follow-up for end-stage renal disease. He is maintained on hemodialysis on Thursday schedule. No diarrhea last night or today so far. Denies chest pain or shortness of breath. No active complaints. Vital signs are stable. General: Awake and alert. HEENT: Head exam is unremarkable. LUNGS: Breath sounds decreased. HEART: Rate and Rhythm are regular. ABDOMEN: Soft, no distention. EXTREMITITES: No edema. Objective - Vital Signs Vital signs: Vital Signs Temp 98.2 F 10/21/21 09:43 Pulse 86 10/21/21 09:43 Resp 18 10/21/21 10:13 BP 192/108 10/21/21 09:43 Pulse Ox 100 10/21/21 09:43 Intake & Output 10/20/21 10/21/21 10/21/21 18:59 06:59 18:59 Other: Voiding Method Toilet Toilet - Labs CBC & Chem 7: 10/21/21 08:35 10/18/21 12:34 Labs: Abnormal Lab Results - Last 24 Hours (Table) 10/20/21 10/21/21 10/21/21 Range/Units 16:47 06:48 08:35 RDW 17.0 H (11.5-15.5) % Eosinophils # 1.6 H (0-0.7) k/uL POC Glucose (mg/dL) 155 H 211 H (75-99) mg/dL 10/21/21 Range/Units 11:39 RDW (11.5-15.5) % Eosinophils # (0-0.7) k/uL POC Glucose (mg/dL) 226 H (75-99) mg/dL Microbiology - Last 24 Hours (Table) 10/18/21 20:00 Stool Culture - Preliminary Stool Reema species, not albicans Assessment and Plan Plan: Assessment: 1. End-stage renal disease maintained on hemodialysis on Thursday schedule. 2. COVID-19 infection. 3. Diarrhea possibly due to Covid infection. Improved. 4. Chronic kidney disease mineral bone disease maintained on PhosLo. 5. Diabetes. 6. Hypertension with chronic kidney disease. Stable. Plan: Hemodialysis today.
[2021-10-21] MEDS: HYDROcodone/APAP 10-325MG 1 EACH TAB PO PRN (13:30)
--- NOTE | 2021-10-21 15:36 | P.DS ---
Providers Date of admission: 10/21/21 10:36 Expected date of discharge: 10/21/21 Attending physician: Tavares Waterman MD Consults: 10/18/21 13:23 Consult Physician Routine Consulting Provider: Christina Page Consult Reason/Comments: Dialysis Do you want consulting provider notified?: Yes 10/20/21 12:20 Consult Physician Routine Consulting Provider: Paula Brady Consult Reason/Comments: diarrhea Do you want consulting provider notified?: Yes [facility]: Discharge Diagnosis: Covid 19 virus infection Intractable diarrhea, resolved ESRD on dialysis Insulin-dependent diabetes mellitus Hypomagnesemia, replaced Hypertension Hospital Course: Patient is a very pleasant 45-year-old male with a past medical history of insulin-dependent diabetes mellitus, hypertension, and ESRD on hemodialysis Mondays/Wednesdays/Fridays. Patient presented to the emergency department on 10/18/21 with a chief complaint of missing dialysis secondary to intractable diarrhea 1 week. In the emergency department patient was seen and fully evaluated and found to test positive for Covid 19 virus infection in a vaccinated individual. Lab work revealed mild leukocytosis with WBC count of 11.0, CRP of 4.7, and glucose of 293. C. diff negative and stool cultures negative. BUN was 31, his creatinine was 8.61 with a GFR of 7. Patient was admitted under our services with consultation to nephrology for dialysis. CT abdomen and pelvis revealed large amounts of stool throughout colon and small bowel, mildly atrophic appearing kidneys, severe atherosclerosis throughout arterial vasculature, and fullness of the rectal wall correlating for proctitis. Patient reports continued diarrhea throughout 2 days of hospitalization, On day 3 patient reported having last episode of diarrhea. This morning patient reports full resolution of diarrhea stating it has been greater than 16 hours since last episode of diarrhea and reports feeling great. Patient scheduled to undergo dialysis and has been cleared for discharge home and to follow up as scheduled with Dialysis Ctr[facility] Mondays, Wednesdays, and Fridays. Repeat Covid PCR was negative, therefore patient able to return to same scheduled dialysis center. Magnesium was slightly low at 1.7, orders for replacement. Patient reports that he feels great and "is ready to go home". Patient denies having any complaints or concerns this morning including headache, lightheadedness, dizziness, chest pain, palpitations, shortness of breath, abdominal pain, nausea, vomiting, diarrhea, or experiencing any numbness/tingling/weakness in his extremities. Patient to be discharged once dialysis is completed and follow-up outpatient with nephrology and PCP. Patient seen and examined at bedside. Vital signs reviewed and stable. General: Nontoxic, no distress and appears stated age. Derm: Skin warm and dry, normal coloration for ethnicity. Head: Atraumatic, normocephalic and symmetric. Eyes: Right eye surgically removed, left eye normal extra movements intact, pupil normal and reactive. Mouth: no lip lesions, mucus membranes moist Cardiovascular: regular rate and rhythm with normal S1S2, no murmur, positive posterior tibial pulses bilaterally, and cap refill < 2 seconds. Lungs: Respirations even, regular, and unlabored on room air. Lungs CTA bilaterally, no rhonchi, no rales, no wheezing, and no accessory muscle usage. Abdominal: soft, nontender to palpation, no guarding, no appreciable o rganomegaly Ext: ROM intact. No gross muscle atrophy, no edema, no contractures Neuro: Speech clear, face symmetrical and CN II-XII grossly intact with no noted focal neuro deficits Psych: Alert and oriented to person, place, time, and situation. Appropriate and pleasant affect. A total of 45 minutes of time were spent preparing this complex discharge summary. Patient Condition at Discharge: Stable Plan - Discharge Summary Discharge Rx Participant: No New Discharge Prescriptions: Continue Labetalol [Trandate] 400 mg PO TID Insulin NPH Hum/Reg Insulin Hm [humuLIN 70/30 Kwikpen] 7 unit SQ BID Calcium Acetate 667 mg PO BID-W/MEALS Maggie-Arpit 1 tab PO DAILY NIFEdipine XL [Procardia XL] 90 mg PO DAILY #30 tab.er.24 Gabapentin [Neurontin] 300 mg PO TID Sertraline [Zoloft] 50 mg PO DAILY Lidocaine-Prilocaine Cream [Emla Cream 2.5%/2.5%] 1 applic TOPICAL DAILY PRN PRN Reason: AVF SITE Isosorbide Mononitrate [Imdur] 120 mg PO DAILY HYDROcodone/APAP 10-325MG [[place] 10-325] 1 tab PO Q6HR PRN PRN Reason: Pain cloNIDine HCL [Catapres] 0.1 mg PO TID Discontinued metroNIDAZOLE [Flagyl] 500 mg PO TID Discharge Medication List Insulin NPH Hum/Reg Insulin Hm [humuLIN 70/30 Kwikpen] 7 unit SQ BID 11/27/14 [History] Labetalol [Trandate] 400 mg PO TID 11/27/14 [History] Calcium Acetate 667 mg PO BID-W/MEALS 08/07/20 [History] Maggie-Arpit 1 tab PO DAILY 08/07/20 [History] Isosorbide Mononitrate [Imdur] 120 mg PO DAILY 11/06/20 [History] Lidocaine-Prilocaine Cream [Emla Cream 2.5%/2.5%] 1 applic TOPICAL DAILY PRN 11/06/20 [History] NIFEdipine XL [Procardia XL] 90 mg PO DAILY #30 tab.er.24 11/09/20 [Rx] HYDROcodone/APAP 10-325MG [[place] 10-325] 1 tab PO Q6HR PRN 06/16/21 [History] Gabapentin [Neurontin] 300 mg PO TID 10/18/21 [History] Sertraline [Zoloft] 50 mg PO DAILY 10/18/21 [History] cloNIDine HCL [Catapres] 0.1 mg PO TID 10/18/21 [History] Follow up Appointment(s)/Referral(s): [facility], [NON-STAFF] - As Needed Luan Valdivia DO [Primary Care Provider] - 1-2 days Patient Instructions/Handouts: Acute Diarrhea (GEN), COVID-19 (Coronavirus Disease 2019) (DC) Activity/Diet/Wound Care/Special Instructions: Activity: As tolerated. Take breaks as needed. Diet: Heart healthy and carb consistent diet. Avoid salts, or foods with hidden salts such as canned or boxed foods and frozen dinners. Extra salt makes your heart work harder and traps the fluid in your body for longer. Special Instructions: Take all of your medications as directed and remember to keep all of your doctor's appointments and follow-up as needed. Thank you for allowing us to participate in your care, it was truly a pleasure having you for our patient!!! Discharge Disposition: HOME WITH HOME HEALTH SERVICES
[2021-10-21 16:25] LABS: Glucose,Whole Blood 187 mg/dL (75-99)
[2021-10-21 18:51] VITALS: BP 189/108; PULSE 89; TEMP 98.5
== END 2021-10-21 19:36 | disposition home health service (06) | DRG 177 ==
LOC: EC 11:16 → 4SSUR 13:22 → OBSVTOIN 10-21 10:36
PROVIDERS: ADMIT Internal Medicine; ATTEND Internal Medicine
PROC: 5A1D70Z Performance of Urinary Filtration, Intermittent, Less than 6 Hours Per Day (ICD-10-PCS; principal; 2021-10-19)
DX: U07.1 COVID-19 (principal); J12.82 Pneumonia due to coronavirus disease 2019; N18.6 End stage renal disease; I12.0 Hypertensive chronic kidney disease with stage 5 chronic kidney disease or end stage renal disease; E11.22 Type 2 diabetes mellitus with diabetic chronic kidney disease; E11.319 Type 2 diabetes mellitus with unspecified diabetic retinopathy without macular edema; E11.40 Type 2 diabetes mellitus with diabetic neuropathy, unspecified; E11.65 Type 2 diabetes mellitus with hyperglycemia; K59.00 Constipation, unspecified; R26.9 Unspecified abnormalities of gait and mobility; E83.42 Hypomagnesemia; E86.0 Dehydration; R19.7 Diarrhea, unspecified; F32.A Depression, unspecified; F41.9 Anxiety disorder, unspecified; H54.7 Unspecified visual loss; K62.89 Other specified diseases of anus and rectum; M89.8X9 Other specified disorders of bone, unspecified site; M89.9 Disorder of bone, unspecified; Z63.8 Other specified problems related to primary support group; Z79.4 Long term (current) use of insulin; Z79.899 Other long term (current) drug therapy; Z87.891 Personal history of nicotine dependence; Z99.2 Dependence on renal dialysis
CPT/HCPCS: 36415; 74176; 80048; 83735; 85025; 85379; 85652; 86140; 87045; 87046; 87324; 87327; 87329; 87635; 90935; 99285

== ENCOUNTER 2022-04-20 23:19 | Emergency (ER) | payer MEDICARE, BC, OTHER ==
[2022-04-21] MEDS ORDERED: HYDROcodone/APAP 5-325MG 1 EACH TAB PO STA (00:14)
--- NOTE | 2022-04-21 00:19 | ED ---
General Adult HPI - General Chief complaint: Nausea/Vomiting/Diarrhea Stated complaint: High Sugar Time Seen by Provider: 04/20/22 23:48 Source: patient, family, RN notes reviewed, old records reviewed Mode of arrival: wheelchair Limitations: no limitations - History of Present Illness Initial comments: 46-year-old male presents to the emergency room with family complaining of elevated blood glucose levels over 500 for the past couple of weeks. Patient patient sees now developed right arm pain. He is a dialysis patient and has dialysis Thursday. He did go to dialysis on Thursday denies any chest pain or difficulty breathing. -: week(s) (2) Location: right, upper extremity Severity scale (1-10): 6 Quality: aching Consistency: constant Improves with: none Associated Symptoms: malaise, other (Elevated blood glucose levels) Treatments Prior to Arrival: none - Related Data Home Medications Medication Instructions Recorded Confirmed Insulin NPH Hum/Reg Insulin Hm 7 unit SQ BID 11/27/14 10/18/21 [humuLIN 70/30 Kwikpen] Labetalol [Trandate] 400 mg PO TID 11/27/14 10/18/21 Calcium Acetate 667 mg PO BID-W/MEALS 08/07/20 10/18/21 Maggie-Arpit 1 tab PO DAILY 08/07/20 10/18/21 Isosorbide Mononitrate [Imdur] 120 mg PO DAILY 11/06/20 10/18/21 Lidocaine-Prilocaine Cream [Emla 1 applic TOPICAL DAILY PRN 11/06/20 10/18/21 Cream 2.5%/2.5%] HYDROcodone/APAP 10-325MG [[place] 1 tab PO Q6HR PRN 06/16/21 10/18/21 10-325] Gabapentin [Neurontin] 300 mg PO TID 10/18/21 10/18/21 Sertraline [Zoloft] 50 mg PO DAILY 10/18/21 10/18/21 cloNIDine HCL [Catapres] 0.1 mg PO TID 10/18/21 10/18/21 Previous Rx's Medication Instructions Recorded NIFEdipine XL [Procardia XL] 90 mg PO DAILY #30 tab.er.24 11/09/20 Allergies Allergy/AdvReac Type Severity Reaction Status Date / Time No Known Allergies Allergy Verified 04/20/22 23:39 Review of Systems ROS Statement: Those systems with pertinent positive or pertinent negative responses have been documented in the HPI. ROS Other: All systems not noted in ROS Statement are negative. Past Medical History Past Medical History: Diabetes Mellitus, Dialysis, Eye Disorder, Hypertension, Renal Disease Additional Past Medical History / Comment(s): very poor vision R eye, has dialysis Thursday, thu and Thursday. History of Any Multi-Drug Resistant Organisms: None Reported Past Surgical History: No Surgical Hx Reported Additional Past Surgical History / Comment(s): eye surgery due to diabetes and thorascopic percardial window 2013, right eye removal Past Anesthesia/Blood Transfusion Reactions: No Reported Reaction Additional Past Anesthesia/Blood Transfusion Reaction / Comment(s): blood transfusion 2012 Past Psychological History: Anxiety, Depression Smoking Status: Former smoker Past Alcohol Use History: None Reported Past Drug Use History: None Reported - Past Family History Father Family Medical History: Renal Disease Mother History Unknown: Yes General Exam Limitations: no limitations General appearance: alert, in no apparent distress Head exam: Present: atraumatic, normocephalic, normal inspection Eye exam: Present: other (enucleation of right eye ). Absent: scleral icterus, conjunctival injection ENT exam: Present: mucous membranes moist Neck exam: Absent: tenderness, meningismus, lymphadenopathy, thyromegaly Respiratory exam: Present: normal lung sounds bilaterally. Absent: respiratory distress, wheezes, rales, rhonchi, stridor, chest wall tenderness, accessory muscle use Cardiovascular Exam: Present: regular rate GI/Abdominal exam: Present: soft. Absent: distended, tenderness, guarding, rebound, rigid Extremities exam: Present: full ROM, tenderness (right upper arm), normal capillary refill. Absent: pedal edema, calf tenderness Left Upper Arm exam: Present: other (dialysis graft with bruit) Vascular: Present: normal capillary refill. Absent: vascular compromise Right Upper Arm exam: Present: full ROM, tenderness. Absent: swelling, abrasion, laceration, ecchymosis, deformity Elbow exam: Absent: tenderness Forearm Wrist exam: Absent: tenderness Hand Wrist exam: Absent: tenderness Vascular: Present: normal capillary refill. Absent: vascular compromise Back exam: Present: normal inspection, full ROM. Absent: tenderness, CVA tenderness (R), CVA tenderness (L), rash noted Neurological exam: Present: alert, oriented X3 Psychiatric exam: Present: normal affect, normal mood Skin exam: Present: warm, dry, normal color. Absent: cyanosis, diaphoretic, petechiae, pallor Course Vital Signs 04/20/22 23:40 Temperature 97.4 F L Pulse Rate 87 Respiratory 18 Rate Blood Pressure 190/95 O2 Sat by Pulse 99 Oximetry EKG Findings - EKG Results: EKG: sinus rhythm (Ventricular rate 83, ME interval 0.152, QRS 0.106, QTC 0.467) Medical Decision Making - Medical Decision Making CBC is unremarkable. Troponin elevated 0.073, compared with previous labs patient runs consistently high likely due to dialysis. EKG shows no significant change compared to old. Patient denies any chest pain or difficulty in breathing. BUN and Creatinine are elevated which is consistent with previous labs, patient is dialysis patient due to be dialyzed again on Thursday at 11:00 in [place]. His last dialysis was Thursday. Blood glucose level was 413. He was given IV insulin and came down to 252. Serum acetone negative. No evidence of DKA. Patient is feeling better. He will be discharged home to continue with dialysis tomorrow at 11:00, and follow-up with his primary care doctor for better control of his diabetes. He is agreeable to this plan of care. Case discussed with Dr. Roberto - Lab Data Result diagrams: 04/21/22 00:52 04/21/22 00:52 Lab Results 04/21/22 04/21/22 04/21/22 Range/Units 00:52 00:52 00:52 WBC 7.4 (3.8-10.6) k/uL RBC 4.40 (4.30-5.90) m/uL Hgb 11.4 L (13.0-17.5) gm/dL Hct 35.1 L (39.0-53.0) % MCV 79.7 L (80.0-100.0) fL MCH 26.0 (25.0-35.0) pg MCHC 32.6 (31.0-37.0) g/dL RDW 17.4 H (11.5-15.5) % Plt Count 161 (150-450) k/uL MPV 10.0 Neutrophils % 69 % Lymphocytes % 17 % Monocytes % 7 % Eosinophils % 6 % Basophils % 1 % Neutrophils # 5.1 (1.3-7.7) k/uL Lymphocytes # 1.2 (1.0-4.8) k/uL Monocytes # 0.5 (0-1.0) k/uL Eosinophils # 0.4 (0-0.7) k/uL Basophils # 0.1 (0-0.2) k/uL Anisocytosis Slight Microcytosis Slight Sodium 134 L (137-145) mmol/L Potassium 4.3 (3.5-5.1) mmol/L Chloride 91 L (98-107) mmol/L Carbon Dioxide 25 (22-30) mmol/L Anion Gap 18 mmol/L BUN 57 H (9-20) mg/dL Creatinine 8.45 H* (0.66-1.25) mg/dL Est GFR (CKD-EPI)AfAm 8 (>60 ml/min/1.73 sqM) Est GFR (CKD-EPI)NonAf 7 (>60 ml/min/1.73 sqM) Glucose 413 H (74-99) mg/dL POC Glucose (mg/dL) (70-110) mg/dL POC Glu Portable Pinch Riveter ID Calcium 9.1 (8.4-10.2) mg/dL Total Bilirubin 0.5 (0.2-1.3) mg/dL AST 19 (17-59) U/L ALT 12 (4-49) U/L Alkaline Phosphatase 77 (38-126) U/L Troponin I 0.073 H* (0.000-0.034) ng/mL Total Protein 6.7 (6.3-8.2) g/dL Albumin 3.7 (3.5-5.0) g/dL Amylase 69 (30-110) U/L Lipase 491 H (23-300) U/L Acetone, Qual Negative (Negative) 04/21/22 Range/Units 03:44 WBC (3.8-10.6) k/uL RBC (4.30-5.90) m/uL Hgb (13.0-17.5) gm/dL Hct (39.0-53.0) % MCV (80.0-100.0) fL MCH (25.0-35.0) pg MCHC (31.0-37.0) g/dL RDW (11.5-15.5) % Plt Count (150-450) k/uL MPV Neutrophils % % Lymphocytes % % Monocytes % % Eosinophils % % Basophils % % Neutrophils # (1.3-7.7) k/uL Lymphocytes # (1.0-4.8) k/uL Monocytes # (0-1.0) k/uL Eosinophils # (0-0.7) k/uL Basophils # (0-0.2) k/uL Anisocytosis Microcytosis Sodium (137-145) mmol/L Potassium (3.5-5.1) mmol/L Chloride (98-107) mmol/L Carbon Dioxide (22-30) mmol/L Anion Gap mmol/L BUN (9-20) mg/dL Creatinine (0.66-1.25) mg/dL Est GFR (CKD-EPI)AfAm (>60 ml/min/1.73 sqM) Est GFR (CKD-EPI)NonAf (>60 ml/min/1.73 sqM) Glucose (74-99) mg/dL POC Glucose (mg/dL) 252 H (70-110) mg/dL POC Glu Portable Pinch Riveter ID [place] Walker Calcium (8.4-10.2) mg/dL Total Bilirubin (0.2-1.3) mg/dL AST (17-59) U/L ALT (4-49) U/L Alkaline Phosphatase (38-126) U/L Troponin I (0.000-0.034) ng/mL Total Protein (6.3-8.2) g/dL Albumin (3.5-5.0) g/dL Amylase (30-110) U/L Lipase (23-300) U/L Acetone, Qual (Negative) Disposition Clinical Impression: Hyperglycemia due to diabetes mellitus Disposition: HOME SELF-CARE Condition: Good Instructions (If sedation given, give patient instructions): Diabetic Hypergl ycemia (ED) Additional Instructions: Follow-up with your primary care doctor this week to discuss your elevated blood glucose levels. Keep your appointment with dialysis Thursday at 11:00. Return to the emergency room with any new or concerning symptoms including chest pain, difficulty in breathing or persistent nausea vomiting. Is patient prescribed a controlled substance at d/c from ED?: No Referrals: Luan Valdivia DO [Primary Care Provider] - 1-2 days Time of Disposition: 03:46
[2022-04-21 01:09] LABS: Anisocytosis Slight; Basophils # (A) 0.1 k/uL (0-0.2); Basophils % (A) 1 %; Eosinophils # (A) 0.4 k/uL (0-0.7); Eosinophils % (A) 6 %; HCT 35.1 % (39.0-53.0); HGB 11.4 gm/dL (13.0-17.5); Lymphocytes # (A) 1.2 k/uL (1.0-4.8); Lymphocytes % (A) 17 %; MCHC 32.6 g/dL (31.0-37.0); MCV 79.7 fL (80.0-100.0); Microcytosis Slight; Monocytes # (A) 0.5 k/uL (0-1.0); Monocytes % (A) 7 %; Neutrophils # (A) 5.1 k/uL (1.3-7.7); Neutrophils % (A) 69 %; Platelet Count 161 k/uL (150-450); RDW 17.4 % (11.5-15.5); WBC 7.4 k/uL (3.8-10.6)
[2022-04-21 01:30] LABS: ALT 12 U/L (4-49); AST 19 U/L (17-59); African American GFR (CKD) 8 (>60 ml/min/1.73 sqM); Albumin 3.7 g/dL (3.5-5.0); Alkaline Phosphatase 77 U/L (38-126); Amylase 69 U/L (30-110); Anion Gap 18 mmol/L; Blood Urea Nitrogen 57 mg/dL (9-20); Calcium 9.1 mg/dL (8.4-10.2); Carbon Dioxide 25 mmol/L (22-30); Chloride 91 mmol/L (98-107); Glucose 413 mg/dL (74-99); Lipase 491 U/L (23-300); Non-African American GFR(CKD) 7 (>60 ml/min/1.73 sqM); Potassium 4.3 mmol/L (3.5-5.1); Sodium 134 mmol/L (137-145); Total Bilirubin 0.5 mg/dL (0.2-1.3); Total Protein 6.7 g/dL (6.3-8.2)
[2022-04-21] MEDS ORDERED: INSULIN REGULAR 100 UNIT/ML VIAL (IV) IV ONE (02:47)
[2022-04-21 03:46] LABS: Glucose,Whole Blood 252 mg/dL (70-110)
[2022-04-21 04:08] VITALS: BP 169/86; PULSE 81; RESP 20; TEMP 97.9
== END 2022-04-21 04:08 | disposition home or self-care (01) ==
LOC: EC 23:19
DX: E11.65 Type 2 diabetes mellitus with hyperglycemia (principal); I12.0 Hypertensive chronic kidney disease with stage 5 chronic kidney disease or end stage renal disease; N18.6 End stage renal disease; Z99.2 Dependence on renal dialysis; F41.9 Anxiety disorder, unspecified; F32.A Depression, unspecified; Z87.891 Personal history of nicotine dependence; Z79.4 Long term (current) use of insulin
CPT/HCPCS: 36415; 80053; 82009; 82150; 83690; 84484; 85025; 93005; 99285

== ENCOUNTER 2022-06-06 08:43 | Emergency (ER) | payer MEDICARE, BC, OTHER ==
[2022-06-06 08:55] VITALS: RESP 18; TEMP 99
[2022-06-06 09:47] LABS: Anisocytosis Slight; Basophils % (A) 0 %; Eosinophils # (A) 0.3 k/uL (0-0.7); Eosinophils % (A) 2 %; Lymphocytes # (A) 1.3 k/uL (1.0-4.8); Lymphocytes % (A) 9 %; MCH 27.3 pg (25.0-35.0); MCHC 34.4 g/dL (31.0-37.0); MCV 79.3 fL (80.0-100.0); Mean Platelet Volume 10.3; Microcytosis Slight; Monocytes % (A) 8 %; Neutrophils # (A) 10.8 k/uL (1.3-7.7); Neutrophils % (A) 79 %; Platelet Count 156 k/uL (150-450); RBC 4.03 m/uL (4.30-5.90); RDW 17.7 % (11.5-15.5); WBC 13.6 k/uL (3.8-10.6)
--- NOTE | 2022-06-06 09:52 | XR ---
EXAMINATION TYPE: XR knee complete LT DATE OF EXAM: 06/06/2022 CLINICAL HISTORY: pain TECHNIQUE: Three views of the left knee are obtained. COMPARISON: None. FINDINGS: There is no acute fracture/dislocation. The tri-compartment joint spaces appear within no rmal limits. The overlying soft tissue appears unremarkable. IMPRESSION: There is no acute fracture or dislocation ICD 10 NO FRACTURE, INITIAL EVALUATION
--- NOTE | 2022-06-06 09:53 | XR ---
EXAMINATION TYPE: XR chest 1V portable DATE OF EXAM: 06/06/2022 9:47 AM COMPARISON: Chest radiographs from 07/27/2021 TECHNIQUE: XR chest 1V portable Portable AP radiograph of the chest. CLINICAL INDICATION:Male, 46 years old with history of dyspnea; FINDINGS: Lungs/Pleura: There is no evidence of pleural effusion, focal consolidation, or pneumothorax. Pulmonary vascularity: Unremarkable. Heart/mediastinum: Cardiomediastinal silhouette is enlarged and stable. Musculoskeletal: No acute osseous pathology. IMPRESSION: 1. No acute cardiopulmonary disease/process. 2. Mild cardiomegaly, unchanged.
[2022-06-06 10:06] LABS: Albumin 4.4 g/dL (3.5-5.0); Calcium 8.4 mg/dL (8.4-10.2); Potassium 4.6 mmol/L (3.5-5.1); Total Bilirubin 0.8 mg/dL (0.2-1.3); Total Protein 7.8 g/dL (6.3-8.2)
--- NOTE | 2022-06-06 10:12 | ED ---
General Adult HPI - General Source: EMS Mode of arrival: EMS Limitations: no limitations - History of Present Illness -: month(s) Location: left, lower extremity Radiation: non-radiation Quality: aching Consistency: constant Improves with: rest Worsens with: movement Associated Symptoms: other (Diarrhea) Treatments Prior to Arrival: none <Mark Covington - Last Filed: 06/06/22 15:01> <Rolando Jin - Last Filed: 06/06/22 23:06> - General Chief complaint: Weakness Stated complaint: Weakness Time Seen by Provider: 06/06/22 08:47 - History of Present Illness Initial comments: This patient is a 46-year-old man presenting with chief complaint that he has been having weeks of diarrhea. He states he had previous history of clostridium that was treated. He has not noted accompanying fever or chills. No abdominal pains. He does have some transient nausea but no vomiting. Patient also reports that he had fallen parking lot earlier this week hitting the anterior aspect of left knee. He has been able sport weight but states are his marked amount of pain. (Mark Covington) - Related Data Home Medications Medication Instructions Recorded Confirmed Insulin NPH Hum/Reg Insulin Hm 8 unit SQ AC-TID 11/27/14 06/06/22 [humuLIN 70/30 Kwikpen] Labetalol [Trandate] 400 mg PO TID 11/27/14 06/06/22 Isosorbide Mononitrate [Imdur] 120 mg PO DAILY 11/06/20 06/06/22 Lidocaine-Prilocaine Cream [Emla 1 applic TOPICAL DAILY PRN 11/06/20 06/06/22 Cream 2.5%/2.5%] HYDROcodone/APAP 10-325MG [[place] 1 tab PO QID PRN 06/16/21 06/06/22 10-325] Gabapentin [Neurontin] 300 mg PO TID 10/18/21 06/06/22 cloNIDine HCL [Catapres] 0.2 mg PO TID 10/18/21 06/06/22 Renaplex-D 1 tab PO DAILY 06/06/22 06/06/22 Sevelamer [Renvela] 1,600 mg PO TID-W/MEALS 06/06/22 06/06/22 Sevelamer [Renvela] 800 mg PO DAILY PRN 06/06/22 06/06/22 hydrALAZINE HCL [Apresoline] 100 mg PO TID 06/06/22 06/06/22 Previous Rx's Medication Instructions Recorded NIFEdipine XL [Procardia XL] 90 mg PO DAILY #30 tab.er.24 11/09/20 Doxycycline [Vibramycin] 100 mg PO DAILY #14 cap 06/06/22 Allergies Allergy/AdvReac Type Severity Reaction Status Date / Time No Known Allergies Allergy Verified 06/06/22 11:21 Review of Systems ROS Other: All systems not noted in ROS Statement are negative. Constitutional: Reports: weakness. Denies: fever, chills Respiratory: Denies: cough, dyspnea Cardiovascular: Denies: chest pain, palpitations, edema, syncope Gastrointestinal: Reports: diarrhea. Denies: abdominal pain, nausea, vomiting, constipation, melena, hematochezia Genitourinary: Reports: other (Anuric) Musculoskeletal: Denies: back pain Skin: Denies: rash Neurological: Denies: headache, weakness, numbness <Mark Covington - Last Filed: 06/06/22 15:01> ROS Other: All systems not noted in ROS Statement are negative. <Rolando Jin - Last Filed: 06/06/22 23:06> ROS Statement: Those systems with pertinent positive or pertinent negative responses have been documented in the HPI. Past Medical History Past Medical History: Asthma, Diabetes Mellitus, Dialysis, Eye Disorder, Hypertension, Renal Disease Additional Past Medical History / Comment(s): very poor vision R eye, has dialysis Thursday, thu and Thursday. History of Any Multi-Drug Resistant Organisms: None Reported Past Surgical History: No Surgical Hx Reported Additional Past Surgical History / Comment(s): eye surgery due to diabetes and thorascopic percardial window 2013, right eye removal Past Anesthesia/Blood Transfusion Reactions: No Reported Reaction Additional Past Anesthesia/Blood Transfusion Reaction / Comment(s): blood transfusion 2013 Past Psychological History: Anxiety, Depression Smoking Status: Former smoker Past Alcohol Use History: None Reported Past Drug Use History: None Reported - Past Family History Father Family Medical History: Renal Disease Mother History Unknown: Yes <Mark Covington - Last Filed: 06/06/22 15:01> General Exam Limitations: no limitations General appearance: alert, in no apparent distress Head exam: Present: atraumatic, normocephalic Eye exam: Present: other (Right eye patched) Neck exam: Present: normal inspection Respiratory exam: Present: normal lung sounds bilaterally. Absent: respiratory distress, wheezes, rales, rhonchi, stridor Cardiovascular Exam: Present: normal rhythm, tachycardia (Rate 104 at my exam), systolic murmur. Absent: diastolic murmur, rubs, gallop GI/Abdominal exam: Present: soft. Absent: distended, tenderness, guarding, rebound, rigid, mass Extremities exam: Present: normal inspection, tenderness (There is mild tenderness anterior aspect left knee. No obvious deformity. No evident ligamentous laxity), normal capillary refill. Absent: pedal edema, calf tenderness Back exam: Present: normal inspection Neurological exam: Present: alert. Absent: motor sensory deficit Skin exam: Present: warm, dry, intact, normal color. Absent: rash <Mark Covington - Last Filed: 06/06/22 15:01> Course Vital Signs 06/06/22 06/06/22 06/06/22 08:45 11:09 13:22 Temperature 99 F Pulse Rate 108 H 105 H 107 H Respiratory 18 18 18 Rate Blood Pressure 173/94 172/95 188/98 O2 Sat by Pulse 89 L 98 96 Oximetry 06/06/22 06/06/22 06/06/22 20:00 20:30 22:00 Temperature Pulse Rate Respiratory Rate Blood Pressure 191/101 197/104 186/98 O2 Sat by Pulse 99 Oximetry EKG Findings - EKG Results: EKG: interpreted by ERMD, sinus rhythm, normal axis, normal QRS EKG shows: tachycardia (Rate 107 bpm) - Blocks, Kiana, Hypertrophy, ST Abn: Repolarization changes or abnormalities: nonspecific abnormality, ST segment, and/or T wave <Mark Covington - Last Filed: 06/06/22 15:01> Medical Decision Making - Lab Data Result diagrams: 06/06/22 08:43 06/06/22 08:43 <Mark Covington - Last Filed: 06/06/22 15:01> - Lab Data Result diagrams: 06/06/22 08:43 06/06/22 08:43 <Rolando Jin - Last Filed: 06/06/22 23:06> - Medical Decision Making Dr. Luke had come by to see the patient here in emergency department and ar ranged dialysis treatment here today as the patient was missing his scheduled Thursday dialysis. Dr. Luke also called nursing and stated that the patient had expressed concerns about possible exposure to STI. I then went and discussed with the patient who confirmed he did have an exposure that he was concerned about. I discussed sending swabs to the lab and that they would not return a result to day, the patient requested to have empiric treatment instead. Antibiotics are ordered. (Mark Covington) Patient was signed out to me pending completion of dialysis. He was medically cleared for discharge home by the prior emergency department physician. Workup on admission was unremarkable, including negative C. diff and COVID-19 testing.. Plan was for discharge home. Patient completed dialysis. 2 L were taken off. He tolerated it well. On reevaluation, patient is no acute complaints. He asked for food which will be provided. He will be discharged home. He was empirically treated for STDs. I will provide the patient with a prescription for doxycycline. I instructed the patient to follow up with their PCP in the next 1-3 days. I explained that the patient should return to the emergency department if they experience any worsening symptoms. Strict return precautions were discussed with the patient. The patient expressed understanding of these instructions. I answered all questions that the patient had. The patient was discharged home in good condition with their prescriptions and follow up information. Patient was cleared for discharge. However there was a delay and when nursing staff notified me that the patient is no hypertensive again. He did receive one dose of antihypertensive medications with minimal improvement. He is asymptomatic otherwise. He did not receive his evening doses of medications which will now be administered. He was shift change at this time wish to delay administration of these medications. Patient's blood pressure did respond. He is stable for discharge home at this time. He was in agreement this plan. (Rolando Jin) - Lab Data Lab Results 06/06/22 06/06/22 06/06/22 Range/Units 08:43 08:43 08:43 WBC 13.6 H (3.8-10.6) k/uL RBC 4.03 L (4.30-5.90) m/uL Hgb 11.0 L (13.0-17.5) gm/dL Hct 32.0 L (39.0-53.0) % MCV 79.3 L (80.0-100.0) fL MCH 27.3 (25.0-35.0) pg MCHC 34.4 (31.0-37.0) g/dL RDW 17.7 H (11.5-15.5) % Plt Count 156 (150-450) k/uL MPV 10.3 Neutrophils % 79 % Lymphocytes % 9 % Monocytes % 8 % Eosinophils % 2 % Basophils % 0 % Neutrophils # 10.8 H (1.3-7.7) k/uL Lymphocytes # 1.3 (1.0-4.8) k/uL Monocytes # 1.0 (0-1.0) k/uL Eosinophils # 0.3 (0-0.7) k/uL Basophils # 0.0 (0-0.2) k/uL Anisocytosis Slight Microcytosis Slight Sodium 141 (137-145) mmol/L Potassium 4.6 (3.5-5.1) mmol/L Chloride 94 L (98-107) mmol/L Carbon Dioxide 21 L (22-30) mmol/L Anion Gap 26 mmol/L BUN 63 H (9-20) mg/dL Creatinine 11.75 H* (0.66-1.25) mg/dL Est GFR (CKD-EPI)AfAm 5 (>60 ml/min/1.73 sqM) Est GFR (CKD-EPI)NonAf 5 (>60 ml/min/1.73 sqM) Glucose 191 H (74-99) mg/dL Calcium 8.4 (8.4-10.2) mg/dL Total Bilirubin 0.8 (0.2-1.3) mg/dL AST 21 (17-59) U/L ALT 17 (4-49) U/L Alkaline Phosphatase 99 (38-126) U/L NT-Pro-B Natriuret Pep [id number] pg/mL Total Protein 7.8 (6.3-8.2) g/dL Albumin 4.4 (3.5-5.0) g/dL C. difficile (EIA) Intrp (Negative) Coronavirus (PCR) (Not Detectd) 06/06/22 06/06/22 Range/Units 08:43 11:38 WBC (3.8-10.6) k/uL RBC (4.30-5.90) m/uL Hgb (13.0-17.5) gm/dL Hct (39.0-53.0) % MCV (80.0-100.0) fL MCH (25.0-35.0) pg MCHC (31.0-37.0) g/dL RDW (11.5-15.5) % Plt Count (150-450) k/uL MPV Neutrophils % % Lymphocytes % % Monocytes % % Eosinophils % % Basophils % % Neutrophils # (1.3-7.7) k/uL Lymphocytes # (1.0-4.8) k/uL Monocytes # (0-1.0) k/uL Eosinophils # (0-0.7) k/uL Basophils # (0-0.2) k/uL Anisocytosis Microcytosis Sodium (137-145) mmol/L Potassium (3.5-5.1) mmol/L Chloride (98-107) mmol/L Carbon Dioxide (22-30) mmol/L Anion Gap mmol/L BUN (9-20) mg/dL Creatinine (0.66-1.25) mg/dL Est GFR (CKD-EPI)AfAm (>60 ml/min/1.73 sqM) Est GFR (CKD-EPI)NonAf (>60 ml/min/1.73 sqM) Glucose (74-99) mg/dL Calcium (8.4-10.2) mg/dL Total Bilirubin (0.2-1.3) mg/dL AST (17-59) U/L ALT (4-49) U/L Alkaline Phosphatase (38-126) U/L NT-Pro-B Natriuret Pep pg/mL Total Protein (6.3-8.2) g/dL Albumin (3.5-5.0) g/dL C. difficile (EIA) Intrp Negative (Negative) Coronavirus (PCR) Not Detected (Not Detectd) Disposition Is patient prescribed a controlled substance at d/c from ED?: No <Mark Covington - Last Filed: 06/06/22 15:01> Is patient prescribed a controlled substance at d/c from ED?: No Time of Disposition: 18:15 <Rolando Jin - Last Filed: 06/06/22 23:06> Clinical Impression: Knee injury, End stage renal disease, Diarrhea, Exposure to STD Disposition: HOME SELF-CARE Condition: Good Instructions (If sedation given, give patient instructions): Chronic Diarrhea (ED), Knee Pain (ED) Prescriptions: Doxycycline [Vibramycin] 100 mg PO DAILY #14 cap Referrals: Luan Valdivia DO [Primary Care Provider] - 1-2 days
[2022-06-06] MEDS ORDERED: hydrALAZINE HCL 20 MG/ML 1 ML VIAL IVP PRN (12:18)
--- NOTE | 2022-06-06 12:19 | P.NPCON ---
History of Present Illness - Reason for Consult end stage renal disease - History of Present Illness Reason for consultation: End-stage renal disease History of present illness: Patient is a 46-year-old male seen in renal consultation for end-stage renal disease. Patient was seen and examined in the emergency room. He is maintained on hemodialysis on Thursday schedule via left upper extremity AV fistula. Patient presented to the hospital due to diarrhea. Patient states he's been having diarrhea since Thursday. Patient states he had [place] food a week prior to that. He denies any fever. No vomiting. No chest pain or shortness of breath. He does have history of diabetes. Denies history of coronary artery disease. Denies abdominal pain. Patient states he did fall and hurt his knee. X-ray showed no acute fracture. Chest x-ray showed no acute cardiopulmonary disease. He tested negative for coronavirus his admission. Family member states that he does have C. diff a few months ago. Vital signs are stable. General: Awake. No acute distress. HEENT: Head exam is unremarkable. LUNGS: Breath sounds decreased. HEART: Rate and Rhythm are regular. ABDOMEN: Soft, no distention. Nontender. EXTREMITITES: No edema. Past Medical History Past Medical History: Asthma, Diabetes Mellitus, Dialysis, Eye Disorder, Hypertension, Renal Disease Additional Past Medical History / Comment(s): very poor vision R eye, has dialysis Thursday, thu and Thursday. History of Any Multi-Drug Resistant Organisms: None Reported Past Surgical History: No Surgical Hx Reported Additional Past Surgical History / Comment(s): eye surgery due to diabetes and thorascopic percardial window 2012, right eye removal Past Anesthesia/Blood Transfusion Reactions: No Reported Reaction Additional Past Anesthesia/Blood Transfusion Reaction / Comment(s): blood transfusion 2013 Past Psychological History: Anxiety, Depression Smoking Status: Former smoker Past Alcohol Use History: None Reported Past Drug Use History: None Reported - Past Family History Father Family Medical History: Renal Disease Mother History Unknown: Yes Medications and Allergies Home Medications Medication Instructions Recorded Confirmed Type Insulin NPH Hum/Reg Insulin Hm 8 unit SQ AC-TID 11/27/14 06/06/22 History [humuLIN 70/30 Kwikpen] Labetalol [Trandate] 400 mg PO TID 11/27/14 06/06/22 History Isosorbide Mononitrate [Imdur] 120 mg PO DAILY 11/06/20 06/06/22 History Lidocaine-Prilocaine Cream [Emla 1 applic TOPICAL DAILY PRN 11/06/20 06/06/22 History Cream 2.5%/2.5%] NIFEdipine XL [Procardia XL] 90 mg PO DAILY #30 tab.er.24 11/09/20 06/06/22 Rx HYDROcodone/APAP 10-325MG [[place] 1 tab PO QID PRN 06/16/21 06/06/22 History 10-325] Gabapentin [Neurontin] 300 mg PO TID 10/18/21 06/06/22 History cloNIDine HCL [Catapres] 0.2 mg PO TID 10/18/21 06/06/22 History Renaplex-D 1 tab PO DAILY 06/06/22 06/06/22 History Sevelamer [Renvela] 1,600 mg PO TID-W/MEALS 06/06/22 06/06/22 History Sevelamer [Renvela] 800 mg PO DAILY PRN 06/06/22 06/06/22 History hydrALAZINE HCL [Apresoline] 100 mg PO TID 06/06/22 06/06/22 History Allergies Allergy/AdvReac Type Severity Reaction Status Date / Time No Known Allergies Allergy Verified 06/06/22 11:21 Physical Exam Vitals: Vital Signs Temp Pulse Resp BP Pulse Ox 06/06/22 11:09 105 H 18 172/95 98 06/06/22 08:45 99 F 108 H 18 173/94 89 L Intake and Output 06/05/22 06/06/22 06/06/22 22:59 06:59 14:59 Other: Weight 65.317 kg Results - Lab Results Most recent lab results Calcium 8.4 mg/dL (8.4-10.2) 06/06/22 08:43 06/06/22 08:43 06/06/22 08:43 Assessment and Plan Plan: Assessment: 1. End-stage renal disease maintained on hemodialysis on Thursday schedule via left upper extremity AV fistula. 2. Diarrhea. Rule out C. diff. 3. Hypertension with chronic kidney disease. 4. Diabetes mellitus. 5. Chronic kidney disease mineral bone disease maintained on Renvela outpatient. 6. Metabolic acidosis secondary to chronic kidney disease and GI losses. Plan: Hemodialysis today. Check stool culture and stool for C. diff. Home meds to be resumed. Thank you for the consultation. I will continue to follow the patient with you during his hospital stay.
[2022-06-06 13:22] VITALS: PULSE 107
[2022-06-06] MEDS ORDERED: diphenhydrAMINE 50 MG/ML 1 ML VIAL IVP STA (14:08)
[2022-06-06] MEDS ORDERED: cefTRIAXone 250 MG VIAL IM STA (14:39)
[2022-06-06] MEDS ORDERED: DOXYCYCLINE 100 MG CAP PO STA (14:40)
[2022-06-06] MEDS ORDERED: hydrALAZINE HCL 20 MG/ML 1 ML VIAL IVP STA ×2 (18:41→20:59)
[2022-06-06] MEDS ORDERED: cloNIDine HCL 0.2 MG TAB PO STA (21:00)
[2022-06-06] MEDS ORDERED: LABETALOL 200 MG TAB PO STA (21:00)
[2022-06-06 22:23] VITALS: BP 186/98
== END 2022-06-06 22:19 | disposition home or self-care (01) ==
LOC: EC 08:43
DX: S80.912A Unspecified superficial injury of left knee, initial encounter (principal); Z20.2 Contact with and (suspected) exposure to infections with a predominantly sexual mode of transmission; N18.6 End stage renal disease; R19.7 Diarrhea, unspecified; J45.909 Unspecified asthma, uncomplicated; E11.9 Type 2 diabetes mellitus without complications; I12.0 Hypertensive chronic kidney disease with stage 5 chronic kidney disease or end stage renal disease; F41.9 Anxiety disorder, unspecified; F32.A Depression, unspecified; Z87.891 Personal history of nicotine dependence; Z79.4 Long term (current) use of insulin; Z99.2 Dependence on renal dialysis; W01.198A Fall on same level from slipping, tripping and stumbling with subsequent striking against other object, initial encounter; Z20.822 Contact with and (suspected) exposure to COVID-19
CPT/HCPCS: 36415; 83880; 80053; 85025; 87324; 87045; 87046; 87635; 73562; 71045; 99285; 96372; 96374; 96375; 96376; J0360; J1200; J0696

== ENCOUNTER 2022-06-15 18:57 | Inpatient (IN) | payer MEDICARE, BC, OTHER ==
[2022-06-15 20:17] LABS: Albumin 3.6 g/dL (3.5-5.0); Calcium 8.9 mg/dL (8.4-10.2); Potassium 4.1 mmol/L (3.5-5.1); Total Bilirubin 0.6 mg/dL (0.2-1.3); Total Protein 6.7 g/dL (6.3-8.2)
--- NOTE | 2022-06-15 20:19 | CT ---
EXAMINATION TYPE: CT brain wo con CT DLP: 1143.4 mGycm, Automated exposure control for dose reduction was used. DATE OF EXAM: 06/15/2022 7:49 PM COMPARISON: CT brain 07/24/2021. CLINICAL INDICATION:Male, 46 years old with history of arm/leg weakness x weeks, weakness TECHNIQUE: Brain: Axial CT images of the brain were obtained with coronal and sagittal reformats created and rev iewed. Contrast used: None. Oral contrast used: None. FINDINGS: Brain: Extra-axial spaces: No abnormal extra-axial fluid collections. Ventricular system: Within normal limits Cerebral parenchyma: No acute intraparenchymal hemorrhage or mass effect. The potts-white junction is well differentiated. Cerebellum: Unremarkable. Mass effect: No evidence of midline shift. Intracranial vasculature: Atherosclerotic calcifications of the intracranial vessels. Soft tissues: Normal. Calvarium/osseous structures: No depressed skull fracture. Paranasal sinuses and mastoid air cells: Mild scattered paranasal sinus disease. Visualized orbits: Chronic deformity of the globes bilaterally. No acute process. IMPRESSION: No acute intracranial process.
[2022-06-15 20:21] LABS: Anisocytosis Slight; Basophils # (A) 0.1 k/uL (0-0.2); Basophils % (A) 1 %; Eosinophils # (A) 0.1 k/uL (0-0.7); Eosinophils % (A) 1 %; HCT 31.9 % (39.0-53.0); HGB 10.9 gm/dL (13.0-17.5); Lymphocytes # (A) 1.5 k/uL (1.0-4.8); Lymphocytes % (A) 11 %; MCH 27.7 pg (25.0-35.0); MCHC 34.1 g/dL (31.0-37.0); MCV 81.3 fL (80.0-100.0); Mean Platelet Volume 8.5; Microcytosis Slight; Monocytes # (A) 0.6 k/uL (0-1.0); Monocytes % (A) 4 %; Neutrophils # (A) 11.3 k/uL (1.3-7.7); Neutrophils % (A) 82 %; Platelet Count 242 k/uL (150-450); RBC 3.92 m/uL (4.30-5.90); RDW 19.4 % (11.5-15.5); WBC 13.8 k/uL (3.8-10.6)
--- NOTE | 2022-06-15 20:22 | XR ---
EXAMINATION TYPE: XR forearm RT DATE OF EXAM: 06/15/2022 7:57 PM INDICATION: Patient age:Male; 46 years old; Reason for study: fall, pain; PHH. COMPARISON: No relevant priors TECHNIQUE: The right forearm was examined in AP and lateral projections. FINDINGS: No acute osseous pathology, soft tissue swelling or joint dislocations are seen. Extensive vascular calcifications are present. No radiopaque foreign bodies. IMPRESSION: No evidence of acute fracture.
--- NOTE | 2022-06-15 20:25 | XR ---
EXAMINATION TYPE: XR Hip RT and AP Pelvis DATE OF EXAM: 06/15/2022 7:56 PM INDICATION: Patient age:Male; 46 years old; Reason for study: pain, fall; PHH. COMPARISON: CT abdomen pelvis 10/18/2021 TECHNIQUE: The right hip was examined in the frontal and lateral projections and a AP pelvis. Patient is rotated to the left. FINDINGS: No evidence for fracture or dislocation. 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 Mild osteoarthritis of the pubic symphysis. Extensive vascular calcifications noted within the pelvi s. IMPRESSION: No evidence for fracture or dislocation.
--- NOTE | 2022-06-15 21:03 | ED ---
General Adult HPI - General Chief complaint: Extremity Injury, Upper Stated complaint: Weakness, pain Time Seen by Provider: 06/15/22 19:00 Source: EMS Mode of arrival: EMS - History of Present Illness Initial comments: 46-year-old male with past medical history of asthma, diabetes, end-stage renal disease on hemodialysis Thursday presents to the emergency depart ment for weakness. EMS states that the patient called because his legs keep giving out on him and the patient sustained a fall. Patient reports to me that this happened last week. He has had persistent right arm and hip pain since the fall. He denies any chest pain or shortness of breath. He has been receiving his dialysis as scheduled without any missed regions. He states he is taking his medications as directed. History is extremely limited from the patient. - Related Data Home Medications Medication Instructions Recorded Confirmed Insulin NPH Hum/Reg Insulin Hm 8 unit SQ AC-TID 11/27/14 06/15/22 [humuLIN 70/30 Kwikpen] Labetalol [Trandate] 400 mg PO TID 11/27/14 06/15/22 Isosorbide Mononitrate [Imdur] 120 mg PO DAILY 11/06/20 06/15/22 Lidocaine-Prilocaine Cream [Emla 1 applic TOPICAL DAILY PRN 11/06/20 06/15/22 Cream 2.5%/2.5%] HYDROcodone/APAP 10-325MG [[place] 1 tab PO QID PRN 06/16/21 06/15/22 10-325] Gabapentin [Neurontin] 300 mg PO TID 10/18/21 06/15/22 cloNIDine HCL [Catapres] 0.2 mg PO TID 10/18/21 06/15/22 Renaplex-D 1 tab PO DAILY 06/06/22 06/15/22 Sevelamer [Renvela] 1,600 mg PO TID-W/MEALS 06/06/22 06/15/22 Sevelamer [Renvela] 800 mg PO DAILY PRN 06/06/22 06/15/22 hydrALAZINE HCL [Apresoline] 100 mg PO TID 06/06/22 06/15/22 Previous Rx's Medication Instructions Recorded NIFEdipine XL [Procardia XL] 90 mg PO DAILY #30 tab.er.24 11/09/20 Doxycycline [Vibramycin] 100 mg PO DAILY #14 cap 06/06/22 Allergies Allergy/AdvReac Type Severity Reaction Status Date / Time No Known Allergies Allergy Verified 06/06/22 11:21 Review of Systems ROS Statement: Those systems with pertinent positive or pertinent negative responses have been documented in the HPI. ROS Other: All systems not noted in ROS Statement are negative. Past Medical History Past Medical History: Asthma, Diabetes Mellitus, Dialysis, Eye Disorder, Hypertension, Renal Disease Additional Past Medical History / Comment(s): very poor vision R eye, has dialysis Thursday, thu and Thursday. History of Any Multi-Drug Resistant Organisms: None Reported Past Surgical History: No Surgical Hx Reported Additional Past Surgical History / Comment(s): eye surgery due to diabetes and thorascopic percardial window 2012, right eye removal Past Anesthesia/Blood Transfusion Reactions: No Reported Reaction Additional Past Anesthesia/Blood Transfusion Reaction / Comment(s): blood transfusion 2012 Past Psychological History: Anxiety, Depression Smoking Status: Former smoker Past Alcohol Use History: None Reported Past Drug Use History: None Reported - Past Family History Father Family Medical History: Renal Disease Mother History Unknown: Yes General Exam General appearance: alert, in no apparent distress Head exam: Present: atraumatic, normocephalic, normal inspection Eye exam: Present: PERRL, EOMI, other (eye patch right eye). Absent: scleral icterus, conjunctival injection, periorbital swelling ENT exam: Present: normal exam, mucous membranes moist Neck exam: Present: normal inspection. Absent: tenderness, meningismus, lymphadenopathy Respiratory exam: Present: normal lung sounds bilaterally. Absent: respiratory distress, wheezes, rales, rhonchi, stridor Cardiovascular Exam: Present: regular rate, normal rhythm, normal heart sounds. Absent: systolic murmur, diastolic murmur, rubs, gallop, clicks GI/Abdominal exam: Present: soft, normal bowel sounds. Absent: distended, tenderness, guarding, rebound, rigid Extremities exam: Present: normal inspection, full ROM, normal capillary refill, other (fistula left upper extremity). Absent: tenderness, pedal edema, joint swelling, calf tenderness Back exam: Present: normal inspection Neurological exam: Present: alert, oriented X3, CN II-XII intact Psychiatric exam: Present: normal affect, normal mood Skin exam: Present: warm, dry, intact, normal color. Absent: rash Course Vital Signs 06/15/22 06/15/22 06/15/22 18:59 22:04 23:31 Temperature 97.8 F 98.4 F Pulse Rate 85 90 87 Respiratory 16 17 16 Rate Blood Pressure 150/80 159/78 163/71 O2 Sat by Pulse 99 98 97 Oximetry Medical Decision Making - Medical Decision Making Upon arrival patient is placed into room 5. Thorough history and physical exam is performed. X-ray imaging is performed the patient's right arm and right hip due to reported fall with pain. Laboratory studies are additionally completed. As the patient is reporting to right-sided symptoms I additionally perform a CT of his head to rule out stroke. Images are reviewed by myself and negative for any acute process. No CVA. I did discuss these results with the patient and attempt to discharge him. I spoke with the patient's POA who states that he was at [facility] and was discharged last week. The patient cannot function on his own at home. He was kicked out of his sister's house who was originally taking care of him. They feel that the sister was not taking adequate care. The POA does not have availability of getting the patient to his dialysis treatments. They are requesting admission for placement. I did page leila - further workup will be performed at this time for patients weakness. He will be admitted to [place] emergency department - Lab Data Result diagrams: 06/17/22 10:00 06/17/22 10:00 Lab Results 06/15/22 06/15/22 06/15/22 Range/Units 19:31 19:31 23:00 WBC 13.8 H (3.8-10.6) k/uL RBC 3.92 L (4.30-5.90) m/uL Hgb 10.9 L (13.0-17.5) gm/dL Hct 31.9 L (39.0-53.0) % MCV 81.3 (80.0-100.0) fL MCH 27.7 (25.0-35.0) pg MCHC 34.1 (31.0-37.0) g/dL RDW 19.4 H (11.5-15.5) % Plt Count 242 (150-450) k/uL MPV 8.5 Neutrophils % 82 % Lymphocytes % 11 % Monocytes % 4 % Eosinophils % 1 % Basophils % 1 % Neutrophils # 11.3 H (1.3-7.7) k/uL Lymphocytes # 1.5 (1.0-4.8) k/uL Monocytes # 0.6 (0-1.0) k/uL Eosinophils # 0.1 (0-0.7) k/uL Basophils # 0.1 (0-0.2) k/uL Anisocytosis Slight Microcytosis Slight Sodium 136 L (137-145) mmol/L Potassium 4.1 (3.5-5.1) mmol/L Chloride 97 L (98-107) mmol/L Carbon Dioxide 26 (22-30) mmol/L Anion Gap 13 mmol/L BUN 36 H (9-20) mg/dL Creatinine 7.84 H* (0.66-1.25) mg/dL Est GFR (CKD-EPI)AfAm 9 (>60 ml/min/1.73 sqM) Est GFR (CKD-EPI)NonAf 7 (>60 ml/min/1.73 sqM) Glucose 299 H (74-99) mg/dL POC Glucose (mg/dL) (70-110) mg/dL POC Glu Jewel Gauger ID Calcium 8.9 (8.4-10.2) mg/dL Total Bilirubin 0.6 (0.2-1.3) mg/dL AST 17 (17-59) U/L ALT 13 (4-49) U/L Alkaline Phosphatase 80 (38-126) U/L Troponin I (0.000-0.034) ng/mL NT-Pro-B Natriuret Pep 30228 pg/mL Total Protein 6.7 (6.3-8.2) g/dL Albumin 3.6 (3.5-5.0) g/dL HIV-1 Antibody (Non-Reactive) HIV Ag/Ab Interpret HIV p24 Antibody (Non-Reactive) HIV-2 Antibody (Non-Reactive) HIV P24 Antigen (Non-Reactive) 06/15/22 06/16/22 06/16/22 Range/Units 23:00 06:19 06:19 WBC 13.6 H (3.8-10.6) k/uL RBC 4.13 L (4.30-5.90) m/uL Hgb 11.5 L (13.0-17.5) gm/dL Hct 33.9 L (39.0-53.0) % MCV 82.0 (80.0-100.0) fL MCH 27.8 (25.0-35.0) pg MCHC 33.9 (31.0-37.0) g/dL RDW 19.4 H (11.5-15.5) % Plt Count 248 (150-450) k/uL MPV 9.0 Neutrophils % 85 % Lymphocytes % 10 % Monocytes % 3 % Eosinophils % 1 % Basophils % 0 % Neutrophils # 11.5 H (1.3-7.7) k/uL Lymphocytes # 1.3 (1.0-4.8) k/uL Monocytes # 0.5 (0-1.0) k/uL Eosinophils # 0.2 (0-0.7) k/uL Basophils # 0.0 (0-0.2) k/uL Anisocytosis Slight Microcytosis Slight Sodium 134 L (137-145) mmol/L Potassium 4.6 (3.5-5.1) mmol/L Chloride 98 (98-107) mmol/L Carbon Dioxide 25 (22-30) mmol/L Anion Gap 11 mmol/L BUN 42 H (9-20) mg/dL Creatinine 8.49 H* (0.66-1.25) mg/dL Est GFR (CKD-EPI)AfAm 8 (>60 ml/min/1.73 sqM) Est GFR (CKD-EPI)NonAf 7 (>60 ml/min/1.73 sqM) Glucose 307 H (74-99) mg/dL POC Glucose (mg/dL) (70-110) mg/dL POC Glu Jewel Gauger ID Calcium 8.7 (8.4-10.2) mg/dL Total Bilirubin (0.2-1.3) mg/dL AST (17-59) U/L ALT (4-49) U/L Alkaline Phosphatase (38-126) U/L Troponin I 0.036 H* (0.000-0.034) ng/mL NT-Pro-B Natriuret Pep pg/mL Total Protein (6.3-8.2) g/dL Albumin (3.5-5.0) g/dL HIV-1 Antibody (Non-Reactive) HIV Ag/Ab Interpret HIV p24 Antibody (Non-Reactive) HIV-2 Antibody (Non-Reactive) HIV P24 Antigen (Non-Reactive) 06/16/22 06/16/22 06/16/22 Range/Units 06:19 06:19 12:54 WBC (3.8-10.6) k/uL RBC (4.30-5.90) m/uL Hgb (13.0-17.5) gm/dL Hct (39.0-53.0) % MCV (80.0-100.0) fL MCH (25.0-35.0) pg MCHC (31.0-37.0) g/dL RDW (11.5-15.5) % Plt Count (150-450) k/uL MPV Neutrophils % % Lymphocytes % % Monocytes % % Eosinophils % % Basophils % % Neutrophils # (1.3-7.7) k/uL Lymphocytes # (1.0-4.8) k/uL Monocytes # (0-1.0) k/uL Eosinophils # (0-0.7) k/uL Basophils # (0-0.2) k/uL Anisocytosis Microcytosis Sodium (137-145) mmol/L Potassium (3.5-5.1) mmol/L Chloride (98-107) mmol/L Carbon Dioxide (22-30) mmol/L Anion Gap mmol/L BUN (9-20) mg/dL Creatinine (0.66-1.25) mg/dL Est GFR (CKD-EPI)AfAm (>60 ml/min/1.73 sqM) Est GFR (CKD-EPI)NonAf (>60 ml/min/1.73 sqM) Glucose (74-99) mg/dL POC Glucose (mg/dL) 337 H 77 (70-110) mg/dL POC Glu Jewel Gauger ID Alexus Paz Tiffany Calcium (8.4-10.2) mg/dL Total Bilirubin (0.2-1.3) mg/dL AST (17-59) U/L ALT (4-49) U/L Alkaline Phosphatase (38-126) U/L Troponin I (0.000-0.034) ng/mL NT-Pro-B Natriuret Pep pg/mL Total Protein (6.3-8.2) g/dL Albumin (3.5-5.0) g/dL HIV-1 Antibody Non-Reactive (Non-Reactive) HIV Ag/Ab Interpret HIV p24 Antibody Non-Reactive (Non-Reactive) HIV-2 Antibody Non-Reactive (Non-Reactive) HIV P24 Antigen Non-Reactive (Non-Reactive) 06/16/22 06/16/22 06/16/22 Range/Units 17:44 19:38 20:32 WBC (3.8-10.6) k/uL RBC (4.30-5.90) m/uL Hgb (13.0-17.5) gm/dL Hct (39.0-53.0) % MCV (80.0-100.0) fL MCH (25.0-35.0) pg MCHC (31.0-37.0) g/dL RDW (11.5-15.5) % Plt Count (150-450) k/uL MPV Neutrophils % % Lymphocytes % % Monocytes % % Eosinophils % % Basophils % % Neutrophils # (1.3-7.7) k/uL Lymphocytes # (1.0-4.8) k/uL Monocytes # (0-1.0) k/uL Eosinophils # (0-0.7) k/uL Basophils # (0-0.2) k/uL Anisocytosis Microcytosis Sodium (137-145) mmol/L Potassium (3.5-5.1) mmol/L Chloride (98-107) mmol/L Carbon Dioxide (22-30) mmol/L Anion Gap mmol/L BUN (9-20) mg/dL Creatinine (0.66-1.25) mg/dL Est GFR (CKD-EPI)AfAm (>60 ml/min/1.73 sqM) Est GFR (CKD-EPI)NonAf (>60 ml/min/1.73 sqM) Glucose (74-99) mg/dL POC Glucose (mg/dL) 126 H 169 H 199 H (70-110) mg/dL POC Glu Jewel Gauger ID Cecilia Avilez, Romeyline Addy, Addyline Calcium (8.4-10.2) mg/dL Total Bilirubin (0.2-1.3) mg/dL AST (17-59) U/L ALT (4-49) U/L Alkaline Phosphatase (38-126) U/L Troponin I (0.000-0.034) ng/mL NT-Pro-B Natriuret Pep pg/mL Total Protein (6.3-8.2) g/dL Albumin (3.5-5.0) g/dL HIV-1 Antibody (Non-Reactive) HIV Ag/Ab Interpret HIV p24 Antibody (Non-Reactive) HIV-2 Antibody (Non-Reactive) HIV P24 Antigen (Non-Reactive) 06/17/22 Range/Units 07:21 WBC (3.8-10.6) k/uL RBC (4.30-5.90) m/uL Hgb (13.0-17.5) gm/dL Hct (39.0-53.0) % MCV (80.0-100.0) fL MCH (25.0-35.0) pg MCHC (31.0-37.0) g/dL RDW (11.5-15.5) % Plt Count (150-450) k/uL MPV Neutrophils % % Lymphocytes % % Monocytes % % Eosinophils % % Basophils % % Neutrophils # (1.3-7.7) k/uL Lymphocytes # (1.0-4.8) k/uL Monocytes # (0-1.0) k/uL Eosinophils # (0-0.7) k/uL Basophils # (0-0.2) k/uL Anisocytosis Microcytosis Sodium (137-145) mmol/L Potassium (3.5-5.1) mmol/L Chloride (98-107) mmol/L Carbon Dioxide (22-30) mmol/L Anion Gap mmol/L BUN (9-20) mg/dL Creatinine (0.66-1.25) mg/dL Est GFR (CKD-EPI)AfAm (>60 ml/min/1.73 sqM) Est GFR (CKD-EPI)NonAf (>60 ml/min/1.73 sqM) Glucose (74-99) mg/dL POC Glucose (mg/dL) 275 H (70-110) mg/dL POC Glu Jewel Gauger ID Cecilia Avilez Calcium (8.4-10.2) mg/dL Total Bilirubin (0.2-1.3) mg/dL AST (17-59) U/L ALT (4-49) U/L Alkaline Phosphatase (38-126) U/L Troponin I (0.000-0.034) ng/mL NT-Pro-B Natriuret Pep pg/mL Total Protein (6.3-8.2) g/dL Albumin (3.5-5.0) g/dL HIV-1 Antibody (Non-Reactive) HIV Ag/Ab Interpret HIV p24 Antibody (Non-Reactive) HIV-2 Antibody (Non-Reactive) HIV P24 Antigen (Non-Reactive) Disposition Clinical Impression: Leukocytosis, ESRD (end stage renal disease) on dialysis Disposition: ADMITTED IP TO THIS [facility] Condition: Stable Is patient prescribed a controlled substance at d/c from ED?: No Time of Disposition: 21:15 Decision to Admit Reason: Admit from EC Decision Date: 06/15/22 Decision Time: 21:15
[2022-06-15] MEDS ORDERED: NALOXONE 0.4 MG/ML 1 ML VIAL IV PRN (21:16)
--- NOTE | 2022-06-15 21:45 | XR ---
EXAMINATION TYPE: XR chest 2V DATE OF EXAM: 06/15/2022 9:18 PM COMPARISON: Chest x-ray 06/06/2022 TECHNIQUE: XR chest 2V . CLINICAL INDICATION:Male, 46 years old with history of Cough/pain; FINDINGS: Lungs/Pleura: There is no evidence of pleural effusion, focal consolidation, or pneumothorax. Pulmonary vascularity: Unremarkable. Heart/mediastinum: Cardiomediastinal silhouette is enlarged and stable. Musculoskeletal: No acute osseous pathology. IMPRESSION: Stable cardiomegaly. No acute cardiopulmonary disease/process.
[2022-06-16] MEDS ORDERED: SEVELAMER 800 MG TAB PO PRN (02:24)
--- NOTE | 2022-06-16 02:27 | P.HPIM ---
History of Present Illness H&P Date: 06/15/22 The patient is a 46-year-old male with an extensive PMH including type II DM, ESRD on hemodialysis Thursday/Thursday/Thursday, hypertension, hyperlipidemia who presents to the emergency room with complaints of right arm pain and numbness. The patient reports that throughout the day today, he feels that his legs have been giving out and that he had a fall earlier today as he attempted to stand up. Reported falling on his right hip. Denied head trauma or loss of consciousness. He denied focal weakness of the legs but states that he simply feels weak. He also reports experiencing right shoulder pain, sharp in nature, radiating down into his arm with associated right arm numbness. He denies right arm weakness. Denied experiencing chest discomfort or shortness of breath. Also denied fever, chills, nausea, vomiting, abdominal pain, diarrhea. Reports that he has not missed any of his dialysis sessions and is scheduled to receive his next session in the morning. Discussed the case in detail with the ED physician who stated that when she attempted to discharge the patient following an unremarkable CVA workup, the patient's POA noted that the patient is unable to care for himself and he was recently discharged from [facility] last week. Patient was reportedly kicked out of his sister's home for not taking care of himself. 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 The POA requested that the patient be placed at a facility due to inability to care for himself. Laboratory evaluation was reviewed with troponin 0.036 (baseline 0.1), WBC count 13.8, hemoglobin 10.9, BUN 76, creatinine 7.84, gluc ose 299, and proBNP 98,600. Chest x-ray revealed stable cardiomegaly. Review of systems: Pertinent positives and negatives as discussed in HPI, a complete review of systems was performed and all other systems are negative. Physical examination: General: Disheveled male, no distress, appears older than stated age, normal weight Derm: no unusual rashes/lesions, warm Head: atraumatic, normocephalic, symmetric Eyes: EOMI, no lid lag, anicteric sclera, pupils equal round reactive to light ENT: Nose and ears atraumatic Neck: No cervical lymphadenopathy, trachea midline, supple Mouth: no lip lesion, mucus membranes moist Cardiovascular: S1S2 reg, no murmur, positive dorsalis pedis pulse bilateral, no edema Lungs: CTA bilateral, no rhonchi, no rales, no accessory muscle use Abdominal: soft, nontender to palpation, no guarding Ext: muscle strength 4 out of 5 in all 4 extremities grossly, no gross muscle atrophy, no contractures, Neuro: CN II-XI grossly intact, no gross focal neuro deficits Psych: Alert, oriented, appropriate affect Assessment/plan Failure to thrive -PT and dietitian consult -rigging up worker consult for assistance with outpatient resources and possible sheri cement Leukocytosis -No signs of active infection at this time ESRD, on hemodialysis -Nephrology consulted for resumption of dialysis Elevated proBNP, likely due to ESRD -Patient does not appear to be in fluid overload state at this time DVT prophylaxis -Heparin subq The patient is admitted with an anticipated less than 2 midnight stay for evaluation of failure to thrive CODE STATUS: Full Code Discussed with: Patient Anticipated discharge date: in am Anticipated discharge place: Home Past Medical History Past Medical History: Asthma, Diabetes Mellitus, Dialysis, Eye Disorder, Hypertension, Renal Disease Additional Past Medical History / Comment(s): very poor vision R eye, has dialysis Thursday, thu and Thursday. History of Any Multi-Drug Resistant Organisms: None Reported Past Surgical History: No Surgical Hx Reported Additional Past Surgical History / Comment(s): eye surgery due to diabetes and thorascopic percardial window 2012, right eye removal Past Anesthesia/Blood Transfusion Reactions: No Reported Reaction Additional Past Anesthesia/Blood Transfusion Reaction / Comment(s): blood trans fusion 2012 Past Psychological History: Anxiety, Depression Smoking Status: Former smoker Past Alcohol Use History: None Reported Past Drug Use History: None Reported - Past Family History Father Family Medical History: Renal Disease Mother History Unknown: Yes Family Medical History: Hypertension Medications and Allergies Home Medications Medication Instructions Recorded Confirmed Type Insulin NPH Hum/Reg Insulin Hm 8 unit SQ AC-TID 11/27/14 06/15/22 History [humuLIN 70/30 Kwikpen] Labetalol [Trandate] 400 mg PO TID 11/27/14 06/15/22 History Isosorbide Mononitrate [Imdur] 120 mg PO DAILY 11/06/20 06/15/22 History Lidocaine-Prilocaine Cream [Emla 1 applic TOPICAL DAILY PRN 11/06/20 06/15/22 History Cream 2.5%/2.5%] NIFEdipine XL [Procardia XL] 90 mg PO DAILY #30 tab.er.24 11/09/20 06/15/22 Rx HYDROcodone/APAP 10-325MG [[place] 1 tab PO QID PRN 06/16/21 06/15/22 History 10-325] Gabapentin [Neurontin] 300 mg PO TID 10/18/21 06/15/22 History cloNIDine HCL [Catapres] 0.2 mg PO TID 10/18/21 06/15/22 History Doxycycline [Vibramycin] 100 mg PO DAILY #14 cap 06/06/22 06/15/22 Rx Renaplex-D 1 tab PO DAILY 06/06/22 06/15/22 History Sevelamer [Renvela] 1,600 mg PO TID-W/MEALS 06/06/22 06/15/22 History Sevelamer [Renvela] 800 mg PO DAILY PRN 06/06/22 06/15/22 History hydrALAZINE HCL [Apresoline] 100 mg PO TID 06/06/22 06/15/22 History Allergies Allergy/AdvReac Type Severity Reaction Status Date / Time No Known Allergies Allergy Verified 06/06/22 11:21 Physical Exam Vitals: Vital Signs Temp Pulse Resp BP Pulse Ox 06/15/22 18:59 97.8 F 85 16 150/80 99 Intake and Output 06/15/22 06/15/22 06/15/22 06:59 14:59 22:59 Other: Weight 71.214 kg Results CBC & Chem 7: 06/15/22 19:31 06/15/22 19:31 Labs: Abnormal Lab Results - Last 24 Hours (Table) 06/15/22 06/15/22 Range/Units 19:31 19:31 WBC 13.8 H (3.8-10.6) k/uL RBC 3.92 L (4.30-5.90) m/uL Hgb 10.9 L (13.0-17.5) gm/dL Hct 31.9 L (39.0-53.0) % RDW 19.4 H (11.5-15.5) % Neutrophils # 11.3 H (1.3-7.7) k/uL Sodium 136 L (137-145) mmol/L Chloride 97 L (98-107) mmol/L BUN 36 H (9-20) mg/dL Creatinine 7.84 H* (0.66-1.25) mg/dL Glucose 299 H (74-99) mg/dL
[2022-06-16] MEDS: HYDROcodone/APAP 10-325MG 1 EACH TAB PO PRN ×2 (02:38→20:52)
[2022-06-16 06:21] LABS: Glucose,Whole Blood 337 mg/dL (70-110)
[2022-06-16] MEDS: INSULIN ASPART (NovoLOG) 100 UNIT/ML VIAL SQ SCH ×4 (06:23→20:53)
[2022-06-16 06:43] LABS: Anisocytosis Slight; Basophils % (A) 0 %; Eosinophils # (A) 0.2 k/uL (0-0.7); Eosinophils % (A) 1 %; HCT 33.9 % (39.0-53.0); HGB 11.5 gm/dL (13.0-17.5); Lymphocytes # (A) 1.3 k/uL (1.0-4.8); Lymphocytes % (A) 10 %; MCH 27.8 pg (25.0-35.0); MCHC 33.9 g/dL (31.0-37.0); Microcytosis Slight; Monocytes # (A) 0.5 k/uL (0-1.0); Monocytes % (A) 3 %; Neutrophils # (A) 11.5 k/uL (1.3-7.7); Neutrophils % (A) 85 %; Platelet Count 248 k/uL (150-450); RBC 4.13 m/uL (4.30-5.90); RDW 19.4 % (11.5-15.5); WBC 13.6 k/uL (3.8-10.6)
[2022-06-16 06:54] LABS: Calcium 8.7 mg/dL (8.4-10.2); Potassium 4.6 mmol/L (3.5-5.1)
[2022-06-16] MEDS: LABETALOL 200 MG TAB PO SCH ×3 (09:24→21:41)
[2022-06-16] MEDS: cloNIDine HCL 0.2 MG TAB PO SCH ×3 (09:24→21:41)
[2022-06-16] MEDS: SEVELAMER 800 MG TAB PO SCH ×3 (09:24→17:57)
[2022-06-16] MEDS: hydrALAZINE HCL 50 MG TAB PO SCH ×3 (09:24→21:41)
[2022-06-16] MEDS: HEPARIN SODIUM,PORCINE/PF 5,000 UNIT/0.5 ML SYRINGE SQ SCH ×2 (09:25→16:41)
[2022-06-16] MEDS: NIFEdipine XL 90 MG TAB.ER.24 PO SCH (09:25)
[2022-06-16] MEDS: ISOSORBIDE MONONITRATE ER 60 MG TAB.ER.24H PO SCH (09:25)
[2022-06-16] MEDS: GABAPENTIN 300 MG CAP PO SCH ×3 (09:27→21:42)
--- NOTE | 2022-06-16 10:42 | P.NPCON ---
History of Present Illness - Reason for Consult end stage renal disease - History of Present Illness Reason for consultation: End-stage renal disease History of present illness: Patient is a 46-year-old male seen in renal consultation for end-stage renal disease. He is maintained on hemodialysis on Thursday schedule via AV fistula. Patient presented to the hospital due to fall. Patient states he sustained a fall as his right leg gave out. He complains of weakness in his right upper and lower extremity. He also complains of tingling in his right hand. CT of the brain showed no acute changes. No acute fractures were noted. He is currently resting in bed. He also admits to hitting his mouth on the ground and has swelling of his lips. Patient states he went to hemodialysis F riday. He is due for dialysis today. Blood pressure is high. No chest pain or shortness of breath. No vomiting or diarrhea. States he doesn't make any urine. Vital signs are stable. Blood pressure high. General: No acute distress. HEENT: Head exam is unremarkable. Bruising around lips noted. LUNGS: Breath sounds decreased. HEART: Rate and Rhythm are regular. ABDOMEN: Soft, no distention. EXTREMITITES: No edema. Past Medical History Past Medical History: Asthma, Diabetes Mellitus, Dialysis, Eye Disorder, Hypertension, Renal Disease Additional Past Medical History / Comment(s): very poor vision R eye, has dialysis Thursday, thu and Thursday. History of Any Multi-Drug Resistant Organisms: None Reported Past Surgical History: No Surgical Hx Reported Additional Past Surgical History / Comment(s): eye surgery due to diabetes and thorascopic percardial window 2012, right eye removal Past Anesthesia/Blood Transfusion Reactions: No Reported Reaction Additional Past Anesthesia/Blood Transfusion Reaction / Comment(s): blood transfusion 2013 Past Psychological History: Anxiety, Depression Smoking Status: Former smoker Past Alcohol Use History: None Reported Past Drug Use History: None Reported - Past Family History Father Family Medical History: Renal Disease Mother History Unknown: Yes Family Medical History: Hypertension Medications and Allergies Home Medications Medication Instructions Recorded Confirmed Type Insulin NPH Hum/Reg Insulin Hm 8 unit SQ AC-TID 11/27/14 06/15/22 History [humuLIN 70/30 Kwikpen] Labetalol [Trandate] 400 mg PO TID 11/27/14 06/15/22 History Isosorbide Mononitrate [Imdur] 120 mg PO DAILY 11/06/20 06/15/22 History Lidocaine-Prilocaine Cream [Emla 1 applic TOPICAL DAILY PRN 11/06/20 06/15/22 History Cream 2.5%/2.5%] NIFEdipine XL [Procardia XL] 90 mg PO DAILY #30 tab.er.24 11/09/20 06/15/22 Rx HYDROcodone/APAP 10-325MG [[place] 1 tab PO QID PRN 06/16/21 06/15/22 History 10-325] Gabapentin [Neurontin] 300 mg PO TID 10/18/21 06/15/22 History cloNIDine HCL [Catapres] 0.2 mg PO TID 10/18/21 06/15/22 History Doxycycline [Vibramycin] 100 mg PO DAILY #14 cap 06/06/22 06/15/22 Rx Renaplex-D 1 tab PO DAILY 06/06/22 06/15/22 History Sevelamer [Renvela] 1,600 mg PO TID-W/MEALS 06/06/22 06/15/22 History Sevelamer [Renvela] 800 mg PO DAILY PRN 06/06/22 06/15/22 History hydrALAZINE HCL [Apresoline] 100 mg PO TID 06/06/22 06/15/22 History Allergies Allergy/AdvReac Type Severity Reaction Status Date / Time No Known Allergies Allergy Verified 06/06/22 11:21 Physical Exam Vitals: Vital Signs Temp Pulse Pulse Resp BP BP Pulse Ox 06/16/22 07:00 99.1 F 95 16 219/91 95 06/16/22 02:07 16 06/16/22 00:00 97.9 F 85 17 165/86 99 06/15/22 23:31 98.4 F 87 16 163/71 97 06/15/22 22:04 90 17 159/78 98 06/15/22 18:59 97.8 F 85 16 150/80 99 Intake and Output 06/15/22 06/16/22 06/16/22 22:59 06:59 14:59 Intake Total 222 Balance 222 Intake: Oral 222 Other: # Voids 0 Weight 71.214 kg 71.214 kg Results - Lab Results Most recent lab results Calcium 8.7 mg/dL (8.4-10.2) 06/16/22 06:19 06/16/22 06:19 06/16/22 06:19 Assessment and Plan Plan: Assessment: 1. End-stage renal disease maintained on hemodialysis on Thursday schedule. 2. Status post fall. No acute fractures noted. 3. Hypertension with chronic kidney disease. 4. Chronic kidney disease mineral bone disease maintained on Renvela. 5. Recent STD after encounter with prostitute. Unsure if this was treated or not. Also had diarrhea last month and stool culture was positive for Reema. Denies any diarrhea now. Defer management to primary team. 6. Chronic systolic CHF with ejection fraction of 4550% with moderate to severe mitral regurgitation and mild to moderate tricuspid regurgitation. Plan: Hemodialysis today. Home antihypertensives resumed. Add when necessary hydralazine as needed for systolic blood pressure greater than 160. Thank you for the consultation. I will continue to follow the patient with you during his hospital stay.
--- NOTE | 2022-06-16 12:05 | P.PN ---
Subjective Progress Note Date: 06/16/22 Principal diagnosis: [facility] Hospital Course: 46 y.o. male with hx of type 2 diabetes, ESRD on hemodialysis Thursday/Thursday/Thursday, hypertension, dyslipidemia presenting with worsening lower extremity weakness, failure to thrive, homelessness. Nephrology followi aleksandr. Subjective: Patient seen and examined at bedside. No acute events overnight. He continues to complain about LE weakness. He denies any CP, SOB, or abdominal pain.He does not make any urine. He denies skipping any dialysis sessions. Pertinent positives and negatives as discussed above, a complete review of systems was performed and all other systems are negative. Vitals Signs Reviewed. 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, 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 Leukocytosis -no active signs of infection ESRD of HD -nephro following Recent STD/exposure -retest STD and HIV -treat if positive HTN - continue home meds DVT ppx: heparin sq Code status: Full code Anticipated discharge place: facility likely Anticipated discharge time: 1+ days Objective - Vital Signs Vital signs: Vital Signs Temp 99.1 F 06/16/22 07:00 Pulse 95 06/16/22 07:00 Resp 16 06/16/22 07:00 BP 219/91 06/16/22 07:00 Pulse Ox 95 06/16/22 07:00 FiO2 Intake & Output 06/15/22 06/16/22 06/16/22 18:59 06:59 18:59 Intake Total 222 Balance 222 Weight 71.214 kg 71.214 kg Intake: Oral 222 Other: # Voids 0 - Labs CBC & Chem 7: 06/16/22 06:19 06/16/22 06:19 Labs: Abnormal Lab Results - Last 24 Hours (Table) 06/15/22 06/15/22 06/15/22 Range/Units 19:31 19:31 23:00 WBC 13.8 H (3.8-10.6) k/uL RBC 3.92 L (4.30-5.90) m/uL Hgb 10.9 L (13.0-17.5) gm/dL Hct 31.9 L (39.0-53.0) % RDW 19.4 H (11.5-15.5) % Neutrophils # 11.3 H (1.3-7.7) k/uL Sodium 136 L (137-145) mmol/L Chloride 97 L (98-107) mmol/L BUN 36 H (9-20) mg/dL Creatinine 7.84 H* (0.66-1.25) mg/dL Glucose 299 H (74-99) mg/dL POC Glucose (mg/dL) (70-110) mg/dL Troponin I 0.036 H* (0.000-0.034) ng/mL 06/16/22 06/16/22 06/16/22 Range/Units 06:19 06:19 06:19 WBC 13.6 H (3.8-10.6) k/uL RBC 4.13 L (4.30-5.90) m/uL Hgb 11.5 L (13.0-17.5) gm/dL Hct 33.9 L (39.0-53.0) % RDW 19.4 H (11.5-15.5) % Neutrophils # 11.5 H (1.3-7.7) k/uL Sodium 134 L (137-145) mmol/L Chloride (98-107) mmol/L BUN 42 H (9-20) mg/dL Creatinine 8.49 H* (0.66-1.25) mg/dL Glucose 307 H (74-99) mg/dL POC Glucose (mg/dL) 337 H (70-110) mg/dL Troponin I (0.000-0.034) ng/mL
[2022-06-16 12:55] LABS: Glucose,Whole Blood 77 mg/dL (70-110)
[2022-06-16] MEDS ORDERED: diphenhydrAMINE 50 MG/ML 1 ML VIAL IVP STA (14:18)
[2022-06-16 17:46] LABS: Glucose,Whole Blood 126 mg/dL (70-110)
[2022-06-16 19:39] LABS: Glucose,Whole Blood 169 mg/dL (70-110)
[2022-06-16 20:32] LABS: HIV 2 AB Non-Reactive (Non-Reactive); HIV AB P24 Non-Reactive (Non-Reactive); HIV P24 AG Non-Reactive (Non-Reactive)
[2022-06-16 20:34] LABS: Glucose,Whole Blood 199 mg/dL (70-110)
[2022-06-17] MEDS: HEPARIN SODIUM,PORCINE/PF 5,000 UNIT/0.5 ML SYRINGE SQ SCH ×4 (00:36→20:35)
[2022-06-17] MEDS: SEVELAMER 800 MG TAB PO SCH ×3 (06:34→17:40)
[2022-06-17 07:22] LABS: Glucose,Whole Blood 275 mg/dL (70-110)
[2022-06-17] MEDS ORDERED: VANCOMYCIN IV PER PHARMACY 1 EACH MISC MISCELLANE PRN (07:46)
[2022-06-17] MEDS: ISOSORBIDE MONONITRATE ER 60 MG TAB.ER.24H PO SCH (07:46)
[2022-06-17] MEDS: cloNIDine HCL 0.2 MG TAB PO SCH ×3 (07:46→20:34)
[2022-06-17] MEDS: hydrALAZINE HCL 50 MG TAB PO SCH ×3 (07:47→20:35)
[2022-06-17] MEDS: LABETALOL 200 MG TAB PO SCH ×3 (07:47→20:34)
[2022-06-17] MEDS: HYDROcodone/APAP 10-325MG 1 EACH TAB PO PRN ×2 (07:48→20:34)
[2022-06-17] MEDS: GABAPENTIN 300 MG CAP PO SCH ×3 (07:50→20:34)
[2022-06-17] MEDS: NIFEdipine XL 90 MG TAB.ER.24 PO SCH (07:51)
[2022-06-17] MEDS ORDERED: VANCOMYCIN 1,250 MG in SODIUM CHLORIDE 0.9% 250 ML IVPB ONE (08:30)
[2022-06-17] MEDS: INSULIN ASPART (NovoLOG) 100 UNIT/ML VIAL SQ SCH ×4 (08:35→21:45)
--- NOTE | 2022-06-17 10:43 | P.PN ---
Subjective Patient is seen in follow-up for end-stage liver disease. He is maintained on hemodialysis on Thursday schedule. Tolerated dialysis yesterday without any problems. Blood pressure has been high. Resting in bed. No pain. Vital signs are stable. General: Awake. No acute distress. HEENT: Head exam is unremarkable. LUNGS: Breath sounds decreased. HEART: Rate and Rhythm are regular. ABDOMEN: Soft, no distention. EXTREMITITES: No edema. Objective - Vital Signs Vital signs: Vital Signs Temp 98.1 F 06/17/22 07:00 Pulse 86 06/17/22 07:00 Resp 17 06/17/22 03:02 BP 175/87 06/17/22 07:00 Pulse Ox 95 06/17/22 07:00 FiO2 Intake & Output 06/16/22 06/17/22 06/17/22 18:59 06:59 18:59 Intake Total 1116 Output Total 1350 Balance -234 Intake: Oral 666 Hemodialysis 450 Output: Hemodialysis 1350 Other: # Voids 0 1 - Labs CBC & Chem 7: 06/16/22 06:19 06/16/22 06:19 Labs: Abnormal Lab Results - Last 24 Hours (Table) 06/16/22 06/16/22 06/16/22 Range/Units 17:44 19:38 20:32 POC Glucose (mg/dL) 126 H 169 H 199 H (70-110) mg/dL 06/17/22 Range/Units 07:21 POC Glucose (mg/dL) 275 H (70-110) mg/dL Microbiology - Last 24 Hours (Table) 06/15/22 23:20 Blood Culture Gram Stain - Preliminary Blood Blood Culture - Preliminary Coagulase Negative Staph 06/15/22 23:00 Blood Culture - Preliminary Blood No Growth after 24 hours 06/16/22 23:20 Blood Culture - Final Blood Assessment and Plan Plan: Assessment: 1. End-stage renal disease maintained on hemodialysis on Thursday schedule. 2. Status post fall. No acute fractures noted. 3. Hypertension with chronic kidney disease. 4. Chronic kidney disease mineral bone disease maintained on Renvela. 5. Recent STD after encounter with prostitute. Unsure if this was treated or not. Also had diarrhea last month and stool culture was positive for Reema. Defer management to primary team. HIV negative. 6. Chronic systolic CHF with ejection fraction of 4550% with moderate to severe mitral regurgitation and mild to moderate tricuspid regurgitation. 7. Coag-negative staph bacteremia. On antibiotics. Plan: Hemodialysis tomorrow. Home increase dose of nifedipine to 60 mg twice daily. Follow-up cultures. Monitor vancomycin levels. Dose to be adjusted for renal function.
[2022-06-17 10:52] LABS: Anisocytosis Slight; Basophils # (A) 0.1 k/uL (0-0.2); Basophils % (A) 1 %; Eosinophils # (A) 0.2 k/uL (0-0.7); Eosinophils % (A) 2 %; HCT 33.3 % (39.0-53.0); HGB 11.1 gm/dL (13.0-17.5); Lymphocytes # (A) 1.5 k/uL (1.0-4.8); Lymphocytes % (A) 13 %; MCH 28.1 pg (25.0-35.0); MCHC 33.4 g/dL (31.0-37.0); MCV 84.4 fL (80.0-100.0); Mean Platelet Volume 8.2; Monocytes # (A) 0.4 k/uL (0-1.0); Monocytes % (A) 3 %; Neutrophils # (A) 8.9 k/uL (1.3-7.7); Neutrophils % (A) 80 %; Platelet Count 244 k/uL (150-450); RBC 3.95 m/uL (4.30-5.90)
[2022-06-17 11:06] LABS: African American GFR (CKD) 10 (>60 ml/min/1.73 sqM); Anion Gap 13 mmol/L; Blood Urea Nitrogen 32 mg/dL (9-20); Calcium 8.5 mg/dL (8.4-10.2); Carbon Dioxide 26 mmol/L (22-30); Chloride 100 mmol/L (98-107); Glucose 326 mg/dL (74-99); Non-African American GFR(CKD) 8 (>60 ml/min/1.73 sqM); Potassium 4.3 mmol/L (3.5-5.1); Sodium 139 mmol/L (137-145)
[2022-06-17 11:47] LABS: Glucose,Whole Blood 338 mg/dL (70-110)
--- NOTE | 2022-06-17 12:22 | P.PN ---
Subjective Progress Note Date: 06/17/22 Principal diagnosis: T Hospital Course: 46 y.o. male with hx of type 2 diabetes, ESRD on hemodialysis Thursday/Thursday/Thursday, hypertension, dyslipidemia presenting with worsening lower extremity weakness, failure to thrive, homelessness. Nephrology followi aleksandr. Now also growing coag negative staph in blood cultures, started on vanc, repeat blood cultures pending. likely contaminant. Subjective: Patient seen and examined at bedside. No acute events overnight. He continues to complain about LE weakness. He denies any CP, SOB, or abdominal pain. Pertinent positives and negatives as discussed above, a complete review of systems was performed and all other systems are negative. Vitals Signs Reviewed. General: nontoxic, no distress, appears at stated age Derm: warm, dry Head: atraumatic, normocephalic, symmetric Eyes: right eye patch Mouth: no lip lesion, mucus membranes moist Cardiovascular: S1S2 reg, no murmur Lungs: CTA bilateral, no rhonchi, no rales , no accessory muscle use Abdominal: soft, nontender to palpation, no guarding, no appreciable organomegaly Ext: no gross muscle atrophy, no edema, no contractures, 3/5 strength B/L LE Neuro: CN II-XI grossly intact, no focal neuro deficits Psych: Alert, oriented, appropriate affect Assessment and Plan: coag neg staph bacteremia leukocytosis - likely contaminant -continue vanc for now -repeat blood cx Failure to thrive 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, [employer]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 ESRD of HD -nephro following Recent STD/exposure -retest STD -HIV negative -treat if positive HTN - continue home meds DVT ppx: heparin sq Code status: Full code Anticipated discharge place: facility likely Anticipated discharge time: 1+ days Objective - Vital Signs Vital signs: Vital Signs Temp 98.1 F 06/17/22 07:00 Pulse 86 06/17/22 08:00 Resp 17 06/17/22 08:00 BP 175/87 06/17/22 07:00 Pulse Ox 95 06/17/22 07:00 FiO2 Intake & Output 06/16/22 06/17/22 06/17/22 18:59 06:59 18:59 Intake Total 1116 Output Total 1350 Balance -234 Intake: Oral 666 Hemodialysis 450 Output: Hemodialysis 1350 Other: # Voids 0 1 - Labs CBC & Chem 7: 06/17/22 10:00 06/17/22 10:00 Labs: Abnormal Lab Results - Last 24 Hours (Table) 06/16/22 06/16/22 06/16/22 Range/Units 17:44 19:38 20:32 WBC (3.8-10.6) k/uL RBC (4.30-5.90) m/uL Hgb (13.0-17.5) gm/dL Hct (39.0-53.0) % RDW (11.5-15.5) % Neutrophils # (1.3-7.7) k/uL BUN (9-20) mg/dL Creatinine (0.66-1.25) mg/dL Glucose (74-99) mg/dL POC Glucose (mg/dL) 126 H 169 H 199 H (70-110) mg/dL 06/17/22 06/17/22 06/17/22 Range/Units 07:21 10:00 10:00 WBC 11.0 H (3.8-10.6) k/uL RBC 3.95 L (4.30-5.90) m/uL Hgb 11.1 L (13.0-17.5) gm/dL Hct 33.3 L (39.0-53.0) % RDW 19.0 H (11.5-15.5) % Neutrophils # 8.9 H (1.3-7.7) k/uL BUN 32 H (9-20) mg/dL Creatinine 7.04 H* (0.66-1.25) mg/dL Glucose 326 H (74-99) mg/dL POC Glucose (mg/dL) 275 H (70-110) mg/dL 06/17/22 Range/Units 11:45 WBC (3.8-10.6) k/uL RBC (4.30-5.90) m/uL Hgb (13.0-17.5) gm/dL Hct (39.0-53.0) % RDW (11.5-15.5) % Neutrophils # (1.3-7.7) k/uL BUN (9-20) mg/dL Creatinine (0.66-1.25) mg/dL Glucose (74-99) mg/dL POC Glucose (mg/dL) 338 H (70-110) mg/dL Microbiology - Last 24 Hours (Table) 06/15/22 23:20 Blood Culture Gram Stain - Preliminary Blood Blood Culture - Preliminary Coagulase Negative Staph 06/15/22 23:00 Blood Culture - Preliminary Blood No Growth after 24 hours 06/16/22 23:20 Blood Culture - Final Blood
[2022-06-17 17:41] LABS: Glucose,Whole Blood 292 mg/dL (70-110)
[2022-06-17 21:42] LABS: Glucose,Whole Blood 331 mg/dL (70-110)
[2022-06-18] MEDS: HYDROcodone/APAP 10-325MG 1 EACH TAB PO PRN ×4 (05:23→23:30)
[2022-06-18] MEDS: hydrALAZINE HCL 20 MG/ML 1 ML VIAL IVP PRN (05:24)
[2022-06-18 07:38] LABS: Glucose,Whole Blood 312 mg/dL (70-110)
[2022-06-18] MEDS: HEPARIN SODIUM,PORCINE/PF 5,000 UNIT/0.5 ML SYRINGE SQ SCH ×3 (08:23→23:30)
[2022-06-18] MEDS: cloNIDine HCL 0.2 MG TAB PO SCH ×3 (08:23→21:37)
[2022-06-18] MEDS: hydrALAZINE HCL 50 MG TAB PO SCH ×3 (08:23→21:38)
[2022-06-18] MEDS: LABETALOL 200 MG TAB PO SCH ×3 (08:24→21:38)
[2022-06-18] MEDS: GABAPENTIN 300 MG CAP PO SCH ×3 (08:24→21:37)
[2022-06-18] MEDS: ISOSORBIDE MONONITRATE ER 60 MG TAB.ER.24H PO SCH (08:24)
[2022-06-18] MEDS: SEVELAMER 800 MG TAB PO SCH ×3 (08:24→17:22)
[2022-06-18] MEDS: NIFEdipine XL 90 MG TAB.ER.24 PO SCH (08:24)
[2022-06-18] MEDS: INSULIN ASPART (NovoLOG) 100 UNIT/ML VIAL SQ SCH ×4 (08:27→21:47)
[2022-06-18] MEDS ORDERED: VANCOMYCIN 1,250 MG in SODIUM CHLORIDE 0.9% 250 ML IVPB ONE (09:00)
--- NOTE | 2022-06-18 09:43 | P.PN ---
Subjective Patient is seen in follow-up for end-stage renal disease. He is maintained on hemodialysis on Thursday schedule. Scheduled for dialysis today. Blood pressure high this morning but was as low as 123/73 yesterday. Resting in bed. No pain. Vital signs are stable. Blood pressure high this morning. General: Awake. No acute distress. HEENT: Head exam is unremarkable. LUNGS: Breath sounds decreased. HEART: Rate and Rhythm are regular. ABDOMEN: Soft, no distention. EXTREMITITES: No edema. Objective - Vital Signs Vital signs: Vital Signs Temp 97.5 F L 06/18/22 05:21 Pulse 91 06/18/22 05:21 Resp 15 06/18/22 05:21 BP 194/92 06/18/22 05:21 Pulse Ox 97 06/18/22 05:21 FiO2 Intake & Output 06/17/22 06/18/22 06/18/22 18:59 06:59 18:59 Intake Total 709 Balance 709 Intake: Oral 709 Other: # Voids 0 0 - Labs CBC & Chem 7: 06/17/22 10:00 06/17/22 10:00 Labs: Abnormal Lab Results - Last 24 Hours (Table) 06/17/22 06/17/22 06/17/22 Range/Units 10:00 10:00 11:45 WBC 11.0 H (3.8-10.6) k/uL RBC 3.95 L (4.30-5.90) m/uL Hgb 11.1 L (13.0-17.5) gm/dL Hct 33.3 L (39.0-53.0) % RDW 19.0 H (11.5-15.5) % Neutrophils # 8.9 H (1.3-7.7) k/uL BUN 32 H (9-20) mg/dL Creatinine 7.04 H* (0.66-1.25) mg/dL Glucose 326 H (74-99) mg/dL POC Glucose (mg/dL) 338 H (70-110) mg/dL 06/17/22 06/17/22 06/18/22 Range/Units 17:40 21:41 07:37 WBC (3.8-10.6) k/uL RBC (4.30-5.90) m/uL Hgb (13.0-17.5) gm/dL Hct (39.0-53.0) % RDW (11.5-15.5) % Neutrophils # (1.3-7.7) k/uL BUN (9-20) mg/dL Creatinine (0.66-1.25) mg/dL Glucose (74-99) mg/dL POC Glucose (mg/dL) 292 H 331 H 312 H (70-110) mg/dL Microbiology - Last 24 Hours (Table) 06/15/22 23:00 Blood Culture - Preliminary Blood No Growth after 48 hours 06/15/22 23:20 Blood Culture Gram Stain - Preliminary Blood Blood Culture - Preliminary Coagulase Negative Staph Assessment and Plan Plan: Assessment: 1. End-stage renal disease maintained on hemodialysis on Thursday schedule. 2. Status post fall. No acute fractures noted. 3. Hypertension with chronic kidney disease. 4. Chronic kidney disease mineral bone disease maintained on Renvela. 5. Recent STD after encounter with prostitute. Unsure if this was treated or not. Also had diarrhea last month and stool culture was positive for Reema. Defer management to primary team. HIV negative. 6. Chronic systolic CHF with ejection fraction of 4550% with moderate to severe mitral regurgitation and mild to moderate tricuspid regurgitation. 7. Coag-negative staph bacteremia. On antibiotics. Plan: Hemodialysis today. Follow-up cultures. Monitor vancomycin levels. Dose to be adjusted for renal function. Consider ID consult. Increase Procardia to 60 mg twice daily. Maintain when necessary IV hydralazine.
[2022-06-18] MEDS ORDERED: diphenhydrAMINE 50 MG/ML 1 ML VIAL IVP STA (09:53)
[2022-06-18 11:42] LABS: Glucose,Whole Blood 240 mg/dL (70-110)
--- NOTE | 2022-06-18 11:58 | P.PN ---
Subjective Progress Note Date: 06/18/22 Principal diagnosis: T Hospital Course: 46 y.o. male with hx of type 2 diabetes, ESRD on hemodialysis Thursday/Thursday/Thursday, hypertension, dyslipidemia presenting with worsening lower extremity weakness, failure to thrive, homelessness. Nephrology followi ng. Now also growing coag negative staph in blood cultures, started on vanc, repeat blood cultures pending. likely contaminant. ID consulted. Subjective: Patient seen and examined at bedside. No acute events overnight. He continues to complain about LE weakness. He denies any CP, SOB, or abdominal pain. Pertinent positives and negatives as discussed above, a complete review of systems was performed and all other systems are negative. Vitals Signs Reviewed. General: nontoxic, no distress, appears at stated age Derm: warm, dry Head: atraumatic, normocephalic, symmetric Eyes: right eye patch Mouth: no lip lesion, mucus membranes moist Cardiovascular: S1S2 reg, no murmur Lungs: CTA bilateral, no rhonchi, no rales , no accessory muscle use Abdominal: soft, nontender to palpation, no guarding, no appreciable organomegaly Ext: no gross muscle atrophy, no edema, no contractures, 3/5 strength B/L LE Neuro: CN II-XI grossly intact, no focal neuro deficits Psych: Alert, oriented, appropriate affect Assessment and Plan: coag neg staph bacteremia leukocytosis - likely contaminant -continue vanc for now -repeat blood cx -ID consult Failure to thrive 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, 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 ESRD of HD -nephro following Recent STD/exposure -outpatient follow up -HIV negative HTN - continue home meds DVT ppx: heparin sq Code status: Full code Anticipated discharge place: pending rehab Anticipated discharge time: 1+ days Objective - Vital Signs Vital signs: Vital Signs Temp 97.5 F L 06/18/22 05:21 Pulse 91 06/18/22 05:21 Resp 15 06/18/22 05:21 BP 194/92 06/18/22 05:21 Pulse Ox 97 06/18/22 05:21 FiO2 Intake & Output 06/17/22 06/18/22 06/18/22 18:59 06:59 18:59 Intake Total 709 Balance 709 Intake: Oral 709 Other: # Voids 0 0 - Labs CBC & Chem 7: 06/17/22 10:00 06/17/22 10:00 Labs: Abnormal Lab Results - Last 24 Hours (Table) 06/17/22 06/17/22 06/18/22 Range/Units 17:40 21:41 07:37 POC Glucose (mg/dL) 292 H 331 H 312 H (70-110) mg/dL 06/18/22 Range/Units 11:40 POC Glucose (mg/dL) 240 H (70-110) mg/dL Microbiology - Last 24 Hours (Table) 06/15/22 23:20 Blood Culture Gram Stain - Final Blood Blood Culture - Final Coagulase Negative Staph Coagulase Negative Staph#2 06/15/22 23:00 Blood Culture - Preliminary Blood No Growth after 48 hours
[2022-06-18 17:22] LABS: Glucose,Whole Blood 114 mg/dL (70-110)
[2022-06-18 20:19] LABS: Glucose,Whole Blood 267 mg/dL (70-110)
[2022-06-19 07:38] LABS: Glucose,Whole Blood 279 mg/dL (70-110)
[2022-06-19] MEDS: INSULIN ASPART (NovoLOG) 100 UNIT/ML VIAL SQ SCH ×4 (08:07→21:17)
[2022-06-19] MEDS: ISOSORBIDE MONONITRATE ER 60 MG TAB.ER.24H PO SCH (08:24)
[2022-06-19] MEDS: LABETALOL 200 MG TAB PO SCH ×3 (08:25→21:17)
[2022-06-19] MEDS: HYDROcodone/APAP 10-325MG 1 EACH TAB PO PRN ×3 (08:25→23:34)
[2022-06-19] MEDS: GABAPENTIN 300 MG CAP PO SCH ×3 (08:25→21:16)
[2022-06-19] MEDS: hydrALAZINE HCL 50 MG TAB PO SCH ×3 (08:28→21:16)
[2022-06-19] MEDS: cloNIDine HCL 0.2 MG TAB PO SCH ×3 (08:29→21:16)
[2022-06-19] MEDS: SEVELAMER 800 MG TAB PO SCH ×3 (08:29→18:20)
[2022-06-19] MEDS: HEPARIN SODIUM,PORCINE/PF 5,000 UNIT/0.5 ML SYRINGE SQ SCH ×3 (08:30→23:34)
--- NOTE | 2022-06-19 08:37 | P.CONS ---
History of Present Illness - Reason for Consult Consult date: 06/18/22 - History of Present Illness Patient is a 46-year-old male with a past medical history significant for end-stage renal disease on hemodialysis through the left arm AV fistula patient presenting to the ER 3 days ago on 06/15/2022 via EMS and the patient was complaining of his legs keep giving out and apparently the patient did sustain a fall patient has a history of head injury or loss of consciousness has been c omplaining of persistent right arm and right hip pain since the fall patient on presentation to the hospital was afebrile and no fever has been recorded subsequently patient did have white count of 13.8 with a left shift BUN and creatinine has been elevated keeping in mind his end-stage renal disease no exams are normal troponin was mildly elevated patient apparently did have an encounter with the hooker and was complaining of some urethral drainage to the admitting physician and the patient did have HIV test which was negative patient denies any drainage to me patient did have a blood culture drawn coming positive with gram-positive cocci that has prompted this infectious disease consultation patient is currently on vancomycin pharmacy to dose Past Medical History Past Medical History: Asthma, Diabetes Mellitus, Dialysis, Eye Disorder, Hypertension, Renal Disease Additional Past Medical History / Comment(s): very poor vision R eye, has dialysis Thursday, thu and Thursday. History of Any Multi-Drug Resistant Organisms: None Reported Past Surgical History: No Surgical Hx Reported Additional Past Surgical History / Comment(s): eye surgery due to diabetes and thorascopic percardial window 2012, right eye removal Past Anesthesia/Blood Transfusion Reactions: No Reported Reaction Additional Past Anesthesia/Blood Transfusion Reaction / Comm: blood transfusion 2012 Past Psychological History: Anxiety, Depression Smoking Status: Former smoker Past Alcohol Use History: None Reported Past Drug Use History: None Reported - Past Family History Father Family Medical History: Renal Disease Mother History Unknown: Yes Family Medical History: Hypertension Medications and Allergies Home Medications Medication Instructions Recorded Confirmed Type Insulin NPH Hum/Reg Insulin Hm 8 unit SQ AC-TID 11/27/14 06/15/22 History [humuLIN 70/30 Kwikpen] Labetalol [Trandate] 400 mg PO TID 11/27/14 06/15/22 History Isosorbide Mononitrate [Imdur] 120 mg PO DAILY 11/06/20 06/15/22 History Lidocaine-Prilocaine Cream [Emla 1 applic TOPICAL DAILY PRN 11/06/20 06/15/22 History Cream 2.5%/2.5%] NIFEdipine XL [Procardia XL] 90 mg PO DAILY #30 tab.er.24 11/09/20 06/15/22 Rx HYDROcodone/APAP 10-325MG [[place] 1 tab PO QID PRN 06/16/21 06/15/22 History 10-325] Gabapentin [Neurontin] 300 mg PO TID 10/18/21 06/15/22 History cloNIDine HCL [Catapres] 0.2 mg PO TID 10/18/21 06/15/22 History Doxycycline [Vibramycin] 100 mg PO DAILY #14 cap 06/06/22 06/15/22 Rx Renaplex-D 1 tab PO DAILY 06/06/22 06/15/22 History Sevelamer [Renvela] 1,600 mg PO TID-W/MEALS 06/06/22 06/15/22 History Sevelamer [Renvela] 800 mg PO DAILY PRN 06/06/22 06/15/22 History hydrALAZINE HCL [Apresoline] 100 mg PO TID 06/06/22 06/15/22 History Allergies Allergy/AdvReac Type Severity Reaction Status Date / Time No Known Allergies Allergy Verified 06/06/22 11:21 Physical Exam Vitals: Vital Signs Temp Pulse Resp BP Pulse Ox 06/18/22 05:21 97.5 F L 91 15 194/92 97 06/18/22 02:00 15 06/17/22 19:29 97.9 F 83 12 163/80 06/17/22 14:05 97.8 F 79 16 123/73 97 06/17/22 14:00 79 16 Intake and Output 06/17/22 06/18/22 06/18/22 22:59 06:59 14:59 Intake Total 118 Balance 118 Intake: Oral 118 Other: # Voids 1 0 Results CBC & Chem 7: 06/17/22 10:00 06/17/22 10:00 Labs: Abnormal Lab Results - Last 24 Hours (Table) 06/17/22 06/17/22 06/17/22 Range/Units 10:00 10:00 11:45 WBC 11.0 H (3.8-10.6) k/uL RBC 3.95 L (4.30-5.90) m/uL Hgb 11.1 L (13.0-17.5) gm/dL Hct 33.3 L (39.0-53.0) % RDW 19.0 H (11.5-15.5) % Neutrophils # 8.9 H (1.3-7.7) k/uL BUN 32 H (9-20) mg/dL Creatinine 7.04 H* (0.66-1.25) mg/dL Glucose 326 H (74-99) mg/dL POC Glucose (mg/dL) 338 H (70-110) mg/dL 06/17/22 06/17/22 06/18/22 Range/Units 17:40 21:41 07:37 WBC (3.8-10.6) k/uL RBC (4.30-5.90) m/uL Hgb (13.0-17.5) gm/dL Hct (39.0-53.0) % RDW (11.5-15.5) % Neutrophils # (1.3-7.7) k/uL BUN (9-20) mg/dL Creatinine (0.66-1.25) mg/dL Glucose (74-99) mg/dL POC Glucose (mg/dL) 292 H 331 H 312 H (70-110) mg/dL Microbiology - Last 24 Hours (Table) 06/15/22 23:00 Blood Culture - Preliminary Blood No Growth after 48 hours 06/15/22 23:20 Blood Culture Gram Stain - Preliminary Blood Blood Culture - Preliminary Coagulase Negative Staph Assessment and Plan Plan: 1patient presented to hospital with a fall and weakness in this patient denies any fever or any chills and no fever have been recorded during this hospital stay patient did have a positive blood cultures finalized with coagulase- negative staph question of possible skin contamination as the patient do not have any clinical disease to go along with it patient left arm AV fistula site looks clean with no evidence of any cellulitis. 2blood cultures will be repeated to document clearance of his bacteremia if the patient did have persistent bacteremia even with a coagulase-negative staph further work-up will be needed. 3we will check his inflammatory markers. 4continue with the vancomycin while waiting for the work-up to be completed. We will follow on clinical condition and cultures to further adjust medication if needed Thank you for this consultation will follow this patient along with you
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
--- NOTE | 2022-06-19 12:08 | P.PN ---
Subjective Progress Note Date: 06/19/22 Principal diagnosis: FTT Hospital Course: 46 y.o. male with hx of type 2 diabetes, ESRD on hemodialysis Thursday/Thursday/Thursday, hypertension, dyslipidemia presenting with worsening lower extremity weakness, failure to thrive, homelessness. Nephrology followi ng. Now also growing coag negative staph in blood cultures, started on vanc, repeat blood cultures NGTD. likely contaminant. ID consulted. Subjective: Patient seen and examined at bedside. No acute events overnight. Working with PT. He denies any CP, SOB, or abdominal pain. Pertinent positives and negatives as discussed above, a complete review of systems was performed and all other systems are negative. Vitals Signs Reviewed. General: nontoxic, no distress, appears at stated age Derm: warm, dry Head: atraumatic, normocephalic, symmetric Eyes: right eye patch Mouth: no lip lesion, mucus membranes moist Cardiovascular: S1S2 reg, no murmur Lungs: CTA bilateral, no rhonchi, no rales , no accessory muscle use Abdominal: soft, nontender to palpation, no guarding, no appreciable organ omegaly Ext: no gross muscle atrophy, no edema, no contractures, 4/5 strength B/L LE Neuro: CN II-XI grossly intact, no focal neuro deficits Psych: Alert, oriented, appropriate affect Assessment and Plan: coag neg staph bacteremia leukocytosis -likely contaminant -continue vanc for now -repeat blood cx NGTD -ID consult Failure to thrive 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, 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 ESRD of HD -nephro following Recent STD/exposure -outpatient follow up -HIV negative HTN - increased clonidine -continue hydralazine, labetalol, nifedipine DVT ppx: heparin sq Code status: Full code Anticipated discharge place: pending rehab Anticipated discharge time: likely tomorrow Objective - Vital Signs Vital signs: Vital Signs Temp 97.6 F 06/19/22 10:01 Pulse 85 06/19/22 10:01 Resp 17 06/19/22 10:01 BP 169/88 06/19/22 10:01 Pulse Ox 96 06/19/22 10:01 FiO2 Intake & Output 06/18/22 06/19/22 06/19/22 18:59 06:59 18:59 Intake Total 1100 0 Output Total 1500 Balance -400 0 Intake: Intake, IV Titration 0 Amount Vancomycin 1,250 mg In 0 Sodium Chloride 0.9% 250 ml @ 125 mls/hr IVPB ONCE ONE Rx#:[id number] Oral 800 Hemodialysis 300 Output: Hemodialysis 1500 Other: # Voids 0 - Labs CBC & Chem 7: 06/17/22 10:00 06/17/22 10:00 Labs: Abnormal Lab Results - Last 24 Hours (Table) 06/18/22 06/18/22 06/19/22 Range/Units 17:19 20:16 07:36 POC Glucose (mg/dL) 114 H 267 H 279 H (70-110) mg/dL Microbiology - Last 24 Hours (Table) 06/15/22 23:00 Blood Culture - Preliminary Blood No Growth after 72 hours 06/17/22 10:00 Blood Culture - Preliminary Blood No Growth after 24 hours 06/17/22 10:17 Blood Culture - Preliminary Blood No Growth after 24 hours 06/15/22 23:20 Blood Culture Gram Stain - Final Blood Blood Culture - Final Coagulase Negative Staph Coagulase Negative Staph#2
[2022-06-19 13:13] LABS: Glucose,Whole Blood 324 mg/dL (70-110)
[2022-06-19] MEDS ORDERED: VANCOMYCIN 1,250 MG in SODIUM CHLORIDE 0.9% 250 ML IVPB ONE (16:00)
[2022-06-19 16:58] LABS: Glucose,Whole Blood 211 mg/dL (70-110)
[2022-06-19 20:32] LABS: Glucose,Whole Blood 199 mg/dL (70-110)
[2022-06-20 07:18] LABS: Glucose,Whole Blood 248 mg/dL (70-110)
[2022-06-20] MEDS ORDERED: diphenhydrAMINE 50 MG/ML 1 ML VIAL IVP STA (07:43)
[2022-06-20] MEDS: INSULIN ASPART (NovoLOG) 100 UNIT/ML VIAL SQ SCH ×4 (08:21→21:14)
[2022-06-20] MEDS: HEPARIN SODIUM,PORCINE/PF 5,000 UNIT/0.5 ML SYRINGE SQ SCH ×2 (08:23→15:57)
[2022-06-20] MEDS: HYDROcodone/APAP 10-325MG 1 EACH TAB PO PRN ×2 (08:57→16:00)
[2022-06-20] MEDS: GABAPENTIN 300 MG CAP PO SCH ×3 (08:58→21:14)
--- NOTE | 2022-06-20 09:37 | P.PN ---
Subjective Progress Note Date: 06/19/22 Principal diagnosis: Positive blood culture Patient is a 46-year-old -[place] male with a past medical history significant for end-stage renal disease on hemodialysis through the left upper arm AV fistula present hospital multiple symptoms did have a positive blood cultures. On today's evaluation that is 06/19/2022, the patient denies having any fever or any chills, the patient is breathing comfortably on room air. Denies any chest pain or shortness with occasional cough no abdominal pain no diarrhea Objective - Vital Signs Vital signs: Vital Signs Temp 97.6 F 06/19/22 10:01 Pulse 85 06/19/22 10:01 Resp 17 06/19/22 10:01 BP 169/88 06/19/22 10:01 Pulse Ox 96 06/19/22 10:01 FiO2 Intake & Output 06/18/22 06/19/22 06/19/22 18:59 06:59 18:59 Intake Total 1100 0 Output Total 1500 Balance -400 0 Intake: Intake, IV Titration 0 Amount Vancomycin 1,250 mg In 0 Sodium Chloride 0.9% 250 ml @ 125 mls/hr IVPB ONCE ONE Rx#:[id number] Oral 800 Hemodialysis 300 Output: Hemodialysis 1500 Other: # Voids 0 - Exam GENERAL DESCRIPTION: Middle-age male lying in bed in no distress RESPIRATORY SYSTEM: Unlabored breathing , decreased breath sounds at bases HEART: S1 S2 regular rate and rhythm , ABDOMEN: Soft , no tenderness EXTREMITIES: Left arm AV fistula site with no redness or drainage - Labs CBC & Chem 7: 06/17/22 10:00 06/17/22 10:00 Labs: Abnormal Lab Results - Last 24 Hours (Table) 06/18/22 06/18/22 06/19/22 Range/Units 17:19 20:16 07:36 ESR (0-15) mm/hr POC Glucose (mg/dL) 114 H 267 H 279 H (70-110) mg/dL 06/19/22 06/19/22 Range/Units 11:32 13:08 ESR 44 H (0-15) mm/hr POC Glucose (mg/dL) 324 H (70-110) mg/dL Microbiology - Last 24 Hours (Table) 06/18/22 10:45 Blood Culture - Preliminary Blood No Growth after 24 hours 06/17/22 10:00 Blood Culture - Preliminary Blood No Growth after 48 hours 06/17/22 10:17 Blood Culture - Preliminary Blood No Growth after 48 hours 06/15/22 23:00 Blood Culture - Preliminary Blood No Growth after 72 hours 06/15/22 23:20 Blood Culture Gram Stain - Final Blood Blood Culture - Final Coagulase Negative Staph Coagulase Negative Staph#2 Assessment and Plan (1) Positive blood culture Current Visit: Yes Status: Acute Code(s): R78.81 - BACTEREMIA SNOMED Code(s): 547090238 Plan: 1patient presented to hospital with a fall and weakness in this patient denies any fever or any chills and no fever have been recorded during this hospital stay patient did have a positive blood cultures finalized with coagulase- negative staph question of possible skin contamination as the patient do not have any clinical disease to go along with it patient left arm AV fistula site looks clean with no evidence of any cellulitis. 2blood cultures has been repeated which is so far pending 3patient did have a normal CRP 4we will discontinue vancomycin if repeat blood cultures are negative as clinically suspicious low for infectious etiology Time with Patient: Less than 30
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
[2022-06-20] MEDS: cloNIDine HCL 0.2 MG TAB PO SCH ×3 (10:51→21:14)
[2022-06-20] MEDS: hydrALAZINE HCL 50 MG TAB PO SCH ×3 (10:51→21:14)
[2022-06-20] MEDS: SEVELAMER 800 MG TAB PO SCH ×3 (10:51→18:03)
[2022-06-20] MEDS: LABETALOL 200 MG TAB PO SCH ×3 (10:52→21:15)
[2022-06-20 11:14] LABS: Glucose,Whole Blood 226 mg/dL (70-110)
--- NOTE | 2022-06-20 13:33 | P.PN ---
Subjective Progress Note Date: 06/20/22 Principal diagnosis: T Hospital Course: 46 y.o. male with hx of type 2 diabetes, ESRD on hemodialysis Thursday/Thursday/Thursday, hypertension, dyslipidemia presenting with worsening lower extremity weakness, failure to thrive, homelessness. Nephrology following. Growing coag negative staph in blood cultures, started on vanc, repeat blood cultures NGTD. likely contaminant. ID consulted. Discontinued Vanc. Pending discharge. Subjective: Patient seen and examined at bedside. No acute events overnight. Working with PT. He denies any CP, SOB, or abdominal pain. Pertinent positives and negatives as discussed above, a complete review of systems was performed and all other systems are negative. Vitals Signs Reviewed. General: nontoxic, no distress, appears at stated age Derm: warm, dry Head: atraumatic, normocephalic, symmetric Eyes: right eye patch Mouth: no lip lesion, mucus membranes moist Cardiovascular: S1S2 reg, no murmur Lungs: CTA bilateral, no rhonchi, no rales , no accessory muscle use Abdominal: soft, nontender to palpation, no guarding, no appreciable organomegaly Ext: no gross muscle atrophy, no edema, no contractures, 4/5 strength B/L LE Neuro: CN II-XI grossly intact, no focal neuro deficits Psych: Alert, oriented, appropriate affect Assessment and Plan: coag neg staph bacteremia - contaminant leukocytosis -Vanc discontinued -repeat blood cx NGTD -ID consult Failure to thrive 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, 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 ESRD of HD -nephro following Recent STD/exposure -outpatient follow up -HIV negative HTN - increased clonidine -continue hydralazine, labetalol, nifedipine DVT ppx: heparin sq Code status: Full code Anticipated discharge place: pending rehab Anticipated discharge time: when bed available Objective - Vital Signs Vital signs: Vital Signs Temp 97.7 F 06/20/22 11:28 Pulse 82 06/20/22 11:28 Resp 17 06/20/22 11:28 BP 176/88 06/20/22 11:28 Pulse Ox 99 06/20/22 11:28 FiO2 Intake & Output 06/19/22 06/20/22 06/20/22 18:59 06:59 18:59 Intake Total 250 Output Total 0 Balance 250 0 Intake: Intake, IV Titration 250 Amount Vancomycin 1,250 mg In 250 Sodium Chloride 0.9% 250 ml @ 125 mls/hr IVPB ONCE ONE Rx#:[id number] Output: Urine 0 - Labs CBC & Chem 7: 06/17/22 10:00 06/17/22 10:00 Labs: Abnormal Lab Results - Last 24 Hours (Table) 06/19/22 06/19/22 06/20/22 Range/Units 16:58 20:30 07:16 POC Glucose (mg/dL) 211 H 199 H 248 H (70-110) mg/dL 06/20/22 Range/Units 11:12 POC Glucose (mg/dL) 226 H (70-110) mg/dL Microbiology - Last 24 Hours (Table) 06/18/22 10:45 Blood Culture - Preliminary Blood No Growth after 48 hours 06/17/22 10:00 Blood Culture - Preliminary Blood No Growth after 72 hours 06/17/22 10:17 Blood Culture - Preliminary Blood No Growth after 72 hours 06/15/22 23:00 Blood Culture - Preliminary Blood No Growth after 96 hours
[2022-06-20] MEDS: ISOSORBIDE MONONITRATE ER 60 MG TAB.ER.24H PO SCH (15:38)
[2022-06-20 16:53] LABS: Glucose,Whole Blood 208 mg/dL (70-110)
[2022-06-20 20:16] LABS: Glucose,Whole Blood 165 mg/dL (70-110)
[2022-06-21] MEDS: HEPARIN SODIUM,PORCINE/PF 5,000 UNIT/0.5 ML SYRINGE SQ SCH ×4 (00:16→23:23)
[2022-06-21] MEDS: HYDROcodone/APAP 10-325MG 1 EACH TAB PO PRN ×4 (00:19→20:45)
[2022-06-21 07:27] LABS: Glucose,Whole Blood 354 mg/dL (70-110)
[2022-06-21] MEDS: INSULIN ASPART (NovoLOG) 100 UNIT/ML VIAL SQ SCH ×4 (09:06→20:45)
[2022-06-21] MEDS: LABETALOL 200 MG TAB PO SCH ×3 (09:08→20:46)
[2022-06-21] MEDS: GABAPENTIN 300 MG CAP PO SCH ×3 (09:08→20:46)
[2022-06-21] MEDS: hydrALAZINE HCL 50 MG TAB PO SCH ×3 (09:08→20:45)
[2022-06-21] MEDS: cloNIDine HCL 0.2 MG TAB PO SCH ×3 (09:10→20:46)
[2022-06-21] MEDS: ISOSORBIDE MONONITRATE ER 60 MG TAB.ER.24H PO SCH (09:25)
[2022-06-21] MEDS: SEVELAMER 800 MG TAB PO SCH ×3 (10:30→18:08)
--- NOTE | 2022-06-21 11:08 | P.PN ---
Subjective Progress Note Date: 06/21/22 Principal diagnosis: FTT Hospital Course: 46 y.o. male with hx of type 2 diabetes, ESRD on hemodialysis Thursday/Thursday/Thursday, hypertension, dyslipidemia presenting with worsening lower extremity weakness, failure to thrive, homelessness. Nephrology following. Growing coag negative staph in blood cultures, started on vanc, repeat blood cultures NGTD. likely contaminant. ID consulted. Discontinued Vanc. Pending discharge. Subjective: Patient seen and examined at bedside. No acute events overnight. Working with PT. He denies any CP, SOB, or abdominal pain. Pertinent positives and negatives as discussed above, a complete review of systems was performed and all other systems are negative. Vitals Signs Reviewed. General: nontoxic, no distress, appears at stated age Derm: warm, dry Head: atraumatic, normocephalic, symmetric Eyes: right eye patch Mouth: no lip lesion, mucus membranes moist Cardiovascular: S1S2 reg, no murmur Lungs: CTA bilateral, no rhonchi, no rales , no accessory muscle use Abdominal: soft, nontender to palpation, no guarding, no appreciable organomegaly Ext: no gross muscle atrophy, no edema, no contractures, 4/5 strength B/L LE Neuro: CN II-XI grossly intact, no focal neuro deficits Psych: Alert, oriented, appropriate affect Assessment and Plan: coag neg staph bacteremia - contaminant leukocytosis - resolved -Vanc discontinued -repeat blood cx NGTD -ID consult Failure to thrive 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, 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 ESRD of HD -nephro following Recent STD/exposure -outpatient follow up -HIV negative HTN - increased clonidine -continue hydralazine, labetalol, nifedipine, isosorbide -remains hypertensive -IV hydralazine PRN DVT ppx: heparin sq Code status: Full code Anticipated discharge place: pending rehab Anticipated discharge time: likely thursday Objective - Vital Signs Vital signs: Vital Signs Temp 98.3 F 06/21/22 04:23 Pulse 91 06/21/22 04:23 Resp 14 06/21/22 04:23 BP 179/84 06/21/22 04:23 Pulse Ox 96 06/21/22 04:23 FiO2 Intake & Output 06/20/22 06/21/22 06/21/22 18:59 06:59 18:59 Intake Total 300 Balance 300 Intake: Oral 300 Other: # Voids 0 0 - Labs CBC & Chem 7: 06/17/22 10:00 06/17/22 10:00 Labs: Abnormal Lab Results - Last 24 Hours (Table) 06/20/22 06/20/22 06/20/22 Range/Units 11:12 16:52 20:13 POC Glucose (mg/dL) 226 H 208 H 165 H (70-110) mg/dL 06/21/22 Range/Units 07:26 POC Glucose (mg/dL) 354 H (70-110) mg/dL Microbiology - Last 24 Hours (Table) 06/15/22 23:00 Blood Culture - Preliminary Blood No Growth after 120 hours 06/18/22 10:45 Blood Culture - Preliminary Blood No Growth after 48 hours 06/17/22 10:00 Blood Culture - Preliminary Blood No Growth after 72 hours 06/17/22 10:17 Blood Culture - Preliminary Blood No Growth after 72 hours
--- NOTE | 2022-06-21 11:10 | P.PN ---
Subjective Patient is seen in follow-up for end-stage renal disease. He is maintained on hemodialysis on Thursday schedule. Scheduled for dialysis today. Resting in bed. No pain. Awaits placement. No active complaints. Patient is tearful this morning as I have seen him today after about 2 weeks. He went over the events over the last couple of weeks. Complaining of tingling in right hand Objective - Vital Signs Vital signs: Vital Signs Temp 98.3 F 06/21/22 04:23 Pulse 91 06/21/22 04:23 Resp 14 06/21/22 04:23 BP 179/84 06/21/22 04:23 Pulse Ox 96 06/21/22 04:23 FiO2 Intake & Output 06/20/22 06/21/22 06/21/22 18:59 06:59 18:59 Intake Total 300 Balance 300 Intake: Oral 300 Other: # Voids 0 0 - Exam Awake, comfortable no acute distress Examination of the heart heart S1 and S2 Examination lungs decreased breath sounds at the bases Abdomen is soft nontender No significant edema noted RESIDENT INSPECTOR exam grossly intact - Labs CBC & Chem 7: 06/17/22 10:00 06/17/22 10:00 Labs: Abnormal Lab Results - Last 24 Hours (Table) 06/20/22 06/20/22 06/20/22 Range/Units 11:12 16:52 20:13 POC Glucose (mg/dL) 226 H 208 H 165 H (70-110) mg/dL 06/21/22 Range/Units 07:26 POC Glucose (mg/dL) 354 H (70-110) mg/dL Microbiology - Last 24 Hours (Table) 06/15/22 23:00 Blood Culture - Preliminary Blood No Growth after 120 hours 06/18/22 10:45 Blood Culture - Preliminary Blood No Growth after 48 hours 06/17/22 10:00 Blood Culture - Preliminary Blood No Growth after 72 hours 06/17/22 10:17 Blood Culture - Preliminary Blood No Growth after 72 hours Assessment and Plan Assessment: 1. End-stage renal disease maintained on hemodialysis on Thursday schedule. 2. Status post fall. No acute fractures noted. 3. Hypertension with chronic kidney disease. 4. Chronic kidney disease mineral bone disease maintained on Renvela. 5. Recent STD after encounter with prostitute. Unsure if this was treated or not. Also had diarrhea last month and stool culture was positive for Reema. Defer management to primary team. HIV negative. 6. Chronic systolic CHF with ejection fraction of 45-50% with moderate to severe mitral regurgitation and mild to moderate tricuspid regurgitation. 7. Coag-negative staph bacteremia. s/p antibiotics. ID following. Plan: Hemodialysis on Thursday Add SOHA inhibitor's as blood pressure remains uncontrolled
[2022-06-21 11:17] LABS: Glucose,Whole Blood 391 mg/dL (70-110)
[2022-06-21] MEDS: lisinopriL 10 MG TAB PO SCH (15:45)
[2022-06-21 17:25] LABS: Glucose,Whole Blood 170 mg/dL (70-110)
[2022-06-21 20:24] LABS: Glucose,Whole Blood 179 mg/dL (70-110)
[2022-06-22] MEDS: HYDROcodone/APAP 10-325MG 1 EACH TAB PO PRN ×3 (04:45→18:42)
[2022-06-22 07:23] LABS: Glucose,Whole Blood 226 mg/dL (70-110)
[2022-06-22] MEDS: lisinopriL 10 MG TAB PO SCH ×2 (08:39→20:58)
[2022-06-22] MEDS: LABETALOL 200 MG TAB PO SCH ×3 (08:39→21:00)
[2022-06-22] MEDS: ISOSORBIDE MONONITRATE ER 60 MG TAB.ER.24H PO SCH (08:39)
[2022-06-22] MEDS: cloNIDine HCL 0.2 MG TAB PO SCH ×3 (08:39→21:01)
[2022-06-22] MEDS: GABAPENTIN 300 MG CAP PO SCH ×3 (08:39→21:01)
[2022-06-22] MEDS: HEPARIN SODIUM,PORCINE/PF 5,000 UNIT/0.5 ML SYRINGE SQ SCH ×2 (08:40→18:37)
[2022-06-22] MEDS: INSULIN ASPART (NovoLOG) 100 UNIT/ML VIAL SQ SCH ×4 (08:40→20:58)
[2022-06-22] MEDS: SEVELAMER 800 MG TAB PO SCH ×3 (08:40→18:38)
[2022-06-22] MEDS: hydrALAZINE HCL 50 MG TAB PO SCH ×3 (08:41→21:00)
--- NOTE | 2022-06-22 10:39 | P.PN ---
Subjective Patient is seen in follow-up for end-stage renal disease. He is maintained on hemodialysis on Thursday schedule. Mood is much better today. No significant complaints today. 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 - Labs CBC & Chem 7: 06/17/22 10:00 06/17/22 10:00 Labs: Abnormal Lab Results - Last 24 Hours (Table) 06/21/22 06/21/22 06/21/22 Range/Units 11:16 17:24 20:22 POC Glucose (mg/dL) 391 H 170 H 179 H (70-110) mg/dL 06/22/22 Range/Units 07:21 POC Glucose (mg/dL) 226 H (70-110) mg/dL Microbiology - Last 24 Hours (Table) 06/15/22 23:00 Blood Culture - Final Blood No Growth after 144 hours 06/18/22 10:45 Blood Culture - Preliminary Blood No Growth after 72 hours 06/17/22 10:17 Blood Culture - Preliminary Blood No Growth after 96 hours 06/17/22 10:00 Blood Culture - Preliminary Blood No Growth after 96 hours Assessment and Plan Assessment: 1. End-stage renal disease maintained on hemodialysis on Thursday schedule. 2. Status post fall. No acute fractures noted. 3. Hypertension with chronic kidney disease. 4. Chronic kidney disease mineral bone disease maintained on Renvela. 5. Recent STD after encounter with prostitute. Unsure if this was treated or not. Also had diarrhea last month and stool culture was positive for Reema. Defer management to primary team. HIV negative. 6. Chronic systolic CHF with ejection fraction of 45-50% with moderate to severe mitral regurgitation and mild to moderate tricuspid regurgitation. 7. Coag-negative staph bacteremia. s/p antibiotics. ID following. Plan: Hemodialysis on Thursday Increase lisinopril
[2022-06-22 11:18] LABS: Glucose,Whole Blood 236 mg/dL (70-110)
--- NOTE | 2022-06-22 12:47 | P.PN ---
Subjective Progress Note Date: 06/22/22 Principal diagnosis: T Hospital Course: 46 y.o. male with hx of type 2 diabetes, ESRD on hemodialysis Thursday/Thursday/Thursday, hypertension, dyslipidemia presenting with worsening lower extremity weakness, failure to thrive, homelessness. Nephrology following. Growing coag negative staph in blood cultures, started on vanc, repeat blood cultures NGTD. likely contaminant. ID consulted. Discontinued Vanc. Pending discharge. Subjective: Patient seen and examined at bedside. No acute events overnight. He denies any CP, SOB, or abdominal pain. Pertinent positives and negatives as discussed above, a complete review of systems was performed and all other systems are negative. Vitals Signs Reviewed. General: nontoxic, no distress, appears at stated age Derm: warm, dry Head: atraumatic, normocephalic, symmetric Eyes: right eye patch Mouth: no lip lesion, mucus membranes moist Cardiovascular: S1S2 reg, no murmur Lungs: CTA bilateral, no rhonchi, no rales , no accessory muscle use Abdominal: soft, nontender to palpation, no guarding, no appreciable organomegaly Ext: no gross muscle atrophy, no edema, no contractures, 4/5 strength B/L LE Neuro: CN II-XI grossly intact, no focal neuro deficits Psych: Alert, oriented, appropriate affect Assessment and Plan: HTN - increased clonidine -continue hydralazine, labetalol, nifedipine, isosorbide -remains hypertensive - started on lisinopril per nephrology -IV hydralazine PRN coag neg staph bacteremia - contaminant leukocytosis - resolved -Vanc discontinued -repeat blood cx NGTD -ID consult Failure to thrive 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, 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 ESRD of HD -nephro following Recent STD/exposure -outpatient follow up -HIV negative DVT ppx: heparin sq Code status: Full code Anticipated discharge place: pending rehab Anticipated discharge time: likely thursday Objective - Vital Signs Vital signs: Vital Signs Temp 98.0 F 06/22/22 11:43 Pulse 80 06/22/22 11:43 Resp 16 06/22/22 11:43 BP 160/80 06/22/22 11:43 Pulse Ox 98 06/22/22 11:43 FiO2 Intake & Output 06/21/22 06/22/22 06/22/22 18:59 06:59 18:59 Intake Total 300 Output Total 0 Balance 300 Intake: Oral 300 Output: Urine 0 Other: # Voids 0 - Labs CBC & Chem 7: 06/17/22 10:00 06/17/22 10:00 Labs: Abnormal Lab Results - Last 24 Hours (Table) 06/21/22 06/21/22 06/22/22 Range/Units 17:24 20:22 07:21 POC Glucose (mg/dL) 170 H 179 H 226 H (70-110) mg/dL 06/22/22 Range/Units 11:17 POC Glucose (mg/dL) 236 H (70-110) mg/dL Microbiology - Last 24 Hours (Table) 06/17/22 10:17 Blood Culture - Preliminary Blood No Growth after 120 hours 06/17/22 10:00 Blood Culture - Preliminary Blood No Growth after 120 hours 06/15/22 23:00 Blood Culture - Final Blood No Growth after 144 hours 06/18/22 10:45 Blood Culture - Preliminary Blood No Growth after 72 hours
[2022-06-22 17:07] LABS: Glucose,Whole Blood 219 mg/dL (70-110)
[2022-06-22 20:18] LABS: Glucose,Whole Blood 263 mg/dL (70-110)
[2022-06-23] MEDS: HEPARIN SODIUM,PORCINE/PF 5,000 UNIT/0.5 ML SYRINGE SQ SCH ×4 (00:18→23:10)
[2022-06-23] MEDS: HYDROcodone/APAP 10-325MG 1 EACH TAB PO PRN ×4 (01:01→23:10)
[2022-06-23] MEDS: hydrALAZINE HCL 20 MG/ML 1 ML VIAL IVP PRN (04:33)
[2022-06-23 07:31] LABS: Glucose,Whole Blood 225 mg/dL (70-110)
[2022-06-23] MEDS: SEVELAMER 800 MG TAB PO SCH ×3 (08:44→18:04)
[2022-06-23] MEDS: INSULIN ASPART (NovoLOG) 100 UNIT/ML VIAL SQ SCH ×4 (08:44→21:17)
[2022-06-23] MEDS: GABAPENTIN 300 MG CAP PO SCH ×3 (08:45→21:16)
[2022-06-23] MEDS: ISOSORBIDE MONONITRATE ER 60 MG TAB.ER.24H PO SCH (08:45)
[2022-06-23] MEDS ORDERED: diphenhydrAMINE 50 MG/ML 1 ML VIAL IVP STA (09:04)
--- NOTE | 2022-06-23 12:27 | P.PN ---
Subjective Patient is seen in follow-up for end-stage renal disease. He is maintained on hemodialysis on Thursday schedule. Hemodialysis today No significant complaints today. 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 intact - Labs CBC & Chem 7: 06/17/22 10:00 06/17/22 10:00 Labs: Abnormal Lab Results - Last 24 Hours (Table) 06/22/22 06/22/22 06/22/22 Range/Units 10:21 17:06 20:17 POC Glucose (mg/dL) 219 H 263 H (70-110) mg/dL Procalcitonin 0.91 H (0.02-0.09) ng/mL 06/23/22 Range/Units 07:30 POC Glucose (mg/dL) 225 H (70-110) mg/dL Procalcitonin (0.02-0.09) ng/mL Microbiology - Last 24 Hours (Table) 06/18/22 10:45 Blood Culture - Preliminary Blood No Growth after 96 hours 06/17/22 10:17 Blood Culture - Preliminary Blood No Growth after 120 hours 06/17/22 10:00 Blood Culture - Preliminary Blood No Growth after 120 hours Assessment and Plan Assessment: 1. End-stage renal disease maintained on hemodialysis on Thursday schedule. 2. Status post fall. No acute fractures noted. 3. Hypertension with chronic kidney disease. 4. Chronic kidney disease mineral bone disease maintained on Renvela. 5. Recent STD after encounter with prostitute. Unsure if this was treated or not. Also had diarrhea last month and stool culture was positive for Reema. Defer management to primary team. HIV negative. 6. Chronic systolic CHF with ejection fraction of 45-50% with moderate to severe mitral regurgitation and mild to moderate tricuspid regurgitation. 7. Coag-negative staph bacteremia. s/p antibiotics. ID following. Repeat blood cultures negative Plan: Increase lisinopril to 20 mg twice a day
[2022-06-23 12:30] LABS: Glucose,Whole Blood 128 mg/dL (70-110)
[2022-06-23] MEDS: LABETALOL 200 MG TAB PO SCH ×3 (12:34→21:17)
[2022-06-23] MEDS: hydrALAZINE HCL 50 MG TAB PO SCH ×3 (12:35→21:17)
[2022-06-23] MEDS: cloNIDine HCL 0.2 MG TAB PO SCH ×3 (12:35→21:16)
[2022-06-23] MEDS: lisinopriL 10 MG TAB PO SCH (12:41)
--- NOTE | 2022-06-23 12:51 | P.PN ---
Subjective Progress Note Date: 06/23/22 Principal diagnosis: T Hospital Course: 46 y.o. male with hx of type 2 diabetes, ESRD on hemodialysis Thursday/Thursday/Thursday, hypertension, dyslipidemia presenting with worsening lower extremity weakness, failure to thrive, homelessness. Nephrology following. Growing coag negative staph in blood cultures, started on vanc, repeat blood cultures NGTD. likely contaminant. ID consulted. Discontinued Vanc. Patient hypertensive, increased clonidine, added lisinopril. Pending discharge. Subjective: Patient seen and examined at bedside. No acute events overnight. He denies any CP, SOB, or abdominal pain. Pertinent positives and negatives as discussed above, a complete review of systems was performed and all other systems are negative. Vitals Signs Reviewed. General: nontoxic, no distress, appears at stated age Derm: warm, dry Head: atraumatic, normocephalic, symmetric Eyes: right eye patch Mouth: no lip lesion, mucus membranes moist Cardiovascular: S1S2 reg, no murmur Lungs: CTA bilateral, no rhonchi, no rales , no accessory muscle use Abdominal: soft, nontender to palpation, no guarding, no appreciable organomegaly Ext: no gross muscle atrophy, no edema, no contractures, 4/5 strength B/L LE Neuro: CN II-XI grossly intact, no focal neuro deficits Psych: Alert, oriented, appropriate affect Assessment and Plan: HTN - increased clonidine -continue hydralazine, labetalol, nifedipine, isosorbide -remains hypertensive - started on lisinopril per nephrology, increased -IV hydralazine PRN coag neg staph bacteremia - contaminant leukocytosis - resolved -Vanc discontinued -repeat blood cx NGTD -ID consult Failure to thrive 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, 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 ESRD of HD -nephro following Recent STD/exposure -outpatient follow up -HIV negative DVT ppx: heparin sq Code status: Full code Anticipated discharge place: pending rehab Anticipated discharge time: Today or tomorrow Objective - Vital Signs Vital signs: Vital Signs Temp 98.0 F 06/23/22 04:27 Pulse 89 06/23/22 04:27 Resp 16 06/23/22 04:27 BP 164/85 06/23/22 05:34 Pulse Ox 97 06/23/22 04:27 FiO2 Intake & Output 06/22/22 06/23/2206/23/22 18:59 06:59 18:59 Intake Total 600 500 Output Total 0 0 Balance 600 500 Intake: Oral 600 500 Output: Urine 0 0 Other: # Voids 0 # Bowel Movements 1 - Labs CBC & Chem 7: 06/17/22 10:00 06/17/22 10:00 Labs: Abnormal Lab Results - Last 24 Hours (Table) 06/22/22 06/22/22 06/22/22 Range/Units 10:21 17:06 20:17 POC Glucose (mg/dL) 219 H 263 H (70-110) mg/dL Procalcitonin 0.91 H (0.02-0.09) ng/mL 06/23/22 06/23/22 Range/Units 07:30 12:29 POC Glucose (mg/dL) 225 H 128 H (70-110) mg/dL Procalcitonin (0.02-0.09) ng/mL Microbiology - Last 24 Hours (Table) 06/17/22 10:17 Blood Culture - Final Blood No Growth after 144 hours 06/17/22 10:00 Blood Culture - Final Blood No Growth after 144 hours 06/18/22 10:45 Blood Culture - Preliminary Blood No Growth after 96 hours
[2022-06-23 17:49] LABS: Glucose,Whole Blood 315 mg/dL (70-110)
[2022-06-23 20:16] LABS: Hepatitis A Antibody IgM Nonreactive (Nonreactive); Hepatitis B Core IgM Nonreactive (Nonreactive); Hepatitis B Surface Antigen Nonreactive (Nonreactive); Hepatitis C IgG Antibody Nonreactive (Nonreactive)
[2022-06-23 20:22] LABS: Glucose,Whole Blood 228 mg/dL (70-110)
[2022-06-23] MEDS: lisinopriL 20 MG TAB PO SCH (21:16)
[2022-06-24] MEDS: HYDROcodone/APAP 10-325MG 1 EACH TAB PO PRN ×3 (05:54→19:38)
[2022-06-24 07:19] LABS: Glucose,Whole Blood 359 mg/dL (70-110)
[2022-06-24] MEDS: INSULIN ASPART (NovoLOG) 100 UNIT/ML VIAL SQ SCH ×4 (07:57→20:56)
[2022-06-24] MEDS: HEPARIN SODIUM,PORCINE/PF 5,000 UNIT/0.5 ML SYRINGE SQ SCH ×2 (07:57→15:46)
[2022-06-24] MEDS: LABETALOL 200 MG TAB PO SCH ×3 (07:58→19:44)
[2022-06-24] MEDS: SEVELAMER 800 MG TAB PO SCH ×3 (07:58→17:24)
[2022-06-24] MEDS: ISOSORBIDE MONONITRATE ER 60 MG TAB.ER.24H PO SCH (07:58)
[2022-06-24] MEDS: hydrALAZINE HCL 50 MG TAB PO SCH ×3 (07:59→19:47)
[2022-06-24] MEDS: cloNIDine HCL 0.2 MG TAB PO SCH ×3 (07:59→19:42)
[2022-06-24] MEDS: GABAPENTIN 300 MG CAP PO SCH ×3 (07:59→19:42)
[2022-06-24] MEDS: lisinopriL 20 MG TAB PO SCH ×2 (07:59→19:42)
[2022-06-24 11:21] LABS: Glucose,Whole Blood 204 mg/dL (70-110)
--- NOTE | 2022-06-24 12:33 | P.PN ---
Subjective Progress Note Date: 06/24/22 Principal diagnosis: T Hospital Course: 46 y.o. male with hx of type 2 diabetes, ESRD on hemodialysis Thursday/Thursday/Thursday, hypertension, dyslipidemia presenting with worsening lower extremity weakness, failure to thrive, homelessness. Nephrology followi ng. Growing coag negative staph in blood cultures, started on vanc, repeat blood cultures NGTD. likely contaminant. ID consulted. Discontinued Vanc. Patient hypertensive, increased clonidine, added lisinopril. Pending discharge. Subjective: Patient seen and examined at bedside. No acute events overnight. He denies any CP, SOB, or abdominal pain. Pertinent positives and negatives as discussed above, a complete review of systems was performed and all other systems are negative. Vitals Signs Reviewed. General: nontoxic, no distress, appears at stated age Derm: warm, dry Head: atraumatic, normocephalic, symmetric Eyes: right eye enucleated Mouth: no lip lesion, mucus membranes moist Cardiovascular: S1S2 reg, no murmur Lungs: CTA bilateral, no rhonchi, no rales , no accessory muscle use Abdominal: soft, nontender to palpation, no guarding, no appreciable organomegaly Ext: no gross muscle atrophy, no edema, no contractures, 4/5 strength B/L LE Neuro: CN II-XI grossly intact, no focal neuro deficits Psych: Alert, oriented, appropriate affect Assessment and Plan: HTN, remains hypertensive - increased clonidine this admission -continue hydralazine, labetalol, nifedipine, isosorbide -remains hypertensive - added lisinopril per nephrology -IV hydralazine PRN coag neg staph bacteremia - contaminant leukocytosis - resolved -Vanc discontinued -repeat blood cx NGTD -ID consult Failure to thrive 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, 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 ESRD of HD -nephro following Recent STD/exposure -outpatient follow up -HIV negative DVT ppx: heparin sq Code status: Full code Anticipated discharge place: pending rehab Anticipated discharge time: possibly tomorrow Objective - Vital Signs Vital signs: Vital Signs Temp 97.9 F 06/24/22 11:54 Pulse 79 06/24/22 11:54 Resp 18 06/24/22 11:54 BP 166/85 06/24/22 11:54 Pulse Ox 99 06/24/22 11:54 FiO2 Intake & Output 06/23/22 06/24/22 06/24/22 18:59 06:59 18:59 Intake Total 840 600 Output Total 3300 0 Balance -2460 600 Intake: Oral 540 600 Hemodialysis 300 Output: Urine 0 Hemodialysis 3300 Other: # Voids 0 - Labs CBC & Chem 7: 06/17/22 10:00 06/17/22 10:00 Labs: Abnormal Lab Results - Last 24 Hours (Table) 06/23/22 06/23/22 06/24/22 Range/Units 17:48 20:20 07:17 POC Glucose (mg/dL) 315 H 228 H 359 H (70-110) mg/dL 06/24/22 Range/Units 11:19 POC Glucose (mg/dL) 204 H (70-110) mg/dL Microbiology - Last 24 Hours (Table) 06/18/22 10:45 Blood Culture - Preliminary Blood No Growth after 120 hours 06/17/22 10:17 Blood Culture - Final Blood No Growth after 144 hours 06/17/22 10:00 Blood Culture - Final Blood No Growth after 144 hours
[2022-06-24 13:35] VITALS: BMI 20.7
--- NOTE | 2022-06-24 16:08 | P.PN ---
Subjective Patient is seen in follow-up for end-stage renal disease. He is maintained on hemodialysis on Thursday schedule. Hemodialysis in am No significant complaints today. Was able to walk with walker. 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 End-stage renal disease maintained on hemodialysis on Thursday schedule. 2. Status post fall. No acute fractures noted. 3. Hypertension with chronic kidney disease. 4. Chronic kidney disease mineral bone disease maintained on Renvela. 5. Recent STD after encounter with prostitute. Unsure if this was treated or not. Also had diarrhea last month and stool culture was positive for Reema. Defer management to primary team. HIV negative. 6. Chronic systolic CHF with ejection fraction of 45-50% with moderate to severe mitral regurgitation and mild to moderate tricuspid regurgitation. 7. Coag-negative staph bacteremia. s/p antibiotics. ID following. Repeat blood cultures negative Plan: Hd in am
[2022-06-24 17:21] LABS: Glucose,Whole Blood 127 mg/dL (70-110)
[2022-06-24 20:41] LABS: Glucose,Whole Blood 190 mg/dL (70-110)
[2022-06-25] MEDS: HEPARIN SODIUM,PORCINE/PF 5,000 UNIT/0.5 ML SYRINGE SQ SCH ×3 (00:08→15:12)
[2022-06-25] MEDS: HYDROcodone/APAP 10-325MG 1 EACH TAB PO PRN ×4 (00:40→20:44)
[2022-06-25 07:20] LABS: Glucose,Whole Blood 265 mg/dL (70-110)
[2022-06-25] MEDS: SEVELAMER 800 MG TAB PO SCH ×3 (08:16→17:31)
[2022-06-25] MEDS: lisinopriL 20 MG TAB PO SCH ×3 (08:16→20:34)
[2022-06-25] MEDS: INSULIN ASPART (NovoLOG) 100 UNIT/ML VIAL SQ SCH ×4 (08:16→20:43)
[2022-06-25] MEDS: GABAPENTIN 300 MG CAP PO SCH ×3 (08:16→20:35)
[2022-06-25] MEDS: cloNIDine HCL 0.2 MG TAB PO SCH ×4 (08:17→20:34)
[2022-06-25] MEDS: LABETALOL 200 MG TAB PO SCH ×4 (08:17→20:34)
[2022-06-25] MEDS: hydrALAZINE HCL 50 MG TAB PO SCH ×4 (08:17→20:34)
[2022-06-25] MEDS: ISOSORBIDE MONONITRATE ER 60 MG TAB.ER.24H PO SCH (08:17)
[2022-06-25] MEDS ORDERED: diphenhydrAMINE 50 MG/ML 1 ML VIAL IVP STA (08:29)
[2022-06-25 11:17] LABS: Glucose,Whole Blood 143 mg/dL (70-110)
--- NOTE | 2022-06-25 11:54 | P.PN ---
Subjective Progress Note Date: 06/25/22 Principal diagnosis: [facility] Hospital Course: 46 y.o. male with hx of type 2 diabetes, ESRD on hemodialysis Thursday/Thursday/Thursday, hypertension, dyslipidemia presenting with worsening lower extremity weakness, failure to thrive, homelessness. Nephrology following. Growing coag negative staph in blood cultures, started on vanc, repeat blood cultures NGTD. likely contaminant. ID consulted. Discontinued Vanc. Patient hypertensive, increased clonidine, added lisinopril. Also has folliculitis barbae, on topical mupirocin. Pending discharge to rehab. Subjective: Patient seen and examined at bedside. No acute events overnight. He denies any CP, SOB, or abdominal pain. Pertinent positives and negatives as discussed above, a complete review of systems was performed and all other systems are negative. Vitals Signs Reviewed. General: nontoxic, no distress, appears at stated age Derm: warm, dry Head: atraumatic, normocephalic, symmetric Eyes: right eye enucleated Mouth: no lip lesion, mucus membranes moist Cardiovascular: S1S2 reg, no murmur Lungs: CTA bilateral, no rhonchi, no rales , no accessory muscle use Abdominal: soft, nontender to palpation, no guarding, no appreciable organomegaly Ext: no gross muscle atrophy, no edema, no contractures, 4/5 strength B/L LE Neuro: CN II-XI grossly intact, no focal neuro deficits Psych: Alert, oriented, appropriate affect Assessment and Plan: HTN, remains hypertensive - increased clonidine this admission -continue hydralazine, labetalol, nifedipine, isosorbide -remains hypertensive - added lisinopril per nephrology -IV hydralazine PRN coag neg staph bacteremia - contaminant leukocytosis - resolved -Vanc discontinued -repeat blood cx NGTD -ID consult Folliculitis Barbae -topical mupirocin Failure to thrive 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, 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 ESRD of HD -nephro following Recent STD/exposure -outpatient follow up -HIV negative DVT ppx: heparin sq Code status: Full code Anticipated discharge place: pending rehab, waiting final approval Anticipated discharge time: possibly tomorrow Objective - Vital Signs Vital signs: Vital Signs Temp 97.5 F L 06/25/22 05:10 Pulse 82 06/25/22 05:10 Resp 16 06/25/22 05:10 BP 158/86 06/25/22 05:10 Pulse Ox 93 L 06/25/22 05:10 FiO2 Intake & Output 06/24/22 06/25/22 06/25/22 18:59 06:59 18:59 Intake Total 1080 Output Total 0 Balance 1080 Weight 71.214 kg Intake: Oral 1080 Output: Urine 0 Other: # Voids 0 # Bowel Movements 1 1 - Labs CBC & Chem 7: 06/17/22 10:00 06/17/22 10:00 Labs: Abnormal Lab Results - Last 24 Hours (Table) 06/24/22 06/24/22 06/25/22 Range/Units 17:19 20:40 07:19 POC Glucose (mg/dL) 127 H 190 H 265 H (70-110) mg/dL 06/25/22 Range/Units 11:16 POC Glucose (mg/dL) 143 H (70-110) mg/dL Microbiology - Last 24 Hours (Table) 06/18/22 10:45 Blood Culture - Final Blood No Growth after 144 hours
[2022-06-25] MEDS: MUPIROCIN 2% OINT 22 GM TUBE TOPICAL SCH ×3 (13:04→20:36)
[2022-06-25 17:11] LABS: Glucose,Whole Blood 177 mg/dL (70-110)
--- NOTE | 2022-06-25 18:03 | P.PN ---
Subjective Patient is seen in follow-up for end-stage renal disease. He is maintained on hemodialysis on Thursday schedule. Hemodialysis in am No significant complaints today. Seen on HD. 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 End-stage renal disease maintained on hemodialysis on Thursday schedule. 2. Status post fall. No acute fractures noted. 3. Hypertension with chronic kidney disease. 4. Chronic kidney disease mineral bone disease maintained on Renvela. 5. Recent STD after encounter with prostitute. Unsure if this was treated or not. Also had diarrhea last month and stool culture was positive for Reema. Defer management to primary team. HIV negative. 6. Chronic systolic CHF with ejection fraction of 45-50% with moderate to severe mitral regurgitation and mild to moderate tricuspid regurgitation. 7. Coag-negative staph bacteremia. s/p antibiotics. ID following. Repeat blood cultures negative Plan: Increase goal UF to 3-3.5L as tolerated.
[2022-06-25 20:31] LABS: Glucose,Whole Blood 249 mg/dL (70-110)
[2022-06-26] MEDS: HEPARIN SODIUM,PORCINE/PF 5,000 UNIT/0.5 ML SYRINGE SQ SCH ×4 (02:18→23:21)
[2022-06-26] MEDS: HYDROcodone/APAP 10-325MG 1 EACH TAB PO PRN ×3 (04:49→21:56)
[2022-06-26] MEDS: hydrALAZINE HCL 20 MG/ML 1 ML VIAL IVP PRN (04:53)
[2022-06-26 07:18] LABS: Glucose,Whole Blood 358 mg/dL (70-110)
[2022-06-26] MEDS: hydrALAZINE HCL 50 MG TAB PO SCH ×3 (09:06→21:52)
[2022-06-26] MEDS: INSULIN ASPART (NovoLOG) 100 UNIT/ML VIAL SQ SCH ×4 (09:06→21:51)
[2022-06-26] MEDS: ISOSORBIDE MONONITRATE ER 60 MG TAB.ER.24H PO SCH (09:06)
[2022-06-26] MEDS: SEVELAMER 800 MG TAB PO SCH ×3 (09:07→16:23)
[2022-06-26] MEDS: cloNIDine HCL 0.2 MG TAB PO SCH ×3 (09:07→21:52)
[2022-06-26] MEDS: GABAPENTIN 300 MG CAP PO SCH ×3 (09:07→21:52)
[2022-06-26] MEDS: lisinopriL 20 MG TAB PO SCH ×2 (09:08→21:52)
[2022-06-26] MEDS: LABETALOL 200 MG TAB PO SCH ×3 (09:08→21:53)
[2022-06-26] MEDS: MUPIROCIN 2% OINT 22 GM TUBE TOPICAL SCH ×3 (09:09→21:53)
--- NOTE | 2022-06-26 12:05 | P.PN ---
Subjective Progress Note Date: 06/26/22 46 y.o. male with hx of type 2 diabetes, ESRD on hemodialysis Thursday/Thursday/Thursday, hypertension, dyslipidemia presenting with worsening lower extremity weakness, failure to thrive, homelessness. Nephrology following. Growing coag negative staph in blood cultures, started on vanc, repeat blood cultures NGTD. likely contaminant. ID consulted. Discontinued Vanc. Patient hypertensive, increased clonidine, added lisinopril. Also has folliculitis barbae, on topical mupirocin. Pending discharge to rehab. Patient is complaining of pain in his right cheek area. He otherwise has no acute complaints Objective - Vital Signs Vital signs: Vital Signs Temp 98.1 F 06/26/22 05:00 Pulse 79 06/26/22 05:00 Resp 16 06/26/22 05:00 BP 202/95 06/26/22 05:00 Pulse Ox 91 L 06/26/22 05:00 FiO2 Intake & Output 06/25/22 06/26/22 06/26/22 18:59 06:59 18:59 Intake Total 400 590 Output Total 3200 0 Balance -2800 590 Intake: Oral 590 Hemodialysis 400 Output: Urine 0 Hemodialysis 3200 Other: # Voids 0 - Exam General examination - Alert and Oriented 3 in NAD Face: Right cheek abscess 1 by 1 cm Heart - + S1S2 no murmurs Lungs - Clear to auscultation Abdomen soft NT ND +ve BS Extremities - No edema 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 Psych - Calm and cooperative - Labs CBC & Chem 7: 06/17/22 10:00 06/17/22 10:00 Labs: Abnormal Lab Results - Last 24 Hours (Table) 06/25/22 06/25/22 06/26/22 Range/Units 17:09 20:29 07:17 POC Glucose (mg/dL) 177 H 249 H 358 H (70-110) mg/dL Assessment and Plan Assessment: Hypertension uncontrolled Clonidine and increase this admission Continue hydralazine and labetalol and nifedipine isosorbide Nephrology ordered lisinopril Coagulase-negative staph bacteremia Likely contaminant Infectious disease discontinued vancomycin Repeat blood cultures negative to date Right cheek abscess Consult ENT Start patient on clindamycin Failure to thrive Homelessness trust manager working on placement ESRD on hemodialysis Nephrology following Recent STD exposure HIV-negative Outpatient follow-up DVT prophylaxis: Subcu heparin Anticipated patient be ready for discharge in the next 24 hours. Awaiting for recommendations from ENT
[2022-06-26 12:06] LABS: Glucose,Whole Blood 55 mg/dL (70-110)
[2022-06-26 12:24] LABS: Glucose,Whole Blood 107 mg/dL (70-110)
[2022-06-26 13:09] LABS: Glucose,Whole Blood 118 mg/dL (70-110)
[2022-06-26] MEDS: CLINDAMYCIN 150 MG CAP PO SCH ×3 (13:44→21:53)
[2022-06-26 17:24] LABS: Glucose,Whole Blood 367 mg/dL (70-110)
[2022-06-26 21:19] LABS: Glucose,Whole Blood 251 mg/dL (70-110)
[2022-06-27] MEDS: HYDROcodone/APAP 10-325MG 1 EACH TAB PO PRN ×4 (03:12→21:31)
--- NOTE | 2022-06-27 03:35 | CONS ---
CONSULTATION REASON FOR CONSULTATION: Facial abscess. HISTORY: This is a 46-year-old black male with history of asthma, diabetes, end-stage renal disease, on dialysis, who presented to the ER for weakness. The patient stated that his legs have been feeling weak. He also fell last couple of weeks ago. He was noted to have a right cheek abscess and the patient states that this has been present since August of this year and occasionally becomes sore and then will drain minimally spontaneously and feel better and then enlarge again slowly. He has not had any particular treatment for this up to this point. PAST MEDICAL HISTORY: Positive for asthma, diabetes, dialysis, poor vision in the right eye, hypertension, renal disease. PAST SURGICAL HISTORY: Eye surgery due to the diabetes and pericardial window as well as right eye removal, history of anxiety and depression. SOCIAL HISTORY: He is a former smoker. Does not drink alcohol or use illicit drugs. MEDICATIONS: At home, 1. Insulin. 2. Trandate. 3. Imdur. 4. Morley. 5. Neurontin. 6. Catapres. 7. RenaPlex. 8. Renvela. 9. Apresoline. ALLERGIES: No known drug allergies. REVIEW OF SYSTEMS: Systems with pertinent positives and negative responses were documented in the HPI. All other systems noted are negative. FAMILY HISTORY: Positive for renal disease. PHYSICAL EXAMINATION: GENERAL: This is a well-developed adult black male, in no acute distress. He is alert and oriented x3. HEENT: Head normocephalic and atraumatic. The eyes show eye extraction on the right. Left eye is intact. The facial exam shows approximately 2 cm cystic lesion in mid right cheek, which at the superior aspect is "pointing." It is minimally tender and mildly erythematous. This area was minimally unroofed/lanced with forceps and drained of approximate 1 mL of purulence, which was cultured. This decompressed the lesion, although there is still evidence of underlying cyst. Mouth and throat shows no abnormal masses or lesions. Nose shows no drainage or congestion. No bleeding points. NECK: Supple without adenopathy or tenderness. ASSESSMENT: Sebaceous cyst, right cheek with secondary abscess. PLAN: Culture is pending. He is already on Cleocin and Bactroban, which should continue for at least 10 days. Apparently, he is going to be discharged to rehabilitation center tomorrow and he will need to continue these as an outpatient. I would recommend that he follow up in our office after discharge and we would likely recommend excision of the underlying cyst ultimately. He is not sure where he will be placed in rehab, although possibly [place] or where he will be living after he is discharged from rehab. I explained to him that if he is not living here locally, then he would need to seek General Surgeon, ENT, Plastic Surgery or Dermatology consult as an outpatient for ultimately excision of this area. If there are questions or concerns regarding this consultation, please feel free to contact me. SY / IJN: [id number] /
[2022-06-27] MEDS: hydrALAZINE HCL 20 MG/ML 1 ML VIAL IVP PRN (04:53)
[2022-06-27 07:38] LABS: Glucose,Whole Blood 291 mg/dL (70-110)
[2022-06-27] MEDS: hydrALAZINE HCL 50 MG TAB PO SCH ×3 (09:05→21:30)
[2022-06-27] MEDS: HEPARIN SODIUM,PORCINE/PF 5,000 UNIT/0.5 ML SYRINGE SQ SCH ×3 (09:05→23:35)
[2022-06-27] MEDS: GABAPENTIN 300 MG CAP PO SCH ×3 (09:06→21:30)
[2022-06-27] MEDS: cloNIDine HCL 0.2 MG TAB PO SCH ×3 (09:06→21:30)
[2022-06-27] MEDS: SEVELAMER 800 MG TAB PO SCH ×3 (09:06→19:25)
[2022-06-27] MEDS: INSULIN ASPART (NovoLOG) 100 UNIT/ML VIAL SQ SCH ×4 (09:06→21:15)
[2022-06-27] MEDS: ISOSORBIDE MONONITRATE ER 60 MG TAB.ER.24H PO SCH (09:06)
[2022-06-27] MEDS: lisinopriL 20 MG TAB PO SCH ×2 (09:06→21:30)
[2022-06-27] MEDS: CLINDAMYCIN 150 MG CAP PO SCH ×3 (09:07→21:30)
[2022-06-27] MEDS: LABETALOL 200 MG TAB PO SCH ×3 (09:07→21:30)
[2022-06-27] MEDS: MUPIROCIN 2% OINT 22 GM TUBE TOPICAL SCH ×3 (09:11→22:51)
--- NOTE | 2022-06-27 11:44 | P.PN ---
Subjective Patient is seen in follow-up for end-stage renal disease. He is maintained on hemodialysis on Thursday schedule. No significant complaints today. Scheduled for hemodialysis today Objective - Vital Signs Vital signs: Vital Signs Temp 97.4 F L 06/27/22 04:45 Pulse 80 06/27/22 05:40 Resp 16 06/27/22 04:45 BP 161/80 06/27/22 05:40 Pulse Ox 100 06/27/22 04:45 FiO2 Intake & Output 06/26/22 06/27/22 06/27/22 18:59 06:59 18:59 Other: # Voids 3 - Exam Awake, comfortable no acute distress Abdomen is soft nontender No significant edema noted MLT exam grossly intact - Labs CBC & Chem 7: 06/17/22 10:00 06/17/22 10:00 Labs: Abnormal Lab Results - Last 24 Hours (Table) 06/26/22 06/26/22 06/26/22 Range/Units 12:03 13:07 17:22 POC Glucose (mg/dL) 55 L 118 H 367 H (70-110) mg/dL 06/26/22 06/27/22 Range/Units 21:18 07:36 POC Glucose (mg/dL) 251 H 291 H (70-110) mg/dL Microbiology - Last 24 Hours (Table) 06/26/22 17:19 Wound Culture - Preliminary Face 06/26/22 17:19 Anaerobic Culture - Preliminary Face Assessment and Plan Assessment: 1. End-stage renal disease maintained on hemodialysis on Thursday schedule. 2. Status post fall. No acute fractures noted. 3. Hypertension with chronic kidney disease. 4. Chronic kidney disease mineral bone disease maintained on Renvela. Plan: Hemodialysis today Awaiting placement
[2022-06-27 12:26] LABS: Glucose,Whole Blood 274 mg/dL (70-110)
--- NOTE | 2022-06-27 12:27 | P.PN ---
Subjective Progress Note Date: 06/27/22 Patient is moist and any acute complaints. He is scheduled for dialysis today. I did tell rehabilitation case coordinator patient is medically stable for discharge. 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 Psych - Calm and cooperative - Labs CBC & Chem 7: 06/17/22 10:00 06/17/22 10:00 Labs: Abnormal Lab Results - Last 24 Hours (Table) 06/26/22 06/26/22 06/26/22 Range/Units 13:07 17:22 21:18 POC Glucose (mg/dL) 118 H 367 H 251 H (70-110) mg/dL 06/27/22 Range/Units 07:36 POC Glucose (mg/dL) 291 H (70-110) mg/dL Microbiology - Last 24 Hours (Table) 06/26/22 17:19 Wound Culture - Preliminary Face 06/26/22 17:19 Anaerobic Culture - Preliminary Face Assessment and Plan Assessment: Hypertension uncontrolled Clonidine and increase this admission Continue hydralazine and labetalol and nifedipine isosorbide Nephrology ordered lisinopril The patient is better controlled this morning Coagulase-negative staph bacteremia Likely contaminant Infectious disease discontinued vancomycin Repeat blood cultures negative to date Right cheek abscess I appreciate ENT consult. ENT recommends outpatient follow-up for drainage of the abscess We'll resume clindamycin for 7 days Failure to thrive Homelessness automation engineering manager working on placement ESRD on hemodialysis Nephrology following Recent STD exposure HIV-negative Outpatient follow-up DVT prophylaxis: Subcu heparin Patient is stable for discharge to a assisted facility.
[2022-06-27] MEDS: diphenhydrAMINE 50 MG/ML 1 ML VIAL IVP PRN (15:31)
[2022-06-27] MEDS: diphenhydrAMINE 50 MG/ML 1 ML VIAL IVP SCH ×2 (15:32→15:34)
[2022-06-27 16:53] LABS: African American GFR (CKD) 9 (>60 ml/min/1.73 sqM); Anion Gap 9 mmol/L; Blood Urea Nitrogen 59 mg/dL (9-20); Carbon Dioxide 26 mmol/L (22-30); Chloride 103 mmol/L (98-107); Glucose 131 mg/dL (74-99); Non-African American GFR(CKD) 8 (>60 ml/min/1.73 sqM); Potassium 5.7 mmol/L (3.5-5.1); Sodium 138 mmol/L (137-145)
[2022-06-27 17:08] LABS: Glucose,Whole Blood 115 mg/dL (70-110)
[2022-06-27 17:14] LABS: Glucose,Whole Blood 191 mg/dL (70-110)
[2022-06-27 20:58] LABS: Glucose,Whole Blood 111 mg/dL (70-110)
[2022-06-28] MEDS: HYDROcodone/APAP 10-325MG 1 EACH TAB PO PRN ×4 (03:06→21:27)
[2022-06-28] MEDS: hydrALAZINE HCL 20 MG/ML 1 ML VIAL IVP PRN ×3 (05:06→21:28)
[2022-06-28 07:39] LABS: Glucose,Whole Blood 246 mg/dL (70-110)
[2022-06-28] MEDS: INSULIN ASPART (NovoLOG) 100 UNIT/ML VIAL SQ SCH ×4 (09:06→21:26)
[2022-06-28] MEDS: HEPARIN SODIUM,PORCINE/PF 5,000 UNIT/0.5 ML SYRINGE SQ SCH ×3 (09:06→23:08)
[2022-06-28] MEDS: GABAPENTIN 300 MG CAP PO SCH ×3 (09:07→21:28)
[2022-06-28] MEDS: SEVELAMER 800 MG TAB PO SCH ×3 (09:07→18:13)
[2022-06-28] MEDS: ISOSORBIDE MONONITRATE ER 60 MG TAB.ER.24H PO SCH (09:07)
[2022-06-28] MEDS: cloNIDine HCL 0.2 MG TAB PO SCH ×3 (09:08→21:27)
[2022-06-28] MEDS: hydrALAZINE HCL 50 MG TAB PO SCH ×3 (09:08→21:28)
[2022-06-28] MEDS: CLINDAMYCIN 150 MG CAP PO SCH ×3 (09:08→21:28)
[2022-06-28] MEDS: lisinopriL 20 MG TAB PO SCH ×2 (09:08→21:28)
[2022-06-28] MEDS: MUPIROCIN 2% OINT 22 GM TUBE TOPICAL SCH ×3 (09:09→21:29)
[2022-06-28] MEDS: LABETALOL 200 MG TAB PO SCH ×3 (09:09→21:28)
--- NOTE | 2022-06-28 09:20 | P.PN ---
Subjective Patient is seen in follow-up for end-stage renal disease. He is maintained on hemodialysis on Thursday schedule. Tolerated 3 L ultrafiltration yesterday. Resting in bed. Vital signs are stable. Blood pressure high. General: Awake. No acute distress. HEENT: Head exam is unremarkable. LUNGS: Breath sounds decreased. HEART: Rate and Rhythm are regular. ABDOMEN: Soft, no distention. EXTREMITITES: No edema. Objective - Vital Signs Vital signs: Vital Signs Temp 98.2 F 06/28/22 05:00 Pulse 92 06/28/22 05:00 Resp 16 06/28/22 05:00 BP 191/101 06/28/22 05:00 Pulse Ox 95 06/28/22 05:00 FiO2 Intake & Output 06/27/22 06/28/22 06/28/22 18:59 06:59 18:59 Intake Total 777 300 Output Total 3000 Balance 777 -2700 Intake: Oral 777 Hemodialysis 300 Output: Hemodialysis 3000 Other: # Voids 1 # Bowel Movements 2 - Labs CBC & Chem 7: 06/17/22 10:00 06/27/22 15:49 Labs: Abnormal Lab Results - Last 24 Hours (Table) 06/27/22 06/27/22 06/27/22 Range/Units 12:25 15:49 16:55 Potassium 5.7 H (3.5-5.1) mmol/L BUN 59 H (9-20) mg/dL Creatinine 7.46 H* (0.66-1.25) mg/dL Glucose 131 H (74-99) mg/dL POC Glucose (mg/dL) 274 H 115 H (70-110) mg/dL 06/27/22 06/27/22 06/28/22 Range/Units 17:13 20:55 07:37 Potassium (3.5-5.1) mmol/L BUN (9-20) mg/dL Creatinine (0.66-1.25) mg/dL Glucose (74-99) mg/dL POC Glucose (mg/dL) 191 H 111 H 246 H (70-110) mg/dL Microbiology - Last 24 Hours (Table) 06/26/22 17:19 Gram Stain - Preliminary Face Wound Culture - Preliminary Reema albicans Assessment and Plan Plan: Assessment: 1. End-stage renal disease maintained on hemodialysis on Thursday schedule. 2. Status post fall. No acute fractures noted. 3. Hypertension with chronic kidney disease. Exacerbated by pain. 4. Chronic kidney disease mineral bone disease maintained on Renvela. 5. Recent STD after encounter with prostitute. Unsure if this was treated or not. Also had diarrhea last month and stool culture was positive for Reema. Defer management to primary team. HIV negative. 6. Chronic systolic CHF with ejection fraction of 45-50% with moderate to severe mitral regurgitation and mild to moderate tricuspid regurgitation. 7. Coag-negative staph bacteremia. s/p antibiotics. ID following. Plan: Hemodialysis Thursday. Add torsemide 40 mg daily. Increase frequency of as needed IV hydralazine to every 4 hours. Awaits placement. Pain control. Defer management to primary team.
[2022-06-28] MEDS: TORSEMIDE 20 MG TAB PO SCH (11:56)
[2022-06-28 12:10] LABS: Glucose,Whole Blood 238 mg/dL (70-110)
--- NOTE | 2022-06-28 14:53 | P.PN ---
Subjective Progress Note Date: 06/28/22 Patient denies any acute complaints. No acute issues overnight. 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 - Moving all 4 extremities spontaneously Psych - Calm and cooperative - Labs CBC & Chem 7: 06/17/22 10:00 06/27/22 15:49 Labs: Abnormal Lab Results - Last 24 Hours (Table) 06/27/22 06/27/22 06/27/22 Range/Units 15:49 16:55 17:13 Potassium 5.7 H (3.5-5.1) mmol/L BUN 59 H (9-20) mg/dL Creatinine 7.46 H* (0.66-1.25) mg/dL Glucose 131 H (74-99) mg/dL POC Glucose (mg/dL) 115 H 191 H (70-110) mg/dL 06/27/22 06/28/22 06/28/22 Range/Units 20:55 07:37 12:08 Potassium (3.5-5.1) mmol/L BUN (9-20) mg/dL Creatinine (0.66-1.25) mg/dL Glucose (74-99) mg/dL POC Glucose (mg/dL) 111 H 246 H 238 H (70-110) mg/dL Microbiology - Last 24 Hours (Table) 06/26/22 17:19 Gram Stain - Preliminary Face Wound Culture - Preliminary Reema albicans Assessment and Plan Assessment: Hypertension uncontrolled Clonidine and increase this admission Continue hydralazine and labetalol and nifedipine isosorbide Nephrology ordered lisinopril The patient is better controlled this morning Coagulase-negative staph bacteremia Likely contaminant Infectious disease discontinued vancomycin Repeat blood cultures negative to date Right cheek abscess I appreciate ENT consult. ENT recommends outpatient follow-up for drainage of the abscess We'll resume clindamycin for 7 days Failure to thrive Homelessness net manager working on placement ESRD on hemodialysis Nephrology following Recent STD exposure HIV-negative Outpatient follow-up DVT prophylaxis: Subcu heparin Patient is stable for discharge to a intermediate facility. Awaiting for placement
[2022-06-28 17:46] LABS: Glucose,Whole Blood 244 mg/dL (70-110)
[2022-06-28 20:31] LABS: Glucose,Whole Blood 128 mg/dL (70-110)
[2022-06-28 21:33] LABS: Glucose,Whole Blood 126 mg/dL (70-110)
[2022-06-29] MEDS: HYDROcodone/APAP 10-325MG 1 EACH TAB PO PRN ×3 (04:37→21:21)
[2022-06-29] MEDS: hydrALAZINE HCL 20 MG/ML 1 ML VIAL IVP PRN (04:38)
[2022-06-29 07:43] LABS: Glucose,Whole Blood 199 mg/dL (70-110)
[2022-06-29] MEDS: INSULIN ASPART (NovoLOG) 100 UNIT/ML VIAL SQ SCH ×4 (08:41→21:23)
[2022-06-29] MEDS: ISOSORBIDE MONONITRATE ER 60 MG TAB.ER.24H PO SCH (08:42)
[2022-06-29] MEDS: cloNIDine HCL 0.2 MG TAB PO SCH ×3 (08:42→21:22)
[2022-06-29] MEDS: lisinopriL 20 MG TAB PO SCH (08:42)
[2022-06-29] MEDS: GABAPENTIN 300 MG CAP PO SCH ×3 (08:43→21:22)
[2022-06-29] MEDS: hydrALAZINE HCL 50 MG TAB PO SCH ×3 (08:43→21:22)
[2022-06-29] MEDS: SEVELAMER 800 MG TAB PO SCH ×3 (08:43→17:39)
[2022-06-29] MEDS: HEPARIN SODIUM,PORCINE/PF 5,000 UNIT/0.5 ML SYRINGE SQ SCH ×2 (08:43→15:55)
[2022-06-29] MEDS: CLINDAMYCIN 150 MG CAP PO SCH ×3 (08:43→21:21)
[2022-06-29] MEDS: LABETALOL 200 MG TAB PO SCH ×3 (08:44→21:23)
[2022-06-29] MEDS: MUPIROCIN 2% OINT 22 GM TUBE TOPICAL SCH ×3 (08:45→21:24)
[2022-06-29] MEDS: TORSEMIDE 20 MG TAB PO SCH (08:45)
--- NOTE | 2022-06-29 10:17 | P.PN ---
Subjective Patient is seen in follow-up for end-stage renal disease. He is maintained on hemodialysis on Thursday schedule. Tolerated 3 L ultrafiltration on 06/27/2022. Resting in bed. No active complaints. Vital signs are stable. Blood pressure high. General: Awake. No acute distress. HEENT: Head exam is unremarkable. LUNGS: Breath sounds decreased. HEART: Rate and Rhythm are regular. ABDOMEN: Soft, no distention. EXTREMITITES: No edema. Objective - Vital Signs Vital signs: Vital Signs Temp 98.5 F 06/29/22 04:35 Pulse 82 06/29/22 04:35 Resp 14 06/29/22 04:35 BP 174/94 06/29/22 04:35 Pulse Ox 96 06/29/22 04:40 FiO2 Intake & Output 06/28/22 06/29/22 06/29/22 18:59 06:59 18:59 Intake Total 890 240 Balance 890 240 Intake: Oral 890 240 - Labs CBC & Chem 7: 06/17/22 10:00 06/27/22 15:49 Labs: Abnormal Lab Results - Last 24 Hours (Table) 06/28/22 06/28/22 06/28/22 Range/Units 12:08 17:45 20:29 POC Glucose (mg/dL) 238 H 244 H 128 H (70-110) mg/dL 06/28/22 06/29/22 Range/Units 21:32 07:42 POC Glucose (mg/dL) 126 H 199 H (70-110) mg/dL Microbiology - Last 24 Hours (Table) 06/26/22 17:19 Gram Stain - Final Face Wound Culture - Final Reema albicans 06/26/22 17:19 Anaerobic Culture - Preliminary Face Assessment and Plan Plan: Assessment: 1. End-stage renal disease maintained on hemodialysis on Thursday schedule. 2. Status post fall. No acute fractures noted. 3. Hypertension with chronic kidney disease. Blood pressure still high. 4. Chronic kidney disease mineral bone disease maintained on Renvela. 5. Recent STD after encounter with prostitute. Unsure if this was treated or not. Also had diarrhea last month and stool culture was positive for Reema. Defer management to primary team. HIV negative. 6. Chronic systolic CHF with ejection fraction of 45-50% with moderate to severe mitral regurgitation and mild to moderate tricuspid regurgitation. 7. Coag-negative staph bacteremia. s/p antibiotics. ID following. Plan: Hemodialysis Thursday. Add minoxidil. Awaits placement. Pain control. Defer management to primary team.
--- NOTE | 2022-06-29 11:31 | P.PN ---
Subjective Progress Note Date: 06/29/22 Patient denies any acute complaints. No acute issues overnight. 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 - Moving all 4 extremities spontaneously Psych - Calm and cooperative - Labs CBC & Chem 7: 06/17/22 10:00 06/29/22 10:47 Labs: Abnormal Lab Results - Last 24 Hours (Table) 06/28/22 06/28/22 06/28/22 Range/Units 12:08 17:45 20:29 Potassium (3.5-5.1) mmol/L POC Glucose (mg/dL) 238 H 244 H 128 H (70-110) mg/dL 06/28/22 06/29/22 06/29/22 Range/Units 21:32 07:42 10:47 Potassium 5.8 H (3.5-5.1) mmol/L POC Glucose (mg/dL) 126 H 199 H (70-110) mg/dL Microbiology - Last 24 Hours (Table) 06/26/22 17:19 Gram Stain - Final Face Wound Culture - Final Reema albicans 06/26/22 17:19 Anaerobic Culture - Preliminary Face Assessment and Plan Assessment: Hypertension uncontrolled Clonidine and increase this admission Continue hydralazine and labetalol and nifedipine isosorbide Nephrology ordered lisinopril and minoxidil The patient is better controlled this morning Coagulase-negative staph bacteremia Likely contaminant Infectious disease discontinued vancomycin Repeat blood cultures negative to date Right cheek abscess Patient states that he's had the abscess since August of this year. He states that the abscess spontaneously drains and then reoccurs I appreciate ENT consult. ENT recommends outpatient follow-up for drainage of the abscess We'll resume clindamycin for 7 days Failure to thrive Homelessness manager of finance working on placement ESRD on hemodialysis Nephrology following Recent STD exposure HIV-negative Outpatient follow-up DVT prophylaxis: Subcu heparin Patient is stable for discharge to a longterm facility. Awaiting for placement
[2022-06-29 12:11] LABS: Glucose,Whole Blood 270 mg/dL (70-110)
[2022-06-29] MEDS: minoxidiL 2.5 MG TAB PO SCH (13:07)
[2022-06-29] MEDS ORDERED: SODIUM ZIRCONIUM CYCLOSILICATE 10 GM PACKET PO ONE (14:37)
[2022-06-29 17:28] LABS: Glucose,Whole Blood 102 mg/dL (70-110)
[2022-06-29 20:26] LABS: Glucose,Whole Blood 163 mg/dL (70-110)
[2022-06-30] MEDS: HEPARIN SODIUM,PORCINE/PF 5,000 UNIT/0.5 ML SYRINGE SQ SCH ×4 (00:20→23:56)
[2022-06-30] MEDS: HYDROcodone/APAP 10-325MG 1 EACH TAB PO PRN ×3 (04:45→21:14)
[2022-06-30 07:24] LABS: Glucose,Whole Blood 244 mg/dL (70-110)
[2022-06-30] MEDS: INSULIN ASPART (NovoLOG) 100 UNIT/ML VIAL SQ SCH ×4 (08:48→21:14)
[2022-06-30] MEDS: cloNIDine HCL 0.2 MG TAB PO SCH ×3 (08:49→21:14)
[2022-06-30] MEDS: hydrALAZINE HCL 50 MG TAB PO SCH ×3 (08:49→21:14)
[2022-06-30] MEDS: ISOSORBIDE MONONITRATE ER 60 MG TAB.ER.24H PO SCH (08:49)
[2022-06-30] MEDS: SEVELAMER 800 MG TAB PO SCH ×3 (08:49→18:41)
[2022-06-30] MEDS: lisinopriL 20 MG TAB PO SCH (08:49)
[2022-06-30] MEDS: LABETALOL 200 MG TAB PO SCH ×3 (08:50→21:15)
[2022-06-30] MEDS: minoxidiL 2.5 MG TAB PO SCH (08:50)
[2022-06-30] MEDS: TORSEMIDE 20 MG TAB PO SCH (08:50)
[2022-06-30] MEDS: GABAPENTIN 300 MG CAP PO SCH ×3 (08:50→21:14)
[2022-06-30] MEDS: CLINDAMYCIN 150 MG CAP PO SCH ×3 (08:51→21:15)
[2022-06-30] MEDS: MUPIROCIN 2% OINT 22 GM TUBE TOPICAL SCH ×3 (08:52→21:15)
--- NOTE | 2022-06-30 10:05 | P.PN ---
Subjective Patient is seen in follow-up for end-stage renal disease. He is maintained on hemodialysis on Thursday schedule. Tolerated 3 L ultrafiltration on 06/27/2022. Resting in bed. No active complaints. Blood pressure better controlled. Vital signs are stable. General: Awake. No acute distress. HEENT: Head exam is unremarkable. LUNGS: Breath sounds decreased. HEART: Rate and Rhythm are regular. ABDOMEN: Soft, no distention. EXTREMITITES: No edema. Objective - Vital Signs Vital signs: Vital Signs Temp 97.3 F L 06/30/22 04:43 Pulse 79 06/30/22 08:55 Resp 14 06/30/22 04:43 BP 153/86 06/30/22 08:55 Pulse Ox 97 06/30/22 04:43 FiO2 Intake & Output 06/29/22 06/30/22 06/30/22 18:59 06:59 18:59 Intake Total 300 Balance 300 Intake: Oral 300 - Labs CBC & Chem 7: 06/17/22 10:00 06/29/22 10:47 Labs: Abnormal Lab Results - Last 24 Hours (Table) 06/29/22 06/29/22 06/29/22 Range/Units 10:47 12:10 20:23 Potassium 5.8 H (3.5-5.1) mmol/L POC Glucose (mg/dL) 270 H 163 H (70-110) mg/dL 06/30/22 Range/Units 07:23 Potassium (3.5-5.1) mmol/L POC Glucose (mg/dL) 244 H (70-110) mg/dL Assessment and Plan Plan: Assessment: 1. End-stage renal disease maintained on hemodialysis on Thursday schedule. 2. Status post fall. No acute fractures noted. 3. Hypertension with chronic kidney disease. Blood pressure better controlled. 4. Chronic kidney disease mineral bone disease maintained on Renvela. 5. Recent STD after encounter with prostitute. Unsure if this was treated or not. Also had diarrhea last month and stool culture was positive for Reema. Defer management to primary team. HIV negative. 6. Chronic systolic CHF with ejection fraction of 45-50% with moderate to severe mitral regurgitation and mild to moderate tricuspid regurgitation. 7. Coag-negative staph bacteremia. s/p antibiotics. ID following. 8. Hyperkalemia secondary to chronic kidney disease on lisinopril. Plan: Hemodialysis today. Dose of lisinopril decreased due to hyperkalemia. Renal diet. Stop torsemide and makes no urine. Awaits placement.
[2022-06-30 12:43] LABS: Glucose,Whole Blood 203 mg/dL (70-110)
[2022-06-30] MEDS: diphenhydrAMINE 50 MG/ML 1 ML VIAL IVP PRN (13:21)
[2022-06-30 13:40] LABS: African American GFR (CKD) 8 (>60 ml/min/1.73 sqM); Anion Gap 10 mmol/L; Blood Urea Nitrogen 63 mg/dL (9-20); Calcium 9.2 mg/dL (8.4-10.2); Carbon Dioxide 28 mmol/L (22-30); Chloride 101 mmol/L (98-107); Glucose 191 mg/dL (74-99); Non-African American GFR(CKD) 7 (>60 ml/min/1.73 sqM); Potassium 5.5 mmol/L (3.5-5.1); Sodium 139 mmol/L (137-145)
--- NOTE | 2022-06-30 14:15 | P.DS ---
Providers Date of admission: 06/17/22 07:49 Expected date of discharge: 06/30/22 Attending physician: Tavares Waterman MD Consults: 06/15/22 21:16 Consult Physician Urgent Consulting Provider: Francesco Jimenez Consult Reason/Comments: ESRD on dialysis - m,w,f Do you want consulting provider notified?: Yes 06/18/22 07:51 Consult Physician Routine Consulting Provider: Santos Randall Consult Reason/Comments: Positive blood cultures Do you want consulting provider notified?: Yes 06/26/22 10:22 Consult Physician Routine Consulting Provider: Koko Uriarte Consult Reason/Comments: facial abscess Do you want consulting provider notified?: Yes Primary care physician: [facility] Course: The patient is a 46-year-old male with an extensive PMH including type II DM, ESRD on hemodialysis Thursday/Thursday/Thursday, hypertension, hyperlipidemia who presents to the emergency room with complaints of right arm pain and numbness. The patient reports that throughout the day today, he feels that his legs have been giving out and that he had a fall earlier today as he attempted to stand up. Patient was reportedly kicked out of his sister's home for not taking care of himself. 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 The POA requested that the patient be placed at a facility due to inability to care for himself. CT of the brain showed no acute changes. Laboratory evaluation was reviewed with troponin 0.036 (baseline 0.1), WBC count 13.8, hemoglobin 10.9, BUN 76, creatinine 7.84, glucose 299, and proBNP 98,600. Chest x-ray revealed stable cardiomegaly. Nephrology was consulted to resume hemodialysis on a Thursday schedule. Patient was noted to be hypertensive and required titration of his blood pressure medication. Blood pressure was controlled on Clonidine, Hydralazine, Imdur, Labetalol, Lisinopril, Minoxidil, and Nifedipine. Initial blood cultures grew coagulase-negative staph. Patient was started on vancomycin. Infectious disease was consulted. Repeat blood culture was negative and antibiotics were discontinued. He was noted to have an abscess on his right cheek for which he was started on Clindamycin. ENT was consulted and recommended outpatient followup. PT and OT was consulted and recommended SNIF. Case management was on board. He is currently pending insurance authorization for [facility]. Patient seen and examined. No acute events overnight. Patient requesting double portions of food. He has no other complaints otherwise. Pertinent studies include Brain CT, Forearm XR, Hip/Pelvic XR, CXR, blood cultures. General: nontoxic, no distress, appears at stated age Derm: warm, dry Head: atraumatic, normocephalic, symmetric Eyes: right eye enucleated Mouth: no lip lesion, mucus membranes moist Cardiovascular: S1S2 reg, no murmur Lungs: CTA bilateral, no rhonchi, no rales , no accessory muscle use Abdominal: soft, nontender to palpation, no guarding, no appreciable organomegaly Ext: no gross muscle atrophy, no edema, no contractures Neuro: no focal neuro deficits Psych: Alert, oriented, appropriate affect Discharge diagnoses: Hypertension uncontrolled Coagulase-negative staph bacteremia Right cheek abscess Failure to thrive Homelessness ESRD on hemodialysis Recent STD exposure Patient will be discharged to [facility] with the following instructions: Follow up with your PCP within 2-3 days of discharge. Restart hemodialysis on a Thursdaydule. Take Clindamycin for 4 more days. This complex discharge took 37 minutes to complete. Patient Condition at Discharge: Stable Plan - Discharge Summary Discharge Rx Participant: No New Discharge Prescriptions: No Action Labetalol [Trandate] 400 mg PO TID Insulin NPH Hum/Reg Insulin Hm [humuLIN 70/30 Kwikpen] 8 unit SQ AC-TID NIFEdipine XL [Procardia XL] 90 mg PO DAILY #30 tab.er.24 Gabapentin [Neurontin] 300 mg PO TID Sevelamer [Renvela] 800 mg PO DAILY PRN PRN Reason: W/SNACK Sevelamer [Renvela] 1,600 mg PO TID-W/MEALS Renaplex-D 1 tab PO DAILY hydrALAZINE HCL [Apresoline] 100 mg PO TID Lidocaine-Prilocaine Cream [Emla Cream 2.5%/2.5%] 1 applic TOPICAL DAILY PRN PRN Reason: AVF SITE Isosorbide Mononitrate [Imdur] 120 mg PO DAILY HYDROcodone/APAP 10-325MG [Roundup 10-325] 1 tab PO QID PRN PRN Reason: Pain cloNIDine HCL [Catapres] 0.2 mg PO TID Doxycycline [Vibramycin] 100 mg PO DAILY #14 cap Discharge Medication List Insulin NPH Hum/Reg Insulin Hm [humuLIN 70/30 Kwikpen] 8 unit SQ AC-TID 11/27/14 [History] Labetalol [Trandate] 400 mg PO TID 11/27/14 [History] Isosorbide Mononitrate [Imdur] 120 mg PO DAILY 11/06/20 [History] Lidocaine-Prilocaine Cream [Emla Cream 2.5%/2.5%] 1 applic TOPICAL DAILY PRN 11/06/20 [History] NIFEdipine XL [Procardia XL] 90 mg PO DAILY #30 tab.er.24 11/09/20 [Rx] HYDROcodone/APAP 10-325MG [Roundup 10-325] 1 tab PO QID PRN 06/16/21 [History] Gabapentin [Neurontin] 300 mg PO TID 10/18/21 [History] cloNIDine HCL [Catapres] 0.2 mg PO TID 10/18/21 [History] Doxycycline [Vibramycin] 100 mg PO DAILY #14 cap 06/06/22 [Rx] Renaplex-D 1 tab PO DAILY 06/06/22 [History] Sevelamer [Renvela] 1,600 mg PO TID-W/MEALS 06/06/22 [History] Sevelamer [Renvela] 800 mg PO DAILY PRN 06/06/22 [History] hydrALAZINE HCL [Apresoline] 100 mg PO TID 06/06/22 [History] Follow up Appointment(s)/Referral(s): Koko Uriarte MD [STAFF PHYSICIAN] - 1 Week ( ofice visit for abcess to face. ) Luan Valdivia DO [Primary Care Provider] - 1-2 days
[2022-06-30] MEDS ORDERED: SODIUM ZIRCONIUM CYCLOSILICATE 10 GM PACKET PO ONE (14:23)
[2022-06-30 17:17] LABS: Glucose,Whole Blood 142 mg/dL (70-110)
[2022-06-30 20:25] LABS: Glucose,Whole Blood 305 mg/dL (70-110)
[2022-07-01] MEDS: HYDROcodone/APAP 10-325MG 1 EACH TAB PO PRN ×2 (04:33→10:35)
[2022-07-01] MEDS: hydrALAZINE HCL 20 MG/ML 1 ML VIAL IVP PRN (04:51)
[2022-07-01 04:59] VITALS: RESP 16
[2022-07-01 07:12] LABS: Glucose,Whole Blood 281 mg/dL (70-110)
[2022-07-01] MEDS: ISOSORBIDE MONONITRATE ER 60 MG TAB.ER.24H PO SCH (07:59)
[2022-07-01] MEDS: hydrALAZINE HCL 50 MG TAB PO SCH (07:59)
[2022-07-01] MEDS: cloNIDine HCL 0.2 MG TAB PO SCH (07:59)
[2022-07-01] MEDS: HEPARIN SODIUM,PORCINE/PF 5,000 UNIT/0.5 ML SYRINGE SQ SCH (07:59)
[2022-07-01] MEDS: GABAPENTIN 300 MG CAP PO SCH (08:00)
[2022-07-01] MEDS: minoxidiL 2.5 MG TAB PO SCH (08:00)
[2022-07-01] MEDS: SEVELAMER 800 MG TAB PO SCH (08:00)
[2022-07-01] MEDS: CLINDAMYCIN 150 MG CAP PO SCH (08:00)
[2022-07-01] MEDS: lisinopriL 20 MG TAB PO SCH (08:00)
[2022-07-01] MEDS: INSULIN ASPART (NovoLOG) 100 UNIT/ML VIAL SQ SCH ×2 (08:01→13:09)
[2022-07-01] MEDS: LABETALOL 200 MG TAB PO SCH (08:01)
[2022-07-01] MEDS: MUPIROCIN 2% OINT 22 GM TUBE TOPICAL SCH (08:02)
[2022-07-01 09:09] LABS: African American GFR (CKD) 9 (>60 ml/min/1.73 sqM); Anion Gap 11 mmol/L; Anisocytosis Slight; Blood Urea Nitrogen 44 mg/dL (9-20); Calcium 9.1 mg/dL (8.4-10.2); Carbon Dioxide 28 mmol/L (22-30); Chloride 102 mmol/L (98-107); Glucose 264 mg/dL (74-99); HCT 27.5 % (39.0-53.0); MCH 27.6 pg (25.0-35.0); MCHC 32.9 g/dL (31.0-37.0); MCV 83.7 fL (80.0-100.0); Mean Platelet Volume 9.4; Non-African American GFR(CKD) 8 (>60 ml/min/1.73 sqM); Platelet Count 191 k/uL (150-450); Potassium 5.4 mmol/L (3.5-5.1); RBC 3.28 m/uL (4.30-5.90); RDW 16.7 % (11.5-15.5); Sodium 141 mmol/L (137-145); WBC 6.5 k/uL (3.8-10.6)
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
[2022-07-01] MEDS ORDERED: SODIUM ZIRCONIUM CYCLOSILICATE 10 GM PACKET PO ONE (11:26)
[2022-07-01] MEDS ORDERED: DARBEPOETIN ALFA 40 MCG/0.4 ML SYRINGE SQ SCH (11:30)
[2022-07-01 11:39] LABS: Glucose,Whole Blood 158 mg/dL (70-110)
[2022-07-01 11:55] VITALS: BP 150/83; PULSE 79; TEMP 97.4
--- NOTE | 2022-07-01 14:34 | P.DS ---
Providers Date of admission: 06/17/22 07:49 Expected date of discharge: 07/01/22 Attending physician: Tavares Waterman MD Consults: 06/15/22 21:16 Consult Physician Urgent Consulting Provider: Francesco Jimenez Consult Reason/Comments: ESRD on dialysis - m,w,f Do you want consulting provider notified?: Yes 06/18/22 07:51 Consult Physician Routine Consulting Provider: Santos Randall Consult Reason/Comments: Positive blood cultures Do you want consulting provider notified?: Yes 06/26/22 10:22 Consult Physician Routine Consulting Provider: Koko Uriarte Consult Reason/Comments: facial abscess Do you want consulting provider notified?: Yes Primary care physician: [facility] Course: The patient is a 46-year-old male with an extensive PMH including type II DM, ESRD on hemodialysis Thursday/Thursday/Thursday, hypertension, hyperlipidemia who presents to the emergency room with complaints of right arm pain and numbness. The patient reports that throughout the day today, he feels that his legs have been giving out and that he had a fall earlier today as he attempted to stand up. Patient was reportedly kicked out of his sister's home for not taking care of himself. 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 The POA requested that the patient be placed at a facility due to inability to care for himself. CT of the brain showed no acute changes. Laboratory evaluation was reviewed with troponin 0.036 (baseline 0.1), WBC count 13.8, hemoglobin 10.9, BUN 76, creatinine 7.84, glucose 299, and proBNP 98,600. Chest x-ray revealed stable cardiomegaly. Nephrology was consulted to resume hemodialysis on a Thursday schedule. Patient was noted to be hypertensive and required titration of his blood pressure medication. Blood pressure was controlled on Clonidine, Hydralazine, Imdur, Labetalol, Lisinopril, Minoxidil, and Nifedipine. Initial blood cultures grew coagulase-negative staph. Patient was started on vancomycin. Infectious disease was consulted. Repeat blood culture was negative and antibiotics were discontinued. He was noted to have an abscess on his right cheek for which he was started on Clindamycin. ENT was consulted and recommended outpatient followup. PT and OT was consulted and recommended SNIF. Case management was on board. He is currently pending insurance authorization for [facility]. Patient seen and examined. No acute events overnight. He has no complaints. Pertinent studies include Brain CT, Forearm XR, Hip/Pelvic XR, CXR, blood cultures. General: nontoxic, no distress, appears at stated age Derm: warm, dry Head: atraumatic, normocephalic, symmetric Eyes: right eye enucleated Mouth: no lip lesion, mucus membranes moist Cardiovascular: S1S2 reg, no murmur Lungs: CTA bilateral, no rhonchi, no rales , no accessory muscle use Abdominal: soft, nontender to palpation, no guarding, no appreciable organomegaly Ext: no gross muscle atrophy, no edema, no contractures Neuro: no focal neuro deficits Psych: Alert, oriented, appropriate affect Discharge diagnoses: Hypertension uncontrolled Coagulase-negative staph bacteremia Right cheek abscess Failure to thrive Homelessness ESRD on hemodialysis Recent STD exposure Patient will be discharged to [facility] with the following instructions: Follow up with your PCP within 2-3 days of discharge. Restart hemodialysis on a Thursday schdule. Take Clindamycin for 4 more days. Take Lokelma for 7 days. This complex discharge took 37 minutes to complete. Patient Condition at Discharge: Stable Plan - Discharge Summary Discharge Rx Participant: No New Discharge Prescriptions: New Clindamycin [Cleocin] 600 mg PO TID 4 Days cap NIFEdipine XL [Procardia XL] 60 mg PO BID tab lisinopriL [Zestril] 20 mg PO DAILY tab cloNIDine HCL [Catapres] 0.3 mg PO TID tab Sodium Zirconium Cyclosilicate [Lokelma] 10 gm PO DAILY 7 Days packet Darbepoetin Benito [Aranesp] 40 mcg SQ Q7D each minoxidiL [Loniten] 2.5 mg PO BID tab Continue Labetalol [Trandate] 400 mg PO TID Insulin NPH Hum/Reg Insulin Hm [humuLIN 70/30 Kwikpen] 8 unit SQ AC-TID Sevelamer [Renvela] 800 mg PO DAILY PRN PRN Reason: W/SNACK Sevelamer [Renvela] 1,600 mg PO TID-W/MEALS Renaplex-D 1 tab PO DAILY hydrALAZINE HCL [Apresoline] 100 mg PO TID HYDROcodone/APAP 10-325MG [Muir 10-325] 1 tab PO QID PRN #12 tab PRN Reason: Pain Lidocaine-Prilocaine Cream [Emla Cream 2.5%/2.5%] 1 applic TOPICAL DAILY PRN PRN Reason: AVF SITE Isosorbide Mononitrate [Imdur] 120 mg PO DAILY Gabapentin [Neurontin] 300 mg PO TID #9 cap Discontinued NIFEdipine XL [Procardia XL] 90 mg PO DAILY #30 tab.er.24 cloNIDine HCL [Catapres] 0.2 mg PO TID Doxycycline [Vibramycin] 100 mg PO DAILY #14 cap Discharge Medication List Insulin NPH Hum/Reg Insulin Hm [humuLIN 70/30 Kwikpen] 8 unit SQ AC-TID 11/27/14 [History] Labetalol [Trandate] 400 mg PO TID 11/27/14 [History] Isosorbide Mononitrate [Imdur] 120 mg PO DAILY 11/06/20 [History] Lidocaine-Prilocaine Cream [Emla Cream 2.5%/2.5%] 1 applic TOPICAL DAILY PRN 11/06/20 [History] Renaplex-D 1 tab PO DAILY 06/06/22 [History] Sevelamer [Renvela] 1,600 mg PO TID-W/MEALS 06/06/22 [History] Sevelamer [Renvela] 800 mg PO DAILY PRN 06/06/22 [History] hydrALAZINE HCL [Apresoline] 100 mg PO TID 06/06/22 [History] Clindamycin [Cleocin] 600 mg PO TID 4 Days cap 06/30/22 [Rx] Gabapentin [Neurontin] 300 mg PO TID #9 cap 06/30/22 [Rx] HYDROcodone/APAP 10-325MG [Muir 10-325] 1 tab PO QID PRN #12 tab 06/30/22 [Rx] NIFEdipine XL [Procardia XL] 60 mg PO BID tab 06/30/22 [Rx] Sodium Zirconium Cyclosilicate [Lokelma] 10 gm PO DAILY 7 Days packet 06/30/22 [Rx] cloNIDine HCL [Catapres] 0.3 mg PO TID tab 06/30/22 [Rx] lisinopriL [Zestril] 20 mg PO DAILY tab 06/30/22 [Rx] Darbepoetin Benito [Aranesp] 40 mcg SQ Q7D each 07/01/22 [Rx] minoxidiL [Loniten] 2.5 mg PO BID tab 07/01/22 [Rx] Follow up Appointment(s)/Referral(s): Koko Uriarte MD [STAFF PHYSICIAN] - 1 Week ( ofice visit for abcess to face. ) Luan Valdivia DO [Primary Care Provider] - 1-2 days Activity/Diet/Wound Care/Special Instructions: Diet: Renal Patient will be discharged to [facility] with the following instructions: Follow up with your PCP within 2-3 days of discharge. Follow up with ENT Dr. Uriarte within 1 week of discharge. Restart hemodialysis on a Thursday schdule. Take Clindamycin for 4 more days. Continue Lokelma for 7 days for treatment of hyperkalemia. Discharge Disposition: TRANSFER TO SNF/ECF
[2022-07-01 20:00] LABS: % Iron Saturation 39.41 (15.00-50.00)
[2022-07-01] MEDS ORDERED: minoxidiL 2.5 MG TAB PO SCH (21:00)
--- NOTE | 2022-07-04 10:43 | CDI ---
Documentation Clarification Form Date: 07/04/2022 10:27:10 AM From: Shannan Bennett Phone: Admit Date: 06/17/2022 07:49:00 AM Patient Name: Pete Ngo Visit Number: [id number] Discharge Date: 07/01/2022 02:30:00 PM ATTENTION: The Clinical Documentation Specialists (CDI) and [facility] Coding Staff appreciate your assistance in clarifying documentation. Please respond to the clarification below the line at the bottom and electronically sign. The CDI & [facility] Coding staff will review the response and follow-up if needed. Please note: Queries are made part of the Legal Health Record. If you have any questions, please contact the author of this message via ITS. Dr. Apollo Solis Your patient has the documented symptom of Leukocytosis, coag neg staph bacteremia, and Failure to thrive. Additional clarification regarding the etiology/cause of this symptom is requested. Patient history/risk factors: 46yo M, FTT, Leukocytosis, IDDM II, ESRD on HD, homeless, folliculitis barbae, Recent STD exposure Clinical Indicators: Labs: coag neg staph Patient seen and examined. No acute events overnight. Patient requesting double portions of food. He has no other complaints otherwise. Medication: On antibiotics Please provide additional clarification regarding the etiology/cause of the: Failure to thrive [ ] Failure to thrive is due to coag neg staph bacteremia [ ] Failure to thrive due to End-stage renal disease [ ] Other, please specify [ ] Unable to determine (Template Last Revised: September 2020) Failure to thrive due to End-stage renal disease MTDD
== END 2022-07-01 14:30 | DRG 291 ==
LOC: EC 18:57 → 6NMEDSUR 21:16 → OBSVTOIN 06-17 07:49 → 5NMEDONC 06-18 00:34
PROVIDERS: ADMIT Internal Medicine; ATTEND Internal Medicine
PROC: 5A1D70Z Performance of Urinary Filtration, Intermittent, Less than 6 Hours Per Day (ICD-10-PCS; principal; 2022-06-16)
DX: I13.2 Hypertensive heart and chronic kidney disease with heart failure and with stage 5 chronic kidney disease, or end stage renal disease (principal); N18.6 End stage renal disease; R78.81 Bacteremia; L02.01 Cutaneous abscess of face; I50.22 Chronic systolic (congestive) heart failure; R62.7 Adult failure to thrive; D72.829 Elevated white blood cell count, unspecified; E11.22 Type 2 diabetes mellitus with diabetic chronic kidney disease; K72.10 Chronic hepatic failure without coma; D63.1 Anemia in chronic kidney disease; I08.1 Rheumatic disorders of both mitral and tricuspid valves; J45.909 Unspecified asthma, uncomplicated; E78.5 Hyperlipidemia, unspecified; W19.XXXA Unspecified fall, initial encounter; M89.8X9 Other specified disorders of bone, unspecified site; Z20.2 Contact with and (suspected) exposure to infections with a predominantly sexual mode of transmission; B37.2 Candidiasis of skin and nail; L72.3 Sebaceous cyst; E87.5 Hyperkalemia; L73.8 Other specified follicular disorders; Z74.2 Need for assistance at home and no other household member able to render care; B95.7 Other staphylococcus as the cause of diseases classified elsewhere; Z68.20 Body mass index [BMI] 20.0-20.9, adult; Z28.311 Partially vaccinated for COVID-19; Z87.891 Personal history of nicotine dependence; Z99.2 Dependence on renal dialysis; Z79.4 Long term (current) use of insulin; Z79.899 Other long term (current) drug therapy; Z90.01 Acquired absence of eye; Z87.828 Personal history of other (healed) physical injury and trauma; Z91.81 History of falling; Z59.00 Homelessness unspecified
CPT/HCPCS: 36415; 70450; 71046; 73502; 80048; 80053; 80074; 80202; 82728; 83540; 83550; 83880; 84132; 84145; 84484; 85025; 85027; 85652; 86140; 87040; 87070; 87075; 87205; 87390; 87491; 87591; 87635; 90935; 99285